=== PATIENT | male | born 1950 | race Caucasian/White ===

== ENCOUNTER 2016-11-01 14:18 | Inpatient (IN) | payer OTHER ==
[~2016-11-01] VITALS: Ht 190.5 cm; Wt 91.6 kg
[~2016-11-01 14:18] MED LIST: ALLOPURINOL300 MG PO; ASPIRIN81 M4 PO; BUPROPION HCL150 M2 PO; CALCIUM + D 6001 TAB PO; GERITOL COMPLET1 TA1 PO; HYDRODIURIL 2525 MG PO; K-DUR 20MEQ TA20 MEQ PO; MECLIZINE HCL25 MG PO; METOPROLOL SUC100 M1 PO; NEURONTIN300 MG PO; PRISTIQ100 MG PO; TOPROL XL50 M1 PO; ZINC50 M1 PO; [UNRECOGNIZED DRUG - OTHER] PO
--- NOTE | 2016-11-01 14:34 | ED GENERAL ADULT ---
History of Present Illness General Chief Complaint: Altered Mental Status Stated Complaint: AMS Source: family, EMS Exam Limitations: confusion, physical impairment Vital Signs & Intake/Output Vital Signs & Intake/Output Vital Signs Date Time Temp Pulse Resp B/P Pulse O2 O2 Flow FiO2 Ox Delivery Rate 11/01 1724 101.3 79 21 103/66 98 Nasal 2.0L Cannula 11/01 1604 101.9 97 18 101/60 98 Nasal 2.0L Cannula 11/01 1535 1105.0 11/01 1530 103.9 97 23 106/58 99 Nasal 2.0L Cannula 11/01 1500 105.0 98 25 116/61 99 Nasal 2.0L Cannula 11/01 1450 105.4 11/01 1430 96 Room Air 11/01 1429 105.0 121 16 82/47 94 Allergies Coded Allergies: NO KNOWN ALLERGIES (12/29/15) Reconcile Medications Allopurinol 300 MG TAB 1 TAB PO DAILY GOUT (Reported) BUPROPION HCL (Bupropion XL) 150 MG T24 1 TAB PO TID MENTAL HEALTH (Reported) Calcium/Vitamin D (Calcium + D) (Unknown Strength) TAB (Unknown Dose) PO BID SUPPLEMENT (Reported) Desvenlafaxine Succinate (Pristiq ER) [address] 1 TAB PO DAILY MENTAL HEALTH (Reported) Gabapentin (Neurontin) 300 MG CAP 1 CAP PO TID NERVE PAIN (Reported) IRON FUMARATE/VIT C/VIT B12/FA (Trigels-F Forte Softgel) 1 SGL SGL 1 SGL PO BID SUPPLEMENT (Reported) Metoprolol Succ XL (Toprol Xl) 50 MG TAB 0.5 TAB PO DAILY HTN MV, MIN #36/IRON,CARBONYL/FA (Geritol Complete Tablet) 1 TAB TAB 1 TAB PO DAILY SUPPLEMENT (Reported) POTASSIUM CHLORIDE (K-Dur) 20 MEQ TAB 1 TAB PO DAILY SUPPLEMENT (Reported) Zinc 50 MG TAB 1 TAB PO DAILY SUPPLEMENT (Reported) Triage Nurses Notes Reviewed? yes Onset: Abrupt Duration: day(s): Timing: recent history HPI: Patient seen on arrival 66-year-old man presents to the emergency department by ambulance for septic shock. The patient was apparently in his usual state of health until the last several days when he developed left-sided flank pain. He's also had right sided lower abdominal pain according to the . He has a history of kidney stones and has had hematuria recently. She says he has uric acid stones. Now this morning he's been confused. EMS was called and he was found to be profoundly hypotensive and had a fever of 105. The onset of the symptoms were abrupt, the duration has been several days, the severity significant; as this symptoms required him to come to the emergency department for care. Past History Medical History Any Pertinent Medical History? 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 No Review of Systems Review of Systems Constitutional: Reports: fever. EENTM: Denies: visual changes. Respiratory: Reports: no symptoms. Cardiovascular: Denies: chest pain. GI: Reports: abdominal pain, nausea. Genitourinary: Reports: hematuria. Musculoskeletal: Reports: back pain. Skin: Denies: rash. Neurological/Psychological: Reports: confusion. Hematologic/Endocrine: Denies: bruising, bleeding. Physical Exam Physical Exam General Appearance: awake, anxious, severe distress Head: atraumatic, normal appearance Eyes: Bilateral: normal appearance, PERRL, EOMI. Ears, Nose, Throat: normal pharynx, normal ENT inspection Neck: normal inspection, supple Respiratory: normal breath sounds, chest non-tender Cardiovascular: regular rate/rhythm Peripheral Pulses: 4+ radial (R), 4+ radial (L) Gastrointestinal: soft, non-tender, tenderness Back: decreased range of motion Extremities: no edema Neurologic/Psych: confused Skin: intact, palor Core Measures ACS in differential dx? No CVA/TIA Diagnosis: No Severe Sepsis Present: Yes Septic Shock Present: No Progress Differential Diagnoses I considered the following diagnoses in my evaluation of the patient: [Urosepsis , septic shock,] Plan of Care: Orders Procedure Date/time Status Heart Healthy Diet 11/02 B Active CBC WITHOUT DIFFERENTIAL 11/02 06 Active BASIC ELECTROLYTES PLUS BUN&CR 01/29 0600 Active LACTIC ACID 11/01 2330 Active LACTIC ACID 11/01 2030 Active Pathway - chart 11/01 1807 Active Pathway - chart 11/01 1806 Active Patient Data 11/01 1806 Active LACTIC ACID 11/01 1739 Complete EKG 11/01 1712 Active Patient Data 11/01 1655 Active Admit to inpatient 11/01 1636 Active Vital Signs 11/01 1636 Active Code Status 11/01 1636 Active Sanchez, Insertion/Removal/Asses 11/01 1441 Active CULTURE,URINE 11/01 1441 Active OXYGEN SETUP (GEN) 11/01 1439 Active XRY-PORTABLE CHEST XRAY 11/01 1439 Active Pathway - chart 11/01 1439 Active Vital Signs 11/01 1439 Active Telemetry/Dynamometer Tester Engine 11/01 1439 Active Intake & Output 11/01 1439 Active CULTURE,URINE 11/01 1439 Active BLOOD CULTURE 11/01 1439 Active URINALYSIS 11/01 1439 Complete TROPONIN LEVEL 11/01 1439 Complete PARTIAL THROMBOPLASTIN TIME 11/01 1439 Complete PROTHROMBIN TIME 11/01 1439 Complete PHOSPHORUS 11/01 1439 Complete MAGNESIUM 11/01 1439 Complete LACTIC ACID 11/01 1439 Complete COMPREHENSIVE METABOLIC PANEL 11/01 1439 Complete CBC WITHOUT DIFFERENTIAL 11/01 1439 Complete B-TYPE NATRIURETIC PEP (BNP) 11/01 1439 Complete EKG 11/01 1433 Active XRY-KIDNEYS, URETERS, BLADDER 11/01 UNK Active VTE Mechanical Prophylaxis 11/01 UNK Active Intake & Output 11/01 UNK Active PHYSICIAN CONSULT 11/01 UNK Active Current Medications Sig/Monica Start time Last Medication Dose Stop Time Status Admin Ceftriaxone Sodium 1,000 MG DAILY@1600 11/02 1600 AC (Rocephin) Non-Formulary 0 DAILY 11/02 1000 UNV Medication (NON FORMULARY) Potassium Chloride 20 MEQ DAILY 11/02 1000 AC (K-Dur) Bupropion HCl 150 MG DAILY 11/01 2200 AC (Wellbutrin XL) Gabapentin 300 MG BID 11/01 2200 AC (Neurontin) Heparin Sodium 5,000 UNIT Q8 11/01 2200 AC (Porcine) Acetaminophen 650 MG Q8P PRN 11/01 1815 AC (Tylenol) Acetaminophen 1,000 MG Q8P PRN 11/01 1815 AC (Ofirmev) Desvenlafaxine 100 MG DAILY 11/01 1800 AC Succinate (Pristiq) Non-Formulary 0 SEE ADMIN CRITERIA 11/01 1800 UNVr Medication (NON FORMULARY) Laboratory Tests 11/01/16 1739: Lactic Acid 2.4 H 11/01/16 1430: Anion Gap 12, Estimated GFR 29 L, BUN/Creatinine Ratio 12.2, Glucose 101 H, Lactic Acid 2.1, Calcium 8.3 L, Phosphorus 2.5, Magnesium 1.4 L, Total Bilirubin 0.6, AST 18, ALT 31, Alkaline Phosphatase 111, Troponin I 0.02, Pro-B- Natriuretic Pept 534 H, Total Protein 6.0 L, Albumin 3.3 L, Globulin 2.7, Albumin/Globulin Ratio 1.2, PT 12.6 H, INR 1.20 H, APTT 27, CBC w Diff MAN DIFF ORDERED, RBC 4.20 L, MCV 94.0, MCH 31.2 H, RDW 16.1 H, MPV 6.9 L, Gran % 95.0 H, Lymphocytes % 3.3 L, Monocytes % 0.8 L, Eosinophils % 0.9, Basophils % 0 L, Absolute Granulocytes 3.3, Segmented Neutrophils 90 H, Band Neutrophils 7 H, Absolute Lymphocytes 0.1 L, Lymphocytes 2 L, Monocytes 1 L, Absolute Monocytes 0 L, Absolute Eosinophils 0, Absolute Basophils 0, Platelet Estimate DECREASED, Polychromasia 1+, Hypochromic-Microcytic 1+, Anisocytosis 1+ , PUBS MCHC 33.2 11/01/16 1420: Urine Color YEL, Urine Clarity CLEAR, Urine pH 6.0, Ur Specific [place] 1.020, Urine Protein TRACE H, Urine Ketones NEG, Urine Nitrite POS H, Urine Bilirubin NEG, Urine Urobilinogen 0.2, Ur Leukocyte Esterase SMALL H, Ur Microscopic SEDIMENT EXAMINED, Urine RBC >75 H, Urine WBC RARE, Ur Epithelial Cells RARE, Urine Mucus RARE, Urine Hemoglobin LARGE H, Urine Glucose NEG Microbiology 11/01 1450 BLOOD: Blood Culture - RECD 11/01 1441 URINE ROUT: Urine Culture - ORD 11/01 1430 BLOOD: Blood Culture - RECD 11/01 1420 URINE ROUT: Urine Culture - RECD Initial ED EKG: NSR, nonspecific ST T wave chg Prior EKG: unchanged Comments: 11/01/16 The patient was treated with 4 L of IV fluids. IV antibiotics. Emergent urology consultation. The patient was taken to the operating room for emergent stenting. Departure Departure Disposition: STILL A PATIENT Condition: Stable Clinical Impression Primary Impression: Pyelonephritis Referrals: ROSA DUMONT,YOGESH Dumont (PCP/Family) Departure Forms: Customer Survey General Discharge Information Prescriptions: Current Visit Scripts Metoprolol Succ XL (Toprol Xl) 0.5 TAB PO DAILY #30 TAB Comments 11/01/16 5 PM Spoke with the urologist. He will be taking the patient to the OR for stenting. Admission Note Spoke With: BHASKAR GUADALUPE MD Documentation of Exam: Documentation of any treatments & extenuating circumstances including Concerns Regarding Discharge (functional status, medication knowledge or non-compliance, living conditions, etc.) that warrant an admission rather than observation: [The patient needs admission for IV antibiotics, IV fluids, urology consultation] Critical Care Note Critical Care Note Critical Care Time: 30-74 min
[2016-11-01 15:01] LABS: ABSOLUTE BASOPHIL COUNT 0 /CUMM (0.0-0.2); ABSOLUTE EOSINOPHIL COUNT 0 /CUMM (0.0-0.7); ABSOLUTE GRANULOCYTE CT 3.3 /CUMM (1.4-6.5); ABSOLUTE LYMPH COUNT 0.1 /CUMM (1.2-3.4); ABSOLUTE MONOCYTE COUNT 0 /CUMM (0.10-0.60); BASOPHIL % 0 % (0.0-2.0); EOSINOPHIL % 0.9 % (0-5); HEMATOCRIT 39.5 % (42-52); MEAN CORPUSCULAR HGB 31.2 PG (27.0-31.0); MEAN CORPUSCULAR HGB CONC 33.2 G/DL (33.0-37.0); MEAN PLATELET VOLUME 6.9 FL (7.4-10.4); PLATELET COUNT 135 /CUMM (130-400); RBC DISTRIBUTION WIDTH 16.1 % (11.5-14.5); WHITE BLOOD CELL COUNT 3.5 /CUMM (4.8-10.8)
[2016-11-01 15:09] LABS: PT 12.6 SEC (9.4-12.5); PTT 27 SEC (25-37)
--- NOTE | 2016-11-01 16:08 | CT SCAN REPORT ---
EXAMINATION: CT ABDOMEN AND PELVIS WITHOUT CONTRAST CLINICAL INFORMATION: Abdominal pain, sepsis. COMPARISON: Multiple priors, most recent abdominal radiographs dated 08/31/[address] abdomen/pelvis dated 08/29/2016. TECHNIQUE: Multidetector volumetric imaging was performed from the superior aspect of the liver through the pubic symphysis. Sagittal and coronal reformatted images were obtained on the technologist's workstation. DLP: 819.28 mGy-cm. FINDINGS: Evaluation of the abdominal viscera is limited without IV contrast. LUNG BASES: A partially visualized 1.6 cm soft tissue nodule is seen within the right middle lobe on series 3 image 7. A dedicated chest CT is recommended to help further evaluate. There are mild bilateral dependent atelectatic changes. Atherosclerotic calcifications are seen within the coronary arteries. LIVER, GALLBLADDER, AND BILIARY TREE: The liver is normal in size, shape, and attenuation. No focal hepatic lesion or biliary ductal dilatation is present. The gallbladder is surgically absent and there are surgical clips within the gallbladder fossa. PANCREAS: Unremarkable. SPLEEN: Unremarkable. ADRENAL GLANDS: Unremarkable. KIDNEYS AND URETERS: The kidneys are normal in size, shape, and attenuation. There is increased right-sided proximal hydroureter and hydronephrosis. The previously identified renal pelvic stone is more prominent, now measuring 1.5 cm. An additional inferior pole renal stone is also more prominent, now measuring 0.7 cm. There is new right-sided perinephric stranding. There is no left-sided hydronephrosis. A 0.2 cm left inferior renal pole stone is now identified. There is new left-sided perinephric stranding. BLADDER: Mild wall thickening, likely secondary to underdistention. GASTROINTESTINAL TRACT: Surgical sutures associated with the prior bariatric surgery are redemonstrated. There is no large- or small-bowel obstruction. There is no intra-abdominal free air or free fluid. No intra-abdominal abscess is identified. The appendix is normal. ABDOMINAL WALL: No significant hernia is appreciated. LYMPH NODES: Evaluation is limited without IV contrast. There are scattered subcentimeter retroperitoneal nodes. VASCULAR: Diffuse atherosclerotic calcifications are seen throughout the abdominal aorta and its branch vessels. There is no abdominal aortic dilatation. An IVC filter is redemonstrated in unchanged position. PELVIC VISCERA: Faint calcifications are redemonstrated within the central prostate. OSSEOUS STRUCTURES: Joint space narrowing and extensive subchondral cystic change is again noted at the right hip. Posterior fusion hardware and disc spacers are redemonstrated at L3 through L5. There are degenerative changes within the visualized lower thoracic and lumbar spine. IMPRESSION: 1. Increased right-sided proximal hydroureter and hydronephrosis. Increased prominence of 2 right-sided renal stones. No left-sided hydronephrosis. Left lower pole renal stone, new since the prior examination. Bilateral perinephric stranding, new since the prior examination. Evaluation is limited without IV contrast, however, pyelonephritis could be considered in the appropriate clinical setting. 2. Postsurgical changes associated with prior bariatric surgery. No large- or small-bowel obstruction. 3. Unchanged lower lumbar spine postsurgical changes and severe right hip osteoarthritis.
[2016-11-01] MEDS ORDERED: TOPROL XL50 M1 PO (17:32)
--- NOTE | 2016-11-01 17:45 | History & Physical ---
MIMI RDZ MD 11/01/16 9004: General Information and HPI MD Statement: I have seen and personally examined XAVIER FOSS and documented this H &P. The patient is a 66 year old M who presented with a patient stated chief complaint of weakness and fever. Source of Information: patient, family, old records Exam Limitations: no limitations History of Present Illness: Mr. Foss is a pleasant 66 year old male with PMH significant for HTN, HLD, CKD stage 3, gastric bypass, hypokalemia, polysubstance abuse, chronic back pain, vertigo, gout and anxiety/depression who was brought in to the [facility] due to altered mental status. Patient reports that for the last 6 weeks, he has had chronic diarrhea for which he saw his PCP and was given flagyl. Symptoms persistent after treatment and resulted in an 18 pound weight loss. On Thursday, he took timothy-seltzer and since that time has been constipated ( last BM on 10/29/16). Then patient noted that over the last few days, he has been increasingly lethargic with decreased appetite and associated abdominal pain. This abdominal pain is constant, located in the belt region, and does not move. The pain worsens with movement of his bilateral lower extremities. Associated symptoms include left-sided flank pain, right sided lower abdominal pain, 1 episode of slight hematuria and chills. This morning, his noticed that he was confused and unable to recall the date/time. She then took his temperature and noted a fever to 100.5 for which she transported him to the emergency room. Patient currently denies dizziness, chest pain, palpitions, shortness of breath, wheezing, nausea, vomiting, dysuria, pain on urination, foul smelling urine, urinary frequency, change in bowel movements or hematochezia. PSH is significant for L4-L6 fusion and prior gastric bypass. Family history is significant for a father who had a myocardial infarction. Of note, patient reports he was recently seen by Dr. Guerrier who performed a stress test and the results were normal. He was also previously seen by Dr. Mart for kidney stones and no urological intervention was done at that time. Social history is significant for prior polysubstance abuse, for which he currently denies alcohol , drug or tobacco usage. Patient also follows up with Dr. Castillo for his chronic kidney disease. Allergies/Medications Allergies: Coded Allergies: NO KNOWN ALLERGIES (12/29/15) Home Med list Allopurinol 300 MG TAB 1 TAB PO DAILY GOUT (Reported) BUPROPION HCL (Bupropion XL) 150 MG T24 1 TAB PO TID MENTAL HEALTH (Reported) Calcium/Vitamin D (Calcium + D) (Unknown Strength) TAB (Unknown Dose) PO BID SUPPLEMENT (Reported) Desvenlafaxine Succinate (Pristiq ER) [address] 1 TAB PO DAILY MENTAL HEALTH (Reported) Gabapentin (Neurontin) 300 MG CAP 1 CAP PO TID NERVE PAIN (Reported) IRON FUMARATE/VIT C/VIT B12/FA (Trigels-F Forte Softgel) 1 SGL SGL 1 SGL PO BID SUPPLEMENT (Reported) Metoprolol Succ XL (Toprol Xl) 50 MG TAB 0.5 TAB PO DAILY HTN MV, MIN #36/IRON,CARBONYL/FA (Geritol Complete Tablet) 1 TAB TAB 1 TAB PO DAILY SUPPLEMENT (Reported) POTASSIUM CHLORIDE (K-Dur) 20 MEQ TAB 1 TAB PO DAILY SUPPLEMENT (Reported) Zinc 50 MG TAB 1 TAB PO DAILY SUPPLEMENT (Reported) Compliance With Home Meds: GOOD Past History Travel History Traveled to [place] past 21 day No Medical History Neurological: NONE EENT: NONE Cardiovascular: hypertension Respiratory: NONE Gastrointestinal: GASTRIC BYPASS Hepatic: NONE Renal: chronic kidney disease, nephrolithiasis Musculoskeletal: BACK PAIN Psychiatric: anxiety, depression Endocrine: NONE Blood Disorders: NONE Cancer(s): NONE SHOE MAKER/Reproductive: NONE History of MRSA: No History of VRE: No History of CDIFF: No Surgical History Surgical History: BACK FUSION OF L4-6 Past Family/Social History Family History Relations & Conditions if any FATHER Myocardial infarction Psychosocial History Where do you live? Home Who Do You Live With? spouse Services at Home: None Primary Language: Turkmen Smoking Status: Former Smoker ETOH Use: denies use Illicit Drug Use: denies illicit drug use Functional Ability ADLs Independent: dressing, eating, toileting, bathing. Ambulation: independent IADLs Independent: shopping, housework, finances, food prep, telephone, transportation , medication admin. Sexual History Sexually Active Yes Review of Systems Review of Systems Constitutional: Reports: chills, fever, malaise, weakness, unexplained weight loss. Denies: diaphoresis. EENTM: Denies: blurred vision, visual changes, hearing changes, nasal congestion, throat pain. Cardiovascular: Denies: chest pain, palpitations, peripheral edema, syncope. Respiratory: Denies: cough, short of breath, sputum production, wheezing. GI: Reports: abdominal pain, constipation, diarrhea. Denies: melena, nausea, bloody stool, vomiting. Genitourinary: Denies: discharge, dysuria, frequency, hematuria, pain, urgency. Musculoskeletal: Reports: back pain (Chronic), gout (History of, no recent flares), joint pain ( Bilateral hips), muscle pain. Skin: Denies: dryness, erythema, lesions. Neurological/Psychological: Reports: anxiety, confusion. Denies: headache, numbness, paresthesia, tremors. Hematologic/Endocrine: Denies: bruising, bleeding, polyuria, polydipsia. Immunologic/Allergic: Denies: splenectomy. All Other Systems: Reviewed and Negative Exam & Diagnostic Data Last 24 Hrs of Vital Signs/I&O Vital Signs Date Time Temp Pulse Resp B/P Pulse O2 O2 Flow FiO2 Ox Delivery Rate 11/01 1724 101.3 79 21 103/66 98 Nasal 2.0L Cannula 11/01 1604 101.9 97 18 101/60 98 Nasal 2.0L Cannula 11/01 1535 1105.0 11/01 1530 103.9 97 23 106/58 99 Nasal 2.0L Cannula 11/01 1500 105.0 98 25 116/61 99 Nasal 2.0L Cannula 11/01 1450 105.4 11/01 1430 96 Room Air 11/01 1429 105.0 121 16 82/47 94 Intake & Output 11/01 1600 11/01 0800 11/01 0000 Intake Total 3100 Output Total 100 Balance 3000 Intake, IV 3100 Output, Urine 100 Patient 220 lb Weight Physical Exam General Appearance Alert, Oriented X3, Cooperative, No Acute Distress Skin No Rashes, No Significant Lesion HEENT Atraumatic, PERRLA, EOMI, Dry mucous membranes Neck Supple, No JVD, No thryomegaly Lymphatic Cervical nl Cardiovascular Regular Rate, Normal S1, Normal S2, No Murmurs Lungs Clear to Auscultation, Normal Air Movement Abdomen Normal Bowel Sounds, No Hepatospenomegaly, No Masses, Mild tenderness of palpation to RLQ, suprapubic and LLQ. No epigastric, RUQ or LUQ tenderness. No rebound or guarding. No CVA tenderness appreciated. Neurological Normal Speech, Normal Tone, Sensation Intact Extremities No Clubbing, No Cyanosis, No Edema, No Tenderness/Swelling Vascular Normal capillary refill Last 24 Hrs of Labs/Artur: Laboratory Tests 11/01/16 1739: Lactic Acid Pending 11/01/16 1430: Anion Gap 12, Estimated GFR 29 L, BUN/Creatinine Ratio 12.2, Glucose 101 H, Lactic Acid 2.1, Calcium 8.3 L, Phosphorus 2.5, Magnesium 1.4 L, Total Bilirubin 0.6, AST 18, ALT 31, Alkaline Phosphatase 111, Troponin I 0.02, Pro-B- Natriuretic Pept 534 H, Total Protein 6.0 L, Albumin 3.3 L, Globulin 2.7, Albumin/Globulin Ratio 1.2, PT 12.6 H, INR 1.20 H, APTT 27, CBC w Diff MAN DIFF ORDERED, RBC 4.20 L, MCV 94.0, MCH 31.2 H, RDW 16.1 H, MPV 6.9 L, Gran % 95.0 H, Lymphocytes % 3.3 L, Monocytes % 0.8 L, Eosinophils % 0.9, Basophils % 0 L, Absolute Granulocytes 3.3, Segmented Neutrophils 90 H, Band Neutrophils 7 H, Absolute Lymphocytes 0.1 L, Lymphocytes 2 L, Monocytes 1 L, Absolute Monocytes 0 L, Absolute Eosinophils 0, Absolute Basophils 0, Platelet Estimate DECREASED, Polychromasia 1+, Hypochromic-Microcytic 1+, Anisocytosis 1+ , PUBS MCHC 33.2 11/01/16 1420: Urine Color YEL, Urine Clarity CLEAR, Urine pH 6.0, Ur Specific [place] 1.020, Urine Protein TRACE H, Urine Ketones NEG, Urine Nitrite POS H, Urine Bilirubin NEG, Urine Urobilinogen 0.2, Ur Leukocyte Esterase SMALL H, Ur Microscopic SEDIMENT EXAMINED, Urine RBC >75 H, Urine WBC RARE, Ur Epithelial Cells RARE, Urine Mucus RARE, Urine Hemoglobin LARGE H, Urine Glucose NEG Microbiology 11/01 1450 BLOOD: Blood Culture - RECD 11/01 1441 URINE ROUT: Urine Culture - ORD 11/01 1430 BLOOD: Blood Culture - RECD 11/01 1420 URINE ROUT: Urine Culture - RECD Diagnostic Data EKG Results Sinus tachycardia, HR 117, Qwaves in leads 2, 3, aVF (old) and QTC 447. CXR Results Addendum: Additional to the listed impressions, the following should be included: 4. Soft tissue nodule within the right middle lobe measuring 1.[address] is recommended to help further evaluate. Addendum Signed by: EVER MILAN MD 11/01/16 2525 EXAMINATION: CT ABDOMEN AND PELVIS WITHOUT CONTRAST CLINICAL INFORMATION: Abdominal pain, sepsis. COMPARISON: Multiple priors, most recent abdominal radiographs dated 08/31/[address] abdomen/pelvis dated 08/29/2016. TECHNIQUE: Multidetector volumetric imaging was performed from the superior aspect of the liver through the pubic symphysis. Sagittal and coronal reformatted images were obtained on the technologist's workstation. DLP: 819.28 mGy-cm. FINDINGS: Evaluation of the abdominal viscera is limited without IV contrast. LUNG BASES: A partially visualized 1.6 cm soft tissue nodule is seen within the right middle lobe on series 3 image 7. A dedicated chest CT is recommended to help further evaluate. There are mild bilateral dependent atelectatic changes. Atherosclerotic calcifications are seen within the coronary arteries. LIVER, GALLBLADDER, AND BILIARY TREE: The liver is normal in size, shape, and attenuation. No focal hepatic lesion or biliary ductal dilatation is present. The gallbladder is surgically absent and there are surgical clips within the gallbladder fossa. PANCREAS: Unremarkable. SPLEEN: Unremarkable. ADRENAL GLANDS: Unremarkable. KIDNEYS AND URETERS: The kidneys are normal in size, shape, and attenuation. There is increased right-sided proximal hydroureter and hydronephrosis. The previously identified renal pelvic stone is more prominent, now measuring 1.5 cm. An additional inferior pole renal stone is also more prominent, now measuring 0.7 cm. There is new right-sided perinephric stranding. There is no left-sided hydronephrosis. A 0.2 cm left inferior renal pole stone is now identified. There is new left-sided perinephric stranding. BLADDER: Mild wall thickening, likely secondary to underdistention. GASTROINTESTINAL TRACT: Surgical sutures associated with the prior bariatric surgery are redemonstrated. There is no large- or small-bowel obstruction. There is no intra-abdominal free air or free fluid. No intra-abdominal abscess is identified. The appendix is normal. ABDOMINAL WALL: No significant hernia is appreciated. LYMPH NODES: Evaluation is limited without IV contrast. There are scattered subcentimeter retroperitoneal nodes. VASCULAR: Diffuse atherosclerotic calcifications are seen throughout the abdominal aorta and its branch vessels. There is no abdominal aortic dilatation. An IVC filter is redemonstrated in unchanged position. PELVIC VISCERA: Faint calcifications are redemonstrated within the central prostate. OSSEOUS STRUCTURES: Joint space narrowing and extensive subchondral cystic change is again noted at the right hip. Posterior fusion hardware and disc spacers are redemonstrated at L3 through L5. There are degenerative changes within the visualized lower thoracic and lumbar spine. IMPRESSION: 1. Increased right-sided proximal hydroureter and hydronephrosis. Increased prominence of 2 right-sided renal stones. No left-sided hydronephrosis. Left lower pole renal stone, new since the prior examination. Bilateral perinephric stranding, new since the prior examination. Evaluation is limited without IV contrast, however, pyelonephritis could be considered in the appropriate clinical setting. 2. Postsurgical changes associated with prior bariatric surgery. No large- or small-bowel obstruction. 3. Unchanged lower lumbar spine postsurgical changes and severe right hip osteoarthritis. Assessment/Plan Assessment: Xavier is a pleasant 66 year old male with significant PMH of HTN, HLD, vertigo, chronic back pain, polysubtance abuse, nephrolithiasis, CKD stage 3, gastric bypass, hypokalemia, gout and anxiety/depression who presents with a 2 day history of lethargy, confusion, fever to 105, chills and bilateral lower quadrant pain. This morning, his noticed that he was extremely confused and shaking from severe chills. She subsequently took his temperature and noted a fever to 105, prompting her to call EMS. In the ED: Vital signs showed T 105.0, HR 121, RR 25, BP 82/47 stabilized to 103 /66 after liter boluses of NS, and O2 saturation of 94% on 2 L NC. Labs showed leukopenia to 3.5 with 7 bands, H&H 13.1/39.5, Plt 135, Na 141, K 3.4, Cl 111, HCO3 17, BUN/cre 28/2.3, glu 101, lactic acid 2.1, Mg 1.4, AST/ALT WNL, Alk phos 111, Trop 0.02, proBNP 534 and INR elevated to 1.2. UA suggestive of UTI with + nitrite, small leuk esterase, RBC >[address] abdomen/pelvis without IV contrast showed increased right-sided proximal hydroureter and hydronephrosis. Increased prominence of 2 right-sided renal stones. No left-sided hydronephrosis. Left lower pole renal stone, new since the prior examination. Bilateral perinephric stranding. Soft tissue nodule within the right middle lobe measuring 1.6 cm. In the ED: Patient given 6 NS liter boluses as well as ceftriaxone and azithromycin as well as IV toradol and IV acetaminophen. Patient was admitted to the general medicine floor and the following is the management: 1. Sepsis of urological origin with right sided hydronephrosis and urine outflow obstruction due to nephrolithiasis * Sepsis with noted leukopenia, lactic acid elevated to 2.4, fever to 105, tachypnea, tachycardia and hypotension * UA suggestive of UTI * Blood and urine cultures drawn in the ED, f/u results * Continue IV fluids with NS at 100 cc/h * Continue IV ceftriaxone for urinary tract infection * IV tylenol for fever/moderate pain, tylenol for mild pain * Urology consult with Dr. Miles already placed, he will be taking patient to the OR for likely stent placment * F/U any further urological recommendations 2. CAPO on CKD * Baseline cre noted to be around 1.5-1.6 * Current Cre 2.3 * Continue IVF for dehydration (prerenal) and stenting to relieve outflow obstruction (post renal) * Follow daily BEP 3. Hypomagnesemia * Mg noted to be 1.4 on admission * 400 mg x1 of PO mag given * Repeat Mg level in AM 4. Hypokalemia * K of 3.4 on admission * Patient has history of hypokalemia 2/2 gastric bypass and on daily supplementation * Resume daily K * Continue all other vitamin supplementations for gastric bypass (ie. zinc, geritol) 5. HTN * Currently holding metoprolol XL 25 mg PO daily for HTN * Monitor vital signs closely * Continue IV fluids for hypotension in the setting of sepsis 6. Mental health (depression, anxiety) * Verify CMR in AM * Bupropion 150 mg PO daily (he is reportedly on BID at home) * Desvenlafaxine 100 mg PO daily (home dose) * Neurontin 300 mg PO BID for now due to decreased creatinine clearance (Patient normally takes TID at home) 7. 1.6 cm Soft Tissue Nodule within right middle lobe * Dedicated CT chest for close follow up upon discharge from the hospital 8. Gout * Allopurinol currently on hold 2/2 renal dysfunction * Monitor BEP for renal function and reinstitute once BUN/cre stabilized FULL CODE DVTP: [place] & Heparin SC Diet: Resume heart healthy diet after urological procedure Mild-moderate pain pathway As Ranked By This Provider Problem List: 1. Hypokalemia 2. Full code status 3. DVT prophylaxis 4. Pyelonephritis 5. Nephrolithiasis 6. CAPO (acute kidney injury) Core Measures/Miscellaneous Acute Coronary Syndrome ACS Diagnosis: No Cerebrovascular Accident CVA/TIA Diagnosis: No Congestive Heart Failure CHF Diagnosis: No Venous Thromboembolism VTE Risk Factors: Acute medical illness, Age > 40, Obesity VTE Prophylaxis Ordered Inpt: Mech & Pharm No Mech VTE prophylaxis d/t: No contraindications No VTE Pharm Prophylaxis d/t: No contraindications VTE Diagnosis: No VTE Type: NONE VTE Confirmed by (Test): NONE Severe Sepsis Severe Sepsis Present: No Septic Shock Septic Shock Present: No Miscellaneous Documentation Attending Case Discussed With: BHASKAR GUADALUPE MD Primary Care Physician: YOGESH LEE MD Patient sees these Specialists Dr. Mart- Urology Dr. Castillo- Nephrology Dr. Guerrier- Cardiology Dr. Lee- PCP Level of Patient Care: General Medicine JACIEL HOLDER 11/01/161915: Resident Review Statement Resident Statement: examined this patient, discussed with administrative intern, agreed with administrative intern, discussed with family Other Findings: Patient is 66 years old male with PMH of gastric bypass surgery, HTn, HLD, gouty arithis was brought by with chief complain of AMS and fever of 105. Patient states that this morning, he started experiencing lower abdominal pain, over is waist region, it was sharp, excruciating 10/10, worsened by movement. Patient states that he had never experienced a similar pain before, it was also accompanied by some nausea. Patient reports that he has a history of b/l kidney stones, but they never bothered him before. He follows up with Dr. Shaffer. Patient reports of fever, chills and denies any CP, SOB, headache, dizziness dysuria etc. Patient states that he has been having increased urinary frequency. Vitals on admission: Temp 105, BP 82/47 initiaaly, he was bolused with 5 L of fluids in ER and BP improved to 103/66. HR initially 120 improved to 98. EKG showed old inferior infarct. 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 CT scan abdomen was significant right hydroureter, details as above. Problem list: Left hydroureter with urinary obstruction Capo on CKD Septic Shock due to sepsis of urological origin. Electrolyte imbalance Assessment and Plan Will admit patient to general medicine floor, resucitate him with 150 cc of NS, s/p 6 NS bolus Lactic acid 2.4 will continue to trend q3 hrs. Patient got one dose of Ceftriaxone in ER, will continue Patient is taken to OR by Dr. miles for right sided ureteric stent placement to relieve obstruction. Will continue to monitor. Will hold metoprolol 25 mg tab that patient takes at home, re-evaluate in am Will continue his psyc meds and multivitamins Patient has CAPO on CKD, will continue to monitor. Will avoid all nephro toxic agenst such as NSAID DVT ppx SC heprin Patient is full code BHASKAR GUADALUPE MD 11/01/16 2331: Attending MD Review Statement Attending Statement Attending MD Statement: examined this patient, discuss w/resident/PA/DEICER TESTER, agreed w/resident/PA/DEICER TESTER, reviewed EMR data (avail), discussed with nursing, reviewed images, amended to note Attending Assessment/Plan: The patient is a 66 yo male with h/o CKD3, s/p gastric bypass (?6 yrs ago), known nephrolithiasis, anxiety/depression, and chronic back pain who was brought to the [facility] ED with some abdominal pain as well as fever and chills. In the ED he was 105 degrees and hypotensive. His BP improved after 5 liters of IV fluids in the ED. He did describe some lower abdominal/pelvic pain. No chest pain, dyspnea or dysuria. Physical Exam: VS: T 105- 102, P 121-79, R 18-21, BP 82/47-103/66, PO 98% 2L HEENT: eyes- PERRLA, EOMI artem- dry mucosa Neck: no JVD or bruits Chest: clear Cor: RRR nl S1, S2, w/o murm Abd: BS+, soft, non-tender at time of my exam, - CVAT Ext: no edema, pulses 2+ Neuro: alert & oriented x 3, non-focal Labs/Tests- as above Impression/Plan: #Sepsiss- most likely of urologic origin with CT findings of perinephric stranding, etc. Initial urinalysis not impressive. Did respond to fluids in ED with increase in BP and decrease in HR. Temp decreased from 105 to 102. Plan: Admit to medicine- monitor VS closely. Bradshaw culture (done), check lactate level. IV Antibiotics- Ceftriaxone at present (also receive Zithromax in ED) Continue IV fluids. #Pyelonephritis/Urinary Tract Infection- CT c/w pyelonephritis, however urinalysis w/o significant pyuria. Plan: Await cultures- continue antibiotics. #Obstructive Uropathy- as above, obstruction noted on right side. Has h/o nephrolithiasis. Being taken to OR this evening for stent with Urology. Plan: Urology consult/ ureteral stent. #CAPO/CKD3- patient with h/o renal failure now with increase in Cr to 2.3 (from 1.5 range). Most likely secondary to volume depletion and obstruction. Plan: Follow I/O's, observe with hydration. May need nephrology involvement if not improving. #Hypomagnesemia/Hypokalemia- noted on labs. Plan: Replete magnesium and potassium, however monitor closely with renal failure. #H/O HTN- normally on Metoprolol. Now hypotensive due to sepsis. Plan: Hold Metoprolol. #Depression/Anxiety- patient with h/o this and on meds. Plan: Agree with verify meds and hold at present in light of renal failure. #H/O Gout- on allopurinol. Plan: Hold with renal failure. Plan: Replete orally.
[2016-11-01 20:15] VITALS: BP 96/44
--- NOTE | 2016-11-01 22:15 | Admission Certification ---
Admission Certification Certification Statement - As attending physician, I certify that at the time of - admission, based on clinical presentation, severity of - symptoms, need for further diagnostic testing and - therapeutic interventions, and risk of adverse outcomes - without in-hospital treatment, in my clinical assessment, - this patient requires an acute hospital stay for a minimum - of two nights or longer. I have also considered psychsocial - factors such as support system, advanced age, financial - issues, cognitive issues, and failed out-patient treatments, - past re-admission history, safety of patient, and lack of - compliance as applicable. Specific rationale supporting this admission is: The patient is being admitted with sepsis of urologic origin with inital temperature of 105 degrees and BP systolic of 82. Also with obstructive uropathy and right hydronephrosis secondary to nephrolithiasis and SHUKRI. Needs Urology consult for stent, fluids (received 6 L in ED) and IV antibiotics. Close hemodynamic monitoring.
[2016-11-01 22:30] VITALS: BP 98/44
[2016-11-01 22:48] VITALS: BP 98/44
--- NOTE | 2016-11-01 23:09 | RADIOLOGY REPORT ---
EXAMINATION: INTRAOPERATIVE FLUOROSCOPIC GUIDANCE AND ABDOMEN CLINICAL INFORMATION: Right nephrolithiasis and hydroureteronephrosis. COMPARISON: Same day abdominal and pelvic CT. TECHNIQUE: Fluoroscopic time was utilized in the OR for Dr. Miles. Fluoroscopic images were obtained in the AP projection. FINDINGS: A single fluoroscopic frontal spot image was provided during placement of a right ureteral stent. The proximal aspect of the catheter overlies the right renal pelvis. The renal pelvis and calyces are dilated. FLUOROSCOPY TIME: 6 seconds of fluoroscopic time was utilized for the entirety of this examination. IMPRESSION: A single fluoroscopic frontal spot image was provided during placement of a right ureteral stent. The proximal aspect of the catheter overlies the right renal pelvis. The renal pelvis and calyces are dilated.
[2016-11-01 23:30] VITALS: BP 80/50
[2016-11-02] VITALS (7 sets, daily range): BP systolic 76–108; BP diastolic 50–58
--- NOTE | 2016-11-02 04:34 | Event Note ---
Event Note Event Note: Situation: Persistent hypotension of 70/50mmHg (manual by me) after 6L fluid resuscitation Brief: Patient is a 66 YO M admitted today with urosepsis, he received 6L of fluids in ER, was on maintenence fluids after coming to the floor. He was persistently hypotnesive around 80/50, given 500ml bolus without any change in BP. Assessment and plan As patient is not responding to fluids, transfered patient to ICU for pressors. Informed consent taken for central line palcement Tried to reach out his - lowell ventura, but she is deaf with bilateral cochlear implants. She usually doesnt put them while sleeping. However made a call, but unanswered and her voice box cannot be reached. The above plan is in agreement with my resident () and motor builder winder ( ).
--- NOTE | 2016-11-02 06:16 | Proc Note Internal Medicine ---
JAYNA JIMENEZ MD 11/02/16 0615: Medicine Procedure Procedure Date: 11/02/16 Medical Procedure(s): central venous cath place Pre-Operative Diagnosis: SEPTIC SHOCK UTI Post-Operative Diagnosis: SEPTIC SHOCK Estimated Blood Loss: less than 50ml Anesthesia: local monitored anesthesi Procedure Findings: Date: 11/02/2016 Time: 6:15 AM Indication: Hemodynamic monitoring/Intravenous access Resident: JAYNA JIMENEZ MD Attending: DONI RAMÍREZ MD A time-out was completed verifying correct patient, procedure, site, positioning , and special equipment if applicable. The patient was placed in a dependent position appropriate for central line placement based on the vein to be cannulated. The patients right neck was prepped and draped in sterile fashion. 1% Lidocaine was used to anesthetize the surrounding skin area. A triple lumen Cordis catheter was introduced into the the internal jugular vein using the Seldinger technique and under ultrasound guidance. The catheter was threaded smoothly over the guide wire and appropriate blood return was obtained. Each lumen of the catheter was evacuated of air and flushed with sterile saline. The catheter was then sutured in place to the skin and a sterile dressing applied. Perfusion to the extremity distal to the point of catheter insertion was checked and found to be adequate. Attending Dr. Ramírez was present for the entire procedure. Estimated Blood Loss: less than 50 cc The patient tolerated the procedure well and there were no complications. CXR reviewed and Rt. IJ line noted in adequate position. No pneumothorax noted. LIGIA RAMÍREZ MD 11/02/16 0625: Addendum Addendum Procedure supervised by me. Patient is in septic shock, not responsive to IV fluids. Patient consented to procedure. INR 1.20. Patient tolerated the procedure well. No complications. Post procedure CXR confirmed placement.
[2016-11-02 06:59] LABS: ABSOLUTE BASOPHIL COUNT 0 /CUMM (0.0-0.2); ABSOLUTE EOSINOPHIL COUNT 0 /CUMM (0.0-0.7); ABSOLUTE GRANULOCYTE CT 27.9 /CUMM (1.4-6.5); ABSOLUTE LYMPH COUNT 0.6 /CUMM (1.2-3.4); ABSOLUTE MONOCYTE COUNT 2.3 /CUMM (0.10-0.60); BASOPHIL % 0 % (0.0-2.0); EOSINOPHIL % 0 % (0-5); GRANULOCYTE % 90.8 % (42.2-75.2); HEMATOCRIT 36.1 % (42-52); MEAN CORPUSCULAR HGB 31.5 PG (27.0-31.0); MEAN CORPUSCULAR HGB CONC 33.2 G/DL (33.0-37.0); MEAN CORPUSCULAR VOLUME 95.1 FL (80.0-94.0); MEAN PLATELET VOLUME 7.9 FL (7.4-10.4); PLATELET COUNT 108 /CUMM (130-400); RBC DISTRIBUTION WIDTH 16.7 % (11.5-14.5); RED BLOOD CELL CT 3.79 /CUMM (4.70-6.10)
--- NOTE | 2016-11-02 07:09 | RADIOLOGY REPORT ---
EXAMINATION: XR PORTABLE CHEST CLINICAL INFORMATION: Sepsis COMPARISON: Chest x-ray 08/29/2016 TECHNIQUE: Portable AP view of the chest was obtained. FINDINGS: Heart size and pulmonary vascularity is within normal limits. There is small area of patchy parenchymal opacity in the right middle which could represent an area of subsegmental atelectasis or developing infiltrate. No other focal finding is seen in the lungs at this time. The lungs are normally expanded. There is no pleural effusion or pneumothorax. Visualized bony structures are unremarkable. IMPRESSION: There is some patchy parenchymal opacity in the right middle lobe which could represent an area of developing atelectasis or infiltrate. No other focal findings are seen at this time.
--- NOTE | 2016-11-02 07:26 | RADIOLOGY REPORT ---
EXAMINATION: XR PORTABLE CHEST CLINICAL INFORMATION: Right IJ line placement COMPARISON: Chest x-ray 11/01/2016 TECHNIQUE: Portable AP view of the chest was obtained. FINDINGS: A right IJ central line is present. The tip is not well delineated but is likely located at the junction of the superior vena cava and right atrium. There is no pneumothorax. Heart size is unchanged. There is increased perihilar opacity bilaterally, right greater than left with increased focal infiltrate and some atelectasis in the right middle lobe and right lower lobes. There is some new subsegmental atelectasis in both upper lobes. No pleural effusion identified. Heart size unchanged. IMPRESSION: Right IJ line is in the region of the junction of the superior vena cava and right atrium, tip not well delineated. Increasing perihilar opacity with increasing focal atelectasis/infiltrate in the right middle lobe and new areas of subsegmental atelectasis in both upper lobes.
[2016-11-02 07:28] LABS: WHITE BLOOD CELL COUNT 30.8 /CUMM (4.8-10.8)
[2016-11-02 09:31] LABS: ABSOLUTE BASOPHIL COUNT 0 /CUMM (0.0-0.2); ABSOLUTE EOSINOPHIL COUNT 0 /CUMM (0.0-0.7); BASOPHIL % 0 % (0.0-2.0); EOSINOPHIL % 0 % (0-5); RED BLOOD CELL CT 3.96 /CUMM (4.70-6.10)
[2016-11-02 09:35] LABS: ABSOLUTE GRANULOCYTE CT 31.8 /CUMM (1.4-6.5); ABSOLUTE LYMPH COUNT 0.4 /CUMM (1.2-3.4); ABSOLUTE MONOCYTE COUNT 2.3 /CUMM (0.10-0.60); HEMATOCRIT 37.5 % (42-52); MEAN CORPUSCULAR HGB 31.6 PG (27.0-31.0); MEAN CORPUSCULAR HGB CONC 33.4 G/DL (33.0-37.0); MEAN CORPUSCULAR VOLUME 94.7 FL (80.0-94.0); MEAN PLATELET VOLUME 8.4 FL (7.4-10.4); PLATELET COUNT 111 /CUMM (130-400); RBC DISTRIBUTION WIDTH 16.7 % (11.5-14.5)
[2016-11-02 09:37] LABS: WHITE BLOOD CELL COUNT 34.5 /CUMM (4.8-10.8)
--- NOTE | 2016-11-02 15:20 | PN- Resident CRCU ---
EMIGDIO DUMONT,REBEKAH 11/02/16 1501: Subjective HPI/CRCU Issues: Pt in ICU or: elevated troponins, urosepsis Saw pt at bedside. He was resting comfortably eating lunch. He stated he still had some residual r. sided groin pain. But denied any other acute complaints. Denied CP or SOB. Pt continues to be on Norepi for hypotension, however his BP is in 110 and we plan to titrate down. His trops went up rom .02-->.012 Objective Vital Signs & I&O Last 8 Hrs of Vitals and I&O: Vital Signs Date Time Temp Pulse Resp B/P Pulse O2 O2 Flow FiO2 Ox Delivery Rate 11/02 1200 99 Nasal 3.0L Cannula 11/02 0902 73 99/55 11/02 0800 98.1 73 20 100/58 98 Nasal 3.0L Cannula 11/02 0800 98 Nasal 3.0L Cannula 11/02 0500 997 Nasal 3.0L Cannula 11/02 0304 97.7 80 20 80/50 97 Nasal 3.0L Cannula 11/02 0133 97.7 80 18 80/50 96 Nasal 3.0L Cannula 11/02 0100 97.6 84 20 78/50 96 Nasal 3.0L Cannula 11/02 0030 97.4 84 20 76/50 96 Nasal 3.0L Cannula 11/02 0000 96 Nasal 3.0L Cannula 11/02 0000 97.6 88 20 84/52 95 Nasal 3.0L Cannula 11/01 2330 97.8 84 20 80/50 96 Nasal 3.0L Cannula 11/01 2248 97.9 89 18 98/44 96 Nasal Cannula 11/01 2230 98/44 11/01 2014 97.9 94 18 96/44 96 Nasal 3.0L Cannula 11/01 1999 96 Nasal 3.0L Cannula 11/01 1724 101.3 79 21 103/66 98 Nasal 2.0L Cannula 11/01 1604 101.9 97 18 101/60 98 Nasal 2.0L Cannula 11/01 1535 1105.0 11/01 1530 103.9 97 23 106/58 99 Nasal 2.0L Cannula Intake & Output 11/02 1600 11/02 0800 11/02 0000 Intake Total 230 120 Output Total 600 200 Balance -370 -80 Intake, IV 230 Intake, Oral 120 Number 0 1 Bowel Movements Output, Urine 600 200 Patient 92.079 kg Weight Exam General Appearance: well developed/nourished, no apparent distress, alert, awake , comfortable Head: atraumatic, normal appearance Ears, Nose, Throat: normal pharynx Neck: normal inspection, supple, full range of motion Respiratory: normal breath sounds, chest non-tender, no respiratory distress, quiet respiration, lungs clear Cardiovascular: regular rate/rhythm Gastrointestinal: soft, non-tender Extremities: normal inspection, no edema IV Drips IV Drips: norepi potassium Nutrition Nutrition: P.O. diet Current Medications: Current Medications Sig/Monica Start time Last Medication Dose Route Stop Time Status Admin Acetaminophen 650 MG Q8P PRN 11/01 1815 AC PO Acetaminophen 1,000 MG Q8P PRN 11/01 1815 AC 11/01 IV 2112 Azithromycin 500 MG ONCE ONE 11/01 1445 DC 11/01 Dextrose/Water 250 ML IV 11/01 1544 1555 Bupropion HCl 150 MG DAILY 11/01 2200 AC 11/02 PO 0937 Ceftriaxone Sodium 1,000 MG DAILY@1600 11/02 1600 AC IV Ceftriaxone Sodium 0 .STK-MED ONE 11/01 1541 DC .ROUTE Desvenlafaxine 100 MG DAILY 11/01 1800 AC 11/02 Succinate PO 0937 Fentanyl Citrate 100 MCG .STK-MED ONE 11/01 1805 DC IM 11/01 1806 Gabapentin 300 MG BID 11/01 2200 AC 11/02 PO 0936 Heparin Sodium 5,000 UNIT Q8 11/01 2200 AC 11/02 (Porcine) SC 1346 Ketorolac 0 .STK-MED ONE 11/01 1541 DC Tromethamine .ROUTE Magnesium Oxide 400 MG ONE 11/02 1330 DC 11/02 PO 11/02 1331 1346 Magnesium Oxide 0 .STK-MED ONE 11/01 1812 DC PO Magnesium Oxide 400 MG ONE ONE 11/01 1800 DC 11/01 PO 11/01 1801 1836 Magnesium Sulfate 1 GM ONCE ONE 11/02 1000 DC 11/02 Dextrose/Water 100 ML IV 11/02 1359 1015 Midazolam HCl 2 MG .STK-MED ONE 11/01 1805 DC IM 11/01 1806 Non-Formulary 0 DAILY 11/02 1000 UNV Medication ANY Non-Formulary 0 SEE ADMIN CRITERIA 11/01 1800 UNVr Medication ANY Norepinephrine 4 MG Q24H 11/02 0615 AC 11/02 Sodium Chloride 250 ML IV 0902 Norepinephrine 4 MG .STK-MED ONE 11/02 0535 DC IV 11/02 0536 Potassium Chloride 40 MEQ ONCE ONE 11/02 1600 AC PO 11/02 1601 Potassium Chloride 40 MEQ ONCE ONE 11/02 1400 DC 11/02 PO 11/02 1401 1346 Potassium Chloride 20 MEQ DAILY 11/02 1000 AC PO Potassium Chloride 40 MEQ Q2H 11/02 0800 DC 11/02 PO 11/02 1001 0929 Potassium Chloride 10 MEQ Q1H 11/02 0745 DC 11/02 IV 11/02 0846 1141 Potassium Chloride 0 .STK-MED ONE 11/01 1810 DC PO Potassium Chloride 40 MEQ ONCE ONE 11/01 1800 DC 11/01 PO 11/01 1801 1836 Sodium Chloride 500 ML BOLUS ONE 11/02 0330 DC 11/02 IV 11/02 0429 0336 Sodium Chloride 500 ML BOLUS ONE 11/02 0200 DC 11/02 IV 11/02 0259 0155 Sodium Chloride 1,000 ML Q6H 11/01 1800 AC 11/02 IV 0817 Sodium Chloride 1,000 ML BOLUS ONE 11/01 1645 DC 11/01 IV 11/01 1744 1728 Sodium Chloride 1,000 ML BOLUS ONE 11/01 1645 DC 11/01 IV 11/01 1744 1649 Sodium Chloride 1,000 ML BOLUS ONE 11/01 1645 DC 11/01 IV 11/01 1744 1644 Sodium Chloride 1,000 ML BOLUS ONE 11/01 1645 DC 11/01 IV 11/01 1744 1644 Sodium Chloride 1,000 ML ONCE ONE 11/01 1445 DC 11/01 IV 11/01 1544 1450 Sodium Chloride 1,000 ML BOLUS ONE 11/01 1445 DC 11/01 IV 11/01 1544 1450 Impression/Plan Impression/Problem List Impression: This is a 66 yo male with PMH of HTN, HLD, CKD 3, hypokalemia, gastric bypass, polysubstance abuse, chronic back pain, gout, anxiety depression with came in with CC of lethargy and abdominal pain. Was found to have SHUKRI, and nephrolithiasis along with r. hydronephrosis with concern for pyelo. Went for r. ureteral stent placement, became hypotensive and was transferred to ICU for hypotension 2/2 urosepsis. In ICU, pt is treated for urosepsis, hypokalemia/ hypomag and upward trending troponins. PLAN RESPIRATORY: Pt is satting well on 3L NC. Denies any SOB. ID: 1.) Urosepsis: Pt has urine culture and 1/2 Blood cultrure [place] [address] with left shift. On admission imaging he had r. hydronephrosis with suspicion of pyelo but this urine showed > 75 wbc +nitrite and small LE. He had a r. ureteral stent put in. He is on Norepi; but BP improving. * Con't monitor CBC * Titrate down Norepi * Follow with urologist regarding stent * Consider repeat imaging to evaluate resolution of obstruction * Cont' follow BCX, UCX--> Pending speciation * Consider repeat Cx in AM * Cont' IV Ceftriaxone * Consider ID consult if pt does not continue to improve CVS: 1.) Hypotension: Etiology 2/2 sepsis, though anesthesia likely also contributed to lowering BP. Pt was hypotensive overnight requiring Norepi. Currently BP at 100-110. * Titrate down Norepi as pt become more hemodynamically stable 2.) Troponin elevation: Pt has trops .02--> .12--> .18. No corresponding EKG changes. Unsure if 2/2 demand or CKD 3. Will con't monitor * Follow up EKG * Follow up troponin * keep electrolytes wnl * echo * Cardiology consult in AM HEME/ONC: Pt has H/H 12.0 and 36.1. Stable. 1) Leukocytosis: Initially white count 3.5 then next day went up to 30 and then 34 with left shift. Likely 2/2 infectious process. He has 1/2 bcx with GNR. MSK: Stable, cont' monitor. GI: pt has hx of of gastric bypass and Hypokalemia. This AM, pet pt and he was eating well. Stable. Will con't monitor. NEPHRO:Pt has hx of CKD 3 and hypokalemia. Has a r. ureteral stent placed for r. hydro. Likely pyelo. 1. Hypokalemia: today at 2.2 Gave 2 of 10mg IV and subsequently 3 x 40mg po spaced an hour apart. Will re-measure electrolytes 2. Hypomagnesemia: Mag at 1.3 today. repleted. Will recheck. * Mag and K at 1700 * Will consult nephro/urology regarding un-improved Cr post-stent placement. Regular diet full code chemical dvt ppx Problem List: 1. Hypokalemia 2. Pyelonephritis 3. Nephrolithiasis 4. SHUKRI (acute kidney injury) Pain Ratin Tomorrow's Labs & Rationales: cbc bep ANAYELI DUMONT,BHASKAR 11/02/16 1850: Impression/Plan Plan DVT/Prophylaxis: mechanical Attending MD Review Statement Attending Sign Off Attending Cosign Statement: I have: examined this patient, reviewed [employer] EMR data, personally reviewd images, discussd w/resident/PA/FORMING PROCESS LINE WORKER, discussed mgmt plan w/pt, agreed w/resident/ PA/FORMING PROCESS LINE WORKER, amended to note. Other Findings: The patient was seen and discussed with house staff. Being tapered off of Levophed. WBC increased and temp decreased with GNR's growing from BC. Creatinine w/o change post right ureteral stent. Mg/K low and being repleted. Troponin I trending up which could represent demand ischemia vs secondary to SHUKRI. Will order ECHO and cardiology evaluation from Dr. Guerrier tomorrow. Nephrology input tomorrow. Follow BP and lytes/BUN/Cr closely. Await final results.
--- NOTE | 2016-11-02 22:44 | CT SCAN REPORT ---
EXAMINATION: CT ABDOMEN AND PELVIS WITHOUT CONTRAST CLINICAL INFORMATION: Worsening sepsis, status post ureteral stent placement. COMPARISON: Multiple priors, most recent CT abdomen/pelvis dated 11/01/2016. TECHNIQUE: Multidetector volumetric imaging was performed from the superior aspect of the liver through the pubic symphysis. Sagittal and coronal reformatted images were obtained on the technologist's workstation. DLP: 1065.34 mGy-cm. FINDINGS: LUNG BASES: There are new small bilateral pleural effusions with adjacent atelectasis versus infiltrates. LIVER, GALLBLADDER, AND BILIARY TREE: The liver is normal in size, shape, and attenuation. No focal hepatic lesion or biliary ductal dilatation is present. The gallbladder is surgically absent and there are surgical clips within the gallbladder fossa. PANCREAS: Unremarkable. SPLEEN: Unremarkable. ADRENAL GLANDS: Unremarkable. KIDNEYS AND URETERS: The kidneys are normal in size, shape, and attenuation. There has been interval placement of a right-sided ureteral stent with resolution of the previously seen right-sided hydronephrosis. A 1.5 cm stone is redemonstrated within the right renal pelvis. Multiple additional bilateral nonobstructing stones are again seen. There is persistent mild bilateral perinephric stranding. BLADDER: There is a Sanchez catheter within the urinary bladder. There is dependent air within the bladder, likely secondary to instrumentation. GASTROINTESTINAL TRACT: Multiple sutures and anastomoses from prior bariatric surgery are redemonstrated. There is no large- or small-bowel obstruction. The appendix is normal. There is no intra-abdominal free air. ABDOMINAL WALL: No significant hernia is appreciated. There is increasing soft tissue anasarca. LYMPH NODES: Evaluation is limited without IV contrast; however, there are scattered subcentimeter retroperitoneal lymph nodes. VASCULAR: There is no abdominal aortic aneurysm. There are atherosclerotic calcifications within the abdominal aorta and its branch vessels. An IVC filter is redemonstrated and in unchanged position. PELVIC VISCERA: The prostate and seminal vesicles are unremarkable. OSSEOUS STRUCTURES: Severe degenerative changes are redemonstrated within the right hip. Posterior fusion hardware and disc spacers are redemonstrated at L3 through L5. There are degenerative changes within the visualized portions of the thoracic and lumbar spine. IMPRESSION: 1. Interval placement of a right-sided ureteral stent with resolution of the previously seen right-sided hydronephrosis. Unchanged bilateral renal stones. Persistent bilateral perinephric stranding. 2. Unchanged anastomotic sutures without large- or small-bowel obstruction. Normal appendix. 3. New small bilateral pleural effusions with adjacent atelectasis versus infiltrates. 4. Lower lumbar spine degenerative changes and right hip severe osteoarthritis, not significantly changed.
[2016-11-03] VITALS: BP 96/60
[2016-11-03 05:31] LABS: ABSOLUTE BASOPHIL COUNT 0 /CUMM (0.0-0.2); ABSOLUTE EOSINOPHIL COUNT 0 /CUMM (0.0-0.7); BASOPHIL % 0 % (0.0-2.0); EOSINOPHIL % 0 % (0-5)
[2016-11-03 05:55] LABS: ABSOLUTE GRANULOCYTE CT 33.9 /CUMM (1.4-6.5); ABSOLUTE MONOCYTE COUNT 2.8 /CUMM (0.10-0.60); GRANULOCYTE % 90.1 % (42.2-75.2); HEMATOCRIT 36.4 % (42-52); MEAN CORPUSCULAR HGB 31.5 PG (27.0-31.0); MEAN CORPUSCULAR VOLUME 95.4 FL (80.0-94.0); MEAN PLATELET VOLUME 9.3 FL (7.4-10.4); RBC DISTRIBUTION WIDTH 17.2 % (11.5-14.5); RED BLOOD CELL CT 3.82 /CUMM (4.70-6.10)
[2016-11-03 06:00] LABS: PLATELET COUNT 74 /CUMM (130-400); WHITE BLOOD CELL COUNT 37.7 /CUMM (4.8-10.8)
--- NOTE | 2016-11-03 07:59 | PN- Resident CRCU ---
See Addendum Subjective HPI/CRCU Issues: Pt in ICU or: elevated troponins, urosepsis Pt was seen and examined. His on bed looks relaxed and comfortable. In general he reported improvement of his symptom, however last night he had sharp right side flank pain, he also still have mild dysuria. Patient denies hematuria, dizziness, chest pain, palpitation or shortness breath. Objective Vital Signs & I&O Last 8 Hrs of Vitals and I&O: Intake & Output 11/03 1600 11/03 0800 11/03 0000 Intake Total 819 1394 Output Total 920 415 Balance -101 979 Intake, IV 619 694 Intake, Oral 200 700 Number 1 2 Bowel Movements Output, Urine 920 415 Laboratory Tests 11/03 11/03 11/02 0430 0130 1910 Chemistry Sodium (137 - 145 mmol/L) 140 139 Potassium (3.5 - 5.1 mmol/L) 3.9 3.2 L Chloride (98 - 107 mmol/L) 118 H 115 H Carbon Dioxide (22 - 30 mmol/L) 14 L 15 L Anion Gap (5 - 16) 8 9 BUN (9 - 20 mg/dL) 34 H 33 H Creatinine (0.7 - 1.2 mg/dL) 2.5 H 2.5 H Estimated GFR (>60 ml/min) 26 L 26 L BUN/Creatinine Ratio (7 - 25 %) 13.2 Glucose (65 - 99 mg/dL) 60 L Calcium (8.4 - 10.2 mg/dL) 7.2 L Phosphorus (2.5 - 4.5 mg/dL) 2.9 Magnesium (1.6 - 2.3 mg/dL) 1.6 1.5 L Total Bilirubin (0.2 - 1.3 mg/dL) 0.5 AST (17 - 59 U/L) 30 ALT (21 - 72 U/L) 37 Troponin I (<0.11 ng/ml) 0.19 *H 0.24 *H Albumin (3.5 - 5.0 g/dL) 2.0 L Hematology CBC w Diff MAN DIFF ORDERED WBC (4.8 - 10.8 /CUMM) 37.7 *H RBC (4.70 - 6.10 /CUMM) 3.82 L Hgb (14.0 - 18.0 G/DL) 12.0 L Hct (42 - 52 %) 36.4 L MCV (80.0 - 94.0 FL) 95.4 H MCH (27.0 - 31.0 PG) 31.5 H RDW (11.5 - 14.5 %) 17.2 H Plt Count (130 - 400 /CUMM) 74 L MPV (7.4 - 10.4 FL) 9.3 Gran % (42.2 - 75.2 %) 90.1 H Lymphocytes % (20.5 - 51.1 %) 2.5 L Monocytes % (1.7 - 9.3 %) 7.4 Eosinophils % (0 - 5 %) 0 Basophils % (0.0 - 2.0 %) 0 L Absolute Granulocytes (1.4 - 6.5 /CUMM) 33.9 H Segmented Neutrophils (42.2 - 75.2 %) 73 Band Neutrophils (0.0 - 5.0 %) 13 H Absolute Lymphocytes (1.2 - 3.4 /CUMM) 1.0 L Lymphocytes (20.5 - 51.1 %) 3 L Monocytes (1.7 - 9.3 %) 7 Absolute Monocytes (0.10 - 0.60 /CUMM) 2.8 H Absolute Eosinophils (0.0 - 0.7 /CUMM) 0 Absolute Basophils (0.0 - 0.2 /CUMM) 0 Metamyelocytes (0.0 - 1.0 %) 4 H Platelet Estimate (ADEQUATE) DECREASED Polychromasia 1+ Poikilocytosis 2+ Ovalocytes 1+ Weems Cells 1+ PUBS MCHC (33.0 - 37.0 G/DL) 33.0 11/02 1215 Chemistry Sodium (137 - 145 mmol/L) 142 Potassium (3.5 - 5.1 mmol/L) 2.9 *L Chloride (98 - 107 mmol/L) 115 H Carbon Dioxide (22 - 30 mmol/L) 16 L Anion Gap (5 - 16) 11 BUN (9 - 20 mg/dL) 32 H Creatinine (0.7 - 1.2 mg/dL) 2.4 H Estimated GFR (>60 ml/min) 27 L Glucose (65 - 99 mg/dL) 68 Calcium (8.4 - 10.2 mg/dL) 7.0 L Phosphorus (2.5 - 4.5 mg/dL) 3.5 Magnesium (1.6 - 2.3 mg/dL) 1.5 L Total Bilirubin (0.2 - 1.3 mg/dL) 0.5 AST (17 - 59 U/L) 39 ALT (21 - 72 U/L) 38 Troponin I (<0.11 ng/ml) 0.18 *H Albumin (3.5 - 5.0 g/dL) 2.6 L Exam General Appearance: well developed/nourished, no apparent distress, alert, awake , comfortable Head: atraumatic, normal appearance Neck: normal inspection, supple, No JVD Respiratory: normal breath sounds, no respiratory distress, quiet respiration, lungs clear, patient has a mild tenderness over the lower chest rib on the mid axillary line. Cardiovascular: regular rate/rhythm Gastrointestinal: mild tenderness over the right flank Extremities: no edema on the lower extremity bilaterally Current Medications: Current Medications Sig/Monica Start time Last Medication Dose Route Stop Time Status Admin Acetaminophen 650 MG Q8P PRN 11/01 1815 AC PO Acetaminophen 1,000 MG Q8P PRN 11/01 1815 AC 11/01 IV 2112 Bupropion HCl 150 MG DAILY 11/01 2200 AC 11/03 PO 0921 Ceftriaxone Sodium 1,000 MG DAILY@1600 11/02 1600 AC 11/02 IV 1700 Desvenlafaxine 100 MG DAILY@11/03 2200 AC Succinate PO Desvenlafaxine 100 MG DAILY 11/01 1800 DC 11/02 Succinate PO 0937 Gabapentin 300 MG BID 11/01 2200 AC 11/03 PO 0921 Heparin Sodium 5,000 UNIT Q8 11/01 2200 AC 11/03 (Porcine) NE 0558 Magnesium Oxide 400 MG ONE 11/03 0730 DC 11/03 PO 11/03 0731 0802 Magnesium Oxide 400 MG ONE 11/03 0115 DC 11/03 PO 11/03 0116 0133 Magnesium Oxide 400 MG ONE 11/02 2345 DC 11/03 PO 11/02 2346 0008 Magnesium Oxide 400 MG ONE 11/02 1330 DC 11/02 PO 11/02 1331 1346 Magnesium Sulfate 1 GM ONCE ONE 11/02 1000 DC 11/02 Dextrose/Water 100 ML IV 11/02 1359 1015 Non-Formulary 0 DAILY 11/02 1000 DC Medication ANY Non-Formulary 0 SEE ADMIN CRITERIA 11/01 1800 UNVr Medication ANY Norepinephrine 4 MG Q24H 11/02 0615 AC 11/02 Sodium Chloride 250 ML IV 0902 Potassium Chloride 40 MEQ ONCE ONE 11/02 2230 DC 11/02 PO 11/02 223 2227 Potassium Chloride 40 MEQ ONCE ONE 11/02 2030 DC 11/02 PO 11/02 203 2104 Potassium Chloride 40 MEQ ONCE ONE 11/02 1600 DC 11/02 PO 11/02 1601 1700 Potassium Chloride 40 MEQ ONCE ONE 11/02 1400 DC 11/02 PO 11/02 1401 1346 Potassium Chloride 20 MEQ DAILY 11/02 1000 AC 11/03 PO 0921 Sodium Chloride 1,000 ML Q6H 11/01 1800 AC 11/03 IV 0559 Impression/Plan Impression/Problem List Impression: Impression: This is a 66 yo male with PMH of HTN, HLD, CKD 3, hypokalemia, gastric bypass, polysubstance abuse, chronic back pain, gout, anxiety depression with came in with CC of lethargy and abdominal pain. Was found to have SHUKRI, and nephrolithiasis along with r. hydronephrosis with concern for pyelo. Went for r. ureteral stent placement, became hypotensive and was transferred to ICU for hypotension 2/2 urosepsis. In ICU, pt is treated for urosepsis, hypokalemia/ hypomag and upward trending troponins. Today his troponin is going down with no EKG changes. Patient vitals are stable, however his WBCs is going up. PLAN RESPIRATORY: Pt is satting well on 3L NC. Denies any SOB. ID: 1.) Urosepsis: Pt has urine culture and 1/2 Blood cultrure [place]. [place] [address] with left shift(band decreased from 18 to 13). On admission imaging he had r. hydronephrosis with suspicion of pyelo but this urine showed > 75 wbc +nitrite and small LE. He had a r. ureteral stent put in. Initially he was on norepinephrine, which was DC'd after his blood pressure improved improving. Today abdominal CT shows resolution of the, with no change of his bilateral renal stones. previously seen right-sided hydronephrosis. * Con't monitor CBC * Follow with urologist regarding stent * Cont' follow BCX, UCX * Cont' IV Ceftriaxone * Consider ID consult if pt does not continue to improve( CVS: 1.) Hypotension(resolved) Etiology 2/2 sepsis, though anesthesia likely also contributed to lowering BP. Pt was hypotensive overnight requiring Norepi. Currently BP WNL. Her epinephrine was DC'd around 3 AM today 2.) Troponin elevation: Pt has trops .02--> .12--> .18-->.24-->.19 No corresponding EKG changes. Unsure if 2/2 demand or CKD 3. Will con't monitor * We'll add 1 more troponin * We will keep electrolytes wnl * Echocardiogram results pending * Cardiology is already consulted we will follow their recommendation HEME/ONC: Pt has H/H 12.0 and 36.4. Stable. 1) Leukocytosis: Initially white count 3.5 then next day went up to 30 and then 34 with left shift. Likely 2/2 infectious process. Today his white blood cell continue going up to 37.7. He has 1/2 bcx with GNR. Patient and went down from 18 to 13 * We will repeat CBC daily * If no improvement we will consult ID MSK: Stable, cont' monitor. GI: pt has hx of of gastric bypass and Hypokalemia that was repleted. This AM, pet pt and he was eating well. Stable. Will con't monitor. NEPHRO:Pt has hx of CKD 3 and hypokalemia. Has a r. ureteral stent placed for r. hydro. 1. Hypokalemia: today at 3.9 2. Hypomagnesemia: Mag at 1.6 today. repleted. * Will recheck Mag and K daily Regular diet full code chemical dvt ppx Problem List: 1. SHUKRI (acute kidney injury) 2. Nephrolithiasis Pain Ratin Tomorrow's Labs & Rationales: CBC and ICU bundle. Xray Plan DVT/Prophylaxis: mechanical
[2016-11-03 08:00] VITALS: BP 120/82
--- NOTE | 2016-11-03 15:14 | Cons- Cardiology ---
General Information and HPI Consulting Request Date of Consult: 11/03/16 Requested By: BHASKAR GUADALUPE MD Reason for Consult: Positive troponin History of Present Illness: The patient is a 66-year-old male with history of hypertension and sinus bradycardia, who follows up with me in the office. he had a recent echocardiogram in the office in September which revealed normal left ventricular function. He had a pharmacologic nuclear stress test on October 15, 2016 which revealed no ischemia. he presented with altered mental status. He noted that for the past 6 weeks he has had chronic diarrhea, for which she was treated with Flagyl. The symptoms persisted after treatment, and resulted in 18 pound weight loss. For the past few days before admission he was lethargic with decreased appetite and abdominal discomfort. He had associated left flank pain, an episode of hematuria, and chills. He noted a fever of 100.5 Fahrenheit at home. He was diagnosed with sepsis secondary to urinary infection. He was treated with IV fluid for hypotension. He was noted to have a mild troponin elevation, for which I am consulted. He denies any recent chest pain. No shortness of breath. No palpitations. No syncope. Allergies/Medications Allergies: Coded Allergies: NO KNOWN ALLERGIES (12/29/15) Home Med List: Allopurinol 300 MG TAB 1 TAB PO DAILY GOUT (Reported) BUPROPION HCL (Bupropion XL) 150 MG T24 1 TAB PO TID MENTAL HEALTH (Reported) Calcium/Vitamin D (Calcium + D) (Unknown Strength) TAB (Unknown Dose) PO BID SUPPLEMENT (Reported) Desvenlafaxine Succinate (Pristiq ER) [address] 1 TAB PO DAILY MENTAL HEALTH (Reported) Gabapentin (Neurontin) 300 MG CAP 1 CAP PO TID NERVE PAIN (Reported) IRON FUMARATE/VIT C/VIT B12/FA (Trigels-F Forte Softgel) 1 SGL SGL 1 SGL PO BID SUPPLEMENT (Reported) Metoprolol Succ XL (Toprol Xl) 50 MG TAB 0.5 TAB PO DAILY HTN MV, MIN #36/IRON,CARBONYL/FA (Geritol Complete Tablet) 1 TAB TAB 1 TAB PO DAILY SUPPLEMENT (Reported) POTASSIUM CHLORIDE (K-Dur) 20 MEQ TAB 1 TAB PO DAILY SUPPLEMENT (Reported) Zinc 50 MG TAB 1 TAB PO DAILY SUPPLEMENT (Reported) Current Medications: Current Medications Sig/Monica Start time Last Medication Dose Route Stop Time Status Admin Acetaminophen 650 MG Q8P PRN 11/01 1815 AC PO Acetaminophen 1,000 MG Q8P PRN 11/01 1815 AC 11/01 IV 2112 Bupropion HCl 150 MG DAILY 11/01 2200 AC 11/03 PO 0921 Ceftriaxone Sodium 1,000 MG DAILY@1600 11/02 1600 AC 11/02 IV 1700 Desvenlafaxine 100 MG DAILY@2200 11/03 2200 AC Succinate PO Desvenlafaxine 100 MG DAILY 11/01 1800 DC 11/02 Succinate PO 0937 Gabapentin 300 MG BID 11/01 2200 AC 11/03 PO 0921 Heparin Sodium 5,000 UNIT Q8 11/01 2200 AC 11/03 (Porcine) SC 1412 Magnesium Oxide 400 MG ONE ONE 11/03 0730 DC 11/03 PO 11/03 0731 0802 Magnesium Oxide 400 MG ONE ONE 11/03 0115 DC 11/03 PO 11/03 0116 0133 Magnesium Oxide 400 MG ONE ONE 11/02 2345 DC 11/03 PO 11/02 2346 0008 Non-Formulary 0 DAILY 11/02 1000 DC Medication ANY Non-Formulary 0 SEE ADMIN CRITERIA 11/01 1800 UNVr Medication ANY Norepinephrine 4 MG Q24H 11/02 0615 AC 11/02 Sodium Chloride 250 ML IV 0902 Potassium Chloride 40 MEQ ONCE ONE 11/02 2230 DC 11/02 PO 11/02 2231 2227 Potassium Chloride 40 MEQ ONCE ONE 11/02 2030 DC 11/02 PO 11/02 2031 2104 Potassium Chloride 40 MEQ ONCE ONE 11/02 1600 DC 11/02 PO 11/02 1601 1700 Potassium Chloride 20 MEQ DAILY 11/02 1000 AC 11/03 PO 0921 Sodium Chloride 1,000 ML Q6H 11/01 1800 AC 11/03 IV 1314 Review of Systems Review of Systems: No rash. No tremor. No melena. No syncope. No orthopnea. All other systems are reviewed and are noted to be negative. 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 Home Who Do You Live With? spouse Services at Home: None Primary Language: Albanian Smoking Status: Former Smoker ETOH Use: denies use Illicit Drug Use: denies illicit drug use Functional Ability ADLs Independent: dressing, eating, toileting, bathing. Ambulation: independent IADLs Independent: shopping, housework, finances, food prep, telephone, transportation , medication admin. Exam & Diagnostic Data Vital Signs and I&O Vital Signs Date Time Temp Pulse Resp B/P Pulse O2 O2 Flow FiO2 Ox Delivery Rate 11/03 799 97.8 76 18 120/82 97 Room Air 11/03 0557 77 107/52 11/03 0000 98.7 88 18 96/60 97 Room Air 11/02 1999 96 Nasal 2.0L Cannula 11/02 1600 99 Nasal 3.0L Cannula 11/02 1600 98.5 86 20 108/50 99 Nasal 3.0L Cannula Intake & Output 11/03 1600 11/03 0800 11/03 0000 11/02 1600 11/02 0800 11/02 0000 Intake Total 2782 430 1299 2602 230 120 Output Total 1300 920 415 750 600 200 Balance -220 -467 004 0226 -370 -80 Intake, IV 600 475 450 3194 230 Intake, Oral 480 831 809 1461 120 Number 1 1 2 0 0 1 Bowel Movements Output, Urine 1300 920 415 750 600 200 Patient 203 lb Weight Physical Exam: Gen: The patient is in no acute distress HEENT: Normal nose, ears, and oropharynx. Pupils equal bilaterally. Conjunctiva normal. Neck: Supple with no JVD, no masses, and no thyromegaly Lungs: Clear to auscultation with normal respiratory effort Heart: RRR, S1, S2, no murmurs. No peripheral edema, 2+ pulses in the lower extremities bilaterally Abdomen: Soft, nontender, no masses. No hepatomegaly. No splenomegaly Extremities: No clubbing or cyanosis. Normal muscle strength in the upper and lower extremities. Skin: Normal skin turgor with no skin ulcers or lesions noted. Neuro: Cranial nerves intact. Sensation intact Psych: Alert and oriented 3 with appropriate affect Labs/Artur Results: Laboratory Tests 11/03 11/03 11/02 0430 0130 1910 Chemistry Sodium (137 - 145 mmol/L) 140 139 Potassium (3.5 - 5.1 mmol/L) 3.9 3.2 L Chloride (98 - 107 mmol/L) 118 H 115 H Carbon Dioxide (22 - 30 mmol/L) 14 L 15 L Anion Gap (5 - 16) 8 9 BUN (9 - 20 mg/dL) 34 H 33 H Creatinine (0.7 - 1.2 mg/dL) 2.5 H 2.5 H Estimated GFR (>60 ml/min) 26 L 26 L BUN/Creatinine Ratio (7 - 25 %) 13.2 Glucose (65 - 99 mg/dL) 60 L Calcium (8.4 - 10.2 mg/dL) 7.2 L Phosphorus (2.5 - 4.5 mg/dL) 2.9 Magnesium (1.6 - 2.3 mg/dL) 1.6 1.5 L Total Bilirubin (0.2 - 1.3 mg/dL) 0.5 AST (17 - 59 U/L) 30 ALT (21 - 72 U/L) 37 Troponin I (<0.11 ng/ml) 0.17 *H 0.19 *H 0.24 *H Albumin (3.5 - 5.0 g/dL) 2.0 L Hematology CBC w Diff MAN DIFF ORDERED WBC (4.8 - 10.8 /CUMM) 37.7 *H RBC (4.70 - 6.10 /CUMM) 3.82 L Hgb (14.0 - 18.0 G/DL) 12.0 L Hct (42 - 52 %) 36.4 L MCV (80.0 - 94.0 FL) 95.4 H MCH (27.0 - 31.0 PG) 31.5 H RDW (11.5 - 14.5 %) 17.2 H Plt Count (130 - 400 /CUMM) 74 L MPV (7.4 - 10.4 FL) 9.3 Gran % (42.2 - 75.2 %) 90.1 H Lymphocytes % (20.5 - 51.1 %) 2.5 L Monocytes % (1.7 - 9.3 %) 7.4 Eosinophils % (0 - 5 %) 0 Basophils % (0.0 - 2.0 %) 0 L Absolute Granulocytes (1.4 - 6.5 /CUMM) 33.9 H Segmented Neutrophils (42.2 - 75.2 %) 73 Band Neutrophils (0.0 - 5.0 %) 13 H Absolute Lymphocytes (1.2 - 3.4 /CUMM) 1.0 L Lymphocytes (20.5 - 51.1 %) 3 L Monocytes (1.7 - 9.3 %) 7 Absolute Monocytes (0.10 - 0.60 /CUMM) 2.8 H Absolute Eosinophils (0.0 - 0.7 /CUMM) 0 Absolute Basophils (0.0 - 0.2 /CUMM) 0 Metamyelocytes (0.0 - 1.0 %) 4 H Platelet Estimate (ADEQUATE) DECREASED Polychromasia 1+ Poikilocytosis 2+ Ovalocytes 1+ Billy Cells 1+ PUBS MCHC (33.0 - 37.0 G/DL) 33.0 11/02 11/02 11/02 1215 0935 0850 Chemistry Sodium (137 - 145 mmol/L) 142 Cancelled Potassium (3.5 - 5.1 mmol/L) 2.9 *L Cancelled Chloride (98 - 107 mmol/L) 115 H Cancelled Carbon Dioxide (22 - 30 mmol/L) 16 L Cancelled Anion Gap (5 - 16) 11 Cancelled BUN (9 - 20 mg/dL) 32 H Cancelled Creatinine (0.7 - 1.2 mg/dL) 2.4 H Cancelled Estimated GFR (>60 ml/min) 27 L Glucose (65 - 99 mg/dL) 68 Cancelled Calcium (8.4 - 10.2 mg/dL) 7.0 L Cancelled Phosphorus (2.5 - 4.5 mg/dL) 3.5 Cancelled Magnesium (1.6 - 2.3 mg/dL) 1.5 L Cancelled Total Bilirubin (0.2 - 1.3 mg/dL) 0.5 Cancelled AST (17 - 59 U/L) 39 Cancelled ALT (21 - 72 U/L) 38 Cancelled Troponin I (<0.11 ng/ml) 0.18 *H Albumin (3.5 - 5.0 g/dL) 2.6 L Cancelled Hematology CBC w Diff MAN DIFF ORDERED WBC (4.8 - 10.8 /CUMM) 34.5 *H RBC (4.70 - 6.10 /CUMM) 3.96 L Hgb (14.0 - 18.0 G/DL) 12.5 L Hct (42 - 52 %) 37.5 L MCV (80.0 - 94.0 FL) 94.7 H MCH (27.0 - 31.0 PG) 31.6 H RDW (11.5 - 14.5 %) 16.7 H Plt Count (130 - 400 /CUMM) 111 L MPV (7.4 - 10.4 FL) 8.4 Gran % (42.2 - 75.2 %) 92.0 H Lymphocytes % (20.5 - 51.1 %) 1.2 L Monocytes % (1.7 - 9.3 %) 6.8 Eosinophils % (0 - 5 %) 0 Basophils % (0.0 - 2.0 %) 0 L Absolute Granulocytes (1.4 - 6.5 /CUMM) 31.8 H Segmented Neutrophils (42.2 - 75.2 %) 75 Band Neutrophils (0.0 - 5.0 %) 18 H Absolute Lymphocytes (1.2 - 3.4 /CUMM) 0.4 L Lymphocytes (20.5 - 51.1 %) 3 L Monocytes (1.7 - 9.3 %) 4 Absolute Monocytes (0.10 - 0.60 /CUMM) 2.3 H Absolute Eosinophils (0.0 - 0.7 /CUMM) 0 Absolute Basophils (0.0 - 0.2 /CUMM) 0 Platelet Estimate (ADEQUATE) DECREASED Normocytic RBCs VERIFIED Normochromic RBCs VERIFIED PUBS MCHC (33.0 - 37.0 G/DL) 33.4 11/02 11/02 0644 0600 Chemistry Sodium (137 - 145 mmol/L) 141 Cancelled Potassium (3.5 - 5.1 mmol/L) 2.2 *L Cancelled Chloride (98 - 107 mmol/L) 118 H Cancelled Carbon Dioxide (22 - 30 mmol/L) 14 L Cancelled Anion Gap (5 - 16) 9 Cancelled BUN (9 - 20 mg/dL) 31 H Cancelled Creatinine (0.7 - 1.2 mg/dL) 2.4 H Cancelled Estimated GFR (>60 ml/min) 27 L BUN/Creatinine Ratio Cancelled Glucose (65 - 99 mg/dL) 80 Lactic Acid (0.7 - 2.1 mmol/L) 1.1 Calcium (8.4 - 10.2 mg/dL) 7.0 L Phosphorus (2.5 - 4.5 mg/dL) 3.0 Magnesium (1.6 - 2.3 mg/dL) 1.3 L Total Bilirubin (0.2 - 1.3 mg/dL) 0.4 AST (17 - 59 U/L) 30 ALT (21 - 72 U/L) 34 Troponin I (<0.11 ng/ml) 0.12 *H Albumin (3.5 - 5.0 g/dL) 2.2 L Hematology CBC w Diff MAN DIFF ORDERED WBC (4.8 - 10.8 /CUMM) 30.8 *H RBC (4.70 - 6.10 /CUMM) 3.79 L Hgb (14.0 - 18.0 G/DL) 12.0 L Hct (42 - 52 %) 36.1 L MCV (80.0 - 94.0 FL) 95.1 H MCH (27.0 - 31.0 PG) 31.5 H RDW (11.5 - 14.5 %) 16.7 H Plt Count (130 - 400 /CUMM) 108 L MPV (7.4 - 10.4 FL) 7.9 Gran % (42.2 - 75.2 %) 90.8 H Lymphocytes % (20.5 - 51.1 %) 1.9 L Monocytes % (1.7 - 9.3 %) 7.3 Eosinophils % (0 - 5 %) 0 Basophils % (0.0 - 2.0 %) 0 L Absolute Granulocytes (1.4 - 6.5 /CUMM) 27.9 H Segmented Neutrophils (42.2 - 75.2 %) 79 H Band Neutrophils (0.0 - 5.0 %) 16 H Absolute Lymphocytes (1.2 - 3.4 /CUMM) 0.6 L Lymphocytes (20.5 - 51.1 %) 3 L Monocytes (1.7 - 9.3 %) 2 Absolute Monocytes (0.10 - 0.60 /CUMM) 2.3 H Absolute Eosinophils (0.0 - 0.7 /CUMM) 0 Absolute Basophils (0.0 - 0.2 /CUMM) 0 Platelet Estimate (ADEQUATE) ADEQUATE Normocytic RBCs VERIFIED Normochromic RBCs VERIFIED PUBS MCHC (33.0 - 37.0 G/DL) 33.2 Other Body Source Fld Total RBCs Counted (%) 100 01/28 0111/01 1739 Chemistry Lactic Acid (0.7 - 2.1 mmol/L) Cancelled 1.3 2.4 H Diagnostic Data EKG Results EKG tracing is independently reviewed, and reveals normal sinus rhythm at 85, borderline T-wave abnormality, borderline R-wave progression CXR Results Right IJ line is in the region of the junction of the superior vena cava and right atrium, tip not well delineated. Increasing perihilar opacity with increasing focal atelectasis/infiltrate in the right middle lobe and new areas of subsegmental atelectasis in both upper lobes. Other Results CT scan of the abdomen pelvis: 1. Interval placement of a right-sided ureteral stent with resolution of the previously seen right-sided hydronephrosis. Unchanged bilateral renal stones. Persistent bilateral perinephric stranding. Echo 09/24/2016: Mild biatrial enlargement.Normal left ventricular size, thickness, systolic function, and wall motion. LVEF estimated by visual assessment is between 55-60% . LVEF calculated by biplane Giang's is 51%. Mild diastolic dysfunction, consistent with relaxation abnormality.Aortic valve is trileaflet. Mild aortic valve thickening. Moderate aortic valve regurgitation.Thickened mitral valve. Mild mitral valve regurgitation.Mild tricuspid valve regurgitation. The right ventricular systolic pressure is normal.Dilated sinuses of Valsalva measuring 3.9 cm and dilated ascending aorta measuring 4.1 cm.Mild biatrial enlargement.No prior study available for comparison. Regadenoson nuclear stress test October 15, 2016: 1) Negative ECG response to pharmacologic stress with regadenoson.2) No symptomatic evidence of ischemia.3) Normal gated SPECT study with normal global left venticular systolic function.4) Normal perfusion SPECT imaging after pharmacologic stress with regadenoson. Scintigraphic findings are negative for ischemia or infarction. No prior study available for comparison. 2. Unchanged anastomotic sutures without large- or small-bowel obstruction. Normal appendix. 3. New small bilateral pleural effusions with adjacent atelectasis versus infiltrates. 4. Lower lumbar spine degenerative changes and right hip severe osteoarthritis, not significantly changed. Assessment/Plan Assessment/Plan Assessment: 1. Renal stones, status post ureteral stent 2. Normal left ventricular function with moderate aortic regurgitation on recent echo 3. Normal nuclear stress test 4. Mild troponin elevation, likely demand ischemia secondary to sepsis 5. Sepsis secondary to urinary tract infection recommendations * Agree with pressor therapy as needed to maintain adequate blood pressure * Agree with IV antibiotics as per the medical service * Echocardiogram pending. * No further cardiac workup is needed unless new cardiac symptoms, further elevation in troponin or new changes on echocardiogram. Consult Acknowledgment - Thank you for your consult request.
--- NOTE | 2016-11-03 15:41 | PN- Urology ---
Subjective Subjective: Awake and alert. No acute distress Objective Vital Signs and I&Os Vital Signs Date Time Temp Pulse Resp B/P Pulse O2 O2 Flow FiO2 Ox Delivery Rate 11/03 799 97.8 76 18 120/82 97 Room Air 11/03 0557 77 107/52 11/03 0000 98.7 88 18 96/60 97 Room Air 11/02 1999 96 Nasal 2.0L Cannula 11/02 1599 99 Nasal 3.0L Cannula 11/02 1599 98.5 86 20 108/50 99 Nasal 3.0L Cannula Intake & Output 11/03 0811/03 0000 11/02 1600 11/02 0000 Intake Total 7783 768 1776 2602 230 120 Output Total 1300 920 415 750 600 200 Balance -220 -753 466 7208 -370 -80 Intake, IV 600 914 178 8037 230 Intake, Oral 480 725 963 5991 120 Number 1 1 2 0 0 1 Bowel Movements Output, Urine 1300 920 415 750 600 200 Patient 203 lb Weight Laboratory Tests 11/03 11/03 11/02 0430 0130 1910 Chemistry Sodium (137 - 145 mmol/L) 140 139 Potassium (3.5 - 5.1 mmol/L) 3.9 3.2 L Chloride (98 - 107 mmol/L) 118 H 115 H Carbon Dioxide (22 - 30 mmol/L) 14 L 15 L Anion Gap (5 - 16) 8 9 BUN (9 - 20 mg/dL) 34 H 33 H Creatinine (0.7 - 1.2 mg/dL) 2.5 H 2.5 H Estimated GFR (>60 ml/min) 26 L 26 L BUN/Creatinine Ratio (7 - 25 %) 13.2 Glucose (65 - 99 mg/dL) 60 L Calcium (8.4 - 10.2 mg/dL) 7.2 L Phosphorus (2.5 - 4.5 mg/dL) 2.9 Magnesium (1.6 - 2.3 mg/dL) 1.6 1.5 L Total Bilirubin (0.2 - 1.3 mg/dL) 0.5 AST (17 - 59 U/L) 30 ALT (21 - 72 U/L) 37 Troponin I (<0.11 ng/ml) 0.17 *H 0.19 *H 0.24 *H Albumin (3.5 - 5.0 g/dL) 2.0 L Hematology CBC w Diff MAN DIFF ORDERED WBC (4.8 - 10.8 /CUMM) 37.7 *H RBC (4.70 - 6.10 /CUMM) 3.82 L Hgb (14.0 - 18.0 G/DL) 12.0 L Hct (42 - 52 %) 36.4 L MCV (80.0 - 94.0 FL) 95.4 H MCH (27.0 - 31.0 PG) 31.5 H RDW (11.5 - 14.5 %) 17.2 H Plt Count (130 - 400 /CUMM) 74 L MPV (7.4 - 10.4 FL) 9.3 Gran % (42.2 - 75.2 %) 90.1 H Lymphocytes % (20.5 - 51.1 %) 2.5 L Monocytes % (1.7 - 9.3 %) 7.4 Eosinophils % (0 - 5 %) 0 Basophils % (0.0 - 2.0 %) 0 L Absolute Granulocytes (1.4 - 6.5 /CUMM) 33.9 H Segmented Neutrophils (42.2 - 75.2 %) 73 Band Neutrophils (0.0 - 5.0 %) 13 H Absolute Lymphocytes (1.2 - 3.4 /CUMM) 1.0 L Lymphocytes (20.5 - 51.1 %) 3 L Monocytes (1.7 - 9.3 %) 7 Absolute Monocytes (0.10 - 0.60 /CUMM) 2.8 H Absolute Eosinophils (0.0 - 0.7 /CUMM) 0 Absolute Basophils (0.0 - 0.2 /CUMM) 0 Metamyelocytes (0.0 - 1.0 %) 4 H Platelet Estimate (ADEQUATE) DECREASED Polychromasia 1+ Poikilocytosis 2+ Ovalocytes 1+ [place] Cells 1+ PUBS MCHC (33.0 - 37.0 G/DL) 33.0 Blood and urine cultures positive for Gram neg rods All images reviewed. Two stones in R kidney did not appear obstructing. CT scan before stent insertion showed R hydronephrosis and proximal hydroureter of unclear cause. No stone seen in ureter. Repeat CT after stent insertion shows resolution of R hydroureteronephrosis Assessment/Plan Assessment/Plan Imp: Urosepsis R renal calculi R hydroureteronephrosis of unclear cause s/p R ureteral stent insertion Plan: R ureteral stent to remain in place Continue abx and adjust appropriately when sensitivities available Daily labs When patient recovers will need R ureteroscopy to r/o obstruction of R ureter, and laser lithotripsy of R renal stones
[2016-11-03 16:00] VITALS: BP 110/70
--- NOTE | 2016-11-03 18:29 | Cons- Nephrology ---
General Information and HPI Consulting Request Date of Consult: 11/03/16 Requested By: BHASKAR GUADALUPE MD Reason for Consult: Acute kidney injury History of Present Illness: The patient is a 66-year-old gentleman with known chronic kidney disease stage III with baseline creatinine of 1.5 had been remarkably stable over the past 10 years through 09/01/2016 at which time it was again 1.5. He was now admitted on November 01 with high fever (105.0), a one-week history of worsening flank/ abdominal pain and found to have obstructing nephrolithiasis on the right requiring emergency stenting. His creatinine of 2.3 on admission is now 2.5. It should be noted that he became severely hypotensive requiring temporary pressor support and fluid resuscitation. He is now feeling much better, awake and alert, off pressors and afebrile. He has a marked leukocytosis (37.7), urine culture is growing Escherichia coli and blood cultures are growing gram- negative rods. He is currently being treated with ceftriaxone and IV fluids as well as potassium supplementation. Hypokalemia has apparently been a problem for him since he had bariatric surgery in 1999. The cause of his chronic kidney disease which was evaluated in 2009 was thought to be multifactorial including hypertension, diabetes mellitus and analgesic abuseall of which are no longer clinical problems. Past medical history is positive for chronic kidney disease stage III secondary to diabetes, hypertension, analgesic abuse, morbid obesity (506 pounds) leading to bariatric bypass surgery at [facility] in [place] in September 2000 , hyperlipidemia, nephrolithiasis (previously uric acid) chronic low back pain with disc disease requiring laminectomy, hypokalemia. Outpatient medications included allopurinol, bupropion, calcium with vitamin D, Pristiq, gabapentin, iron, vitamin C, vitamin B12, metoprolol, a multivitamin, potassium chloride and zinc. 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 Allergies/Medications Allergies: Coded Allergies: NO KNOWN ALLERGIES (12/29/15) Home Med List: Allopurinol 300 MG TAB 1 TAB PO DAILY GOUT (Reported) BUPROPION HCL (Bupropion XL) 150 MG T24 1 TAB PO TID MENTAL HEALTH (Reported) Calcium/Vitamin D (Calcium + D) (Unknown Strength) TAB (Unknown Dose) PO BID SUPPLEMENT (Reported) Desvenlafaxine Succinate (Pristiq ER) [address] 1 TAB PO DAILY MENTAL HEALTH (Reported) Gabapentin (Neurontin) 300 MG CAP 1 CAP PO TID NERVE PAIN (Reported) IRON FUMARATE/VIT C/VIT B12/FA (Trigels-F Forte Softgel) 1 SGL SGL 1 SGL PO BID SUPPLEMENT (Reported) Metoprolol Succ XL (Toprol Xl) 50 MG TAB 0.5 TAB PO DAILY HTN MV, MIN #36/IRON,CARBONYL/FA (Geritol Complete Tablet) 1 TAB TAB 1 TAB PO DAILY SUPPLEMENT (Reported) POTASSIUM CHLORIDE (K-Dur) 20 MEQ TAB 1 TAB PO DAILY SUPPLEMENT (Reported) Zinc 50 MG TAB 1 TAB PO DAILY SUPPLEMENT (Reported) Review of Systems Review of Systems: Review of Systems Constitutional: Reports: chills, fever, malaise, weakness, unexplained weight loss. Denies: diaphoresis. EENTM: Denies: blurred vision, visual changes, hearing changes, nasal congestion, throat pain. Cardiovascular: Denies: chest pain, palpitations, peripheral edema, syncope. Respiratory: Denies: cough, short of breath, sputum production, wheezing. GI: Reports: abdominal pain, constipation, diarrhea. Denies: melena, nausea, bloody stool, vomiting. Genitourinary: Denies: discharge, dysuria, frequency, hematuria, pain, urgency. Musculoskeletal: Reports: back pain (Chronic), gout (History of, no recent flares), joint pain ( Bilateral hips), muscle pain. Skin: Denies: dryness, erythema, lesions. Neurological/Psychological: Reports: anxiety, confusion. Denies: headache, numbness, paresthesia, tremors. Hematologic/Endocrine: Denies: bruising, bleeding, polyuria, polydipsia. Immunologic/Allergic: Denies: splenectomy. All Other Systems: Reviewed and Negative Past History Travel History Traveled to [place] past 21 day No Medical History Neurological: NONE EENT: NONE Cardiovascular: hypertension Respiratory: NONE Gastrointestinal: GASTRIC BYPASS Hepatic: NONE Renal: chronic kidney disease, nephrolithiasis Musculoskeletal: BACK PAIN Psychiatric: anxiety, depression Endocrine: NONE Blood Disorders: NONE Cancer(s): NONE FIELD MARKETER/Reproductive: NONE Surgical History Surgical History: BACK FUSION OF L4-6 Family History Relations & Conditions If Any: FATHER Myocardial infarction Psychosocial History Where Do You Live? Home Who Do You Live With? spouse Services at Home: None Primary Language: Italian Smoking Status: Former Smoker ETOH Use: denies use Illicit Drug Use: denies illicit drug use Functional Ability ADLs Independent: dressing, eating, toileting, bathing. Ambulation: independent IADLs Independent: shopping, housework, finances, food prep, telephone, transportation , medication admin. Exam & Diagnostic Data Vital Signs and I&O Vital Signs Date Time Temp Pulse Resp B/P Pulse O2 O2 Flow FiO2 Ox Delivery Rate 11/03 0800 97.8 76 18 120/82 97 Room Air 11/03 0557 77 107/52 11/03 0000 98.7 88 18 96/60 97 Room Air 11/02 2000 96 Nasal 2.0L Cannula Intake & Output 11/03 1600 11/03 0400 11/02 1600 11/02 0400 11/01 1600 11/01 0400 Intake Total 1899 1394 2832 120 3100 Output Total 2220 415 1350 200 100 Balance -465 953 0572 -80 3000 Intake, IV 1450 675 4250 3100 Intake, Oral 112 504 0191 120 Number 2 2 0 1 Bowel Movements Output, Urine 2220 415 1350 200 100 Patient 203 lb 220 lb Weight Physical Exam: General: Well-developed white male in NAD Skin: No rash or jaundice HEENT: Conjunctivae pink, sclerae anicteric, mucous membranes moist Neck: Without masses or thyromegaly, no supraclavicular or cervical adenopathy Chest: Clear to P&A Heart: Regular rate and rhythm without S3 or rub Abdomen: Soft and nontender without palpable masses or organomegaly Extremities: Without cyanosis or edema Neuro: No focal findings, no asterixis or myoclonus Results Pertinent Lab Results: Laboratory Tests 11/03 11/03 11/02 0430 0130 1910 Chemistry Sodium (137 - 145 mmol/L) 140 139 Potassium (3.5 - 5.1 mmol/L) 3.9 3.2 L Chloride (98 - 107 mmol/L) 118 H 115 H Carbon Dioxide (22 - 30 mmol/L) 14 L 15 L Anion Gap (5 - 16) 8 9 BUN (9 - 20 mg/dL) 34 H 33 H Creatinine (0.7 - 1.2 mg/dL) 2.5 H 2.5 H Estimated GFR (>60 ml/min) 26 L 26 L BUN/Creatinine Ratio (7 - 25 %) 13.2 Glucose (65 - 99 mg/dL) 60 L Calcium (8.4 - 10.2 mg/dL) 7.2 L Phosphorus (2.5 - 4.5 mg/dL) 2.9 Magnesium (1.6 - 2.3 mg/dL) 1.6 1.5 L Total Bilirubin (0.2 - 1.3 mg/dL) 0.5 AST (17 - 59 U/L) 30 ALT (21 - 72 U/L) 37 Troponin I (<0.11 ng/ml) 0.17 *H 0.19 *H 0.24 *H Albumin (3.5 - 5.0 g/dL) 2.0 L Hematology CBC w Diff MAN DIFF ORDERED WBC (4.8 - 10.8 /CUMM) 37.7 *H RBC (4.70 - 6.10 /CUMM) 3.82 L Hgb (14.0 - 18.0 G/DL) 12.0 L Hct (42 - 52 %) 36.4 L MCV (80.0 - 94.0 FL) 95.4 H MCH (27.0 - 31.0 PG) 31.5 H RDW (11.5 - 14.5 %) 17.2 H Plt Count (130 - 400 /CUMM) 74 L MPV (7.4 - 10.4 FL) 9.3 Gran % (42.2 - 75.2 %) 90.1 H Lymphocytes % (20.5 - 51.1 %) 2.5 L Monocytes % (1.7 - 9.3 %) 7.4 Eosinophils % (0 - 5 %) 0 Basophils % (0.0 - 2.0 %) 0 L Absolute Granulocytes (1.4 - 6.5 /CUMM) 33.9 H Segmented Neutrophils (42.2 - 75.2 %) 73 Band Neutrophils (0.0 - 5.0 %) 13 H Absolute Lymphocytes (1.2 - 3.4 /CUMM) 1.0 L Lymphocytes (20.5 - 51.1 %) 3 L Monocytes (1.7 - 9.3 %) 7 Absolute Monocytes (0.10 - 0.60 /CUMM) 2.8 H Absolute Eosinophils (0.0 - 0.7 /CUMM) 0 Absolute Basophils (0.0 - 0.2 /CUMM) 0 Metamyelocytes (0.0 - 1.0 %) 4 H Platelet Estimate (ADEQUATE) DECREASED Polychromasia 1+ Poikilocytosis 2+ Ovalocytes 1+ Billy Cells 1+ PUBS MCHC (33.0 - 37.0 G/DL) 33.0 11/02 11/02 11/02 1215 0935 0850 Chemistry Sodium (137 - 145 mmol/L) 142 Cancelled Potassium (3.5 - 5.1 mmol/L) 2.9 *L Cancelled Chloride (98 - 107 mmol/L) 115 H Cancelled Carbon Dioxide (22 - 30 mmol/L) 16 L Cancelled Anion Gap (5 - 16) 11 Cancelled BUN (9 - 20 mg/dL) 32 H Cancelled Creatinine (0.7 - 1.2 mg/dL) 2.4 H Cancelled Estimated GFR (>60 ml/min) 27 L Glucose (65 - 99 mg/dL) 68 Cancelled Calcium (8.4 - 10.2 mg/dL) 7.0 L Cancelled Phosphorus (2.5 - 4.5 mg/dL) 3.5 Cancelled Magnesium (1.6 - 2.3 mg/dL) 1.5 L Cancelled Total Bilirubin (0.2 - 1.3 mg/dL) 0.5 Cancelled AST (17 - 59 U/L) 39 Cancelled ALT (21 - 72 U/L) 38 Cancelled Troponin I (<0.11 ng/ml) 0.18 *H Albumin (3.5 - 5.0 g/dL) 2.6 L Cancelled Hematology CBC w Diff MAN DIFF ORDERED WBC (4.8 - 10.8 /CUMM) 34.5 *H RBC (4.70 - 6.10 /CUMM) 3.96 L Hgb (14.0 - 18.0 G/DL) 12.5 L Hct (42 - 52 %) 37.5 L MCV (80.0 - 94.0 FL) 94.7 H MCH (27.0 - 31.0 PG) 31.6 H RDW (11.5 - 14.5 %) 16.7 H Plt Count (130 - 400 /CUMM) 111 L MPV (7.4 - 10.4 FL) 8.4 Gran % (42.2 - 75.2 %) 92.0 H Lymphocytes % (20.5 - 51.1 %) 1.2 L Monocytes % (1.7 - 9.3 %) 6.8 Eosinophils % (0 - 5 %) 0 Basophils % (0.0 - 2.0 %) 0 L Absolute Granulocytes (1.4 - 6.5 /CUMM) 31.8 H Segmented Neutrophils (42.2 - 75.2 %) 75 Band Neutrophils (0.0 - 5.0 %) 18 H Absolute Lymphocytes (1.2 - 3.4 /CUMM) 0.4 L Lymphocytes (20.5 - 51.1 %) 3 L Monocytes (1.7 - 9.3 %) 4 Absolute Monocytes (0.10 - 0.60 /CUMM) 2.3 H Absolute Eosinophils (0.0 - 0.7 /CUMM) 0 Absolute Basophils (0.0 - 0.2 /CUMM) 0 Platelet Estimate (ADEQUATE) DECREASED Normocytic RBCs VERIFIED Normochromic RBCs VERIFIED PUBS MCHC (33.0 - 37.0 G/DL) 33.4 11/02 11/02 0644 0600 Chemistry Sodium (137 - 145 mmol/L) 141 Cancelled Potassium (3.5 - 5.1 mmol/L) 2.2 *L Cancelled Chloride (98 - 107 mmol/L) 118 H Cancelled Carbon Dioxide (22 - 30 mmol/L) 14 L Cancelled Anion Gap (5 - 16) 9 Cancelled BUN (9 - 20 mg/dL) 31 H Cancelled Creatinine (0.7 - 1.2 mg/dL) 2.4 H Cancelled Estimated GFR (>60 ml/min) 27 L BUN/Creatinine Ratio Cancelled Glucose (65 - 99 mg/dL) 80 Lactic Acid (0.7 - 2.1 mmol/L) 1.1 Calcium (8.4 - 10.2 mg/dL) 7.0 L Phosphorus (2.5 - 4.5 mg/dL) 3.0 Magnesium (1.6 - 2.3 mg/dL) 1.3 L Total Bilirubin (0.2 - 1.3 mg/dL) 0.4 AST (17 - 59 U/L) 30 ALT (21 - 72 U/L) 34 Troponin I (<0.11 ng/ml) 0.12 *H Albumin (3.5 - 5.0 g/dL) 2.2 L Hematology CBC w Diff MAN DIFF ORDERED WBC (4.8 - 10.8 /CUMM) 30.8 *H RBC (4.70 - 6.10 /CUMM) 3.79 L Hgb (14.0 - 18.0 G/DL) 12.0 L Hct (42 - 52 %) 36.1 L MCV (80.0 - 94.0 FL) 95.1 H MCH (27.0 - 31.0 PG) 31.5 H RDW (11.5 - 14.5 %) 16.7 H Plt Count (130 - 400 /CUMM) 108 L MPV (7.4 - 10.4 FL) 7.9 Gran % (42.2 - 75.2 %) 90.8 H Lymphocytes % (20.5 - 51.1 %) 1.9 L Monocytes % (1.7 - 9.3 %) 7.3 Eosinophils % (0 - 5 %) 0 Basophils % (0.0 - 2.0 %) 0 L Absolute Granulocytes (1.4 - 6.5 /CUMM) 27.9 H Segmented Neutrophils (42.2 - 75.2 %) 79 H Band Neutrophils (0.0 - 5.0 %) 16 H Absolute Lymphocytes (1.2 - 3.4 /CUMM) 0.6 L Lymphocytes (20.5 - 51.1 %) 3 L Monocytes (1.7 - 9.3 %) 2 Absolute Monocytes (0.10 - 0.60 /CUMM) 2.3 H Absolute Eosinophils (0.0 - 0.7 /CUMM) 0 Absolute Basophils (0.0 - 0.2 /CUMM) 0 Platelet Estimate (ADEQUATE) ADEQUATE Normocytic RBCs VERIFIED Normochromic RBCs VERIFIED PUBS MCHC (33.0 - 37.0 G/DL) 33.2 Other Body Source Fld Total RBCs Counted (%) 100 11/01 11/01 11/01 2330 2050 1739 Chemistry Lactic Acid (0.7 - 2.1 mmol/L) Cancelled 1.3 2.4 H 11/01 11/01 1430 1420 Chemistry Sodium (137 - 145 mmol/L) 141 Potassium (3.5 - 5.1 mmol/L) 3.4 L Chloride (98 - 107 mmol/L) 111 H Carbon Dioxide (22 - 30 mmol/L) 17 L Anion Gap (5 - 16) 12 BUN (9 - 20 mg/dL) 28 H Creatinine (0.7 - 1.2 mg/dL) 2.3 H Estimated GFR (>60 ml/min) 29 L BUN/Creatinine Ratio (7 - 25 %) 12.2 Glucose (65 - 99 mg/dL) 101 H Lactic Acid (0.7 - 2.1 mmol/L) 2.1 Calcium (8.4 - 10.2 mg/dL) 8.3 L Phosphorus (2.5 - 4.5 mg/dL) 2.5 Magnesium (1.6 - 2.3 mg/dL) 1.4 L Total Bilirubin (0.2 - 1.3 mg/dL) 0.6 AST (17 - 59 U/L) 18 ALT (21 - 72 U/L) 31 Alkaline Phosphatase (< 127 U/L) 111 Troponin I (<0.11 ng/ml) 0.02 Spa-I-Gcvpgnesnod Pept (<125 pg/mL) 534 H Total Protein (6.3 - 8.2 g/dL) 6.0 L Albumin (3.5 - 5.0 g/dL) 3.3 L Globulin (1.9 - 4.2 gm/dL) 2.7 Albumin/Globulin Ratio (1.1 - 2.2 %) 1.2 Coagulation PT (9.4 - 12.5 SEC) 12.6 H INR (0.90 - 1.17) 1.20 H APTT (25 - 37 SEC) 27 Hematology CBC w Diff MAN DIFF ORDERED WBC (4.8 - 10.8 /CUMM) 3.5 L RBC (4.70 - 6.10 /CUMM) 4.20 L Hgb (14.0 - 18.0 G/DL) 13.1 L Hct (42 - 52 %) 39.5 L MCV (80.0 - 94.0 FL) 94.0 MCH (27.0 - 31.0 PG) 31.2 H RDW (11.5 - 14.5 %) 16.1 H Plt Count (130 - 400 /CUMM) 135 MPV (7.4 - 10.4 FL) 6.9 L Gran % (42.2 - 75.2 %) 95.0 H Lymphocytes % (20.5 - 51.1 %) 3.3 L Monocytes % (1.7 - 9.3 %) 0.8 L Eosinophils % (0 - 5 %) 0.9 Basophils % (0.0 - 2.0 %) 0 L Absolute Granulocytes (1.4 - 6.5 /CUMM) 3.3 Segmented Neutrophils (42.2 - 75.2 %) 90 H Band Neutrophils (0.0 - 5.0 %) 7 H Absolute Lymphocytes (1.2 - 3.4 /CUMM) 0.1 L Lymphocytes (20.5 - 51.1 %) 2 L Monocytes (1.7 - 9.3 %) 1 L Absolute Monocytes (0.10 - 0.60 /CUMM) 0 L Absolute Eosinophils (0.0 - 0.7 /CUMM) 0 Absolute Basophils (0.0 - 0.2 /CUMM) 0 Platelet Estimate (ADEQUATE) DECREASED Polychromasia 1+ Hypochromic-Microcytic 1+ Anisocytosis 1+ PUBS MCHC (33.0 - 37.0 G/DL) 33.2 Urines Urine Color (YEL,AMB,STR) YEL Urine Clarity (CLEAR) CLEAR Urine pH (5.0 - 8.0) 6.0 Ur Specific [place] (1.001 - 1.035) 1.020 Urine Protein (NEG,<30 MG/DL) TRACE H Urine Ketones (NEG) NEG Urine Nitrite (NEG) POS H Urine Bilirubin (NEG) NEG Urine Urobilinogen (0.1 - 1.0 EU/dl) 0.2 Ur Leukocyte Esterase (NEG) SMALL H Ur Microscopic SEDIMENT EXAMINED Urine RBC (0 - 5 /HPF) >75 H Urine WBC (0 - 2 /HPF) RARE Ur Epithelial Cells (NONE,FEW) RARE Urine Mucus (FEW,NONE) RARE Urine Hemoglobin (NEG) LARGE H Urine Glucose (N MG/DL) NEG Assessment/Plan Assessment/Recommendations Assessment: 66-year-old man with a history of chronic kidney disease stage III secondary to analgesic abuse/hypertension/diabetes mellitus, with a baseline creatinine of 1.5 that had been stable for over 10 years, and with a history of bariatric surgery and nephrolithiasis (uric acid) now comes in with an obstructed right kidney due to nephrolithiasis with associated urosepsis manifested by very high fever, hypotension and leukocytosis. Urine is growing Escherichia coli and blood cultures are positive for gram-negative rods which will likely be the same organism. Imaging studies show residual nephrolithiasis. He now exhibits acute kidney injury superimposed on his CKD which may in part have been obstructive but more likely related to his septic syndrome with hypotension. He may still be prerenal but may just as easily have developed acute tubular necrosis. Hyperkalemia has not been an issue and on the contrary he tends to run low serum potassium levels. He does have a low bicarbonate level (not a chronic issue for him) with a normal anion gap indicating a complicating hyperchloremic metabolic acidosis. Finally, elevated troponin is noted likely representing a demand phenomenon - Cardiology following. Recommendations: 1. Check fractional excretion of sodium 2. Agree with isotonic IV fluids but will consider changing to half normal saline +75 mEq of sodium bicarbonate per liter at 100 mL per hour 3. Continue empiric antibiotic therapy pending final identification with sensitivities of the gram-negative organism -apparently Escherichia coli 4. Monitor intake and output, chemistries daily 5. Supplement potassium as needed 6. Urology follow-up Thank you. Will follow along with you.
[2016-11-04] VITALS: BP 138/72
[2016-11-04 05:19] LABS: ABSOLUTE BASOPHIL COUNT 0 /CUMM (0.0-0.2); ABSOLUTE EOSINOPHIL COUNT 0.4 /CUMM (0.0-0.7); ABSOLUTE GRANULOCYTE CT 33.4 /CUMM (1.4-6.5); ABSOLUTE LYMPH COUNT 1.1 /CUMM (1.2-3.4); ABSOLUTE MONOCYTE COUNT 1.1 /CUMM (0.10-0.60); BASOPHIL % 0 % (0.0-2.0); EOSINOPHIL % 1.2 % (0-5); GRANULOCYTE % 92.6 % (42.2-75.2); HEMATOCRIT 33.7 % (42-52); MEAN CORPUSCULAR HGB 31.4 PG (27.0-31.0); MEAN CORPUSCULAR VOLUME 95.2 FL (80.0-94.0); MEAN PLATELET VOLUME 8.9 FL (7.4-10.4); PLATELET COUNT 78 /CUMM (130-400); RED BLOOD CELL CT 3.54 /CUMM (4.70-6.10)
--- NOTE | 2016-11-04 07:47 | PN- Resident CRCU ---
See Addendum Subjective HPI/CRCU Issues: Pt in ICU or: elevated troponins, urosepsis Pt was seen and examined. His on bed looks relaxed and comfortable. In general he reported improvement of his symptom, however last night he had sharp right side flank pain agin. He stated that dysuria resolved. He denies hematuria, dizziness, chest pain, palpitation or shortness breath. Objective Vital Signs & I&O Last 8 Hrs of Vitals and I&O: Intake & Output 11/04 1600 11/04 0800 11/04 0000 Intake Total 1026 1367.7 Output Total 2400 1900 Balance -1374 -532.3 Intake, IV 786 647.7 Intake, Oral 240 720 Number 2 0 Bowel Movements Output, Urine 2400 1900 Laboratory Tests 11/04 11/03 0442 2132 Chemistry Sodium (137 - 145 mmol/L) 139 Potassium (3.5 - 5.1 mmol/L) 3.5 Chloride (98 - 107 mmol/L) 117 H Carbon Dioxide (22 - 30 mmol/L) 16 L Anion Gap (5 - 16) 6 BUN (9 - 20 mg/dL) 28 H Creatinine (0.7 - 1.2 mg/dL) 2.1 H Estimated GFR (>60 ml/min) 32 L Glucose (65 - 99 mg/dL) 61 L Calcium (8.4 - 10.2 mg/dL) 7.8 L Phosphorus (2.5 - 4.5 mg/dL) 2.3 L Magnesium (1.6 - 2.3 mg/dL) 1.8 Total Bilirubin (0.2 - 1.3 mg/dL) 0.4 AST (17 - 59 U/L) 28 ALT (21 - 72 U/L) 37 Albumin (3.5 - 5.0 g/dL) 2.0 L Hematology CBC w Diff MAN DIFF ORDERED WBC (4.8 - 10.8 /CUMM) 36.0 *H RBC (4.70 - 6.10 /CUMM) 3.54 L Hgb (14.0 - 18.0 G/DL) 11.1 L Hct (42 - 52 %) 33.7 L MCV (80.0 - 94.0 FL) 95.2 H MCH (27.0 - 31.0 PG) 31.4 H RDW (11.5 - 14.5 %) 17.0 H Plt Count (130 - 400 /CUMM) 78 L MPV (7.4 - 10.4 FL) 8.9 Gran % (42.2 - 75.2 %) 92.6 H Lymphocytes % (20.5 - 51.1 %) 3.1 L Monocytes % (1.7 - 9.3 %) 3.1 Eosinophils % (0 - 5 %) 1.2 Basophils % (0.0 - 2.0 %) 0 L Absolute Granulocytes (1.4 - 6.5 /CUMM) 33.4 H Segmented Neutrophils (42.2 - 75.2 %) 88 H Band Neutrophils (0.0 - 5.0 %) 9 H Absolute Lymphocytes (1.2 - 3.4 /CUMM) 1.1 L Lymphocytes (20.5 - 51.1 %) 2 L Monocytes (1.7 - 9.3 %) 1 L Absolute Monocytes (0.10 - 0.60 /CUMM) 1.1 H Absolute Eosinophils (0.0 - 0.7 /CUMM) 0.4 Absolute Basophils (0.0 - 0.2 /CUMM) 0 Platelet Estimate (ADEQUATE) DECREASED Polychromasia 1+ Ovalocytes FEW Stomatocytes FEW PUBS MCHC (33.0 - 37.0 G/DL) 33.0 Other Body Source Fld Total RBCs Counted (%) 100 Urines Urinalysis LIGHT H Urine Color (YEL,AMB,STR) STRAW Urine Clarity (CLEAR) HAZY H Urine pH (5.0 - 8.0) 6.0 Ur Specific [place] (1.001 - 1.035) 1.010 Urine Protein (NEG,<30 MG/DL) TRACE H Urine Ketones (NEG) NEG Urine Nitrite (NEG) NEG Urine Bilirubin (NEG) NEG Urine Urobilinogen (0.1 - 1.0 EU/dl) 0.2 Ur Leukocyte Esterase (NEG) TRACE H Ur Microscopic SEDIMENT EXAMINED Urine RBC (0 - 5 /HPF) 15-25 H Urine WBC (0 - 2 /HPF) 1-3 H Ur Epithelial Cells (NONE,FEW) FEW Urine Mucus (FEW,NONE) FEW Urine Hemoglobin (NEG) LARGE H Urine Glucose (N MG/DL) NEG 11/03 2132 Urines Ur Random Creatinine (mg/dL) 30.5 Ur Random Sodium (30 - 90 mmol/L) 72 Ur Random Potassium (mmol/L) 6.9 Fraction Sodium Excret (<1% %) 4.2 H Exam General Appearance: well developed/nourished, no apparent distress, alert, awake , comfortable Head: atraumatic, normal appearance Respiratory: normal breath sounds, chest non-tender, no respiratory distress, quiet respiration, lungs clear Cardiovascular: regular rate/rhythm Gastrointestinal: normal bowel sounds, soft, right lower quadrant tenderness, right flank tenderness Extremities: no lower extremity edema bilaterally Current Medications: Current Medications Sig/Monica Start time Last Medication Dose Route Stop Time Status Admin Acetaminophen 650 MG Q8P PRN 11/01 181 AC PO Acetaminophen 1,000 MG Q8P PRN 11/01 1815 AC 11/01 IV 2112 Bupropion HCl 150 MG DAILY 11/01 220 AC 11/04 PO 1010 Ceftriaxone Sodium 1,000 MG DAILY@1600 11/02 1600 AC 11/03 IV 1739 Desvenlafaxine 100 MG DAILY@11/03 2200 AC 11/03 Succinate PO 2148 Gabapentin 300 MG BID 11/01 220 AC 11/04 PO 1010 Heparin Sodium 5,000 UNIT Q8 11/01 2200 AC 11/03 (Porcine) SC 2148 Magnesium Oxide 400 MG ONE ONE 11/04 0915 DC 11/04 PO 11/04 0916 1011 Multivitamins 1 TAB DAILY 11/03 1559 AC 11/04 PO 1010 Non-Formulary 0 SEE ADMIN CRITERIA 11/01 1800 CAN Medication ANY Norepinephrine 4 MG Q24H 11/02 0615 DC 11/02 Sodium Chloride 250 ML IV 0902 Potassium Chloride 20 MEQ ONCE ONE 11/04 0745 DC 11/04 PO 11/04 0746 1011 Potassium Chloride 20 MEQ DAILY 11/02 1000 AC 11/04 PO 1011 Potassium Phosphate 15 mMol ONE ONE 11/04 0745 AC 11/04 Sodium Chloride 250 ML IV 11/04 1148 1010 Sodium Bicarbonate 75 MEQ CONTINOUS INFUSION 11/03 1945 AC 11/03 Sodium Chloride 1,000 ML IV 2154 Sodium Chloride 1,000 ML Q6H 11/01 1800 DC 11/03 IV 1314 Impression/Plan Impression/Problem List Impression: Impression: This is a 66 yo male with PMH of HTN, HLD, CKD 3, hypokalemia, gastric bypass, polysubstance abuse, chronic back pain, gout, anxiety depression with came in with CC of lethargy and abdominal pain. Was found to have SHUKRI, and nephrolithiasis along with r. hydronephrosis with concern for pyelo. Went for r. ureteral stent placement, became hypotensive and was transferred to ICU for hypotension 2/2 urosepsis. In ICU, pt is treated for urosepsis, hypokalemia/ hypomag and upward trending troponins. Today his troponin is going down with no EKG changes. Patient vitals are stable, however his WBCs is going up. PLAN RESPIRATORY: Pt is satting well on 3L NC. Denies any SOB. ID: 1.) Urosepsis: Pt has urine culture and 1/2 Blood cultrure growing [place] [address] yesterday with [place]. [place] [address](band decreased from 13 to 9 today). On admission imaging he had r. hydronephrosis with suspicion of pyelo but this urine showed > 75 wbc +nitrite and small LE. He had a r. ureteral stent put in. Initially he was on norepinephrine, which was DC'd after his blood pressure improved improving. and abdominal CT shows resolution of the previously seen right-sided hydronephrosis. with no change of his bilateral renal stones. Today culture and sensitivity and the blood grew Escherichia coli that pansensitive * Cont' IV Ceftriaxone for now, will switch to Augmentin before discharge * Con't monitor CBC daily * Follow with urologist regarding stent * Consider ID consult if pt does not continue to improve CVS: 1.) Hypotension(resolved) Etiology 2/2 sepsis, though anesthesia likely also contributed to lowering BP. Pt was hypotensive overnight requiring Norepi. Currently BP WNL. Her epinephrine was DC'd 2 days ago. Since then his blood pressure is stable 2.) Troponin elevation: Pt has trops .02--> .12--> .18-->.24-->.19 No corresponding EKG changes. Cardiology believe it's most likely demand ischemia secondary to sepsis. * We will keep electrolytes WNL * Echocardiogram results pending * We will consult cardiology again for any new concerning symptoms appears HEME/ONC: Pt has H/H 11.1 and 33.7. A little bit lower than yesterday #Leukocytosis: Initially white count 3.5 then next day went up to 30 and then 34 than 37.7 with left shift. Likely 2/2 infectious process. Today his white blood cell continue decreased to 36. He has 1/2 bcx with GNR. Patient bands down from 13 to 9 today * We will repeat CBC daily * If no improvement we will consult ID #Thrombocytopenia Patient's platelets is been dropping today his platelets 78. We hold his heparin as possible explanation. * We repeat CBC tomorrow and look for the platelet if they improved then heparin can explain the drop. Metabolic Metabolic acidosis Most likely has metabolic acidosis is secondary to SHUKRI plus diarrhea. * As per nephrology IV fluids: Half normal saline +75 mEq of sodium bicarbonate per liter at 100 mL per hour continuously * We will work patient for diarrhea * we'll send C. difficile and guaiac stool MSK: Stable, cont' monitor. GI: pt has hx of of gastric bypass and Hypokalemia that was repleted. This AM, pt and he was eating well. Stable. Will con't monitor. NEPHRO:Pt has hx of CKD 3 and hypokalemia. Has a r. ureteral stent placed for r. hydro. 1. Hypokalemia: today at 3.9 2. Hypomagnesemia: Mag at 1.6 today. repleted. * Will recheck Mag and K daily Regular diet full code chemical dvt ppx Problem List: 1. Nephrolithiasis 2. SHUKRI (acute kidney injury) Pain Ratin Tomorrow's Labs & Rationales: cbc and bep Plan DVT/Prophylaxis: mechanical
[2016-11-04 08:00] VITALS: BP 120/70
--- NOTE | 2016-11-04 11:02 | PN- Nephrology ---
Assessment/Plan Assessment: 1. Acute kidney injury secondary to sepsis - improving 2. Metabolic acidosis secondary to SHUKRI plus diarrhea 3. Urosepsis secondary to gonzalez-sensitive E.coli UTI with bacteremia in the setting of obstructive nephrolithiasis on the right --> stented Suggestion: 1. IV fluids: Half normal saline +75 mEq of sodium bicarbonate per liter at 100 mL per hour continuously 2. Continue to monitor intake and output, chemistries daily 3. Continue antibiotic therapy Subjective Subjective: Patient notes that he had 4 bouts of diarrhea last evening. Otherwise no specific complaints. Renal function improving with creatinine down to 2.1. Bicarbonate remains low at 16. Urine output 4120ml yesterday. Leukocytosis unchanged but he remains afebrile. Blood cultures and urine growing gonzalez- sensitive Escherichia coli. Objective Vital Signs and I&Os Vital Signs Date Time Temp Pulse Resp B/P Pulse O2 O2 Flow FiO2 Ox Delivery Rate 11/04 0800 100 Room Air Room Air 11/04 0800 97.8 84 20 120/70 100 Room Air Room Air 11/04 0400 97 Room Air 11/04 0000 97 Room Air 11/04 0000 97.2 89 15 138/72 97 Room Air 11/03 2000 97 Room Air 11/03 1600 97.7 70 22 110/70 98 Room Air Intake & Output 11/04 1600 11/04 0400 11/03 1600 11/03 0400 11/02 1600 11/02 0400 Intake Total 1026 1367.7 1899 1394 2832 120 Output Total 2400 1900 2220 415 1350 200 Balance -1374 -532.3 -070 971 7347 -80 Intake, IV 786 647.7 4610 771 6615 Intake, Oral 240 720 063 799 2555 120 Number 2 0 2 2 0 1 Bowel Movements Output, Urine 2400 1900 2220 415 1350 200 Patient 203 lb Weight Physical Exam: General: Well-developed white male in NAD Skin: No rash or jaundice HEENT: Conjunctivae pink, sclerae anicteric, mucous membranes moist Neck: Without masses or thyromegaly, no supraclavicular or cervical adenopathy Chest: Clear to P&A Heart: Regular rate and rhythm without S3 or rub Abdomen: Soft and nontender without palpable masses or organomegaly Extremities: Without cyanosis or edema Neuro: No focal findings, no asterixis or myoclonus Current Medications: Current Medications Sig/Monica Start time Last Medication Dose Route Stop Time Status Admin Acetaminophen 650 MG Q8P PRN 11/01 181 AC PO Acetaminophen 1,000 MG Q8P PRN 11/01 1815 AC 11/01 IV 2112 Bupropion HCl 150 MG DAILY 11/01 2199 AC 11/04 PO 1010 Ceftriaxone Sodium 1,000 MG DAILY@1600 11/02 1600 AC 11/03 IV 1739 Desvenlafaxine 100 MG DAILY@11/03 220 AC 11/03 Succinate PO 2148 Gabapentin 300 MG BID 11/01 220 AC 11/04 PO 1010 Heparin Sodium 5,000 UNIT Q8 11/01 220 DC 11/03 (Porcine) SC 2148 Magnesium Oxide 400 MG ONE ONE 11/04 0915 DC 11/04 PO 11/04 0916 1011 Multivitamins 1 TAB DAILY 11/03 1559 AC 11/04 PO 1010 Non-Formulary 0 SEE ADMIN CRITERIA 11/01 1800 CAN Medication ANY Norepinephrine 4 MG Q24H 11/02 0615 DC 11/02 Sodium Chloride 250 ML IV 0902 Potassium Chloride 20 MEQ ONCE ONE 11/04 0745 DC 11/04 PO 11/04 0746 1011 Potassium Chloride 20 MEQ DAILY 11/02 1000 AC 11/04 PO 1011 Potassium Phosphate 15 mMol ONE ONE 11/04 0745 AC 11/04 Sodium Chloride 250 ML IV 11/04 1148 1010 Sodium Bicarbonate 75 MEQ CONTINOUS INFUSION 11/03 1945 AC 11/03 Sodium Chloride 1,000 ML IV 2154 Sodium Chloride 1,000 ML Q6H 11/01 1800 DC 11/03 IV 1314 Results Pertinent Lab Results: Laboratory Tests 11/04 11/03 0442 2132 Chemistry Sodium (137 - 145 mmol/L) 139 Potassium (3.5 - 5.1 mmol/L) 3.5 Chloride (98 - 107 mmol/L) 117 H Carbon Dioxide (22 - 30 mmol/L) 16 L Anion Gap (5 - 16) 6 BUN (9 - 20 mg/dL) 28 H Creatinine (0.7 - 1.2 mg/dL) 2.1 H Estimated GFR (>60 ml/min) 32 L Glucose (65 - 99 mg/dL) 61 L Calcium (8.4 - 10.2 mg/dL) 7.8 L Phosphorus (2.5 - 4.5 mg/dL) 2.3 L Magnesium (1.6 - 2.3 mg/dL) 1.8 Total Bilirubin (0.2 - 1.3 mg/dL) 0.4 AST (17 - 59 U/L) 28 ALT (21 - 72 U/L) 37 Albumin (3.5 - 5.0 g/dL) 2.0 L Hematology CBC w Diff MAN DIFF ORDERED WBC (4.8 - 10.8 /CUMM) 36.0 *H RBC (4.70 - 6.10 /CUMM) 3.54 L Hgb (14.0 - 18.0 G/DL) 11.1 L Hct (42 - 52 %) 33.7 L MCV (80.0 - 94.0 FL) 95.2 H MCH (27.0 - 31.0 PG) 31.4 H RDW (11.5 - 14.5 %) 17.0 H Plt Count (130 - 400 /CUMM) 78 L MPV (7.4 - 10.4 FL) 8.9 Gran % (42.2 - 75.2 %) 92.6 H Lymphocytes % (20.5 - 51.1 %) 3.1 L Monocytes % (1.7 - 9.3 %) 3.1 Eosinophils % (0 - 5 %) 1.2 Basophils % (0.0 - 2.0 %) 0 L Absolute Granulocytes (1.4 - 6.5 /CUMM) 33.4 H Segmented Neutrophils (42.2 - 75.2 %) 88 H Band Neutrophils (0.0 - 5.0 %) 9 H Absolute Lymphocytes (1.2 - 3.4 /CUMM) 1.1 L Lymphocytes (20.5 - 51.1 %) 2 L Monocytes (1.7 - 9.3 %) 1 L Absolute Monocytes (0.10 - 0.60 /CUMM) 1.1 H Absolute Eosinophils (0.0 - 0.7 /CUMM) 0.4 Absolute Basophils (0.0 - 0.2 /CUMM) 0 Platelet Estimate (ADEQUATE) DECREASED Polychromasia 1+ Ovalocytes FEW Stomatocytes FEW PUBS MCHC (33.0 - 37.0 G/DL) 33.0 Other Body Source Fld Total RBCs Counted (%) 100 Urines Urinalysis LIGHT H Urine Color (YEL,AMB,STR) STRAW Urine Clarity (CLEAR) HAZY H Urine pH (5.0 - 8.0) 6.0 Ur Specific [place] (1.001 - 1.035) 1.010 Urine Protein (NEG,<30 MG/DL) TRACE H Urine Ketones (NEG) NEG Urine Nitrite (NEG) NEG Urine Bilirubin (NEG) NEG Urine Urobilinogen (0.1 - 1.0 EU/dl) 0.2 Ur Leukocyte Esterase (NEG) TRACE H Ur Microscopic SEDIMENT EXAMINED Urine RBC (0 - 5 /HPF) 15-25 H Urine WBC (0 - 2 /HPF) 1-3 H Ur Epithelial Cells (NONE,FEW) FEW Urine Mucus (FEW,NONE) FEW Urine Hemoglobin (NEG) LARGE H Urine Glucose (N MG/DL) NEG 11/03 11/03 11/03 2132 0430 0130 Chemistry Sodium (137 - 145 mmol/L) 140 Potassium (3.5 - 5.1 mmol/L) 3.9 Chloride (98 - 107 mmol/L) 118 H Carbon Dioxide (22 - 30 mmol/L) 14 L Anion Gap (5 - 16) 8 BUN (9 - 20 mg/dL) 34 H Creatinine (0.7 - 1.2 mg/dL) 2.5 H Estimated GFR (>60 ml/min) 26 L Glucose (65 - 99 mg/dL) 60 L Calcium (8.4 - 10.2 mg/dL) 7.2 L Phosphorus (2.5 - 4.5 mg/dL) 2.9 Magnesium (1.6 - 2.3 mg/dL) 1.6 Total Bilirubin (0.2 - 1.3 mg/dL) 0.5 AST (17 - 59 U/L) 30 ALT (21 - 72 U/L) 37 Troponin I (<0.11 ng/ml) 0.17 *H 0.19 *H Albumin (3.5 - 5.0 g/dL) 2.0 L Hematology CBC w Diff MAN DIFF ORDERED WBC (4.8 - 10.8 /CUMM) 37.7 *H RBC (4.70 - 6.10 /CUMM) 3.82 L Hgb (14.0 - 18.0 G/DL) 12.0 L Hct (42 - 52 %) 36.4 L MCV (80.0 - 94.0 FL) 95.4 H MCH (27.0 - 31.0 PG) 31.5 H RDW (11.5 - 14.5 %) 17.2 H Plt Count (130 - 400 /CUMM) 74 L MPV (7.4 - 10.4 FL) 9.3 Gran % (42.2 - 75.2 %) 90.1 H Lymphocytes % (20.5 - 51.1 %) 2.5 L Monocytes % (1.7 - 9.3 %) 7.4 Eosinophils % (0 - 5 %) 0 Basophils % (0.0 - 2.0 %) 0 L Absolute Granulocytes (1.4 - 6.5 /CUMM) 33.9 H Segmented Neutrophils (42.2 - 75.2 %) 73 Band Neutrophils (0.0 - 5.0 %) 13 H Absolute Lymphocytes (1.2 - 3.4 /CUMM) 1.0 L Lymphocytes (20.5 - 51.1 %) 3 L Monocytes (1.7 - 9.3 %) 7 Absolute Monocytes (0.10 - 0.60 /CUMM) 2.8 H Absolute Eosinophils (0.0 - 0.7 /CUMM) 0 Absolute Basophils (0.0 - 0.2 /CUMM) 0 Metamyelocytes (0.0 - 1.0 %) 4 H Platelet Estimate (ADEQUATE) DECREASED Polychromasia 1+ Poikilocytosis 2+ Ovalocytes 1+ Billy Cells 1+ PUBS MCHC (33.0 - 37.0 G/DL) 33.0 Urines Ur Random Creatinine (mg/dL) 30.5 Ur Random Sodium (30 - 90 mmol/L) 72 Ur Random Potassium (mmol/L) 6.9 Fraction Sodium Excret (<1% %) 4.2 H 11/02 11/02 11/02 1910 1215 0935 Chemistry Sodium (137 - 145 mmol/L) 139 142 Cancelled Potassium (3.5 - 5.1 mmol/L) 3.2 L 2.9 *L Cancelled Chloride (98 - 107 mmol/L) 115 H 115 H Cancelled Carbon Dioxide (22 - 30 mmol/L) 15 L 16 L Cancelled Anion Gap (5 - 16) 9 11 Cancelled BUN (9 - 20 mg/dL) 33 H 32 H Cancelled Creatinine (0.7 - 1.2 mg/dL) 2.5 H 2.4 H Cancelled Estimated GFR (>60 ml/min) 26 L 27 L BUN/Creatinine Ratio (7 - 25 %) 13.2 Glucose (65 - 99 mg/dL) 68 Cancelled Calcium (8.4 - 10.2 mg/dL) 7.0 L Cancelled Phosphorus (2.5 - 4.5 mg/dL) 3.5 Cancelled Magnesium (1.6 - 2.3 mg/dL) 1.5 L 1.5 L Cancelled Total Bilirubin (0.2 - 1.3 mg/dL) 0.5 Cancelled AST (17 - 59 U/L) 39 Cancelled ALT (21 - 72 U/L) 38 Cancelled Troponin I (<0.11 ng/ml) 0.24 *H 0.18 *H Albumin (3.5 - 5.0 g/dL) 2.6 L Cancelled 11/02 11/02 0850 0644 Chemistry Sodium (137 - 145 mmol/L) 141 Potassium (3.5 - 5.1 mmol/L) 2.2 *L Chloride (98 - 107 mmol/L) 118 H Carbon Dioxide (22 - 30 mmol/L) 14 L Anion Gap (5 - 16) 9 BUN (9 - 20 mg/dL) 31 H Creatinine (0.7 - 1.2 mg/dL) 2.4 H Estimated GFR (>60 ml/min) 27 L Glucose (65 - 99 mg/dL) 80 Lactic Acid (0.7 - 2.1 mmol/L) 1.1 Calcium (8.4 - 10.2 mg/dL) 7.0 L Phosphorus (2.5 - 4.5 mg/dL) 3.0 Magnesium (1.6 - 2.3 mg/dL) 1.3 L Total Bilirubin (0.2 - 1.3 mg/dL) 0.4 AST (17 - 59 U/L) 30 ALT (21 - 72 U/L) 34 Troponin I (<0.11 ng/ml) 0.12 *H Albumin (3.5 - 5.0 g/dL) 2.2 L Hematology CBC w Diff MAN DIFF ORDERED MAN DIFF ORDERED WBC (4.8 - 10.8 /CUMM) 34.5 *H 30.8 *H RBC (4.70 - 6.10 /CUMM) 3.96 L 3.79 L Hgb (14.0 - 18.0 G/DL) 12.5 L 12.0 L Hct (42 - 52 %) 37.5 L 36.1 L MCV (80.0 - 94.0 FL) 94.7 H 95.1 H MCH (27.0 - 31.0 PG) 31.6 H 31.5 H RDW (11.5 - 14.5 %) 16.7 H 16.7 H Plt Count (130 - 400 /CUMM) 111 L 108 L MPV (7.4 - 10.4 FL) 8.4 7.9 Gran % (42.2 - 75.2 %) 92.0 H 90.8 H Lymphocytes % (20.5 - 51.1 %) 1.2 L 1.9 L Monocytes % (1.7 - 9.3 %) 6.8 7.3 Eosinophils % (0 - 5 %) 0 0 Basophils % (0.0 - 2.0 %) 0 L 0 L Absolute Granulocytes (1.4 - 6.5 /CUMM) 31.8 H 27.9 H Segmented Neutrophils (42.2 - 75.2 %) 75 79 H Band Neutrophils (0.0 - 5.0 %) 18 H 16 H Absolute Lymphocytes (1.2 - 3.4 /CUMM) 0.4 L 0.6 L Lymphocytes (20.5 - 51.1 %) 3 L 3 L Monocytes (1.7 - 9.3 %) 4 2 Absolute Monocytes (0.10 - 0.60 /CUMM) 2.3 H 2.3 H Absolute Eosinophils (0.0 - 0.7 /CUMM) 0 0 Absolute Basophils (0.0 - 0.2 /CUMM) 0 0 Platelet Estimate (ADEQUATE) DECREASED ADEQUATE Normocytic RBCs VERIFIED VERIFIED Normochromic RBCs VERIFIED VERIFIED PUBS MCHC (33.0 - 37.0 G/DL) 33.4 33.2 Other Body Source Fld Total RBCs Counted (%) 100 11/02 11/01 11/01 11/01 0600 2330 2050 1739 Chemistry Sodium Cancelled Potassium Cancelled Chloride Cancelled Carbon Dioxide Cancelled Anion Gap Cancelled BUN Cancelled Creatinine Cancelled BUN/Creatinine Ratio Cancelled Lactic Acid (0.7 - 2.1 mmol/L) Cancelled 1.3 2.4 H 11/01 11/01 1430 1420 Chemistry Sodium (137 - 145 mmol/L) 141 Potassium (3.5 - 5.1 mmol/L) 3.4 L Chloride (98 - 107 mmol/L) 111 H Carbon Dioxide (22 - 30 mmol/L) 17 L Anion Gap (5 - 16) 12 BUN (9 - 20 mg/dL) 28 H Creatinine (0.7 - 1.2 mg/dL) 2.3 H Estimated GFR (>60 ml/min) 29 L BUN/Creatinine Ratio (7 - 25 %) 12.2 Glucose (65 - 99 mg/dL) 101 H Lactic Acid (0.7 - 2.1 mmol/L) 2.1 Calcium (8.4 - 10.2 mg/dL) 8.3 L Phosphorus (2.5 - 4.5 mg/dL) 2.5 Magnesium (1.6 - 2.3 mg/dL) 1.4 L Total Bilirubin (0.2 - 1.3 mg/dL) 0.6 AST (17 - 59 U/L) 18 ALT (21 - 72 U/L) 31 Alkaline Phosphatase (< 127 U/L) 111 Troponin I (<0.11 ng/ml) 0.02 Qla-J-Yoitnanaozo Pept (<125 pg/mL) 534 H Total Protein (6.3 - 8.2 g/dL) 6.0 L Albumin (3.5 - 5.0 g/dL) 3.3 L Globulin (1.9 - 4.2 gm/dL) 2.7 Albumin/Globulin Ratio (1.1 - 2.2 %) 1.2 Coagulation PT (9.4 - 12.5 SEC) 12.6 H INR (0.90 - 1.17) 1.20 H APTT (25 - 37 SEC) 27 Hematology CBC w Diff MAN DIFF ORDERED WBC (4.8 - 10.8 /CUMM) 3.5 L RBC (4.70 - 6.10 /CUMM) 4.20 L Hgb (14.0 - 18.0 G/DL) 13.1 L Hct (42 - 52 %) 39.5 L MCV (80.0 - 94.0 FL) 94.0 MCH (27.0 - 31.0 PG) 31.2 H RDW (11.5 - 14.5 %) 16.1 H Plt Count (130 - 400 /CUMM) 135 MPV (7.4 - 10.4 FL) 6.9 L Gran % (42.2 - 75.2 %) 95.0 H Lymphocytes % (20.5 - 51.1 %) 3.3 L Monocytes % (1.7 - 9.3 %) 0.8 L Eosinophils % (0 - 5 %) 0.9 Basophils % (0.0 - 2.0 %) 0 L Absolute Granulocytes (1.4 - 6.5 /CUMM) 3.3 Segmented Neutrophils (42.2 - 75.2 %) 90 H Band Neutrophils (0.0 - 5.0 %) 7 H Absolute Lymphocytes (1.2 - 3.4 /CUMM) 0.1 L Lymphocytes (20.5 - 51.1 %) 2 L Monocytes (1.7 - 9.3 %) 1 L Absolute Monocytes (0.10 - 0.60 /CUMM) 0 L Absolute Eosinophils (0.0 - 0.7 /CUMM) 0 Absolute Basophils (0.0 - 0.2 /CUMM) 0 Platelet Estimate (ADEQUATE) DECREASED Polychromasia 1+ Hypochromic-Microcytic 1+ Anisocytosis 1+ PUBS MCHC (33.0 - 37.0 G/DL) 33.2 Urines Urine Color (YEL,AMB,STR) YEL Urine Clarity (CLEAR) CLEAR Urine pH (5.0 - 8.0) 6.0 Ur Specific [place] (1.001 - 1.035) 1.020 Urine Protein (NEG,<30 MG/DL) TRACE H Urine Ketones (NEG) NEG Urine Nitrite (NEG) POS H Urine Bilirubin (NEG) NEG Urine Urobilinogen (0.1 - 1.0 EU/dl) 0.2 Ur Leukocyte Esterase (NEG) SMALL H Ur Microscopic SEDIMENT EXAMINED Urine RBC (0 - 5 /HPF) >75 H Urine WBC (0 - 2 /HPF) RARE Ur Epithelial Cells (NONE,FEW) RARE Urine Mucus (FEW,NONE) RARE Urine Hemoglobin (NEG) LARGE H Urine Glucose (N MG/DL) NEG
--- NOTE | 2016-11-04 13:36 | PN- Cardiology ---
Subjective Subjective: The patient reports that he is feeling mostly well. No chest pain. No palpitations. No shortness of breath. No diaphoresis. Objective Vital Signs and I&Os Vital Signs Date Time Temp Pulse Resp B/P Pulse O2 O2 Flow FiO2 Ox Delivery Rate 11/04 1200 99 Room Air Room Air 11/04 0800 100 Room Air Room Air 11/04 0800 97.8 84 20 120/70 100 Room Air Room Air 11/04 0400 97 Room Air 11/04 0000 97 Room Air 11/04 0000 97.2 89 15 138/72 97 Room Air 11/03 2000 97 Room Air 11/03 1600 97.7 70 22 110/70 98 Room Air Intake & Output 11/04 1600 11/04 0800 11/04 0000 11/03 1600 11/03 0800 11/03 0000 Intake Total 1026 1367.7 1577 000 5230 Output Total 2400 1900 1300 920 415 Balance -1374 -532.3 -220 -101 979 Intake, IV 786 647.7 600 619 694 Intake, Oral 240 720 480 200 700 Number 2 0 1 1 2 Bowel Movements Output, Urine 2400 1900 1300 920 415 Physical Exam: Gen: The patient is in no acute distress HEENT: Normal nose, ears, and oropharynx. Pupils equal bilaterally. Conjunctiva normal. Neck: Supple with no JVD, no masses, and no thyromegaly Lungs: Clear to auscultation with normal respiratory effort Heart: RRR, S1, S2, no murmurs. No peripheral edema, 2+ pulses in the lower extremities bilaterally Abdomen: Soft, nontender, no masses. No hepatomegaly. No splenomegaly Extremities: No clubbing or cyanosis. Normal muscle strength in the upper and lower extremities. Skin: Normal skin turgor with no skin ulcers or lesions noted. Neuro: Cranial nerves intact. Sensation intact Current Medications: Current Medications Sig/Monica Start time Last Medication Dose Route Stop Time Status Admin Acetaminophen 650 MG Q8P PRN 11/01 1814 AC PO Acetaminophen 1,000 MG Q8P PRN 11/01 1814 AC 11/01 IV 2112 Bupropion HCl 150 MG DAILY 11/01 2199 AC 11/04 PO 1010 Ceftriaxone Sodium 1,000 MG DAILY@11/02 1600 AC 11/03 IV 1739 Desvenlafaxine 100 MG DAILY@11/03 AC 11/03 Succinate PO 2148 Gabapentin 300 MG BID 11/01 2200 AC 11/04 PO 1010 Heparin Sodium 5,000 UNIT Q8 11/01 220 DC 11/03 (Porcine) SC 2148 Magnesium Oxide 400 MG ONE ONE 11/04 0915 DC 11/04 PO 11/04 0916 1011 Multivitamins 1 TAB DAILY 11/03 1559 AC 11/04 PO 1010 Non-Formulary 0 SEE ADMIN CRITERIA 11/01 1800 CAN Medication ANY Norepinephrine 4 MG Q24H 11/02 0615 DC 11/02 Sodium Chloride 250 ML IV 0902 Potassium Chloride 20 MEQ ONCE ONE 11/04 0745 DC 11/04 PO 11/04 0746 1011 Potassium Chloride 20 MEQ DAILY 11/02 1000 AC 11/04 PO 1011 Potassium Phosphate 15 mMol ONE ONE 11/04 0745 DC 11/04 Sodium Chloride 250 ML IV 11/04 1148 1010 Sodium Bicarbonate 75 MEQ Q10H 11/04 1200 AC 11/04 Dextrose/Sodium 1,000 ML IV 1213 Chloride Sodium Bicarbonate 75 MEQ CONTINOUS INFUSION 11/03 1945 DC 11/03 Sodium Chloride 1,000 ML IV 2154 Sodium Chloride 1,000 ML Q6H 11/01 1800 DC 11/03 IV 1314 Results Last 48 Hrs of Labs/Mics: Laboratory Tests 11/04/16 0442: Anion Gap 6, Estimated GFR 32 L, Glucose 61 L, Calcium 7.8 L, Phosphorus 2.3 L, Magnesium 1.8, Total Bilirubin 0.4, AST 28, ALT 37, Albumin 2.0 L, CBC w Diff MAN DIFF ORDERED, RBC 3.54 L, MCV 95.2 H, MCH 31.4 H, RDW 17.0 H, MPV 8.9, Gran % 92.6 H, Lymphocytes % 3.1 L, Monocytes % 3.1, Eosinophils % 1.2, Basophils % 0 L, Absolute Granulocytes 33.4 H, Segmented Neutrophils 88 H, Band Neutrophils 9 H, Absolute Lymphocytes 1.1 L, Lymphocytes 2 L, Monocytes 1 L, Absolute Monocytes 1.1 H, Absolute Eosinophils 0.4, Absolute Basophils 0, Platelet Estimate DECREASED, Polychromasia 1+, Ovalocytes FEW, Stomatocytes FEW, PUBS MCHC 33.0, Fld Total RBCs Counted 100 11/03/162: Urinalysis LIGHT H, Urine Color STRAW, Urine Clarity HAZY H, Urine pH 6.0, Ur Specific [place] 1.010, Urine Protein TRACE H, Urine Ketones NEG, Urine Nitrite NEG, Urine Bilirubin NEG, Urine Urobilinogen 0.2, Ur Leukocyte Esterase TRACE H , Ur Microscopic SEDIMENT EXAMINED, Urine RBC 15-25 H, Urine WBC 1-3 H, Ur Epithelial Cells FEW, Urine Mucus FEW, Urine Hemoglobin LARGE H, Urine Glucose NEG 11/03/16 2132: Ur Random Creatinine 30.5, Ur Random Sodium 72, Ur Random Potassium 6.9, Fraction Sodium Excret 4.2 H 11/03/16 0430: Anion Gap 8, Estimated GFR 26 L, Glucose 60 L, Calcium 7.2 L, Phosphorus 2.9, Magnesium 1.6, Total Bilirubin 0.5, AST 30, ALT 37, Troponin I 0.17 *H, Albumin 2.0 L, CBC w Diff MAN DIFF ORDERED, RBC 3.82 L, MCV 95.4 H, MCH 31.5 H, RDW 17.2 H, MPV 9.3, Gran % 90.1 H, Lymphocytes % 2.5 L, Monocytes % 7.4, Eosinophils % 0, Basophils % 0 L, Absolute Granulocytes 33.9 H, Segmented Neutrophils 73, Band Neutrophils 13 H, Absolute Lymphocytes 1.0 L, Lymphocytes 3 L, Monocytes 7, Absolute Monocytes 2.8 H, Absolute Eosinophils 0, Absolute Basophils 0, Metamyelocytes 4 H, Platelet Estimate DECREASED, Polychromasia 1+, Poikilocytosis 2+, Ovalocytes 1+, Billy Cells 1+, PUBS MCHC 33.0 11/03/16 0130: Troponin I 0.19 *H 11/02/16 1910: Anion Gap 9, Estimated GFR 26 L, BUN/Creatinine Ratio 13.2, Magnesium 1.5 L, Troponin I 0.24 *H Assessment/Plan Assessment/Plan Assessment: 1. Renal stones, status post ureteral stent 2. Normal left ventricular function with moderate aortic regurgitation on recent echo 3. Normal nuclear stress test 4. Mild troponin elevation, likely demand ischemia secondary to sepsis 5. Sepsis secondary to urinary tract infection Plan: * Continue antibiotics as per the medical service * Off pressors * Echo pending * Supplement potassium Continue telemetry? Yes
[2016-11-04 16:00] VITALS: BP 118/70
--- NOTE | 2016-11-04 17:23 | Transfer of Care Summary ---
Hospital Course Course Hospital Course: 66/M with PMH significant for HTN, HLD, CKD stage 3, gastric bypass, chronic hypokalemia, polysubstance abuse, chronic back pain, vertigo, gout and anxiety/ depression who was brought in to the [place] ED due to AMS. Patient reports that for 6 week prior to admission he has had chronic diarrhea for which he saw his PCP and was given flagyl. Symptoms persistent after treatment and resulted in an 18 pound weight loss. For the few days prior to admission patient noticed right lower quadrant abdominal pain, hematuria, chills, loss of appetite. Patient had Sepsis of urological origin. The following issue was addressed since admission 1.Sepsis of urological origin On admission abdominal and pelvis CT shows increased right-sided proximal hydroureter and hydronephrosis with multiple bilateral renal stones. Patient was in Sepsis with noted leukopenia, lactic acid elevated to 2.4 (WNL now), fever to 105, tachypnea, tachycardia and hypotension. UA was suggestive of UTI. Blood culture and urine culture grew Escherichia coli that are pansensitive. Initially patient received fluid and pressors, he was started on ceftriaxone IV, urology placed R ureteral stent. Soon after patient markedly improved. He was monitored in the ICU and was found to be hemodynamically stable so his pressor was DC'd. Pt is improving with his white blood cell is almost back to normal, denies fever and chills, no flank tenderness. Patient was switch to ampicillin oral. #####Recommendation for next team to do##### * Continue Ampicillin po * Monitor CBC daily, until WBCs is normal * Urology recommended, When patient recovers will need R ureteroscopy to r/o obstruction of R ureter, and laser lithotripsy of R renal stones. * Advised patient to Follow with urologist regarding stent 2.SHUKRI on CKD Patient Baseline cr is around 1.5-1.6. At some point during this admission Cr was up to 2.5. neprology was consulted and he recommended starting patient on half normal saline +75 mEq of sodium bicarbonate per liter at 100 mL per hour. Patient creatinine is improving since admission. Today's creatinine is back to baseline 1.5 #####Recommendation for next team to do##### * Follow daily BEP daily * Continue IV normal saline * Continue antibiotic * Follow-up nephrology recommendation * Bleeds electrolytes when necessary 3.HTN Medication was hold because of hypotension on presentation. Now patient is hemodynamically stable. Restart his medication when its appropriate. #####Recommendation for next team to do##### * Currently holding metoprolol XL 25 mg PO daily for HTN * Monitor vital signs closely * Start medication when its appropriate 4. Mental health (depression, anxiety) #####Recommendation for next team to do##### Bupropion 150 mg PO daily (he is reportedly on BID at home) Desvenlafaxine 100 mg PO daily (home dose) Neurontin 300 mg PO BID for now due to decreased creatinine clearance (Patient normally takesTID at home) 5. 1.6 cm Soft Tissue Nodule within right middle lobe (R lung) #####Recommendation for next team to do##### * Refer patient to follow-up with pulmonology as an outpatient * Stress to the patient that this must be addressed and can't be neglected * Mentioned in the discharge summary 6. Gout Allopurinol currently on hold 2/2 renal dysfunction. #####Recommendation for next team to do##### * Monitor renal function restart allopurinol once stabilized 7. Elevated troponin At some point during this admission patient had elevated troponin. Troponin were 0.02--> 0.12--> 0.18-->0.24-->0.19-->0.17. Cardiology was consulted and he believes it's most likely demand.1 cardiology would like the patient to follow-up post discharge. #####Recommendation for next team to do##### * keep electrolytes WNL * Echocardiogram results pending * Follow-up cardiology recommendation * Follow up in the office one week after discharge. Possible nuclear stress test as outpatient to evaluate for ischemia given recent positive troponin 8. Thrombocytopenia Patient platelets and dropping since admission. This can be explained by heparin-induced thrombocytopenia. We held heparin subcutaneous, after which his platelets started to improve. #####Recommendation for next team to do##### * Follow-up platelet in the morning 9. Chronic diarrhea he had a history of chronic diarrhea that was treated with Flagyl before admission. He also reported weight loss. Patient reported that his diarrhea improved however this morning he had a watery nonbloody-bowel movement. #####Recommendation for next team to do##### * Continue probiotic * f/u C. difficile 10. Hypokalemia Patient has a chronic hypokalemia. Patient received 20 mEq of potassium IV and will receive 20 mEq BID schedule #####Recommendation for next team to do##### * We'll replete his potassium as necessary 11. Oral thrush with left-sided ear pain This morning patient started complaining of throat pain, dysphagia and left- sided ear pain. On examination bilateral ear examination of his tympanic membrane show no sign suggestive of infection. There is an enlarged lymph node on the left side of his neck. There is a wide plaques over the back of his throat, most likely zion infection. #####Recommendation for next team to do##### * Nystatin * Benzocaine when necessary for pain Assessment/Plan: See hospital course
[2016-11-05] VITALS: BP 128/66
[2016-11-05 05:00] VITALS: BP 120/86
[2016-11-05 06:05] LABS: ABSOLUTE BASOPHIL COUNT 0 /CUMM (0.0-0.2); ABSOLUTE EOSINOPHIL COUNT 0.6 /CUMM (0.0-0.7); ABSOLUTE GRANULOCYTE CT 19.7 /CUMM (1.4-6.5); ABSOLUTE LYMPH COUNT 1.1 /CUMM (1.2-3.4); ABSOLUTE MONOCYTE COUNT 0.9 /CUMM (0.10-0.60); BASOPHIL % 0.2 % (0.0-2.0); EOSINOPHIL % 2.5 % (0-5); GRANULOCYTE % 88.2 % (42.2-75.2); HEMATOCRIT 33.8 % (42-52); MEAN CORPUSCULAR HGB 31.4 PG (27.0-31.0); MEAN CORPUSCULAR HGB CONC 33.2 G/DL (33.0-37.0); MEAN CORPUSCULAR VOLUME 94.5 FL (80.0-94.0); MEAN PLATELET VOLUME 8.9 FL (7.4-10.4); PLATELET COUNT 92 /CUMM (130-400); RBC DISTRIBUTION WIDTH 16.5 % (11.5-14.5); RED BLOOD CELL CT 3.58 /CUMM (4.70-6.10); WHITE BLOOD CELL COUNT 22.3 /CUMM (4.8-10.8)
--- NOTE | 2016-11-05 07:30 | PN- Housestaff ---
See Addendum Subjective Follow-up For: -Sepsis secondary to UTI -Thrombocytopenia -Leukocytosis -Acute kidney injury top of chronic kidney disease Subjective: Patient was seen and examined. He is laying on bed looks relaxed and comfortable. No acute overnight events were reported by the patient or his nurse. He denies abdominal or flank pain. The only issue concerning him is high volume urine but without any dysuria. Patient denies abdominal pain, nausea, vomiting, fever or chills. He denies chest pain, shortness breath, or palpitation Review of Systems Constitutional: Reports: see HPI. Denies: chills, diaphoresis, fever. Objective Last 24 Hrs of Vital Signs/I&O Vital Signs Date Time Temp Pulse Resp B/P Pulse O2 O2 Flow FiO2 Ox Delivery Rate 11/05 0500 97.9 60 18 120/86 95 Room Air 11/05 0000 95 Room Air 11/05 0000 99.2 62 17 128/66 95 Room Air 11/04 1600 95 Room Air 11/04 1600 98.6 66 18 118/70 95 Room Air 11/04 1200 99 Room Air Room Air Intake & Output 11/05 1600 11/05 0800 11/05 0000 Intake Total 782 1329 Output Total 1875 1650 Balance -1093 -321 Intake, IV 782 849 Intake, Oral 480 Number 1 Bowel Movements Output, Urine 1875 1650 Physical Exam General Appearance: Alert, Oriented X3, Cooperative, No Acute Distress HEENT: Atraumatic, PERRLA, EOMI, Mucous Membr. moist/pink Cardiovascular: Regular Rate, Normal S1, Normal S2, No Murmurs Lungs: Clear to Auscultation, Normal Air Movement Abdomen: Normal Bowel Sounds, Soft, No Tenderness Neurological: Normal Speech Extremities: no edema on lower extremities bilaterally Current Medications: Current Medications Sig/Monica Start time Last Medication Dose Route Stop Time Status Admin Acetaminophen 650 MG Q8P PRN 11/01 1814 AC PO Acetaminophen 1,000 MG Q8P PRN 11/01 181 AC 11/01 IV 2112 Bupropion HCl 150 MG DAILY 11/01 2199 AC 11/04 PO 1010 Ceftriaxone Sodium 1,000 MG DAILY@11/02 1600 11/04 IV 1604 Desvenlafaxine 100 MG DAILY@11/03 Succinate PO 2228 Gabapentin 300 MG BID 11/01 PO 2229 Heparin Sodium 5,000 UNIT Q8 11/01 2200 DC 11/03 (Porcine) SC 2148 Magnesium Oxide 400 MG ONE ONE 11/04 0915 DC 11/04 PO 11/04 0916 1011 Magnesium Sulfate 1 GM Q2H 11/05 0645 AC Dextrose/Water 100 ML IV 11/05 1044 Multivitamins 1 TAB DAILY 11/03 1559 AC 11/04 PO 1010 Potassium Chloride 20 MEQ Q1H 11/05 0645 DC 11/05 IV 11/05 0746 0710 Potassium Chloride 20 MEQ DAILY 11/02 1000 AC 11/04 PO 1011 Potassium Phosphate 15 mMol ONE ONE 11/04 0745 DC 11/04 Sodium Chloride 250 ML IV 11/04 1148 1010 Sodium Bicarbonate 75 MEQ Q10H 11/04 1200 AC 11/04 Dextrose/Sodium 1,000 ML IV 2228 Chloride Sodium Bicarbonate 75 MEQ CONTINOUS INFUSION 11/03 1945 DC 11/03 Sodium Chloride 1,000 ML IV 2154 Last 24 Hrs of Lab/Artur Results Last 24 Hrs of Labs/Mics: Laboratory Tests 11/05/16 0525: Anion Gap 8, Estimated GFR 41 L, Glucose 83, Calcium 7.8 L, Phosphorus 2.1 L, Magnesium 1.6, Total Bilirubin 0.3, AST 21, ALT 38, Albumin 2.1 L, CBC w Diff MAN DIFF ORDERED, RBC 3.58 L, MCV 94.5 H, MCH 31.4 H, RDW 16.5 H, MPV 8.9, Gran % 88.2 H, Lymphocytes % 5.1 L, Monocytes % 4.0, Eosinophils % 2.5, Basophils % 0.2, Absolute Granulocytes 19.7 H, Segmented Neutrophils 80 H, Band Neutrophils 4, Absolute Lymphocytes 1.1 L, Lymphocytes 11 L, Monocytes 1 L, Absolute Monocytes 0.9 H, Eosinophils 4, Absolute Eosinophils 0.6, Absolute Basophils 0, Platelet Estimate DECREASED, Polychromasia 1+, Poikilocytosis 1+, Basophilic Stippling SLIGHT, Ovalocytes 1+, PUBS MCHC 33.2, Fld Total RBCs Counted 100 Microbiology 11/04 1109 STOOL: Clostridium difficile Toxin A & B - COLB Assessment/Plan Assessment: 1.Sepsis of urological origin Today his white blood cell dropped from 34 to 022. No fever or right side flank tenderness. No hematuria or dysuria. No nausea or vomiting. He is hemodynamically stable * we will consider switching IV Ceftriaxone, to Augmentin today * we'll Monitor CBC daily, until WBCs improve 2.SHUKRI on CKD Today creatinine improved from 2.1 to 1.7. * we'll Follow daily BEP daily * Continue the fluid that's recommended by nephrology * Continue antibiotic * Follow-up nephrology recommendation * We will replete electrolytes when necessary 3.HTN Medication was hold because of hypotension on presentation. Now patient is hemodynamically stable. Restart his medication when its appropriate. * Currently holding metoprolol XL 25 mg PO daily for HTN * Monitor vital signs closely * Start medication when its appropriate 4. Mental health (depression, anxiety) * Bupropion 150 mg PO daily (he is reportedly on BID at home) * Desvenlafaxine 100 mg PO daily (home dose) * Neurontin 300 mg PO BID for now due to decreased creatinine clearance (Patient normally takesTID at home) 5. 1.6 cm Soft Tissue Nodule within right middle lobe (R lung) * We will Refer patient to follow-up with pulmonology as an outpatient 6. Gout Allopurinol currently on hold 2/2 renal dysfunction. * Monitor renal function restart allopurinol once stabilized 7. Elevated troponin At some point during this admission patient had elevated troponin. Troponin were 0.02--> 0.12--> 0.18-->0.24-->0.19-->0.17. Cardiology was consulted and he believes it's most likely demand. * We will keep electrolytes WNL * Echocardiogram results pending * Follow-up cardiology recommendation 8. Thrombocytopenia Patient platelets and dropping since admission. We both heparin subcutaneous on hold since yesterday morning. Today his platelets improved which make heparin-induced thrombocytopenia a possible differential * CBC daily. 9. Chronic diarrhea he had a history of chronic diarrhea that was treated with Flagyl before admission. He also reported weight loss. Patient reported that his diarrhea improved. This morning patient said that his stool was well formed * If diarrhea came back it well need to be worked out 10. Hypokalemia Patient has a chronic hypokalemia * Replete his potassium as necessary Problem List: 1. SHUKRI (acute kidney injury) 2. Nephrolithiasis 3. Hypokalemia Pain Ratin Pain Location: Right flank Pain Goal: Remain pain free Pain Plan: See assessment and plan Tomorrow's Labs & Rationales: CBC and BEP
[2016-11-05 08:00] VITALS: BP 136/62
--- NOTE | 2016-11-05 10:33 | PN- Cardiology ---
Subjective Subjective: The patient seems to be doing better clinically. He denies any specific cardiac complaints. Vital signs stable. Continued atrial and ventricular ectopy noted on monitor. Objective Vital Signs and I&Os Vital Signs Date Time Temp Pulse Resp B/P Pulse O2 O2 Flow FiO2 Ox Delivery Rate 11/05 0800 95 Room Air Room Air 11/05 08 98.4 61 20 136/62 95 Room Air Room Air 11/05 0500 97.9 60 18 120/86 95 Room Air 11/05 0000 95 Room Air 11/05 0000 99.2 62 17 128/66 95 Room Air 11/04 1600 95 Room Air 11/04 1600 98.6 66 18 118/70 95 Room Air 11/04 1200 99 Room Air Room Air Intake & Output 11/05 1600 11/05 0800 11/05 0000 11/04 1600 11/04 0800 11/04 0000 Intake Total 782 1329 1079 1026 1367.7 Output Total 1875 1650 1530 2400 1900 Balance -1093 -321 -451 -1374 -532.3 Intake, IV 782 849 779 786 647.7 Intake, Oral 480 300 240 720 Number 1 0 2 0 Bowel Movements Output, Urine 1875 1650 1530 2400 1900 Physical Exam: General Appearance: well developed/nourished, no apparent distress, alert, awake , comfortable Head: Normal Neck: JVP normal, carotid shows 2+ bilaterally with no bruits, no masses or thyromegaly Respiratory: Minimal scattered rhonchi Cardiovascular: regular rate/rhythm, 1/6 diastolic murmur of aortic insufficiency, 1 to 2/6 systolic murmur left sternal border Gastrointestinal: mild tenderness over the right flank Extremities: no edema on the lower extremity bilaterally Current Medications: Current Medications Sig/Monica Start time Last Medication Dose Route Stop Time Status Admin Acetaminophen 650 MG Q8P PRN 11/01 1814 AC PO Acetaminophen 1,000 MG Q8P PRN 11/01 1814 AC 11/01 IV 2112 Bupropion HCl 150 MG DAILY 11/01 2199 AC 11/05 PO 1014 Ceftriaxone Sodium 1,000 MG DAILY@11/02 1600 AC 11/04 IV 1604 Desvenlafaxine 100 MG DAILY@11/03 Succinate PO 2228 Gabapentin 300 MG BID 11/01 PO 1014 Heparin Sodium 5,000 UNIT Q8 11/01 2200 DC 11/03 (Porcine) SC 2148 Magnesium Sulfate 1 GM Q2H 11/05 0645 AC 11/05 Dextrose/Water 100 ML IV 11/05 1044 1017 Multivitamins 1 TAB DAILY 11/03 1559 AC 11/05 PO 1014 Potassium Chloride 20 MEQ Q1H 11/05 0645 DC 11/05 IV 11/05 0746 0816 Potassium Chloride 20 MEQ DAILY 11/02 1000 AC 11/05 PO 1014 Potassium Phosphate 15 mMol ONE ONE 11/04 0745 DC 11/04 Sodium Chloride 250 ML IV 11/04 1148 1010 Sodium Bicarbonate 75 MEQ Q10H 11/04 1200 AC 11/05 Dextrose/Sodium 1,000 ML IV 0821 Chloride Sodium Bicarbonate 75 MEQ CONTINOUS INFUSION 11/03 1945 DC 11/03 Sodium Chloride 1,000 ML IV 2154 Results Last 48 Hrs of Labs/Mics: Laboratory Tests 11/05/16 0525: Anion Gap 8, Estimated GFR 41 L, Glucose 83, Calcium 7.8 L, Phosphorus 2.1 L, Magnesium 1.6, Total Bilirubin 0.3, AST 21, ALT 38, Albumin 2.1 L, CBC w Diff MAN DIFF ORDERED, RBC 3.58 L, MCV 94.5 H, MCH 31.4 H, RDW 16.5 H, MPV 8.9, Gran % 88.2 H, Lymphocytes % 5.1 L, Monocytes % 4.0, Eosinophils % 2.5, Basophils % 0.2, Absolute Granulocytes 19.7 H, Segmented Neutrophils 80 H, Band Neutrophils 4, Absolute Lymphocytes 1.1 L, Lymphocytes 11 L, Monocytes 1 L, Absolute Monocytes 0.9 H, Eosinophils 4, Absolute Eosinophils 0.6, Absolute Basophils 0, Platelet Estimate DECREASED, Polychromasia 1+, Poikilocytosis 1+, Basophilic Stippling SLIGHT, Ovalocytes 1+, PUBS MCHC 33.2, Fld Total RBCs Counted 100 11/04/16 0442: Anion Gap 6, Estimated GFR 32 L, Glucose 61 L, Calcium 7.8 L, Phosphorus 2.3 L, Magnesium 1.8, Total Bilirubin 0.4, AST 28, ALT 37, Albumin 2.0 L, CBC w Diff MAN DIFF ORDERED, RBC 3.54 L, MCV 95.2 H, MCH 31.4 H, RDW 17.0 H, MPV 8.9, Gran % 92.6 H, Lymphocytes % 3.1 L, Monocytes % 3.1, Eosinophils % 1.2, Basophils % 0 L, Absolute Granulocytes 33.4 H, Segmented Neutrophils 88 H, Band Neutrophils 9 H, Absolute Lymphocytes 1.1 L, Lymphocytes 2 L, Monocytes 1 L, Absolute Monocytes 1.1 H, Absolute Eosinophils 0.4, Absolute Basophils 0, Platelet Estimate DECREASED, Polychromasia 1+, Ovalocytes FEW, Stomatocytes FEW, PUBS MCHC 33.0, Fld Total RBCs Counted 100 11/03/162131: Urinalysis LIGHT H, Urine Color STRAW, Urine Clarity HAZY H, Urine pH 6.0, Ur Specific [place] 1.010, Urine Protein TRACE H, Urine Ketones NEG, Urine Nitrite NEG, Urine Bilirubin NEG, Urine Urobilinogen 0.2, Ur Leukocyte Esterase TRACE H , Ur Microscopic SEDIMENT EXAMINED, Urine RBC 15-25 H, Urine WBC 1-3 H, Ur Epithelial Cells FEW, Urine Mucus FEW, Urine Hemoglobin LARGE H, Urine Glucose NEG 11/03/162131: Ur Random Creatinine 30.5, Ur Random Sodium 72, Ur Random Potassium 6.9, Fraction Sodium Excret 4.2 H Assessment/Plan Assessment/Plan Assessment: 1. Nephrolithiasis, status post ureteral stent-the patient's white count is decreased 22,000 today. Creatinine improved to 1.7 2. Moderate aortic insufficiency 3. Mild troponin elevation-likely demand ischemia related to sepsis 4. Sepsis with urologic origin 5. Acute on chronic renal insufficiency 6. Hypomagnesemia; hypokalemia-improving, continue to replete as necessary Recommendations: -Continue current management as per the ICU team -Replete potassium and continue to monitor potassium and magnesium closely -Echocardiogram pending -Further recommendations following the echocardiogram being reviewed. Continue telemetry? Yes
[2016-11-05 16:00] VITALS: BP 140/86
--- NOTE | 2016-11-05 17:52 | PN- Nephrology ---
Assessment/Plan Assessment: 1. Acute kidney injury secondary to sepsis - improving 2. Metabolic acidosis secondary to SHUKRI plus diarrhea 3. Urosepsis secondary to gonzalez-sensitive E.coli UTI with bacteremia in the setting of obstructive nephrolithiasis on the right --> stented Suggestion: 1. Continue current IV fluids IV fluids: Half normal saline +75 mEq of sodium bicarbonate per liter but decrease rate to 75 mL per hour continuously 2. Continue to monitor intake and output, chemistries daily 3. Continue antibiotic therapy Subjective Subjective: No complaints. Afebrile. WBC down to 22.3. Creatinine down to 1.7. Objective Vital Signs and I&Os Vital Signs Date Time Temp Pulse Resp B/P Pulse O2 O2 Flow FiO2 Ox Delivery Rate 11/05 1600 96 Room Air Room Air 11/05 1600 97.8 61 16 140/86 96 Room Air Room Air 11/05 0800 95 Room Air Room Air 11/05 0800 98.4 61 20 136/62 95 Room Air Room Air 11/05 0500 97.9 60 18 120/86 95 Room Air 11/05 0000 95 Room Air 11/05 0000 99.2 62 17 128/66 95 Room Air Intake & Output 11/05 1600 11/05 0400 11/04 1600 11/04 0400 11/03 1600 11/03 0400 Intake Total 2225 1329 2105 1367.7 1899 1394 Output Total 3350 1650 3930 1900 2220 415 Balance -1125 -321 -1825 -532.3 -321 979 Intake, IV 0483 865 1049 647.7 1219 694 Intake, Oral 400 480 540 720 680 700 Number 2 2 0 2 2 Bowel Movements Output, Urine 3350 1650 3930 1900 2220 415 Patient 202 lb Weight Physical Exam: General: Well-developed white male in NAD Skin: No rash or jaundice HEENT: Conjunctivae pink, sclerae anicteric, mucous membranes moist Neck: Without masses or thyromegaly, no supraclavicular or cervical adenopathy Chest: Clear to P&A Heart: Regular rate and rhythm without S3 or rub Abdomen: Soft and nontender without palpable masses or organomegaly Extremities: Without cyanosis or edema Neuro: No focal findings, no asterixis or myoclonus Current Medications: Current Medications Sig/Monica Start time Last Medication Dose Route Stop Time Status Admin Acetaminophen 650 MG Q8P PRN 01/28 1815 AC PO Acetaminophen 1,000 MG Q8P PRN 11/01 1815 AC 11/01 IV 2112 Ampicillin 500 MG Q6 11/05 1800 AC PO Bupropion HCl 150 MG DAILY 11/01 220 AC 11/05 PO 1014 Ceftriaxone Sodium 1,000 MG DAILY@1600 11/02 1600 DC 11/04 IV 1604 Desvenlafaxine 100 MG DAILY@11/03 220 AC 11/04 Succinate PO 2228 Gabapentin 300 MG BID 11/01 220 AC 11/05 PO 1014 Magnesium Sulfate 1 GM Q2H 11/05 0645 DC 11/05 Dextrose/Water 100 ML IV 11/05 1044 1017 Multivitamins 1 TAB DAILY 11/03 1559 AC 11/05 PO 1014 Potassium Chloride 20 MEQ ONCE ONE 11/05 1730 DC PO 11/05 1731 Potassium Chloride 20 MEQ Q1H 11/05 0645 DC 11/05 IV 11/05 0746 0816 Potassium Chloride 20 MEQ DAILY 11/02 1000 AC 11/05 PO 1014 Sodium Bicarbonate 75 MEQ Q13H 11/05 1700 AC Dextrose/Sodium 1,000 ML IV Chloride Sodium Bicarbonate 75 MEQ 75 MLS/HR 11/05 1330 CAN Dextrose/Sodium 1,000 ML IV Chloride Sodium Bicarbonate 75 MEQ Q10H 11/04 1200 DC 11/05 Dextrose/Sodium 1,000 ML IV 0821 Chloride Results Pertinent Lab Results: Laboratory Tests 11/05 11/05 1400 0525 Chemistry Sodium (137 - 145 mmol/L) 141 142 Potassium (3.5 - 5.1 mmol/L) 3.7 3.1 L Chloride (98 - 107 mmol/L) 110 H 113 H Carbon Dioxide (22 - 30 mmol/L) 26 21 L Anion Gap (5 - 16) 5 8 BUN (9 - 20 mg/dL) 16 19 Creatinine (0.7 - 1.2 mg/dL) 1.7 H 1.7 H Estimated GFR (>60 ml/min) 41 L 41 L BUN/Creatinine Ratio (7 - 25 %) 9.4 Glucose (65 - 99 mg/dL) 83 Calcium (8.4 - 10.2 mg/dL) 7.8 L Phosphorus (2.5 - 4.5 mg/dL) 2.1 L Magnesium (1.6 - 2.3 mg/dL) 2.0 1.6 Total Bilirubin (0.2 - 1.3 mg/dL) 0.3 AST (17 - 59 U/L) 21 ALT (21 - 72 U/L) 38 Albumin (3.5 - 5.0 g/dL) 2.1 L Hematology CBC w Diff MAN DIFF ORDERED WBC (4.8 - 10.8 /CUMM) 22.3 H RBC (4.70 - 6.10 /CUMM) 3.58 L Hgb (14.0 - 18.0 G/DL) 11.2 L Hct (42 - 52 %) 33.8 L MCV (80.0 - 94.0 FL) 94.5 H MCH (27.0 - 31.0 PG) 31.4 H RDW (11.5 - 14.5 %) 16.5 H Plt Count (130 - 400 /CUMM) 92 L MPV (7.4 - 10.4 FL) 8.9 Gran % (42.2 - 75.2 %) 88.2 H Lymphocytes % (20.5 - 51.1 %) 5.1 L Monocytes % (1.7 - 9.3 %) 4.0 Eosinophils % (0 - 5 %) 2.5 Basophils % (0.0 - 2.0 %) 0.2 Absolute Granulocytes (1.4 - 6.5 /CUMM) 19.7 H Segmented Neutrophils (42.2 - 75.2 %) 80 H Band Neutrophils (0.0 - 5.0 %) 4 Absolute Lymphocytes (1.2 - 3.4 /CUMM) 1.1 L Lymphocytes (20.5 - 51.1 %) 11 L Monocytes (1.7 - 9.3 %) 1 L Absolute Monocytes (0.10 - 0.60 /CUMM) 0.9 H Eosinophils (0 - 5.0 %) 4 Absolute Eosinophils (0.0 - 0.7 /CUMM) 0.6 Absolute Basophils (0.0 - 0.2 /CUMM) 0 Platelet Estimate (ADEQUATE) DECREASED Polychromasia 1+ Poikilocytosis 1+ Basophilic Stippling SLIGHT Ovalocytes 1+ PUBS MCHC (33.0 - 37.0 G/DL) 33.2 Other Body Source Fld Total RBCs Counted (%) 100 11/04 11/03 1252 2132 Chemistry Sodium (137 - 145 mmol/L) 139 Potassium (3.5 - 5.1 mmol/L) 3.5 Chloride (98 - 107 mmol/L) 117 H Carbon Dioxide (22 - 30 mmol/L) 16 L Anion Gap (5 - 16) 6 BUN (9 - 20 mg/dL) 28 H Creatinine (0.7 - 1.2 mg/dL) 2.1 H Estimated GFR (>60 ml/min) 32 L Glucose (65 - 99 mg/dL) 61 L Calcium (8.4 - 10.2 mg/dL) 7.8 L Phosphorus (2.5 - 4.5 mg/dL) 2.3 L Magnesium (1.6 - 2.3 mg/dL) 1.8 Total Bilirubin (0.2 - 1.3 mg/dL) 0.4 AST (17 - 59 U/L) 28 ALT (21 - 72 U/L) 37 Albumin (3.5 - 5.0 g/dL) 2.0 L Hematology CBC w Diff MAN DIFF ORDERED WBC (4.8 - 10.8 /CUMM) 36.0 *H RBC (4.70 - 6.10 /CUMM) 3.54 L Hgb (14.0 - 18.0 G/DL) 11.1 L Hct (42 - 52 %) 33.7 L MCV (80.0 - 94.0 FL) 95.2 H MCH (27.0 - 31.0 PG) 31.4 H RDW (11.5 - 14.5 %) 17.0 H Plt Count (130 - 400 /CUMM) 78 L MPV (7.4 - 10.4 FL) 8.9 Gran % (42.2 - 75.2 %) 92.6 H Lymphocytes % (20.5 - 51.1 %) 3.1 L Monocytes % (1.7 - 9.3 %) 3.1 Eosinophils % (0 - 5 %) 1.2 Basophils % (0.0 - 2.0 %) 0 L Absolute Granulocytes (1.4 - 6.5 /CUMM) 33.4 H Segmented Neutrophils (42.2 - 75.2 %) 88 H Band Neutrophils (0.0 - 5.0 %) 9 H Absolute Lymphocytes (1.2 - 3.4 /CUMM) 1.1 L Lymphocytes (20.5 - 51.1 %) 2 L Monocytes (1.7 - 9.3 %) 1 L Absolute Monocytes (0.10 - 0.60 /CUMM) 1.1 H Absolute Eosinophils (0.0 - 0.7 /CUMM) 0.4 Absolute Basophils (0.0 - 0.2 /CUMM) 0 Platelet Estimate (ADEQUATE) DECREASED Polychromasia 1+ Ovalocytes FEW Stomatocytes FEW PUBS MCHC (33.0 - 37.0 G/DL) 33.0 Other Body Source Fld Total RBCs Counted (%) 100 Urines Urinalysis LIGHT H Urine Color (YEL,AMB,STR) STRAW Urine Clarity (CLEAR) HAZY H Urine pH (5.0 - 8.0) 6.0 Ur Specific [place] (1.001 - 1.035) 1.010 Urine Protein (NEG,<30 MG/DL) TRACE H Urine Ketones (NEG) NEG Urine Nitrite (NEG) NEG Urine Bilirubin (NEG) NEG Urine Urobilinogen (0.1 - 1.0 EU/dl) 0.2 Ur Leukocyte Esterase (NEG) TRACE H Ur Microscopic SEDIMENT EXAMINED Urine RBC (0 - 5 /HPF) 15-25 H Urine WBC (0 - 2 /HPF) 1-3 H Ur Epithelial Cells (NONE,FEW) FEW Urine Mucus (FEW,NONE) FEW Urine Hemoglobin (NEG) LARGE H Urine Glucose (N MG/DL) NEG 11/03 11/03 11/03 2132 0430 0130 Chemistry Sodium (137 - 145 mmol/L) 140 Potassium (3.5 - 5.1 mmol/L) 3.9 Chloride (98 - 107 mmol/L) 118 H Carbon Dioxide (22 - 30 mmol/L) 14 L Anion Gap (5 - 16) 8 BUN (9 - 20 mg/dL) 34 H Creatinine (0.7 - 1.2 mg/dL) 2.5 H Estimated GFR (>60 ml/min) 26 L Glucose (65 - 99 mg/dL) 60 L Calcium (8.4 - 10.2 mg/dL) 7.2 L Phosphorus (2.5 - 4.5 mg/dL) 2.9 Magnesium (1.6 - 2.3 mg/dL) 1.6 Total Bilirubin (0.2 - 1.3 mg/dL) 0.5 AST (17 - 59 U/L) 30 ALT (21 - 72 U/L) 37 Troponin I (<0.11 ng/ml) 0.17 *H 0.19 *H Albumin (3.5 - 5.0 g/dL) 2.0 L Hematology CBC w Diff MAN DIFF ORDERED WBC (4.8 - 10.8 /CUMM) 37.7 *H RBC (4.70 - 6.10 /CUMM) 3.82 L Hgb (14.0 - 18.0 G/DL) 12.0 L Hct (42 - 52 %) 36.4 L MCV (80.0 - 94.0 FL) 95.4 H MCH (27.0 - 31.0 PG) 31.5 H RDW (11.5 - 14.5 %) 17.2 H Plt Count (130 - 400 /CUMM) 74 L MPV (7.4 - 10.4 FL) 9.3 Gran % (42.2 - 75.2 %) 90.1 H Lymphocytes % (20.5 - 51.1 %) 2.5 L Monocytes % (1.7 - 9.3 %) 7.4 Eosinophils % (0 - 5 %) 0 Basophils % (0.0 - 2.0 %) 0 L Absolute Granulocytes (1.4 - 6.5 /CUMM) 33.9 H Segmented Neutrophils (42.2 - 75.2 %) 73 Band Neutrophils (0.0 - 5.0 %) 13 H Absolute Lymphocytes (1.2 - 3.4 /CUMM) 1.0 L Lymphocytes (20.5 - 51.1 %) 3 L Monocytes (1.7 - 9.3 %) 7 Absolute Monocytes (0.10 - 0.60 /CUMM) 2.8 H Absolute Eosinophils (0.0 - 0.7 /CUMM) 0 Absolute Basophils (0.0 - 0.2 /CUMM) 0 Metamyelocytes (0.0 - 1.0 %) 4 H Platelet Estimate (ADEQUATE) DECREASED Polychromasia 1+ Poikilocytosis 2+ Ovalocytes 1+ [place] Cells 1+ PUBS MCHC (33.0 - 37.0 G/DL) 33.0 Urines Ur Random Creatinine (mg/dL) 30.5 Ur Random Sodium (30 - 90 mmol/L) 72 Ur Random Potassium (mmol/L) 6.9 Fraction Sodium Excret (<1% %) 4.2 H 11/02 1909 Chemistry Sodium (137 - 145 mmol/L) 139 Potassium (3.5 - 5.1 mmol/L) 3.2 L Chloride (98 - 107 mmol/L) 115 H Carbon Dioxide (22 - 30 mmol/L) 15 L Anion Gap (5 - 16) 9 BUN (9 - 20 mg/dL) 33 H Creatinine (0.7 - 1.2 mg/dL) 2.5 H Estimated GFR (>60 ml/min) 26 L BUN/Creatinine Ratio (7 - 25 %) 13.2 Magnesium (1.6 - 2.3 mg/dL) 1.5 L Troponin I (<0.11 ng/ml) 0.24 *H
[2016-11-06] VITALS: BP 128/78
[2016-11-06 05:29] LABS: ABSOLUTE BASOPHIL COUNT 0 /CUMM (0.0-0.2); ABSOLUTE EOSINOPHIL COUNT 0.6 /CUMM (0.0-0.7); ABSOLUTE GRANULOCYTE CT 9.3 /CUMM (1.4-6.5); ABSOLUTE LYMPH COUNT 1.5 /CUMM (1.2-3.4); ABSOLUTE MONOCYTE COUNT 1.1 /CUMM (0.10-0.60); BASOPHIL % 0.2 % (0.0-2.0); EOSINOPHIL % 4.6 % (0-5); GRANULOCYTE % 74.4 % (42.2-75.2); MEAN CORPUSCULAR HGB 31.1 PG (27.0-31.0); MEAN CORPUSCULAR VOLUME 94.1 FL (80.0-94.0); MEAN PLATELET VOLUME 8.3 FL (7.4-10.4); PLATELET COUNT 107 /CUMM (130-400); RBC DISTRIBUTION WIDTH 16.1 % (11.5-14.5); RED BLOOD CELL CT 3.72 /CUMM (4.70-6.10); WHITE BLOOD CELL COUNT 12.4 /CUMM (4.8-10.8)
--- NOTE | 2016-11-06 07:30 | PN- Housestaff ---
See Addendum Subjective Follow-up For: -Sepsis secondary to UTI -Thrombocytopenia -Leukocytosis -Acute kidney injury top of chronic kidney disease Subjective: Patient was seen and examined. Patient reported sore throat, odynophagia and ears pain. Patient denies abdominal pain, nausea, vomiting, fever or chills. He denies chest pain, shortness breath, or palpitationfever. Review of Systems Constitutional: Reports: see HPI. Denies: chills, diaphoresis, fever, weakness. Objective Last 24 Hrs of Vital Signs/I&O Vital Signs Date Time Temp Pulse Resp B/P Pulse O2 O2 Flow FiO2 Ox Delivery Rate 11/06 0000 98.5 64 18 128/78 99 Room Air 11/05 1600 96 Room Air Room Air 11/05 1600 97.8 61 16 140/86 96 Room Air Room Air Intake & Output 11/06 1600 11/06 0800 11/06 0000 Intake Total 1125 890 Output Total 900 1800 Balance 225 -910 Intake, IV 575 470 Intake, Oral 550 420 Number 1 Bowel Movements Output, Urine 900 1800 Physical Exam General Appearance: Alert, Oriented X3, Cooperative, No Acute Distress Skin: No Rashes HEENT: Atraumatic, PERRLA, EOMI, try oral mucosa, multiple white plaques on the back of his throat, most likely oral thrush, tympanic membrane looks normal improved ears, however there is some wax on the left ear, painful swelled lymph nodes on the left side of his neck Neck: No JVD Cardiovascular: Regular Rate, Normal S1, Normal S2, No Murmurs Lungs: Clear to Auscultation, Normal Air Movement Abdomen: Normal Bowel Sounds, Soft, No Tenderness Neurological: Normal Speech Extremities: No Edema Assessment/Plan Assessment: 1.Sepsis of urological origin Today his white blood cell dropped from 22 to 12, No fever or right side flank tenderness. No hematuria or dysuria. No nausea or vomiting. He is hemodynamically stable * Starting yesterday we switching IV Ceftriaxone to oral ampicillin * we'll Monitor CBC daily, until WBCs improve 2.SHUKRI on CKD Today creatinine improved from 1.7 to 1.5. Today potassium is 3.6 * we'll Follow daily BEP daily * Patient will be on normal saline today * Follow-up nephrology recommendationWe will replete electrolytes when necessary 3.HTN Medication was hold because of hypotension on presentation. Now patient is hemodynamically stable. Restart his medication when its appropriate. * Currently holding metoprolol XL 25 mg PO daily for HTN * Monitor vital signs closely * Start medication when its appropriate 4. Mental health (depression, anxiety) * Bupropion 150 mg PO daily (he is reportedly on BID at home) * Desvenlafaxine 100 mg PO daily (home dose) * Neurontin 300 mg PO BID for now due to decreased creatinine clearance (Patient normally takesTID at home) 5. 1.6 cm Soft Tissue Nodule within right middle lobe (R lung) * We will Refer patient to follow-up with pulmonology as an outpatient 6. Gout Allopurinol currently on hold 2/2 renal dysfunction. * Monitor renal function restart allopurinol once stabilized 7. Elevated troponin At some point during this admission patient had elevated troponin. Troponin were 0.02--> 0.12--> 0.18-->0.24-->0.19-->0.17. Cardiology was consulted and he believes it's most likely demand. * We will keep electrolytes WNL * Echocardiogram results pending * Follow-up cardiology recommendation 8. Thrombocytopenia Patient platelets and dropping since admission. We both heparin subcutaneous on hold since yesterday morning. Today his platelets improved which make heparin-induced thrombocytopenia a possible differential * CBC daily. 9. Chronic diarrhea he had a history of chronic diarrhea that was treated with Flagyl before admission. He also reported weight loss. Patient reported that his diarrhea improved, but then this morning he had one watery nonbloody bowel movement again. * We'll send for C. difficile * We will give probiotic once daily * Will guaiac all stool 10. Hypokalemia Patient has a chronic hypokalemia. Patient received 20 mEq of potassium IV and will receive 20 mEq BID schedule * We'll replete his potassium as necessary 11. Oral thrush with left-sided ear pain This morning patient started complaining of throat pain, dysphagia and left- sided ear pain. On examination bilateral ear examination of his tympanic membrane show no sign suggestive of infection. There is an enlarged lymph node on the left side of his neck. There is a wide plaques over the back of his throat, most likely zion infection. * Nystatin * Benzocaine when necessary for pain Problem List: 1. SHUKRI (acute kidney injury) 2. Nephrolithiasis 3. Diarrhea 4. Oral thrush Pain Ratin Pain Location: throat and left ear Pain Goal: Remain pain free Pain Plan: see A&P Tomorrow's Labs & Rationales: Renuka
[2016-11-06 08:00] VITALS: BP 118/78
--- NOTE | 2016-11-06 10:10 | PN- Cardiology ---
Subjective Subjective: The patient is comfortable. No cardiac symptoms. No chest pain. No shortness of breath. No diaphoresis. No palpitations. No lightheadedness or dizziness. No nausea or vomiting. Objective Vital Signs and I&Os Vital Signs Date Time Temp Pulse Resp B/P Pulse O2 O2 Flow FiO2 Ox Delivery Rate 11/06 08 95 Room Air 11/06 0800 98.7 93 16 118/78 95 Room Air 11/06 0000 98.5 64 18 128/78 99 Room Air 11/05 1600 96 Room Air Room Air 11/05 1600 97.8 61 16 140/86 96 Room Air Room Air Intake & Output 11/06 1600 11/06 0800 11/06 0000 11/05 1600 11/05 0800 11/05 0000 Intake Total 3289 544 8972 782 1329 Output Total 900 1800 1475 1875 1650 Balance 225 - -321 Intake, IV 949 530 3739 782 849 Intake, Oral 550 420 400 480 Number 1 1 1 Bowel Movements Output, Urine 900 1800 1475 1875 1650 Patient 202 lb Weight Physical Exam: Gen: The patient is in no acute distress HEENT: Normal nose, ears, and oropharynx. Pupils equal bilaterally. Conjunctiva normal. Neck: Supple with no JVD, no masses, and no thyromegaly Lungs: Clear to auscultation with normal respiratory effort Heart: RRR, S1, S2, 1/6 systolic murmur. No peripheral edema, 2+ pulses in the lower extremities bilaterally Abdomen: Soft, nontender, no masses. No hepatomegaly. No splenomegaly Extremities: No clubbing or cyanosis. Normal muscle strength in the upper and lower extremities. Skin: Normal skin turgor with no skin ulcers or lesions noted. Neuro: Cranial nerves intact. Sensation intact Current Medications: Current Medications Sig/Monica Start time Last Medication Dose Route Stop Time Status Admin Acetaminophen 650 MG Q8P PRN 11/01 1814 AC PO Acetaminophen 1,000 MG Q8P PRN 11/01 181 AC 11/01 IV 2112 Ampicillin 500 MG Q6 11/05 1800 AC 11/06 PO 0551 Benzocaine/Menthol 1 ELSIE Q2P PRN 11/06 0930 AC PO Bupropion HCl 150 MG DAILY 11/01 2199 AC 11/06 PO 0748 Ceftriaxone Sodium 1,000 MG DAILY@1600 11/02 1600 DC 11/04 IV 1604 Desvenlafaxine 100 MG DAILY@0 11/03 2200 AC 11/05 Succinate PO 2147 Gabapentin 300 MG BID 11/01 220 AC 11/06 PO 0749 Glycerin 2 SPRAY Q2P PRN 11/06 0830 AC PO Lactobacillus 1 CAP DAILY 11/06 1000 AC Acidophilus PO Magnesium Oxide 400 MG ONE ONE 11/06 0730 DC 11/06 PO 11/06 0731 0749 Magnesium Sulfate 1 GM ONCE ONE 11/06 0730 AC 11/06 Dextrose/Water 100 ML IV 11/06 1129 0740 Magnesium Sulfate 1 GM Q2H 11/05 0645 DC 11/05 Dextrose/Water 100 ML IV 11/05 1044 1017 Multivitamins 1 TAB DAILY 11/03 1559 AC 11/06 PO 0749 Nystatin 5 ML 4 TIMES/DAY 11/06 1000 AC 11/06 PO 0944 Potassium Chloride 40 MEQ ONCE ONE 11/06 0730 CAN PO 11/06 0731 Potassium Chloride 10 MEQ Q1H 11/06 0730 DC 11/06 IV 11/06 0831 0943 Potassium Chloride 20 MEQ ONCE ONE 11/05 1730 DC 11/05 PO 11/05 1731 1815 Potassium Chloride 20 MEQ DAILY 11/02 1000 AC 11/06 PO 0749 Sodium Bicarbonate 75 MEQ Q13H 11/06 0345 CAN Dextrose/Sodium 1,000 ML IV Chloride Sodium Bicarbonate 75 MEQ Q13H 11/05 1700 DC Dextrose/Sodium 1,000 ML IV Chloride Sodium Bicarbonate 75 MEQ 75 MLS/HR 11/05 1330 CAN Dextrose/Sodium 1,000 ML IV Chloride Sodium Bicarbonate 75 MEQ Q10H 11/04 1200 DC 11/05 Dextrose/Sodium 1,000 ML IV 0821 Chloride Sodium Chloride 1,000 ML Q13H 11/06 0415 AC 11/06 IV 0427 Sodium Chloride 1,000 ML ONCE ONE 11/06 0330 DC IV 11/06 1649 Sodium Chloride 1,000 ML Q10H 11/05 1815 DC 11/05 IV 1815 Results Last 48 Hrs of Labs/Mics: Laboratory Tests 11/06/16 0437: Anion Gap 4 L, Estimated GFR 47 L, BUN/Creatinine Ratio 9.3, Magnesium 1.7, CBC w Diff MAN DIFF ORDERED, RBC 3.72 L, MCV 94.1 H, MCH 31.1 H, RDW 16.1 H, MPV 8.3, Gran % 74.4, Lymphocytes % 12.0 L, Monocytes % 8.8, Eosinophils % 4.6, Basophils % 0.2, Absolute Granulocytes 9.3 H, Segmented Neutrophils 64, Band Neutrophils 3, Absolute Lymphocytes 1.5, Lymphocytes 16 L, Monocytes 7, Absolute Monocytes 1.1 H, Eosinophils 5, Absolute Eosinophils 0.6, Basophils 2, Absolute Basophils 0, Metamyelocytes 2 H, Myelocytes 1 H, Platelet Estimate ADEQUATE, Polychromasia 1+, Poikilocytosis 1+, Ovalocytes 1+, Stomatocytes FEW, PUBS MCHC 33.0, Fld Total RBCs Counted 100 11/05/16 1400: Anion Gap 5, Estimated GFR 41 L, BUN/Creatinine Ratio 9.4, Magnesium 2.0 11/05/16 0525: Anion Gap 8, Estimated GFR 41 L, Glucose 83, Calcium 7.8 L, Phosphorus 2.1 L, Magnesium 1.6, Total Bilirubin 0.3, AST 21, ALT 38, Albumin 2.1 L, CBC w Diff MAN DIFF ORDERED, RBC 3.58 L, MCV 94.5 H, MCH 31.4 H, RDW 16.5 H, MPV 8.9, Gran % 88.2 H, Lymphocytes % 5.1 L, Monocytes % 4.0, Eosinophils % 2.5, Basophils % 0.2, Absolute Granulocytes 19.7 H, Segmented Neutrophils 80 H, Band Neutrophils 4, Absolute Lymphocytes 1.1 L, Lymphocytes 11 L, Monocytes 1 L, Absolute Monocytes 0.9 H, Eosinophils 4, Absolute Eosinophils 0.6, Absolute Basophils 0, Platelet Estimate DECREASED, Polychromasia 1+, Poikilocytosis 1+, Basophilic Stippling SLIGHT, Ovalocytes 1+, PUBS MCHC 33.2, Fld Total RBCs Counted 100 Recent Imaging Studies: Echocardiogram 11/03/16: Mild dilation of the ascending aorta. Normal left ventricle systolic function. Minimal MR. Mild AI. Minimal TR. Assessment/Plan Assessment/Plan Assessment: 1. Renal stones, status post ureteral stent 2. Normal left ventricular function with moderate aortic regurgitation on recent echo 3. Normal nuclear stress test 4. Mild troponin elevation, likely demand ischemia secondary to sepsis 5. Sepsis secondary to urinary tract infection Plan: * Cardiac status is currently stable. * Continue current cardiac medications. * Follow up in the office one week after discharge. * Possible nuclear stress test as outpatient to evaluate for ischemia given recent positive troponin Continue telemetry? No
--- NOTE | 2016-11-06 15:57 | PN- Nephrology ---
Assessment/Plan Assessment: 1. Acute kidney injury secondary to sepsis -resolved 2. Metabolic acidosis secondary to SHUKRI plus diarrhea -resolved 3. Urosepsis secondary to gonzalez-sensitive E.coli UTI with bacteremia in the setting of obstructive nephrolithiasis on the right --> stented Suggestion: 1. Can discontinue IV fluids as long as he is taking by mouth well 2. Continue antibiotic therapy 3. As renal function has returned to baseline, I will sign off. Please call if needed again. Patient has been told that, if he wishes, he can follow up as an outpatient with me. Subjective Subjective: Feels well with no GI or other symptoms at this time. Renal function has returned to baseline levels. Objective Vital Signs and I&Os Vital Signs Date Time Temp Pulse Resp B/P Pulse O2 O2 Flow FiO2 Ox Delivery Rate 11/06 0800 95 Room Air 11/06 0800 98.7 93 16 118/78 95 Room Air 11/06 0000 98.5 64 18 128/78 99 Room Air 11/05 1600 96 Room Air Room Air 11/05 1600 97.8 61 16 140/86 96 Room Air Room Air Intake & Output 11/06 1600 11/06 0400 11/05 1600 11/05 0400 11/04 1600 11/04 0400 Intake Total 3245 890 2225 1329 2105 1367.7 Output Total 2350 1800 3350 1650 3930 1900 Balance 895 -910 -1125 -321 -1825 -532.3 Intake, IV 2423 614 9882 849 1565 647.7 Intake, Oral 1770 420 400 480 540 720 Number 1 2 2 0 Bowel Movements Output, Urine 2350 1800 3350 1650 3930 1900 Patient 202 lb Weight Physical Exam: General: Well-developed white male in NAD Skin: No rash or jaundice HEENT: Conjunctivae pink, sclerae anicteric, mucous membranes moist Neck: Without masses or thyromegaly, no supraclavicular or cervical adenopathy Chest: Clear to P&A Heart: Regular rate and rhythm without S3 or rub Abdomen: Soft and nontender without palpable masses or organomegaly Extremities: Without cyanosis or edema Neuro: No focal findings, no asterixis or myoclonus Current Medications: Current Medications Sig/Monica Start time Last Medication Dose Route Stop Time Status Admin Acetaminophen 650 MG Q8P PRN 11/01 1815 AC PO Acetaminophen 1,000 MG Q8P PRN 11/01 1815 AC 11/01 IV 2112 Ampicillin 500 MG Q6 11/05 1800 AC 11/06 PO 1157 Benzocaine/Menthol 1 ELSIE Q2P PRN 11/06 0930 AC PO Bupropion HCl 150 MG DAILY 11/01 2199 AC 11/06 PO 0748 Desvenlafaxine 100 MG DAILY@11/03 220 AC 11/05 Succinate PO 2147 Gabapentin 300 MG BID 11/01 220 AC 11/06 PO 0749 Glycerin 2 SPRAY Q2P PRN 11/06 0830 AC PO Lactobacillus 1 CAP DAILY 11/06 1000 AC 11/06 Acidophilus PO 1020 Magnesium Oxide 400 MG ONE ONE 11/06 0730 DC 11/06 PO 11/06 0731 0749 Magnesium Sulfate 1 GM ONCE ONE 11/06 0730 DC 11/06 Dextrose/Water 100 ML IV 11/06 1129 0740 Multivitamins 1 TAB DAILY 11/03 1559 AC 11/06 PO 0749 Nystatin 5 ML 4 TIMES/DAY 11/06 1000 AC 11/06 PO 1414 Potassium Chloride 40 MEQ ONCE ONE 11/06 0730 CAN PO 11/06 0731 Potassium Chloride 10 MEQ Q1H 11/06 0730 DC 11/06 IV 11/06 0831 0943 Potassium Chloride 20 MEQ ONCE ONE 11/05 1730 DC 11/05 PO 11/05 173 1815 Potassium Chloride 20 MEQ DAILY 11/02 1000 AC 11/06 PO 0749 Sodium Bicarbonate 75 MEQ Q13H 11/06 0345 CAN Dextrose/Sodium 1,000 ML IV Chloride Sodium Bicarbonate 75 MEQ Q13H 11/05 1700 DC Dextrose/Sodium 1,000 ML IV Chloride Sodium Chloride 1,000 ML Q13H 11/06 0415 AC 11/06 IV 0427 Sodium Chloride 1,000 ML ONCE ONE 11/06 0330 DC IV 11/06 1649 Sodium Chloride 1,000 ML Q10H 11/05 1815 DC 11/05 IV 1815 Results Pertinent Lab Results: Laboratory Tests 11/06 11/05 0437 1400 Chemistry Sodium (137 - 145 mmol/L) 142 141 Potassium (3.5 - 5.1 mmol/L) 3.6 3.7 Chloride (98 - 107 mmol/L) 111 H 110 H Carbon Dioxide (22 - 30 mmol/L) 26 26 Anion Gap (5 - 16) 4 L 5 BUN (9 - 20 mg/dL) 14 16 Creatinine (0.7 - 1.2 mg/dL) 1.5 H 1.7 H Estimated GFR (>60 ml/min) 47 L 41 L BUN/Creatinine Ratio (7 - 25 %) 9.3 9.4 Magnesium (1.6 - 2.3 mg/dL) 1.7 2.0 Hematology CBC w Diff MAN DIFF ORDERED WBC (4.8 - 10.8 /CUMM) 12.4 H RBC (4.70 - 6.10 /CUMM) 3.72 L Hgb (14.0 - 18.0 G/DL) 11.6 L Hct (42 - 52 %) 35.0 L MCV (80.0 - 94.0 FL) 94.1 H MCH (27.0 - 31.0 PG) 31.1 H RDW (11.5 - 14.5 %) 16.1 H Plt Count (130 - 400 /CUMM) 107 L MPV (7.4 - 10.4 FL) 8.3 Gran % (42.2 - 75.2 %) 74.4 Lymphocytes % (20.5 - 51.1 %) 12.0 L Monocytes % (1.7 - 9.3 %) 8.8 Eosinophils % (0 - 5 %) 4.6 Basophils % (0.0 - 2.0 %) 0.2 Absolute Granulocytes (1.4 - 6.5 /CUMM) 9.3 H Segmented Neutrophils (42.2 - 75.2 %) 64 Band Neutrophils (0.0 - 5.0 %) 3 Absolute Lymphocytes (1.2 - 3.4 /CUMM) 1.5 Lymphocytes (20.5 - 51.1 %) 16 L Monocytes (1.7 - 9.3 %) 7 Absolute Monocytes (0.10 - 0.60 /CUMM) 1.1 H Eosinophils (0 - 5.0 %) 5 Absolute Eosinophils (0.0 - 0.7 /CUMM) 0.6 Basophils (0.0 - 2.0 %) 2 Absolute Basophils (0.0 - 0.2 /CUMM) 0 Metamyelocytes (0.0 - 1.0 %) 2 H Myelocytes (0 - 0 %) 1 H Platelet Estimate (ADEQUATE) ADEQUATE Polychromasia 1+ Poikilocytosis 1+ Ovalocytes 1+ Stomatocytes FEW PUBS MCHC (33.0 - 37.0 G/DL) 33.0 Other Body Source Fld Total RBCs Counted (%) 100 11/05 11/04 4235 2368 Chemistry Sodium (137 - 145 mmol/L) 142 139 Potassium (3.5 - 5.1 mmol/L) 3.1 L 3.5 Chloride (98 - 107 mmol/L) 113 H 117 H Carbon Dioxide (22 - 30 mmol/L) 21 L 16 L Anion Gap (5 - 16) 8 6 BUN (9 - 20 mg/dL) 19 28 H Creatinine (0.7 - 1.2 mg/dL) 1.7 H 2.1 H Estimated GFR (>60 ml/min) 41 L 32 L Glucose (65 - 99 mg/dL) 83 61 L Calcium (8.4 - 10.2 mg/dL) 7.8 L 7.8 L Phosphorus (2.5 - 4.5 mg/dL) 2.1 L 2.3 L Magnesium (1.6 - 2.3 mg/dL) 1.6 1.8 Total Bilirubin (0.2 - 1.3 mg/dL) 0.3 0.4 AST (17 - 59 U/L) 21 28 ALT (21 - 72 U/L) 38 37 Albumin (3.5 - 5.0 g/dL) 2.1 L 2.0 L Hematology CBC w Diff MAN DIFF ORDERED MAN DIFF ORDERED WBC (4.8 - 10.8 /CUMM) 22.3 H 36.0 *H RBC (4.70 - 6.10 /CUMM) 3.58 L 3.54 L Hgb (14.0 - 18.0 G/DL) 11.2 L 11.1 L Hct (42 - 52 %) 33.8 L 33.7 L MCV (80.0 - 94.0 FL) 94.5 H 95.2 H MCH (27.0 - 31.0 PG) 31.4 H 31.4 H RDW (11.5 - 14.5 %) 16.5 H 17.0 H Plt Count (130 - 400 /CUMM) 92 L 78 L MPV (7.4 - 10.4 FL) 8.9 8.9 Gran % (42.2 - 75.2 %) 88.2 H 92.6 H Lymphocytes % (20.5 - 51.1 %) 5.1 L 3.1 L Monocytes % (1.7 - 9.3 %) 4.0 3.1 Eosinophils % (0 - 5 %) 2.5 1.2 Basophils % (0.0 - 2.0 %) 0.2 0 L Absolute Granulocytes (1.4 - 6.5 /CUMM) 19.7 H 33.4 H Segmented Neutrophils (42.2 - 75.2 %) 80 H 88 H Band Neutrophils (0.0 - 5.0 %) 4 9 H Absolute Lymphocytes (1.2 - 3.4 /CUMM) 1.1 L 1.1 L Lymphocytes (20.5 - 51.1 %) 11 L 2 L Monocytes (1.7 - 9.3 %) 1 L 1 L Absolute Monocytes (0.10 - 0.60 /CUMM) 0.9 H 1.1 H Eosinophils (0 - 5.0 %) 4 Absolute Eosinophils (0.0 - 0.7 /CUMM) 0.6 0.4 Absolute Basophils (0.0 - 0.2 /CUMM) 0 0 Platelet Estimate (ADEQUATE) DECREASED DECREASED Polychromasia 1+ 1+ Poikilocytosis 1+ Basophilic Stippling SLIGHT Ovalocytes 1+ FEW Stomatocytes FEW PUBS MCHC (33.0 - 37.0 G/DL) 33.2 33.0 Other Body Source Fld Total RBCs Counted (%) 100 100 11/03 11/03 2132 2132 Urines Urinalysis LIGHT H Urine Color (YEL,AMB,STR) STRAW Urine Clarity (CLEAR) HAZY H Urine pH (5.0 - 8.0) 6.0 Ur Specific [place] (1.001 - 1.035) 1.010 Urine Protein (NEG,<30 MG/DL) TRACE H Urine Ketones (NEG) NEG Urine Nitrite (NEG) NEG Urine Bilirubin (NEG) NEG Urine Urobilinogen (0.1 - 1.0 EU/dl) 0.2 Ur Leukocyte Esterase (NEG) TRACE H Ur Microscopic SEDIMENT EXAMINED Urine RBC (0 - 5 /HPF) 15-25 H Urine WBC (0 - 2 /HPF) 1-3 H Ur Epithelial Cells (NONE,FEW) FEW Urine Mucus (FEW,NONE) FEW Urine Hemoglobin (NEG) LARGE H Ur Random Creatinine (mg/dL) 30.5 Ur Random Sodium (30 - 90 mmol/L) 72 Ur Random Potassium (mmol/L) 6.9 Fraction Sodium Excret (<1% %) 4.2 H Urine Glucose (N MG/DL) NEG
[2016-11-06 16:00] VITALS: BP 120/78
[2016-11-06 20:40] VITALS: BP 120/70
[2016-11-06 21:08] VITALS: BP 140/80
[2016-11-06 23:57] VITALS: BP 122/72
--- NOTE | 2016-11-07 07:00 | PN- Housestaff ---
See Addendum Subjective Follow-up For: Sepsis of urological origin SHUKRI on CKD HTN Depression, anxiety Hypokalemia Subjective: Patient seen and examined at bedside this AM. He reports he feels well and has no further episodes of diarrhea. Xavier is requesting discharge today. He understands that he needs to follow up closely with his PCP as well as Dr. Walls for the pulmonary nodule found on imaging. Review of Systems Constitutional: Denies: chills, fever. EENTM: Denies: visual changes, hearing changes, nasal congestion. Cardiovascular: Denies: chest pain, palpitations. Respiratory: Denies: cough, short of breath. Gastrointestinal: Denies: abdominal pain, diarrhea. Genitourinary: Denies: dysuria. Musculoskeletal: Denies: back pain. Skin: Denies: change in skin color, change in hair/nails. Neurological/Psychological: Denies: confusion. Hematologic/Endocrine: Denies: bleeding. Objective Last 24 Hrs of Vital Signs/I&O Vital Signs Date Time Temp Pulse Resp B/P Pulse O2 O2 Flow FiO2 Ox Delivery Rate 11/07 0813 97.9 56 20 132/68 92 Room Air 11/06 2357 97.8 63 18 122/72 94 Room Air 11/06 2108 97.6 64 19 140/80 94 11/06 2040 98.9 85 18 120/70 97 Room Air 11/06 1600 96 Room Air / 1600 98.2 66 16 120/78 96 Room Air Intake & Output / 1600 / 0800 02/ 0000 Intake Total 1080 660 Output Total 425 2275 700 Balance -425 -1195 -40 Intake, IV 600 300 Intake, Oral 480 360 Number 1 Bowel Movements Output, Urine 425 2275 700 Physical Exam General Appearance: Alert, Oriented X3, Cooperative, No Acute Distress Skin: No Significant Lesion HEENT: Atraumatic, Mucous Membr. moist/pink Neck: Supple Cardiovascular: Regular Rate, Normal S1, Normal S2 Lungs: Clear to Auscultation, Normal Air Movement Abdomen: Normal Bowel Sounds, Soft Neurological: Normal Gait, Normal Speech, Normal Tone Extremities: No Clubbing, No Cyanosis Vascular: Pulses Symmetrical Current Medications: Current Medications Sig/Monica Start time Last Medication Dose Route Stop Time Status Admin Acetaminophen 650 MG Q8P PRN 11/01 1814 DCD PO Acetaminophen 1,000 MG Q8P PRN 11/01 1815 DCD 11/01 IV 2112 Ampicillin 500 MG Q6 11/05 1800 DCD 11/07 PO 0549 Benzocaine/Menthol 1 ELSIE Q2P PRN 11/06 0930 DCD 11/06 PO 1740 Bupropion HCl 150 MG DAILY 11/01 2199 DCD 11/07 PO 1018 Desvenlafaxine 100 MG DAILY@11/03 220 DCD 11/06 Succinate PO 2119 Gabapentin 300 MG BID 11/01 2199 DCD 11/07 PO 1018 Glycerin 2 SPRAY Q2P PRN 11/06 0830 DCD PO Lactobacillus 1 CAP DAILY 11/06 1000 DCD 11/07 Acidophilus PO 1018 Multivitamins 1 TAB DAILY 11/03 1559 DCD 11/07 PO 1018 Nystatin 5 ML 4 TIMES/DAY 11/06 1000 DCD 11/07 PO 1018 Potassium Chloride 20 MEQ DAILY 11/02 1000 DCD 11/07 PO 1018 Sodium Chloride 1,000 ML Q13H 11/06 0415 DC 11/07 IV 0550 Last 24 Hrs of Lab/Artur Results Last 24 Hrs of Labs/Mics: Laboratory Tests 11/07/16 0610: Anion Gap 5, Estimated GFR 47 L, BUN/Creatinine Ratio 7.3, Phosphorus 3.0, Magnesium 1.8, CBC w Diff NO MAN DIFF REQ, RBC 3.82 L, MCV 94.9 H, MCH 31.5 H , RDW 16.6 H, MPV 7.9, Gran % 74.4, Lymphocytes % 10.8 L, Monocytes % 9.3, Eosinophils % 5.2 H, Basophils % 0.3, Absolute Granulocytes 8.8 H, Absolute Lymphocytes 1.3, Absolute Monocytes 1.1 H, Absolute Eosinophils 0.6, Absolute Basophils 0, PUBS MCHC 33.2 Assessment/Plan Assessment: Mr. Sutherland is a 66 year old male with PMH HTN, HLD, CKD stage 3, gastric bypass with chronic hypokalemia, polysubstance abuse, chronic back pain, gout and anxiety/depression who initially presented with confusion and found to have sepsis of urological origin. He is POD #6 from stent placement for obstructed ureter 2/2 nephrolithiasis and he was transferred from the ICU overnight. Below are the following issues being addressed: 1.Sepsis of urological origin Today his WBC is trending down nicely to 11.8. No fever or right side flank tenderness. No hematuria or dysuria. No nausea or vomiting. He is hemodynamically stable, * Patient has been transitioned to oral antibiotics and will complete a course of amoxicillin as an outpatient. He will be on a total of 14 days of antibiotics (he will complete the course on November 15) * PCP will follow patient's WBC and progression closely after discharge * Follow up with Dr. Mart for post-op from ureteral placement 2.SHUKRI on CKD * Today creatinine stable at 1.5. Today potassium was 3.5. * Patient will be discharged with 5 days of 40 meq PO K followed by continuation of his 20 meq K daily. * Patient to follow up as needed with nephrology as an outpatient (Dr. Castillo, referral provided) 3.HTN Antihypertensive was held because of hypotension on presentation. Patient is now hemodynamically stable and his home antihypertensive regimen has been resumed for discharge * Monitor vital signs closely 4. Mental health (depression, anxiety) * Bupropion 150 mg PO daily * Desvenlafaxine 100 mg PO daily * Neurontin 300 mg PO BID for now due to decreased creatinine clearance 5. 1.6 cm Soft Tissue Nodule within right middle lobe (R lung) * We will refer patient to Dr. Eliel Walls MD for continued care regarding this matter 6. Gout Allopurinol currently on hold 2/2 renal dysfunction. * As renal function stabilized, we will resume this medication on DC 7. Elevated troponin * Patient had noted demand ischemia while in the ICU with peak troponin at 0.24 * Cardiology was consulted and believed it likely represented demand ischemia * Patient to follow up with Dr. uGerrier as an outpatient for continued care * Echocardiogram results pending, PCP will f/u results 8. Thrombocytopenia * Patient had noted thrombocytopenia in the setting of heparin for DVTP * Heparin has since been discontinued and platelets trending up * Consideration for heparin-induced thrombocytopenia as the cause * Continue ALPS for DVTP * CBC daily. 9. Chronic diarrhea * He had a history of chronic diarrhea that was treated with Flagyl before admission. He also reported weight loss. * Patient reports that his diarrhea has improved, but yesterday he had one watery, nonbloody bowel movement. * CDiff pending, patient will be contacted if positive * We will give probiotic once daily, given on discharge * Will guaiac all stool 10. Hypokalemia * Patient has chronic hypokalemia. * We'll replete his potassium as necessary * On discharge, he will have 40 meq PO daily of K as discussed with Dr. Walls for a total of 5 days then continue on 20 meq PO daily thereafter 11. Oral thrush with left-sided ear pain * Patient previously complained of throat pain, dysphagia and left-sided ear pain. * At that time, bilateral ear examination of his tympanic membrane show no sign suggestive of infection. There was an enlarged lymph node on the left side of his neck. There was white plaques over the back of his throat, most likely representing a zion infection. * Nystatin was ordered and his plaques have cleared * Benzocaine when necessary for pain FULL CODE DVTP: ALPS Mild pain pathway Regular Diet Problem List: 1. Oral thrush 2. Diarrhea 3. SHUKRI (acute kidney injury) 4. Nephrolithiasis 5. DVT prophylaxis 6. Full code status Pain Ratin Pain Location: n/a Pain Goal: Remain pain free Pain Plan: PO tylenol for mild pain, IV tylenol for moderate pain. Tomorrow's Labs & Rationales: None, discharge today.
[2016-11-07 07:58] LABS: ABSOLUTE BASOPHIL COUNT 0 /CUMM (0.0-0.2); ABSOLUTE EOSINOPHIL COUNT 0.6 /CUMM (0.0-0.7); ABSOLUTE GRANULOCYTE CT 8.8 /CUMM (1.4-6.5); ABSOLUTE LYMPH COUNT 1.3 /CUMM (1.2-3.4); ABSOLUTE MONOCYTE COUNT 1.1 /CUMM (0.10-0.60); BASOPHIL % 0.3 % (0.0-2.0); EOSINOPHIL % 5.2 % (0-5); GRANULOCYTE % 74.4 % (42.2-75.2); HEMATOCRIT 36.3 % (42-52); MEAN CORPUSCULAR HGB 31.5 PG (27.0-31.0); MEAN CORPUSCULAR HGB CONC 33.2 G/DL (33.0-37.0); MEAN CORPUSCULAR VOLUME 94.9 FL (80.0-94.0); MEAN PLATELET VOLUME 7.9 FL (7.4-10.4); PLATELET COUNT 121 /CUMM (130-400); RBC DISTRIBUTION WIDTH 16.6 % (11.5-14.5); RED BLOOD CELL CT 3.82 /CUMM (4.70-6.10); WHITE BLOOD CELL COUNT 11.8 /CUMM (4.8-10.8)
[2016-11-07 08:13] VITALS: BP 132/68
[2016-11-07] MEDS ORDERED: AMOXICILLIN500 M3 PO ×2 (08:31→10:50)
[2016-11-07] MEDS ORDERED: ACIDOPHILUS1 EACH PO (08:31)
--- NOTE | 2016-11-07 08:37 | Patient Discharge Instructions ---
Discharge Instructions General Discharge Information You were seen/treated for: Sepsis due to urinary tract infection Nephrolithiasis You had these procedures: Ureteral stent placement Special Instructions: Please follow up with Dr. Diaz within 7 days of discharge. Please follow up with Dr. Mart within 2 weeks of discharge. Please follow up with Dr. Castillo within 2 weeks of discharge. Please follow up with Dr. Guerrier within 2 weeks of discharge. Please take all medications as directed. Please follow up with Dr. Eliel Walls within 2 weeks of discharge to follow up the pulmonary nodule. Please take a total of 40 mg PO potassium for 5 days then go back to your 20 mg PO daily after that. Diet Recommended Diet: Heart Healthy Activity Activity Self Limited: Yes Acute Coronary Syndrome Inclusion Criteria At DC or during hospital stay patient has or had the following: ACS DIAGNOSIS No Discharge Core Measures Meds if any: Prescribed or Continued at Discharge Meds if any: NOT Prescribed or Continued at Discharge Congestive Heart Failure Inclusion Criteria At DC or during hospital stay patient has or had the following: CHF DIAGNOSIS No Discharge Core Measures Meds if any: Prescribed or Continued at Discharge Meds if any: NOT Prescribed or Continued at Discharge Cerebrovascular accident Inclusion Criteria At DC or during hospital stay patient has or had the following: CVA/TIA Diagnosis No Discharge Core Measures Meds if any: Prescribed or Continued at Discharge Meds if any: NOT Prescribed or Continued at Discharge Venous thromboembolism Inclusion Criteria VTE Diagnosis No VTE Type NONE VTE Confirmed by (Test) NONE Discharge Core Measures - Per Current guidelines, there needs to be overlap - treatment for the first 5 days of Warfarin therapy. - If discharged on Warfarin prior to 5 days of - overlap therapy, the patient will need to be - assessed for post discharge needs including - *Post discharge parental anticoagulation - *Warfarin and/or parental anticoagulation education - *Follow up date to check INR post discharge At least 5 days overlap therapy as Inpatient No Meds if any: Prescribed or Continued at Discharge Note: Overlap Therapy is Warfarin and Anticoagulant Meds if any: NOT Prescribed or Continued at Discharge
--- NOTE | 2016-11-07 10:31 | Discharge Summary ---
Visit Information Visit Dates Admission Date: 11/01/16 Hospital Course Allergies: Coded Allergies: NO KNOWN ALLERGIES (12/29/15) Discharge Instructions Medications at Discharge Discharge Medications: Continue taking these medications: Desvenlafaxine Succinate (Pristiq ER) [address] Tablet ORAL DAILY Qty = 90 Comments: PER PT BUPROPION HCL (Bupropion XL) 150 MG T24 1 Tablet ORAL THREE TIMES DAILY Qty = 270 Comments: PER PT - VERBALLY CONFIRMED XL TID POTASSIUM CHLORIDE (K-Dur) 20 MEQ TAB 1 Tablet ORAL DAILY Qty = 90 Comments: PER PT IRON FUMARATE/VIT C/VIT B12/FA (Trigels-F Forte Softgel) 1 SGL SGL 1 SGL ORAL TWICE DAILY Qty = 180 Comments: PER PT Allopurinol (Allopurinol) 300 MG TAB 1 Tablet ORAL DAILY Qty = 90 Comments: PER PT Gabapentin (Neurontin) 300 MG CAP 1 Capsule ORAL THREE TIMES DAILY Qty = 270 Comments: PER PT MV, MIN #36/IRON,CARBONYL/FA (Geritol Complete Tablet) 1 TAB TAB 1 Tablet ORAL DAILY Comments: PER PT Zinc (Zinc) 50 MG TAB 1 Tablet ORAL DAILY Comments: PER PT Calcium/Vitamin D (Calcium + D) (Unknown Strength) TAB Unknown Dose ORAL TWICE DAILY Comments: PER PT Start taking the following new medications: Lactobacillus Acidophilus (Acidophilus) 1 EACH CAPSULE 1 Capsule ORAL DAILY Qty = 30 No Refills Amoxicillin (Amoxicillin) 500 MG TABLET 1 Tablet ORAL TWICE DAILY Qty = 22 No Refills The following medications have been changed: Old: Metoprolol Succ XL (Toprol Xl) 50 MG TAB 1 Tablet ORAL DAILY Qty = 30 New: Metoprolol Succ XL (Toprol Xl) 50 MG TAB 0.5 Tablet ORAL DAILY Qty = 30
--- NOTE | 2016-11-07 10:43 | Discharge Summary ---
Visit Information Visit Dates Admission Date: 11/01/16 Discharge Date: 11/07/16 Hospital Course Course Attending Physician: BHASKAR GUADALUPE MD Primary Care Physician: YOGESH LEE MD Hospital Course: Hospital Course: 66/M with PMH significant for HTN, HLD, CKD stage 3, gastric bypass, chronic hypokalemia, polysubstance abuse, chronic back pain, vertigo, gout and anxiety/ depression who was brought in to the [place] ED due to AMS. Patient reports that for 6 week prior to admission he has had chronic diarrhea for which he saw his PCP and was given flagyl. Symptoms persistent after treatment and resulted in an 18 pound weight loss. For the few days prior to admission patient noticed right lower quadrant abdominal pain, hematuria, chills, loss of appetite. Patient had Sepsis of urological origin. The following issues were addressed during admission 1.Sepsis of urological origin On admission abdominal and pelvis CT shows increased right-sided proximal hydroureter and hydronephrosis with multiple bilateral renal stones. Patient was in Sepsis with noted leukopenia, lactic acid elevated to 2.4 (WNL now), fever to 105, tachypnea, tachycardia and hypotension. UA was suggestive of UTI. Blood culture and urine culture grew Escherichia coli that are pansensitive. Initially patient received fluid and pressors, he was started on ceftriaxone IV, urology placed R ureteral stent. Soon after patient markedly improved. He was monitored in the ICU and was found to be hemodynamically stable so his pressor was DC'd. Pt is improving with his white blood cell is almost back to normal, denies fever and chills, no flank tenderness. Patient was switch to ampicillin oral. Patient will receive a total 14 days of antibiotic. November 15, 2016 is the last day of antibiotic. 2.SHUKRI on CKD Patient Baseline cr is around 1.5-1.6. At some point during this admission Cr was up to 2.5. neprology was consulted and he recommended starting patient on half normal saline +75 mEq of sodium bicarbonate per liter at 100 mL per hour. Patient creatinine is improving since admission. On the day of discharge his creatinine was back to baseline 1.5. 3.HTN Medication was put on hold because of hypotension on presentation. On discharge patient was hemodynamically stable will restart his antihypertensive medication. 4. Mental health (depression, anxiety) we continued all his home medication including Bupropion 150 mg PO daily (he is reportedly on BID at home) Desvenlafaxine 100 mg PO daily (home dose) Neurontin 300 mg PO BID for now due to decreased creatinine clearance (Patient normally takesTID at home) 5. 1.6 cm Soft tissue nodule within right middle lobe (R lung) we will refer patient to follow-up with pulmonology as an outpatient,we will strongly stressed to the patient the need to follow up with welcome wagon hostess Dr. Vicky Walls as an outpatient to further address his lung nodule. 6. Gout Patient creatinine is back to normal on discharge we will restart his allopurinol 7. Elevated troponin At some point during this admission patient had elevated troponin. Troponin were 0.02--> 0.12--> 0.18-->0.24-->0.19-->0.17. Cardiology was consulted and he believes it's most likely demand ischemia. patient will be advised to follow up in the office one week after discharge. Possible nuclear stress test as outpatient to evaluate for ischemia given recent positive troponin. patient has an echocardiogram results pending 8. Thrombocytopenia Patient platelets and dropping since admission. This can be explained by heparin-induced thrombocytopenia. We held heparin subcutaneous, after which his platelets started to improve.we will advise patient to follow-up with PCP and further address the instance of thrombocytopenia during admission. Heparin- induced thrombocytopenia need to be confirmed or excluded. 9. Chronic diarrhea he had a history of chronic diarrhea that was treated with Flagyl before admission. He also reported weight loss. Patient reported that his diarrhea improvedhowever he had one watery nonbloody diarrhea episode during his admission. This to be further addressed by PCP. 10. Chronic hypokalemia Patient has a chronic hypokalemia. Patient is on 20 mEq BID. We will increase his dose to 40 mEq daily for 5 days then patient will be continued on 20 meq thereafter. Patient will be given a prescription for outpatient blood work. He is to be addressed by PCP 11. Oral thrush with left-sided ear pain during admission patient developed oral thrush, he was given nystatin after which his symptoms resolved. Allergies: Coded Allergies: NO KNOWN ALLERGIES (12/29/15) Pertinent Lab Results: SERVICE DATE: 11/01/16--EXAM TYPE: RAD - XRY-KIDNEYS, URETERS, BLADDER EXAMINATION: INTRAOPERATIVE FLUOROSCOPIC GUIDANCE AND ABDOMEN CLINICAL INFORMATION: Right nephrolithiasis and hydroureteronephrosis. COMPARISON: Same day abdominal and pelvic CT. TECHNIQUE: Fluoroscopic time was utilized in the OR for Dr. Miles. Fluoroscopic images were obtained in the AP projection. FINDINGS: A single fluoroscopic frontal spot image was provided during placement of a right ureteral stent. The proximal aspect of the catheter overlies the right renal pelvis. The renal pelvis and calyces are dilated. FLUOROSCOPY TIME: 6 seconds of fluoroscopic time was utilized for the entirety of this examination. IMPRESSION: A single fluoroscopic frontal spot image was provided during placement of a right ureteral stent. The proximal aspect of the catheter overlies the right renal pelvis. The renal pelvis and calyces are dilated. SERVICE DATE: 11/01/1616-0323-[facility] TYPE: CAT - CT ABD & PELVIS W/O IV CONTRAS Addendum: Additional to the listed impressions, the following should be included: 4. Soft tissue nodule within the right middle lobe measuring 1.[address] is recommended to help further evaluate. Addendum Signed by: EVER MILAN MD 11/01/16 2784 EXAMINATION: CT ABDOMEN AND PELVIS WITHOUT CONTRAST CLINICAL INFORMATION: Abdominal pain, sepsis. COMPARISON: Multiple priors, most recent abdominal radiographs dated 08/31/[address] abdomen/pelvis dated 08/29/2016. TECHNIQUE: Multidetector volumetric imaging was performed from the superior aspect of the liver through the pubic symphysis. Sagittal and coronal reformatted images were obtained on the technologist's workstation. DLP: 819.28 mGy-cm. FINDINGS: Evaluation of the abdominal viscera is limited without IV contrast. LUNG BASES: A partially visualized 1.6 cm soft tissue nodule is seen within the right middle lobe on series 3 image 7. A dedicated chest CT is recommended to help further evaluate. There are mild bilateral dependent atelectatic changes. Atherosclerotic calcifications are seen within the coronary arteries. LIVER, GALLBLADDER, AND BILIARY TREE: The liver is normal in size, shape, and attenuation. No focal hepatic lesion or biliary ductal dilatation is present. The gallbladder is surgically absent and there are surgical clips within the gallbladder fossa. PANCREAS: Unremarkable. SPLEEN: Unremarkable. ADRENAL GLANDS: Unremarkable. KIDNEYS AND URETERS: The kidneys are normal in size, shape, and attenuation. There is increased right-sided proximal hydroureter and hydronephrosis. The previously identified renal pelvic stone is more prominent, now measuring 1.5 cm. An additional inferior pole renal stone is also more prominent, now measuring 0.7 cm. There is new right-sided perinephric stranding. There is no left-sided hydronephrosis. A 0.2 cm left inferior renal pole stone is now identified. There is new left-sided perinephric stranding. BLADDER: Mild wall thickening, likely secondary to underdistention. GASTROINTESTINAL TRACT: Surgical sutures associated with the prior bariatric surgery are redemonstrated. There is no large- or small-bowel obstruction. There is no intra-abdominal free air or free fluid. No intra-abdominal abscess is identified. The appendix is normal. ABDOMINAL WALL: No significant hernia is appreciated. LYMPH NODES: Evaluation is limited without IV contrast. There are scattered subcentimeter retroperitoneal nodes. VASCULAR: Diffuse atherosclerotic calcifications are seen throughout the abdominal aorta and its branch vessels. There is no abdominal aortic dilatation. An IVC filter is redemonstrated in unchanged position. PELVIC VISCERA: Faint calcifications are redemonstrated within the central prostate. OSSEOUS STRUCTURES: Joint space narrowing and extensive subchondral cystic change is again noted at the right hip. Posterior fusion hardware and disc spacers are redemonstrated at L3 through L5. There are degenerative changes within the visualized lower thoracic and lumbar spine. IMPRESSION: 1. Increased right-sided proximal hydroureter and hydronephrosis. Increased prominence of 2 right-sided renal stones. No left-sided hydronephrosis. Left lower pole renal stone, new since the prior examination. Bilateral perinephric stranding, new since the prior examination. Evaluation is limited without IV contrast, however, pyelonephritis could be considered in the appropriate clinical setting. 2. Postsurgical changes associated with prior bariatric surgery. No large- or small-bowel obstruction. 3. Unchanged lower lumbar spine postsurgical changes and severe right hip osteoarthritis. SERVICE DATE: 11/02/[id number]-[facility] TYPE: CAT - CT ABD & PELVIS W/O IV CONTRAS EXAMINATION: CT ABDOMEN AND PELVIS WITHOUT CONTRAST CLINICAL INFORMATION: Worsening sepsis, status post ureteral stent placement. COMPARISON: Multiple priors, most recent CT abdomen/pelvis dated 11/01/2016. TECHNIQUE: Multidetector volumetric imaging was performed from the superior aspect of the liver through the pubic symphysis. Sagittal and coronal reformatted images were obtained on the technologist's workstation. DLP: 1065.34 mGy-cm. FINDINGS: LUNG BASES: There are new small bilateral pleural effusions with adjacent atelectasis versus infiltrates. LIVER, GALLBLADDER, AND BILIARY TREE: The liver is normal in size, shape, and attenuation. No focal hepatic lesion or biliary ductal dilatation is present. The gallbladder is surgically absent and there are surgical clips within the gallbladder fossa. PANCREAS: Unremarkable. SPLEEN: Unremarkable. ADRENAL GLANDS: Unremarkable. KIDNEYS AND URETERS: The kidneys are normal in size, shape, and attenuation. There has been interval placement of a right-sided ureteral stent with resolution of the previously seen right-sided hydronephrosis. A 1.5 cm stone is redemonstrated within the right renal pelvis. Multiple additional bilateral nonobstructing stones are again seen. There is persistent mild bilateral perinephric stranding. BLADDER: There is a Sanchez catheter within the urinary bladder. There is dependent air within the bladder, likely secondary to instrumentation. GASTROINTESTINAL TRACT: Multiple sutures and anastomoses from prior bariatric surgery are redemonstrated. There is no large- or small-bowel obstruction. The appendix is normal. There is no intra-abdominal free air. ABDOMINAL WALL: No significant hernia is appreciated. There is increasing soft tissue anasarca. LYMPH NODES: Evaluation is limited without IV contrast; however, there are scattered subcentimeter retroperitoneal lymph nodes. VASCULAR: There is no abdominal aortic aneurysm. There are atherosclerotic calcifications within the abdominal aorta and its branch vessels. An IVC filter is redemonstrated and in unchanged position. PELVIC VISCERA: The prostate and seminal vesicles are unremarkable. OSSEOUS STRUCTURES: Severe degenerative changes are redemonstrated within the right hip. Posterior fusion hardware and disc spacers are redemonstrated at L3 through L5. There are degenerative changes within the visualized portions of the thoracic and lumbar spine. IMPRESSION: 1. Interval placement of a right-sided ureteral stent with resolution of the previously seen right-sided hydronephrosis. Unchanged bilateral renal stones. Persistent bilateral perinephric stranding. 2. Unchanged anastomotic sutures without large- or small-bowel obstruction. Normal appendix. 3. New small bilateral pleural effusions with adjacent atelectasis versus infiltrates. 4. Lower lumbar spine degenerative changes and right hip severe osteoarthritis, not significantly changed. Disposition Summary Disposition Principal Diagnosis: Urosepsis secondary to obstructive renal stone Additional Diagnosis: -1.6 nodule on the right lung -Chronic hypokalemia -Chronic diarrhea -NSTEMI most likely secondary to demand ischemia Discharge Disposition: home or self care Discharge Instructions General Discharge Information Code Status: Full Code Patient's Diet: Heart healthy diet Patient's Activity: Yes as tolerated Follow-Up Instructions/Appts: Please follow up with Dr. Diaz within 7 days of discharge. Please follow up with Dr. Mart within 2 weeks of discharge. Please follow up with Dr. Castillo within 2 weeks of discharge. Please follow up with Dr. Guerrier within 2 weeks of discharge. Medications at Discharge Discharge Medications: Continue taking these medications: Desvenlafaxine Succinate (Pristiq ER) [address] 1 Tablet ORAL DAILY Qty = 90 Comments: PER PT BUPROPION HCL (Bupropion XL) 150 MG T24 1 Tablet ORAL THREE TIMES DAILY Qty = 270 Comments: PER PT - VERBALLY CONFIRMED XL TID POTASSIUM CHLORIDE (K-Dur) 20 MEQ TAB 1 Tablet ORAL DAILY Qty = 90 Comments: PER PT IRON FUMARATE/VIT C/VIT B12/FA (Trigels-F Forte Softgel) 1 SGL SGL 1 SGL ORAL TWICE DAILY Qty = 180 Comments: PER PT Allopurinol (Allopurinol) 300 MG TAB 1 Tablet ORAL DAILY Qty = 90 Comments: PER PT Gabapentin (Neurontin) 300 MG CAP 1 Capsule ORAL THREE TIMES DAILY Qty = 270 Comments: PER PT MV, MIN #36/IRON,CARBONYL/FA (Geritol Complete Tablet) 1 TAB TAB 1 Tablet ORAL DAILY Comments: PER PT Zinc (Zinc) 50 MG TAB 1 Tablet ORAL DAILY Comments: PER PT Calcium/Vitamin D (Calcium + D) (Unknown Strength) TAB Unknown Dose ORAL TWICE DAILY Comments: PER PT Start taking the following new medications: Amoxicillin (Amoxicillin) 500 MG TABLET 1 Tablet ORAL TWICE DAILY Qty = 16 No Refills Comments: Last Taken: 11/07/16 Time: 0600 AM Lactobacillus Acidophilus (Acidophilus) 1 EACH CAPSULE 1 Capsule ORAL DAILY Qty = 30 No Refills Comments: Last Taken: 11/07/16 Time: 1020AM The following medications have been changed: Old: Metoprolol Succ XL (Toprol Xl) 50 MG TAB 1 Tablet ORAL DAILY Qty = 30 New: Metoprolol Succ XL (Toprol Xl) 50 MG TAB 0.5 Tablet ORAL DAILY Qty = 30 Comments: DID NOT RECEIVE IN HOSPITAL Copies To: IVAN DUMONT,ROMMEL Norton; VINICIO DUMONT,VICKY Dumont; IGNACIA DUMONT,SUZANNA Najera; JOHN DUMONT, PHUONG; ROSA DUMONT,YOGESH Dumont Attending MD Review Statement Documenting Attending: BHASKAR GUADALUPE MD Other Findings: The patient was seen and discussed with house staff. Agree with the plan of care as outlined. OK to discharge to home today. Follow-up with Urology for potential lithotripsy and with PCP, Cardiology. If any diarrhea noted the patient will inform his PCP (no diarrhea last day).
--- NOTE | 2016-11-20 13:05 | ECHOCARDIOGRAM REPORT ---
RADHA FOSS Age: 66 : 1950 Gender: M Exam Date: 11/03/2016 10:08 Exam Location: [place] Ht (in): 75 Wt (lb): 202 BSA: 2.21 BP: 120 / 82 Ordering Physician: MEL BEAL MD Referring Physician: MEL BEAL MD Technologist: Ismael Melchor [facility] Room Number: 171-1 Indications: HYPOTENSION Rhythm: Sinus Technical Quality: Fair FINDINGS Left Ventricle Normal size left ventricle. No obvious regional wall motion abnormalities. Normal left ventricular ejection fraction estimated at 55-60%. Right Ventricle Right ventricle not well visualized, grossly normal. Right Atrium Normal right atrial size. Left Atrium Left atrial size at the upper limits of normal. Mitral Valve Mitral valve thickened. Trace mitral regurgitation. Aortic Valve Trileaflet aortic valve. Focal thickening of the aortic valve cusps. No aortic stenosis. Trace to mild aortic regurgitation. Tricuspid Valve Tricuspid valve not well visualized, grossly normal. Trace tricuspid regurgitation. Pulmonic Valve Pulmonic valve not well visualized, grossly normal. Pericardium No pericardial effusion. Great Vessels Mildly dilated proximal ascending aorta (tube). CONCLUSIONS 1. This was a technically difficult examination. 2. Minimal aortic sclerosis is present with minimal to mild aortic insufficiency and mild dilatation of the ascending aorta. 3. Mild thickening of the mitral leaflets is present with minimal mitral insufficiency. 4. There is no pericardial fluid present. 5. The left ventricular chamber size and systolic function appear normal 6. The right heart structures appear normal but were not optimally visualized. Minimal tricuspid insufficiency is present. Dilatation of the IVC is noted. The RV systolic pressure could not be accurately assessed. THIS STUDY WAS AMENDED ONLY TO CORRECT PATIENT IDENTIFIERS Rosalba Padilla M.D. (Electronically Signed) Final Date: 03 November 2016 17:47 Amended: 18 November 2016 12:08 MEASUREMENTS (Male / Female) Normal Values 2D ECHO LV Diastolic Diameter PLAX 5.4 cm 4.2 - 5.9 / 3.9 - 5.3 cm LV Systolic Diameter PLAX 3.8 cm 2.1 - 4.0 cm LV Fractional Shortening PLAX 29.6 % 25 - 46 % LV Ejection Fraction 2D Teich 56.2 % IVS Diastolic Thickness 1.1 cm LVPW Diastolic Thickness 1.2 cm LV Relative Wall Thickness 0.4 RV Internal Dim ED PLAX 5.0 cm 1.9 - 3.8 cm LVOT Diameter 2.8 cm Aortic Root Diameter 4.0 cm LA Systolic Diameter LX 4.0 cm 3.0 - 4.0 / 2.7 - 3.8 cm DOPPLER AV Peak Velocity 105.0 cm/s AV Peak Gradient 4.4 mmHg AV Mean Velocity 71.8 cm/s AV Mean Gradient 2.0 mmHg AV Velocity Time Integral 25.0 cm LVOT Peak Velocity 75.9 cm/s LVOT Peak Gradient 2.3 mmHg LVOT Mean Velocity 45.0 cm/s LVOT Mean Gradient 1.0 mmHg LVOT Velocity Time Integral 19.4 cm LVOT Stroke Volume 119.5 cm AV Area Cont Eq vti 4.8 cm AV Area Cont Eq pk 4.5 cm MV Peak Velocity 103.0 cm/s MV Peak Gradient 4.2 mmHg MV Mean Velocity 55.5 cm/s MV Mean Gradient 2.0 mmHg Mitral E Point Velocity 82.8 cm/s Mitral A Point Velocity 59.7 cm/s Mitral E to A Ratio 1.4 MV PHT Velocity 105.0 cm/s MV Deceleration [place] 381.0 cm/s MV Pressure Half Time 82.7 ms MV Area PHT 2.7 cm MV Deceleration Time 317.0 ms PV Peak Velocity 85.5 cm/s PV Peak Gradient 2.9 mmHg PV Mean Velocity 60.4 cm/s PV Mean Gradient 2.0 mmHg PV Velocity Time Integral 19.1 cm LV E' Lateral Velocity 11.9 cm/s Mitral E to LV E' Lateral Ratio 7.0 LV E' Septal Velocity 11.9 cm/s Mitral E to LV E' Septal Ratio 7.0
--- NOTE | 2016-11-25 13:22 | Cons- Urology ---
General Information and HPI Consulting Request Date of Consult: 11/01/16 Requested By: BHASKAR GUADALUPE MD Reason for Consult: urosepsis Source of Information: patient, family, old records Exam Limitations: no limitations History of Present Illness: 66 yr old male with h/o stones presented to er with acute right flank pain and fever/chills and hypotension ct scan done showed large right renal stone with hydronephrosis Allergies/Medications Allergies: Coded Allergies: NO KNOWN ALLERGIES (12/29/15) Home Med List: Allopurinol 300 MG TAB 1 TAB PO DAILY GOUT (Reported) Amoxicillin 500 MG TABLET 1 TAB PO BID uti BUPROPION HCL (Bupropion XL) 150 MG T24 1 TAB PO TID MENTAL HEALTH (Reported) Calcium/Vitamin D (Calcium + D) (Unknown Strength) TAB (Unknown Dose) PO BID SUPPLEMENT (Reported) Desvenlafaxine Succinate (Pristiq ER) [address] 1 TAB PO DAILY MENTAL HEALTH (Reported) Gabapentin (Neurontin) 300 MG CAP 1 CAP PO TID NERVE PAIN (Reported) IRON FUMARATE/VIT C/VIT B12/FA (Trigels-F Forte Softgel) 1 SGL SGL 1 SGL PO BID SUPPLEMENT (Reported) Lactobacillus Acidophilus (Acidophilus) 1 EACH CAPSULE 1 CAP PO DAILY SUPPLEMENT Metoprolol Succ XL (Toprol Xl) 50 MG TAB 0.5 TAB PO DAILY HTN MV, MIN #36/IRON,CARBONYL/FA (Geritol Complete Tablet) 1 TAB TAB 1 TAB PO DAILY SUPPLEMENT (Reported) POTASSIUM CHLORIDE (K-Dur) 20 MEQ TAB 1 TAB PO DAILY SUPPLEMENT (Reported) Zinc 50 MG TAB 1 TAB PO DAILY SUPPLEMENT (Reported) Past History Medical History Neurological: NONE EENT: NONE Cardiovascular: hypertension Respiratory: NONE Gastrointestinal: GASTRIC BYPASS Hepatic: NONE Renal: chronic kidney disease, nephrolithiasis Musculoskeletal: chronic back pain, BACK PAIN Psychiatric: anxiety, depression Endocrine: NONE Blood Disorders: NONE Cancer(s): NONE HOSE TESTER/Reproductive: NONE Surgical History Pertinent Surgical History: BACK FUSION OF L4-6 Family History Relations & Conditions If Any: FATHER Myocardial infarction Psychosocial History Where Do You Live? Home Who Do You Live With? spouse Services at Home: None Primary Language: Citizen Of [place] Smoking Status: Former Smoker ETOH Use: denies use Illicit Drug Use: denies illicit drug use Functional Ability ADLs Independent: dressing, eating, toileting, bathing. Ambulation: independent IADLs Independent: shopping, housework, finances, food prep, telephone, transportation , medication admin. Review of Systems Review of Systems: fever/chills no nausea vomiting no urinary sx Review of Systems Constitutional: Denies: chills, fever, malaise, weakness. EENTM: Denies: no symptoms, see HPI, blurred vision, double vision, visual changes, eye pain, eye drainage, eye tearing, icterus, ear discharge, ear pain, ear redness, hearing changes, nasal congestion, epistaxis, nasal pain, throat pain, throat swelling, mouth pain, tooth pain. Cardiovascular: Denies: no symptoms, see HPI, chest pain, edema, orthopena, palpitations, peripheral edema, syncope. Respiratory: Denies: no symptoms, see HPI, cough, hemoptysis, orthopnea, short of breath, sputum production, stridor, wheezing. Exam & Diagnostic Data Vital Signs and I&O bp 90's range Physical Exam: awake alert abd soft/ not mild right cvat no rebound guarding normal genitalia Physical Exam General Appearance: well developed/nourished, alert, awake Assessment/Plan Assessment/Plan urosepsis right renal stone right hydronephrosis d/w patient and re need for urgent renal decompression/ right side has large right renal stone and hydro with fever/hypotension rvd role of cysto/stent placement with anesthesia revd risks/benefits/alts comps including but not limited to infectin/bleeding/ anestheisa comps and repeat procedures in future consent signed for cysto/right stent placement Consult Acknowledgment - Thank you for your consult request.
--- NOTE | 2017-02-26 11:47 | Operative Report ---
Operative/Inv Procedure Report Surgery Date: 11/01/16 Name of Procedure: cysto/right retrograde/right stent Pre-Operative Diagnosis: urosepsis/right uret stone Post-Operative Diagnosis: same Estimated Blood Loss: scant Surgeon/Insurance Healthcare Representative: abdullahi juarez md Anesthesia: general endotracheal tube Monitors: none Specimens: none Microbiology: none Tourniquet: none Complications: none Condition: stable Operative Indication: urosepsis Operative/Procedure Note Note: see attached op note Findings: hydronephrosis/ right Discharge Disposition: PACU Additional Comments: The patient was taken to the cysto suite given appropriate anesthesia and placed in a lithotomy position. He was prepped and draped in a sterile fashion. A 21 croatian cystoscope with a 30 degree lens was carefully passed down the urethra into the bladder with the video monitoring equipment. The anterior urethra was unremarkable, the prostatic urethra revealed mod lat lobe obstruction. Upon entering the bladder diffuse inflammation and debris was seen but i was able to identify the right orifice. A 6 croatian opend ended catheter was placed, retrograde was done showing marked right hydro with filling defect in the upj area c/w a stone. A .35 guidewire was placed and then a 6 croatian 26 cm double j stent was placed under direct visual and fluoroscopic control. 16 fr oliveira was placed and pt was taken to the RR in stable condition
== END 2016-11-07 11:33 | DRG 871 ==
LOC: ENRESERVTM → ENRESERVDT → ERH 14:18 → ENPENDDIS 16:36 → ERHI 16:36 → CRI 16:36 → 2NA 18:17 → ERHI 18:34 → 2NA 18:40 → CRI 11-02 04:37 → 2NB 11-06 21:02
PROVIDERS: Emergency Medicine; Internal Medicine; Student in an Organized Health Care Education/Training Program; ADMIT Internal Medicine
PROC: 0T768DZ Dilation of Right Ureter with Intraluminal Device, Via Natural or Artificial Opening Endoscopic (ICD-10-PCS; principal; 2016-11-01)
PROC: 02HV33Z Insertion of Infusion Device into Superior Vena Cava, Percutaneous Approach (ICD-10-PCS; 2016-11-02)
DX: A41.51 Sepsis due to Escherichia coli [E. coli] (principal); R65.21 Severe sepsis with septic shock; E87.2 Acidosis; I24.8 Other forms of acute ischemic heart disease; D69.6 Thrombocytopenia, unspecified; N17.9 Acute kidney failure, unspecified; N18.3 Chronic kidney disease, stage 3 (moderate); E11.22 Type 2 diabetes mellitus with diabetic chronic kidney disease; B37.0 Candidal stomatitis; N13.6 Pyonephrosis; R91.1 Solitary pulmonary nodule; I12.9 Hypertensive chronic kidney disease with stage 1 through stage 4 chronic kidney disease, or unspecified chronic kidney disease; E83.42 Hypomagnesemia; E87.6 Hypokalemia; F32.9 Major depressive disorder, single episode, unspecified; F41.9 Anxiety disorder, unspecified; M10.9 Gout, unspecified; Z87.891 Personal history of nicotine dependence
CPT/HCPCS: 2NASP; 84133; 84300; CCU; 74000; 74176; 81001; 82436; 82570; 87040; 87086; 93005; 93010; 93306; 96361; 96365; 96375; 97116-GO; 97162-GP; 97530-GO; C2617; J0131; J0696; J1644; J1885; J7040; J7042

== ENCOUNTER → 2016-12-22 | Day surgery (SDC) | payer OTHER ==
[~2016-12-22] VITALS: Ht 188 cm; Wt 91.6 kg
[~2016-12-22] MED LIST changes: +ACIDOPHILUS1 EACH PO; +AMOXICILLIN500 M3 PO
--- NOTE | 2016-12-22 10:33 | Operative Report ---
Operative/Inv Procedure Report Surgery Date: 12/22/16 Name of Procedure: Right renal ESWL Pre-Operative Diagnosis: Right renal calculus Post-Operative Diagnosis: Same Estimated Blood Loss: scant Surgeon/Installations Inspector: IVAN Mart MD,ROMMEL Norton Anesthesia: moderate sedation Drains: None Specimens: None Complications: None Condition: Stable Operative Indication: 1.5 cm right renal calculus Operative/Procedure Note Note: The patient was taken to the operating room and identified. He was placed in supine position on the lithotripsy table. Timeout was executed appropriately. Using fluoroscopy the stone in the right kidney was localized to the F2 focal point. Of note the right ureteral stent appeared in place. The stone appeared to have a radiodense center which was surrounded by a radiolucent area and then surrounded again with a thin radio opaque covering. It therefore had the appearance of a mixed stone, calcium and uric acid. Once the stone was localized to the F2 focal point intravenous anesthesia was given. The treatment was then begun. A total of 2500 shocks were given. The energy level started at a low level and was increased to maximum level for renal ESWL. The patient tolerated the procedure well and as completion was taken to the same-day surgery area in stable condition. The stone appeared to at least partially fragment. Findings: 1.5 cm stone in the right kidney which is partially radiopaque and partially radiolucent Discharge Disposition: Same Day Admissions
== END ==
LOC: STS 04:43
DX: N20.0 Calculus of kidney (principal); I10 Essential (primary) hypertension; M10.9 Gout, unspecified; Z98.84 Bariatric surgery status; Z87.891 Personal history of nicotine dependence
CPT/HCPCS: J0690; J2250

== ENCOUNTER 2018-03-02 17:45 | Inpatient (IN) | payer OTHER, MEDICARE ==
[~2018-03-02] VITALS: Ht 188 cm; Wt 78.2 kg
[~2018-03-02 17:45] MED LIST changes: +ALLOPURINOL300 M1 PO; +AUGMENTIN 875-1 EACH PO; +BUPROPION XL150 MG PO; +CALCIUM 500 +1 EAC5 PO; +CLINDAMYCIN PHO30 GM TOP; +CLOBETASOL PROP15 G1 TOP; +DOXYCYCLINE HY100 M2 PO; +GABAPENTIN300 M2 PO; +GILOTRIF30 MG PO; +HYDROCORTISONE15 GM TOP; +METOPROLOL SUCC25 M1 PO; +NEURONTIN300 M1 PO; +NEXIUM40 M1 PO; +POTASSIUM CHLO20 ME2 PO; +PRISTIQ ER100 MG PO; +TRIGELS-F FORT1 EACH PO; +WELLBUTRIN XL300 M2 PO
--- NOTE | 2018-03-02 19:19 | RADIOLOGY REPORT ---
EXAMINATION: CHEST 1 VIEW CLINICAL INFORMATION: Pain. COMPARISON: 09/05/2017. TECHNIQUE: An AP view of the chest is provided. FINDINGS: The cardiac silhouette is stable. The mediastinal and hilar contours are unremarkable. There are neither pleural effusions nor pneumothoraces. There are no consolidations. The osseous structures are stable. IMPRESSION: No evidence for acute disease.
--- NOTE | 2018-03-02 19:20 | RADIOLOGY REPORT ---
EXAMINATION: XR THORACIC SPINE CLINICAL INFORMATION: Pain. COMPARISON: None TECHNIQUE: AP and lateral views of the thoracic spine were obtained. FINDINGS: The thoracic vertebra are in normal alignment. Disc heights and vertebral body heights are well-preserved. There is anterior osteophyte formation. Surgical clips are identified within the right upper quadrant. IMPRESSION: Age-appropriate degenerative change within the thoracic spine without evidence of acute injury.
[2018-03-02 20:26] LABS: ABSOLUTE BASOPHIL COUNT 0 /CUMM (0.0-0.2); ABSOLUTE EOSINOPHIL COUNT 0 /CUMM (0.0-0.7); ABSOLUTE GRANULOCYTE CT 10.4 /CUMM (1.4-6.5); ABSOLUTE LYMPH COUNT 0.2 /CUMM (1.2-3.4); ABSOLUTE MONOCYTE COUNT 0.7 /CUMM (0.10-0.60); BASOPHIL % 0 % (0.0-2.0); EOSINOPHIL % 0.3 % (0-5); HEMATOCRIT 36.1 % (42-52); MEAN CORPUSCULAR HGB 32.2 PG (27.0-31.0); MEAN CORPUSCULAR HGB CONC 32.9 G/DL (33.0-37.0); MEAN CORPUSCULAR VOLUME 97.7 FL (80.0-94.0); MEAN PLATELET VOLUME 7.8 FL (7.4-10.4); PLATELET COUNT 104 /CUMM (130-400); RBC DISTRIBUTION WIDTH 16.7 % (11.5-14.5); WHITE BLOOD CELL COUNT 11.3 /CUMM (4.8-10.8)
--- NOTE | 2018-03-02 20:36 | ED GENERAL ADULT ---
History of Present Illness General Chief Complaint: Abdominal Pain/Flank Pain Stated Complaint: R SIDE ABD PAIN Source: patient Exam Limitations: no limitations Vital Signs & Intake/Output Vital Signs & Intake/Output Vital Signs Date Time Temp Pulse Resp B/P B/P Pulse O2 O2 Flow FiO2 Mean Ox Delivery Rate 03/04 2220 98.4 55 19 130/70 97 Room Air 03/04 1402 98.8 63 18 153/74 99 Room Air 03/04 0822 98.6 62 22 136/82 99 Room Air 03/04 0600 98.3 66 18 118/62 96 Room Air ED Intake and Output 03/04 0000 03/03 1200 Intake Total 800 720 Output Total 300 275 Balance 500 445 Intake, IV 100 600 Intake, Oral 700 120 Number 1 1 Bowel Movements Output, Urine 300 275 Patient 177 lb Weight Weight Reported by Patient Measurement Method Allergies Coded Allergies: No Known Allergies (05/07/17) Reconcile Medications Allopurinol 300 MG TABLET 1 TAB PO DAILY GOUT (Reported) Bupropion HCl (Bupropion XL) 150 MG TAB.ER.24H 1 TAB PO TID MENTAL HEALTH ( Reported) Desvenlafaxine Succinate (Pristiq ER) 100 MG TAB.ER.24H 1 TAB PO DAILY MENTAL HEALTH (Reported) Esomeprazole (Nexium) 40 MG CAPSULE.DR 1 CAP PO BID GERD (Reported) Gabapentin (Neurontin) 300 MG CAPSULE 1 CAP PO QPM NERVE PAIN (Reported) Iron Fumarate/Vit C/Vit B12/FA (Trigels-F Forte Softgel) 460-60MG CAPSULE 1 CAP PO BID SUPPLEMENT (Reported) Lactobacillus Acidophilus (Acidophilus) 1 EACH CAPSULE 1 CAP PO DAILY PROBIOTIC (Reported) Metoprolol Succinate 25 MG TAB 0.5 TAB PO DAILY HEART/BP (Reported) Potassium Chloride 20 MEQ TAB.ER.PRT 1 TAB PO BID SUPPLEMENT (Reported) Triage Note: NEW ACUITY NEW ACUITY Triage Nurses Notes Reviewed? yes Onset: Gradual Duration: hour(s): Timing: constant HPI: 67 y/o male with h/o lung cancer, nephrolithiasis, CKD, renal stones, HTN presenting with fevers, dysuria, and right flank pain since this morning. Reports pain that begins in his RLQ and radiates around his right flank. Denies nausea, vomiting, hematuria. Also c/o back pain s/p accidentally poking himself in the back with his cane. (Saida Roman) Past History Travel History Traveled to [place] past 21 day No Medical History Any Pertinent Medical History? 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 No (Saida Roman) Review of Systems Review of Systems Constitutional: Reports: see HPI. EENTM: Reports: no symptoms. Respiratory: Reports: no symptoms. Cardiovascular: Reports: no symptoms. GI: Reports: no symptoms. Genitourinary: Reports: see HPI. Musculoskeletal: Reports: see HPI. Skin: Reports: no symptoms. Neurological/Psychological: Reports: no symptoms. Hematologic/Endocrine: Reports: no symptoms. Immunologic/Allergic: Reports: no symptoms. (Saida Roman) Physical Exam Physical Exam General Appearance: well developed/nourished, no apparent distress, alert, awake , comfortable Head: atraumatic, normal appearance Eyes: Bilateral: normal appearance. Neck: normal inspection Respiratory: normal breath sounds, lungs clear Cardiovascular: regular rate/rhythm Gastrointestinal: soft, non-tender Back: No CVAT, Abrasion with TTP to mid T-spine Extremities: normal inspection Neurologic/Psych: awake, alert, oriented x 3, normal mood/affect Skin: intact, normal color, warm/dry Core Measures ACS in differential dx? No CVA/TIA Diagnosis: No Sepsis Present: Yes Sepsis Focused Exam Completed? Yes (Saida Roman) Progress Differential Diagnoses I considered the following diagnoses in my evaluation of the patient: [UTI vs pyelo vs renal stone vs back contusion vs vertebral fx] Plan of Care: Orders Procedure Date/time Status HEPATIC FUNCTION PANEL 03/05 0600 Active CULTURE,STOOL 03/04 1211 Active OVA AND PARASITE ANTIGENS 03/04 1211 Active FOLIC ACID 03/04 0811 Complete VITAMIN B12 03/04 0811 Complete C.DIFFICILE 03/04 0809 Active Therapeutic Activities 03/04 UNK Complete Therapeutic Exercise 03/04 UNK Complete Gait Training 03/04 UNK Complete Lab Add-on Test 03/04 UNK Active Patient Safety Monitor 03/04 UNK Active Nursing Misc 03/04 UNK Active Current Medications Sig/Monica Start time Last Medication Dose Stop Time Status Admin Amoxicillin/ 875 MG Q12 03/04 1730 AC 03/04 Clavulanate Potassium 2023 (Augmentin) Desvenlafaxine 100 MG 2100 03/03 2100 AC 03/04 Succinate 2023 (Pristiq) Melatonin 5 MG AT BEDTIME 03/03 2100 AC 03/04 (Melatonin) 2023 Bupropion HCl 300 MG QAM 03/03 0900 AC 03/04 (Wellbutrin SR) 828 Lactobacillus 1 CAP DAILY 03/03 0900 AC 03/04 Acidophilus 0829 (Probiotic) Omeprazole 40 MG DAILY AC 03/03 0700 AC 03/04 (Prilosec) 526 Bupropion HCl 150 MG QPM 03/03 0030 AC 03/04 (Wellbutrin SR) 2023 Acetaminophen 650 MG Q8P PRN 03/02 2330 AC (Tylenol) Laboratory Tests 03/04/18 1704: Ref Lab Test Result Pending, Stool Lactoferrin Pending 03/04/18 0811: Anion Gap 6, Estimated GFR 44 L, BUN/Creatinine Ratio 10.0, Total Bilirubin 0.3 , Direct Bilirubin 0.2, AST 163 H, ALT 201 H, Alkaline Phosphatase 194 H, Total Protein 4.8 L, Albumin 2.2 L, Vitamin B12 > 1000 H, Folate > 20.0 H 03/04/18 0735: CBC w Diff NO MAN DIFF REQ, RBC 3.54 L, MCV 98.0 H, MCH 32.0 H, MCHC 32.6 L, RDW 17.1 H, MPV 9.3, Gran % 89.0 H, Lymphocytes % 4.5 L, Monocytes % 5.8, Eosinophils % 0.5, Basophils % 0.2, Absolute Granulocytes 12.4 H, Absolute Lymphocytes 0.6 L, Absolute Monocytes 0.8 H, Absolute Eosinophils 0.1, Absolute Basophils 0 Microbiology 03/04 1300 STOOL: Cryptosporidium Antigen - RECD 03/04 1300 STOOL: Giardia Antigen (ANTONIO) - RECD 03/04 1300 STOOL: Stool Culture - RECD 03/04 1300 STOOL: Clostridium difficile Toxin A & B - RECD UA suspicious for UTI. Labs remarkable for initial lactate 3.4 and leukocytosis to 11. Covered with ceftriaxone. CT pending to r/o renal stone as source of infection. Admit to gen med. Discussed with hospitalist, LUIS, and ED. Initial ED EKG: none (Saida Roman) Departure Departure Disposition: STILL A PATIENT Condition: Stable Clinical Impression Primary Impression: UTI (urinary tract infection) Secondary Impressions: Sepsis Referrals: Etienne Valdovinos MD (PCP/Family) Departure Forms: Customer Survey General Discharge Information (Saida Roman) PA/[employer] MANAGER Co-Sign Statement Statement: ED Attending supervision documentation- [X] I saw and evaluated the patient. I have also reviewed all the pertinent lab results and diagnostic results. I agree with the findings and the plan of care as documented in the PA's/[employer] D[employer]LLING MANAGER's documentation. Patient presents for evaluation of right flank pain. Physical examination reveals no CVA tenderness of the back. [] I have reviewed the ED Record and agree with the PA's/[employer] DRILLING MANAGER's documentation. [] Additions or exceptions (if any) to the PAs/[employer] D[employer]LLING MANAGER's note and plan are summarized below: [] (Kathryn DUMONT,Brandin Ramirez) Critical Care Note Critical Care Note Critical Care Time: 30-74 min (Saida Roman) UA suspicious for UTI. Labs remarkable for initial lactate 3.4 and leukocytosis to 11. Covered with ceftriaxone. CT pending to r/o renal stone as source of infection. Admit to gen med. Discussed with hospitalist, LUIS, and EDMD. Initial ED EKG: none Departure Departure Disposition: STILL A PATIENT Condition: Stable Clinical Impression Primary Impression: UTI (urinary tract infection) Secondary Impressions: Sepsis Referrals: Etienne Valdovinos MD (PCP/Family) Departure Forms: Customer Survey General Discharge Information Critical Care Note Critical Care Note Critical Care Time: 30-74 min
[2018-03-02 20:44] LABS: GRANULOCYTE % 92.2 % (42.2-75.2)
--- NOTE | 2018-03-02 21:53 | History & Physical ---
Daisy Miramontes 03/02/18 2146: General Information and HPI MD Statement: I have seen and personally examined RADHA FOSS and documented this H &P. The patient is a 67 year old M who presented with a patient stated chief complaint of [Ab pain]. Source of Information: patient, old records Exam Limitations: no limitations History of Present Illness: Mr. 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 ), hypertension, hyperlipidemia, gastric bypass in 1999, chronic hypokalemia, gout, chronic vertigo, remote history of substance abuse, anxiety, depression, presented to the ER complaining of right side/flank pain and fever. He had a mechanical fall on 02/26 however remained stable, mostly just feeling increasingly tired for the next 3 days and stayed in bed. He visit Dr. Re Sears and Dr. 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 he had been low appetite in the last few weeks, with occasional diarrhea but no melena/BRBPR. During our clinical interaction, patient denied recent travel/sick contacts, cough/SOB/Chest Pain/Palpitation, or other skin/musculoskeletal/neurological/ mood disorders, or dietary/appetite change. -Smoking: quitted after gastric bypass in 1999 -Alcohol: 25yrs of AA -Rec Drugs: Denied Allergies/Medications Allergies: Coded Allergies: No Known Allergies (05/07/17) Past History Travel History Traveled to [place] past 21 day No Medical History Neurological: peripheral neuropathy EENT: NONE Cardiovascular: hypertension Respiratory: NONE Gastrointestinal: GASTRIC BYPASS Hepatic: NONE Renal: chronic kidney disease, nephrolithiasis Musculoskeletal: BACK PAIN Psychiatric: anxiety, depression Endocrine: NONE Blood Disorders: NONE Cancer(s): LUNG CA STAGE 4 PLACEMENT ASSISTANT/Reproductive: NONE History of MRSA: No History of VRE: No History of CDIFF: No Surgical History Surgical History: BACK FUSION OF L4-6 IVC FILTER Past Family/Social History Family History Relations & Conditions if any FATHER Myocardial infarction Psychosocial History Who Do You Live With? spouse Services at Home: None Primary Language: Tristanian Smoking Status: Former Smoker ETOH Use: denies use Illicit Drug Use: denies illicit drug use Functional Ability ADLs Independent: dressing, eating, toileting, bathing. Ambulation: independent IADLs Independent: shopping, housework, finances, food prep, telephone, transportation , medication admin. Review of Systems Review of Systems Constitutional: Reports: see HPI. Exam & Diagnostic Data Last 24 Hrs of Vital Signs/I&O Vital Signs Date Time Temp Pulse Resp B/P B/P Pulse O2 O2 Flow FiO2 Mean Ox Delivery Rate 03/02 2314 98.2 80 18 105/58 98 Room Air 03/02 2201 Room Air 03/02 2058 99.1 03/02 2055 99.1 84 20 118/64 97 Room Air 03/02 2011 100.6 03/02 1800 100.6 103 18 128/62 88 Room Air Physical Exam General Appearance Alert, Oriented X3, Cooperative, No Acute Distress Skin No Rashes, No Breakdown, No Significant Lesion, multiple ecchymotic patches on back/right arm HEENT Atraumatic Neck Supple, No JVD Cardiovascular Regular Rate Lungs Clear to Auscultation, Normal Air Movement Abdomen Normal Bowel Sounds, Soft, RLQ ab tenderness on pressing Left CVA tenderness Neurological Normal Speech, Strength at 5/5 X4 Ext, Normal Tone, Sensation Intact Extremities No Clubbing, No Cyanosis, Normal Pulses, bilateral ankle edema Last 24 Hrs of Labs/Artur: Laboratory Tests 03/02/18 2300: Lactic Acid 1.8 03/02/181999: Urinalysis LIGHT H, Urine Color YEL, Urine Clarity HAZY H, Urine pH 6.0, Ur Specific [place] 1.020, Urine Protein NEG, Urine Ketones NEG, Urine Nitrite POS H, Urine Bilirubin NEG, Urine Urobilinogen 0.2, Ur Leukocyte Esterase SMALL H, Ur Microscopic SEDIMENT EXAMINED, Urine RBC RARE, Urine WBC 15-25 H, Ur Epithelial Cells FEW, Urine Crystals 1+ CA OX H, Urine Bacteria MANY H, Urine Mucus RARE, Urine Hemoglobin TRACE-INTACT H, Urine Glucose NEG 03/02/181955: Anion Gap 12, Estimated GFR 44 L, BUN/Creatinine Ratio 11.9, Glucose 100 H, Lactic Acid 3.4 H, Calcium 7.9 L, Total Bilirubin 0.5, AST 18, ALT 80 H, Alkaline Phosphatase 182 H, Total Protein 5.6 L, Albumin 2.7 L, Globulin 2.9, Albumin/Globulin Ratio 0.9 L, CBC w Diff NO MAN DIFF REQ, RBC 3.70 L, MCV 97.7 H, MCH 32.2 H, MCHC 32.9 L, RDW 16.7 H, MPV 7.8, Gran % 92.2 H, Lymphocytes % 1.5 L, Monocytes % 6.0, Eosinophils % 0.3, Basophils % 0, Absolute Granulocytes 10.4 H, Absolute Lymphocytes 0.2 L, Absolute Monocytes 0.7 H, Absolute Eosinophils 0, Absolute Basophils 0 Microbiology 03/02 2000 URINE ROUT: Urine Culture - RECD 03/02 2000 BLOOD: Blood Culture - RECD 03/02 1956 BLOOD: Blood Culture - RECD Assessment/Plan Assessment: On admission, Vitals: T-max 100.6, tacky cardia 103, RR 18, BP 120/62, 88% on room air -CBC: Leukocytosis 11.3, H/H 11.9/36.1, PLT 104 -BMP: CR 1.6, at baseline, lactic acidosis 3.4, elevated ALT 80, elevated alk phos 182, -UA/Microbiology: Positive for leukoesterase/nitrites -Misc: -CXR/thor spine x-ray: no acute change. age-appropriate change. -EKG: NSR w/o significant ST-T abnormalities. -Interventions in ER: Tylenol 1, IV fluid bolus 1, ceftriaxone 1 Problem list/Assessment/Hospital Course: #Severe sepsis (fever, tachycardia, lactic acidosis, source of infection) #Pyelonephritis #Lactic acidosis 2/2 infection #PMHs of CKD, stage IV lung cancer s/p radiation therapy, hypertension, hyperlipidemia, gastric bypass in 1999, chronic hypokalemia, gout, chronic vertigo, remote history of substance abuse, anxiety, depression - Admit to general medicine, vitals per protocol - Continuous IVF - Start antibiotics Ceftriaxone, tailor per clinical course/cultures - Hold gabapentin, and allopurinol for now - continue other home meds - Pending urology consult by Dr. Hammond in the AM - Pending blood/urine cultures. - Pending urine lytes. - If more diarrhea, would obtain C.Diff - Pain/fever control per pathway. DVT prophylaxis Pharm PPX + ALPS Regular Diet DNR/DNI As Ranked By This Provider Problem List: 1. Pyelonephritis Core Measures/Misc (06/21) Acute Coronary Syndrome ACS Diagnosis: No Congestive Heart Failure Congestive Heart Failure Diagnosis No Cerebrovascular Accident CVA/TIA Diagnosis: No VTE (View Protocol) VTE Risk Factors Age>40 No Mechanical VTE Prophylaxis d/t N/A MechProphylax Ordered No VTE Pharm Prophylaxis d/t NA PharmProphylax ordered Sepsis (View protocol) Sepsis Present: Yes If YES complete Sepsis Event Note If YES complete Sepsis Event Note Corry Chavez 03/02/18 0524: General Information and HPI Allergies/Medications Home Med list Allopurinol 300 MG TABLET 1 TAB PO DAILY GOUT (Reported) Bupropion HCl (Bupropion XL) 150 MG TAB.ER.24H 1 TAB PO TID MENTAL HEALTH ( Reported) Desvenlafaxine Succinate (Pristiq ER) 100 MG TAB.ER.24H 1 TAB PO DAILY MENTAL HEALTH (Reported) Esomeprazole (Nexium) 40 MG CAPSULE.DR 1 CAP PO BID GERD (Reported) Gabapentin (Neurontin) 300 MG CAPSULE 1 CAP PO QPM NERVE PAIN (Reported) Iron Fumarate/Vit C/Vit B12/FA (Trigels-F Forte Softgel) 460-60MG CAPSULE 1 CAP PO BID SUPPLEMENT (Reported) Lactobacillus Acidophilus (Acidophilus) 1 EACH CAPSULE 1 CAP PO DAILY PROBIOTIC (Reported) Metoprolol Succinate 25 MG TAB 0.5 TAB PO DAILY HEART/BP (Reported) Potassium Chloride 20 MEQ TAB.ER.PRT 1 TAB PO BID SUPPLEMENT (Reported) Core Measures/Misc (06/21) Sepsis (View protocol) If YES complete Sepsis Event Note If YES complete Sepsis Event Note Resident Review Statement Resident Statement: examined this patient, discussed with internet retailer, agreed with internet retailer, discussed with family Other Findings: Mr Tyler is a 67 year old man w/ a PMHx of bilateral renal stones, status post ureter stent, last one placed on the left side on 06/21/2017, CKD stage 3, Stage 4 adenocarcinoma EGFR positive (L858R mutation) who has failed multiple courses of chemotherapy, was on clinical trial w/ novolimab+premetrezed /sac and [place] or novolimab+ iplimumbab, last Tx'ed w/ Afatinib, currently on radiation therapy ( daily therapies at [facility] ), hypertension, hyperlipidemia, gastric bypass, chronic hypokalemia, gout, chronic vertigo, alcohol abuse 12 yrs ago, anxiety, depression, IVC filter in place was brought in with a chief concern of fever, right-sided abdominal pain. He was known to be in his usual state of health until 02/26/2018, when he had a mechanical fall. He did not have any symptoms for the next 3 days, but was increasingly tired and stayed in bed. On the day of admission, he was evaluated by his oncologist, but did not have any symptoms at the time. Later than afternoon, he developed chills and rigors, associated with right-sided abdominal pain, radiating to the back. He was also found to be confused during the day. He reported dark urine, but reported mild dysuria, hematuria. No shortness of breath, chest pain, palpitations. Does not have any more rash associated with TKI. Reported decreased by mouth intake in the last few weeks. Occassional diarrhea, and not associated w/ kemar, or brbpr. At the time of admission-temperature 100.6, pulse rate 103, respiration 18, blood pressure 128/62, pulse ox 88% on room air. General Exam: AAOx3, No acute distress, Skin: No rashes, mutliple echymoses on RUE secondary to fall, no breakdown; HEENT: PERRLA, EOMI;Neck: Supple, No JVD; No cervical lymphadenopathy;CVS: Reg Rate, Normal S1,S2, No MGR;Resp: Normal air entry, no ronchi/rales;Abdomen: Soft, mild RLQ tenderness, left CVA tenderness, Normal Bowel Sounds;Neuro: Normal Speech, Strength 5/5 b/l x 4 extremities, Sensation intact, CN III-XII NL, Reflexes 2+;Extremities: No cyanosis, no pedal edema. Pertinent lab findings: WBC 11.3 (92.2 granulocytosis), hemoglobin 11.9, platelets 104 Sodium 139, potassium 3.7, chloride 112, bicarbonate 16, anion gap 12 BUN 19, creatinine 1.6 Lactate 3.4, Ca 7.9, albumin 2.7, corrected calcium 8.94 AST 18, ALT 80, alkaline phosphatase 182 UA-nitrites positive, leukocyte esterase small, WBC 15-25, calcium oxalate crystals Thoracic spine u-ehv-Lad-appropriate degenerative change within the thoracic spine without evidence of acute injury. Chest x-ray-No evidence for acute disease. CT abdomen- Bilateral nonobstructing renal calculi. Calcification along the right ureter proximally is unchanged. Right middle lobe opacity could represent pneumonia or aspiration. The kidneys are normal in size, shape, and attenuation. No hydronephrosis or hydroureter. Mild bilateral perinephric stranding. 0.2 cm left upper pole renal calculus again noted. There is a 0.3 cm right lower pole calculus. There is a 0.4 cm calcification along the proximal right ureter, unchanged from the prior CT from 07/03/2017. He was given ceftriaxone, 2.5 L of normal saline in the ER. Etiology in this case with mild dysuria associated with fever, chills, costovertebral tenderness is likely from pyelonephritis. He also has radiological evidence of fat stranding which is helpful in confirming the diagnosis of pyelonephritis. Bacterial etiology with Escherichia coli being the most likely organism, but other uropathogens are likely. Predisposing factors such as mechanical obstruction from nephrolithiasis need to be considered, given his previous history of nephrolithiasis. Differential diagnosis considered prostatitis, nephrolithiasis, renal or perinephric abscesses. In regards to his worsening kidney function, could be attributed to his previous medication use, especially sac and fox [place]. He also has history of gastric bypass, which would predispose him to have more calcium oxalate crystal formation, which needs to be addressed. The reason for thrombocytopenia is likely due to chemotherapy. Problem list: #1 pyelonephritis #2 sepsis #3 stage 4 adenocarcinoma EGFR positive #4 hypertension #5 hyperlipidemia #6 history of gout #7 SHUKRI #8 thrombocytopenia #9 history of depression -Admit the patient to general medicine service. -Empiric antibiotics with ceftriaxone, pending urine culture -Follow blood culture, usually do not correlate with more severe disease. -Monitor vitals closely -Follow CBCs daily -Treat sepsis with NS, follow blood cultures, trend lactate. -Urology consult, given history of nephrolithiasis -Gabapentin should be tapered off. Hold it for now. -Check urine lites. -Follow lactate -Follow electrolyte's closely -If the patient has any diarrhea, send C. difficile toxin -Continue Wellbutrin, Pristiq. Housekeeping checklist #1 DVT prophylaxis-alps. #2 GI prophylaxis-Protonix #3 CODE STATUS-DNR/DNI #4 medication reconciliation-completed #5 pain management with Tylenol. #6 consults-oncology, urology. Darrell DUMONT, [facility] 03/03/18 0003: Core Measures/Misc (06/21) Sepsis (View protocol) If YES complete Sepsis Event Note If YES complete Sepsis Event Note Attending MD Review Statement Attending Statement Attending MD Statement: examined this patient, discuss w/resident/PA/PRINCIPAL CONSULTANT, agreed w/resident/PA/PRINCIPAL CONSULTANT, discussed with family, reviewed images, amended to note Attending Assessment/Plan: 67 yo M with h/o stage 4 lung cancer s/p Afatinib now on radiation therapy, nephrolithiasis s/p ESWL and stent placements (2016), CKD stage 3, HTN, s/p gastric bypass, is here for evaluation of fever and right lower quadrant/ flank pain. Per , patient has been increasingly lethargic for past 4 days, wobbly on his feet and at one point fell. He had his follow up appointments today with PCP and Oncologist. Soon after getting back home, he had chills, rigors and right abdominal pain and was confused as well. He denies dysuria or urinary frequency. He has dark urine+. No recent urological procedures. Of note, patient was treated for a UTI with antibiotics that he completed on February 04. Vitals: Tmax 100.6, HR 80-100's, BP 105/58, sats 98% RA. Exam as above. Labs: WBC 11.3, macrocytic anemia, Plt 104, bicarb 16, AG 12, BUN 19, creat 1.6 ( baseline 1.4-1.7), glucose 100, lactic acid 3.4 --> 1.8, ALT 80. UA positive nitrite, small LE, WBC 15-25, calcium oxalate crystals and many bacteria. CXR: no acute disease. Xray thoracic spine degenerative changes. CT abd/pelvis: bilateral nonobstructing renal calculi, mild bilateral perinephric stranding. Right middle lobe opacity could represent pneumonia or aspiration. Assessment and plan: 1. Sepsis likely gram negative infection 2. Acute pyelonphritis 3. Bilateral nephrolithiasis 4. CKD stage 3 stable 5. Metabolic acidosis 2/2 lactic acidosis and renal failure 6. Stage 4 lung carcinoma 7. Thrombocytopenia 8. Delirium 2/2 fever and sepsis - resolved - Admit to General medicine - Panculture - IV ceftriaxone - CT does not show evidence of obstructive uropathy so urgent need for intervention - IV hydration - Urology consult Dr. Hammond - Neurochecks - Resume home meds except sedative meds - Inform Dr. Singh about patient's admission - Pain management - Add acidophilus while on antibiotics - Fall precautions, PT eval DVT ppx Alps. DNR/I. Patient has a living will.
--- NOTE | 2018-03-03 00:05 | Admission Certification ---
Admission Certification Certification Statement - As attending physician, I certify that at the time of - admission, based on clinical presentation, severity of - symptoms, need for further diagnostic testing and - therapeutic interventions, and risk of adverse outcomes - without in-hospital treatment, in my clinical assessment, - this patient requires an acute hospital stay for a minimum - of two nights or longer. I have also considered psychsocial - factors such as support system, advanced age, financial - issues, cognitive issues, and failed out-patient treatments, - past re-admission history, safety of patient, and lack of - compliance as applicable. Specific rationale supporting this admission is: Severe sepsis with acute pyelonephritis.
--- NOTE | 2018-03-03 00:13 | CT SCAN REPORT ---
EXAMINATION: CT ABDOMEN AND PELVIS WITHOUT CONTRAST CLINICAL INFORMATION: Pyelonephritis and flank pain. Evaluate for renal stone. COMPARISON: 07/03/2017 TECHNIQUE: Multidetector volumetric imaging was performed from the superior aspect of the liver through the pubic symphysis. Sagittal and coronal reformatted images were obtained on the technologist's workstation. DLP: 488 mGy-cm FINDINGS: LUNG BASES: Focal patchy opacity is seen in the right middle lobe. Minimal bibasilar atelectasis. Coronary artery calcifications. LIVER, GALLBLADDER, AND BILIARY TREE: The liver is normal in size, shape, and attenuation. No focal hepatic lesion or biliary ductal dilatation is present. Cholecystectomy. PANCREAS: Fatty atrophy with no focal abnormality. SPLEEN: Unremarkable. ADRENAL GLANDS: Unremarkable. KIDNEYS AND URETERS: The kidneys are normal in size, shape, and attenuation. No hydronephrosis or hydroureter. Mild bilateral perinephric stranding. 0.2 cm left upper pole renal calculus again noted. There is a 0.3 cm right lower pole calculus. There is a 0.4 cm calcification along the proximal right ureter, unchanged from the prior CT from 07/03/2017. BLADDER: Normally distended without wall thickening. Gas within the bladder lumen, likely associated with catheterization. No inflammatory changes. GASTROINTESTINAL TRACT: Status post gastric sleeve. The small bowel is fluid-filled without abnormal distention. No bowel wall thickening or inflammatory change. Gas and stool throughout the colon. ABDOMINAL WALL: No significant hernia is appreciated. Mild anasarca. LYMPH NODES: Normal. VASCULAR: Moderate atherosclerotic calcifications. Retroaortic left renal vein. IVC filter in place. PELVIC VISCERA: The prostate and seminal vesicles are unremarkable. OSSEOUS STRUCTURES: No acute or suspicious osseous abnormality. Spinal fusion hardware from L3 to L5. Degenerative changes of the right hip. IMPRESSION: Bilateral nonobstructing renal calculi. Calcification along the right ureter proximally is unchanged. Right middle lobe opacity could represent pneumonia or aspiration.
[2018-03-03 00:53] VITALS: BP 102/58
[2018-03-03 07:04] VITALS: BP 100/56
--- NOTE | 2018-03-03 07:48 | PN- Housestaff ---
Mo DUMONT,[facility] 03/03/18 0748: Subjective Follow-up For: Stage IV lung cancer sepsis secondary to pyelonephritis Subjective: Seen and examined. Appears to be very lethargic. poor oral intake as reported by . He is currently receiving radiation oncology therapy. He is due for a session today. Review of Systems Constitutional: Reports: see HPI. Objective Last 24 Hrs of Vital Signs/I&O Vital Signs Date Time Temp Pulse Resp B/P B/P Pulse O2 O2 Flow FiO2 Mean Ox Delivery Rate 03/03 1342 98.3 62 18 118/69 100 Room Air 03/03 0800 Room Air 03/03 0704 97.7 62 18 100/56 98 03/03 0053 98.2 82 18 102/58 97 03/02 2314 98.2 80 18 105/58 98 Room Air 03/02 2201 Room Air 03/028 99.1 03/02 2055 99.1 84 20 118/64 97 Room Air 03/02 2011 100.6 03/02 1800 100.6 103 18 128/62 88 Room Air Intake & Output 03/03 1600 03/03 0800 03/03 0000 Intake Total 428 591 8570 Output Total 300 275 1 Balance 775 404 7925 Intake, IV 596 029 7193 Intake, Oral 700 120 Number 1 1 Bowel Movements Output, Stool 1 Output, Urine 300 275 Patient 177 lb 177 lb Weight Weight Reported by Patient Reported by Patient Measurement Method Physical Exam General Appearance: Alert, Oriented X3 Cardiovascular: Normal S1, Normal S2 Lungs: Clear to Auscultation Abdomen: Normal Bowel Sounds, Soft Neurological: Normal Speech Assessment/Plan Assessment: The patient is a 67-year-old gentleman with past medical history of stage 4 lung cancer s/p Afatinib now on radiation therapy, nephrolithiasis s/p ESWL and stent placements (2017), CKD stage 3, HTN, s/p gastric bypass. he is here for evaluation of fever and right lower quadrant/ flank pain. The patient is admitted to general medicine floor and he seemed being treated and evaluated for following conditions #Sepsis secondary to gram-negative rods with acute pyelonephritis Patient was septic on presentation with fever, tachycardia, elevated white count , source of infection, lactic acidosis, urine culture growing gram-negative rods. CT does not show evidence of obstructive uropathy so urgent need for intervention however perinephric stranding is concerning for pyelonephritis -Continue IV Rocephin -Blood cultures no growth so far -Urine cultures positive for gram-negative rods final sensitivities pending -Monitor fever and WBC curve -Patient has been evaluated by urology do not think any acute intervention is required at this point. #CKD stage 3 stable -Continue to monitor #Thrombocytopenia Secondary to chemo? -Continue to monitor #Stage IV NSCLC: -I talked to radiation oncologist today who believed that with patient's ongoing problems it is okay to hold radiation therapy for today and see how patient does tomorrow. -I will talk to Dr. Sears tomorrow morning #Metabolic acidosis -Lactic acidosis has resolved -Bicarbonate is 18, dysphagia ongoing concern for diarrhea as per oncologist not it is possible that he is losing bicarbonate because of GI losses and his metabolic acidosis was combination of anion gap and non-anion gap metabolic acidosis with anion gap coming from lactic acidosis and renal failure in non anion gap coming from GI losses -Continue to monitor #Hypokalemia -potassium is 3.3 we will actively replete potassium 40 mEq 2 today #Confusion Patient is alert and oriented during our evaluation he might be confused at home because of ongoing infection at Continue IV antibiotics hold sedative meds Diet as tolerated/DVT prophylaxis subcutaneous heparin/ DNR/DNI Problem List: 1. Pyelonephritis Pain Ratin Pain Location: R flank Pain Goal: Remain pain free Pain Plan: prn Tomorrow's Labs & Rationales: shama Bain MD,[facility] 03/03/18 1429: Attending MD Review Statement Attending Statement Attending MD Statement: examined this patient, discuss w/resident/PA/CARE ASST, agreed w/resident/PA/CARE ASST, discussed with family, reviewed EMR data (avail), discussed with nursing, discussed with case mgmt, amended to note Attending Assessment/Plan: Patient seen and examined. present at the bedside. reports that at baseline patient has been deteriorating slowly. She reports that at baseline he ambulates primarily with use of a cane. She states that recently she has had to use a walker and feels that she actually needs a wheelchair. His appetite is poor he has lost significant weight. He follows in the oncology center continues to receive therapy as directed by the oncologist. He is currently receiving radiation oncology therapy. He is due for a session today. On examination is extremely lethargic. He answers questions very slowly. Denies any pain. She is currently afebrile. He is hemodynamically stable. Lungs are clear to auscultation bilaterally. Abdomen soft and nontender. He has no peripheral edema. Plan: -Continue antibiotic therapy with IV Rocephin. He is currently growing gram- negative rods in the urine. White cell count is still elevated. -Follow-up with the email production consultant to optimize his nutritional status. -Notify the radiation oncology service of his admission. Supplement potassium orally. Provide-potassium chloride 40 mEq orally every 8 hours 2 doses today. -Renal function is at baseline. Avoid nephrotoxic medications. No evidence of renal obstruction on imaging.
[2018-03-03 08:25] LABS: ABSOLUTE BASOPHIL COUNT 0 /CUMM (0.0-0.2); ABSOLUTE EOSINOPHIL COUNT 0 /CUMM (0.0-0.7); ABSOLUTE GRANULOCYTE CT 14.4 /CUMM (1.4-6.5); ABSOLUTE LYMPH COUNT 0.9 /CUMM (1.2-3.4); ABSOLUTE MONOCYTE COUNT 1.3 /CUMM (0.10-0.60); BASOPHIL % 0 % (0.0-2.0); EOSINOPHIL % 0.3 % (0-5); MEAN CORPUSCULAR HGB 32.1 PG (27.0-31.0); MEAN CORPUSCULAR HGB CONC 32.7 G/DL (33.0-37.0); MEAN CORPUSCULAR VOLUME 98.2 FL (80.0-94.0); MEAN PLATELET VOLUME 8.3 FL (7.4-10.4); RBC DISTRIBUTION WIDTH 16.5 % (11.5-14.5); RED BLOOD CELL CT 3.13 /CUMM (4.70-6.10); WHITE BLOOD CELL COUNT 16.6 /CUMM (4.8-10.8)
--- NOTE | 2018-03-03 08:36 | Cons- Oncology ---
General Information and HPI Consulting Request Date of Consult: 03/03/18 Requested By: Darrell DUMONT,Vikki Reason for Consult: Lung cancer, fever Source of Information: patient, old records Exam Limitations: no limitations History of Present Illness: Mr. Sutherland is a 67 y.o. male with history of gastric bypass, tobacco use , alcohol usage, anxiety, depression, and with stage IV adenocarcinoma of the lung status post afatinib/cetuximab, afatinib, and currently radiation who presented with abdominal pain and fever. He was seen in the office yesterday for fatigue and confusion. He has had ongoing confusion and memory loss off and on. He was recently treated for UTI with ciprofloxacin. He continues to have memory issues and confusion especially at night. He has been more weak and fatigue. His urinary output has decreased. He continues to have loose bowel movement at night. He has decreased appetite. He did have a fall recently. He denies any injury. He is currently getting radiation to the primary lung mass. He denies any changes in his symptoms after leaving the office. After coming home, he started to have right sided pain, chills, rigors, and fever. On presentation, he was febrile with a temperature of 100.6. He was noted to be tachycardic with heart rate in the 100s. Blood work demonstrated elevation in the WBC at 11,300. His lactic acid was elevated at 3.4. UA demonstrated leukocyte esterase and nitrite. There was many bacteria and elevated WBC. He was started on antibiotic with ceftriaxone and IVF. CT of abdomen and pelvis demonstrated bilateral non-obstruction renal calculi. There is a right middle lobe opacity. Overnight, he did have an episode of loose/watery diarrhea. He continues to have fatigue. Allergies/Medications Allergies: Coded Allergies: No Known Allergies (05/07/17) Home Med List: Allopurinol 300 MG TABLET 1 TAB PO DAILY GOUT (Reported) Bupropion HCl (Bupropion XL) 150 MG TAB.ER.24H 1 TAB PO TID MENTAL HEALTH ( Reported) Desvenlafaxine Succinate (Pristiq ER) 100 MG TAB.ER.24H 1 TAB PO DAILY MENTAL HEALTH (Reported) Esomeprazole (Nexium) 40 MG CAPSULE.DR 1 CAP PO BID GERD (Reported) Gabapentin (Neurontin) 300 MG CAPSULE 1 CAP PO QPM NERVE PAIN (Reported) Iron Fumarate/Vit C/Vit B12/FA (Trigels-F Forte Softgel) 460-60MG CAPSULE 1 CAP PO BID SUPPLEMENT (Reported) Lactobacillus Acidophilus (Acidophilus) 1 EACH CAPSULE 1 CAP PO DAILY PROBIOTIC (Reported) Metoprolol Succinate 25 MG TAB 0.5 TAB PO DAILY HEART/BP (Reported) Potassium Chloride 20 MEQ TAB.ER.PRT 1 TAB PO BID SUPPLEMENT (Reported) Current Medications: Current Medications Sig/Monica Start time Last Medication Dose Route Stop Time Status Admin Acetaminophen 650 MG Q8P PRN 03/02 2330 AC PO Acetaminophen 0 .STK-MED ONE 03/02 2013 DC PO Acetaminophen 650 MG ONCE ONE 03/02 1815 DC 03/02 PO 03/02 Bupropion HCl 150 MG TID 03/03 900 CAN PO Bupropion HCl 150 MG DAILY 03/03 900 DC PO Bupropion HCl 300 MG QAM 03/03 900 AC PO Bupropion HCl 150 MG QPM 03/03 0030 DC PO Bupropion HCl 150 MG QPM 03/03 0030 AC 03/03 PO 0048 Bupropion HCl 150 MG BID 03/02 233 DC PO Ceftriaxone Sodium 1,000 MG 03/03 AC IV Ceftriaxone Sodium 0 .STK-MED ONE 03/02 2058 DC .ROUTE Ceftriaxone Sodium 1,000 MG ONCE ONE 03/02 2045 DC 03/02 IV 03/02 Desvenlafaxine 100 MG DAILY 03/03 09 AC Succinate PO Gabapentin 300 MG QPM 03/03 2100 CAN PO Heparin Sodium 5,000 UNIT Q8 03/03 0600 CAN (Porcine) SC Lactobacillus 1 CAP DAILY 03/03 09 AC Acidophilus PO Omeprazole 40 MG DAILY AC 03/03 0700 AC 03/03 PO 0515 Sodium Chloride 1,000 ML SEE RATE 03/02 2300 AC 03/03 IV 0103 Sodium Chloride 500 ML BOLUS ONE 03/02 2130 DC 03/02 IV 03/02 2229 223 Sodium Chloride 1,000 ML BOLUS ONE 03/02 2100 DC 03/02 IV 03/02 Sodium Chloride 1,000 ML BOLUS ONE 03/02 181 DC 03/02 IV 03/02 1912010 Review of Systems Review of Systems Constitutional: Reports: chills, fever, malaise, weakness, unexplained weight loss. EENTM: Denies: blurred vision, double vision. Cardiovascular: Denies: chest pain. Respiratory: Denies: short of breath. GI: Reports: abdominal pain, diarrhea, bowel incontinence. Denies: nausea, bloody stool, changes in stool, vomiting. Genitourinary: Reports: frequency, nocturia. Denies: pain. Musculoskeletal: Reports: back pain. Skin: Denies: erythema, rash. Neurological/Psychological: Reports: depressed. Denies: numbness, paresthesia. Hematologic/Endocrine: Denies: bruising, bleeding. 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 spouse Services at Home: None Primary Language: Italian Smoking Status: Former Smoker ETOH Use: denies use Illicit Drug Use: denies illicit drug use Functional Ability ADLs Independent: dressing, eating, toileting, bathing. Ambulation: independent IADLs Independent: shopping, housework, finances, food prep, telephone, transportation , medication admin. Exam & Diagnostic Data Vital Signs and I&O Vital Signs Date Time Temp Pulse Resp B/P B/P Pulse O2 O2 Flow FiO2 Mean Ox Delivery Rate 03/03 0704 97.7 62 18 100/56 98 03/03 0053 98.2 82 18 102/58 97 03/02 2314 98.2 80 18 105/58 98 Room Air 03/02 2201 Room Air 03/02 2058 99.1 03/02 2055 99.1 84 20 118/64 97 Room Air 03/02 2011 100.6 03/02 1800 100.6 103 18 128/62 88 Room Air Intake & Output 03/03 1600 03/03 0800 03/03 0000 Intake Total 720 2000 Output Total 275 1 Balance 445 1998 Intake, IV 600 1999 Intake, Oral 120 Number 1 Bowel Movements Output, Stool 1 Output, Urine 275 Patient 80.456 kg 80.286 kg Weight Weight Reported by Patient Reported by Patient Measurement Method Physical Exam General Appearance: no apparent distress, alert, awake, comfortable, thin Head: atraumatic, normal appearance Eyes: Bilateral: PERRL. Ears, Nose, Throat: normal ENT inspection Neck: supple Respiratory: chest non-tender, no respiratory distress, quiet respiration, decreased breath sounds (bases) Cardiovascular: tachycardia Gastrointestinal: normal bowel sounds, soft, non-tender Extremities: pedal edema Neurologic/Psych: awake, alert, oriented x 3 Skin: normal color, warm/dry Lymphatic: no anterior cervical alessandro Last 48 Hours of Lab Results: Laboratory Tests 03/03 03/02 03/02 0737 2300 1999 Chemistry Sodium Pending Potassium Pending Chloride Pending Carbon Dioxide Pending Anion Gap Pending BUN Pending Creatinine Pending BUN/Creatinine Ratio Pending Lactic Acid (0.7 - 2.1 mmol/L) 1.8 Hematology CBC w Diff Pending WBC Pending RBC Pending Hgb Pending Hct Pending MCV Pending MCH Pending MCHC Pending RDW Pending Plt Count Pending MPV Pending Urines Urinalysis LIGHT H Urine Color (YEL,AMB,STR) YEL Urine Clarity (CLEAR) HAZY H Urine pH (5.0 - 8.0) 6.0 Ur Specific [place] (1.001 - 1.035) 1.020 Urine Protein (NEG,<30 MG/DL) NEG Urine Ketones (NEG) NEG Urine Nitrite (NEG) POS H Urine Bilirubin (NEG) NEG Urine Urobilinogen (0.1 - 1.0 EU/dl) 0.2 Ur Leukocyte Esterase (NEG) SMALL H Ur Microscopic SEDIMENT EXAMINED Urine RBC (0 - 5 /HPF) RARE Urine WBC (0 - 2 /HPF) 15-25 H Ur Epithelial Cells (NONE,FEW) FEW Urine Crystals 1+ CA OX H Urine Bacteria (NEG/NONE) MANY H Urine Mucus (FEW,NONE) RARE Urine Hemoglobin (NEG) TRACE-INTACT H Urine Glucose (N MG/DL) NEG 03/02 1956 Chemistry Sodium (137 - 145 mmol/L) 139 Potassium (3.5 - 5.1 mmol/L) 3.7 Chloride (98 - 107 mmol/L) 112 H Carbon Dioxide (22 - 30 mmol/L) 16 L Anion Gap (5 - 16) 12 BUN (9 - 20 mg/dL) 19 Creatinine (0.7 - 1.2 mg/dL) 1.6 H Estimated GFR (>60 ml/min) 44 L BUN/Creatinine Ratio (7 - 25 %) 11.9 Glucose (65 - 99 mg/dL) 100 H Lactic Acid (0.7 - 2.1 mmol/L) 3.4 H Calcium (8.4 - 10.2 mg/dL) 7.9 L Total Bilirubin (0.2 - 1.3 mg/dL) 0.5 AST (17 - 59 U/L) 18 ALT (21 - 72 U/L) 80 H Alkaline Phosphatase (< 127 U/L) 182 H Total Protein (6.3 - 8.2 g/dL) 5.6 L Albumin (3.5 - 5.0 g/dL) 2.7 L Globulin (1.9 - 4.2 gm/dL) 2.9 Albumin/Globulin Ratio (1.1 - 2.2 %) 0.9 L Hematology CBC w Diff NO MAN DIFF REQ WBC (4.8 - 10.8 /CUMM) 11.3 H RBC (4.70 - 6.10 /CUMM) 3.70 L Hgb (14.0 - 18.0 G/DL) 11.9 L Hct (42 - 52 %) 36.1 L MCV (80.0 - 94.0 FL) 97.7 H MCH (27.0 - 31.0 PG) 32.2 H MCHC (33.0 - 37.0 G/DL) 32.9 L RDW (11.5 - 14.5 %) 16.7 H Plt Count (130 - 400 /CUMM) 104 L MPV (7.4 - 10.4 FL) 7.8 Gran % (42.2 - 75.2 %) 92.2 H Lymphocytes % (20.5 - 51.1 %) 1.5 L Monocytes % (1.7 - 9.3 %) 6.0 Eosinophils % (0 - 5 %) 0.3 Basophils % (0.0 - 2.0 %) 0 Absolute Granulocytes (1.4 - 6.5 /CUMM) 10.4 H Absolute Lymphocytes (1.2 - 3.4 /CUMM) 0.2 L Absolute Monocytes (0.10 - 0.60 /CUMM) 0.7 H Absolute Eosinophils (0.0 - 0.7 /CUMM) 0 Absolute Basophils (0.0 - 0.2 /CUMM) 0 Imaging/Other Studies: CT abdomen/pelvis 03/02/2018: Bilateral nonobstructing renal calculi. Calcification along the right ureter proximally is unchanged. Right middle lobe opacity could represent pneumonia or aspiration. CXR 03/02/2018: The cardiac silhouette is stable. The mediastinal and hilar contours are unremarkable. There are neither pleural effusions nor pneumothoraces. There are no consolidations. The osseous structures are stable. Assessment/Plan Assessment: Mr. Sutherland is a 67 y.o. male with history of gastric bypass, tobacco use , alcohol usage, anxiety, depression, and with stage IV adenocarcinoma of the lung status post afatinib/cetuximab, afatinib, and currently radiation who presented with abdominal pain and fever. Over the last few weeks, he has been declining in his performance status. He has been off afatinib since 01/08/2018. He is currently receiving radiation to the primary lung mass. He has just recently finished a course of ciprofloxacin for UTI. On presentation, he was noted to be febrile. He has a slight leukocytosis. UA is concerning for persistent UTI. CXR and CT scan is concerning for possible aspiration. He has no hydronephrosis. There is mild perinephric stranding. Renal function seems to have improved. He is currently being treated with ceftriaxone. His presentation is concerning for UTI/pyelonephritis. Recommendations: UTI/Pyelonephritis: -follow urine culture -pending urology evaluation -continue current antibiotic as per primary Diarrhea: -if persistent, consider checking c. diff Confusion: -monitor for now -avoid sedating medication -tapering off gabapentin Stage IV NSCLC: -continue radiation as per radiation oncology Problem List: 1. UTI (urinary tract infection) 2. Sepsis 3. Non-small cell lung cancer (NSCLC) 4. CKD (chronic kidney disease) stage 3, GFR 30-59 ml/min Other Findings/Comments: Please call [phone] with any questions or concerns. Consult Acknowledgment - Thank you for your consult request.
[2018-03-03 09:07] LABS: HEMATOCRIT 30.7 % (42-52); PLATELET COUNT 83 /CUMM (130-400)
[2018-03-03 09:08] LABS: GRANULOCYTE % 86.5 % (42.2-75.2)
[2018-03-03 13:42] VITALS: BP 118/69
--- NOTE | 2018-03-03 15:04 | Cons- Urology ---
General Information and HPI Consulting Request Date of Consult: 03/03/18 Requested By: Taya DUMONT,Lori Reason for Consult: pyelonephritis Source of Information: patient, old records Exam Limitations: no limitations History of Present Illness: This is a 67 yo male with history of gastric bypass, nephrolithiasis, anxiety and depression with stage IV adenocarcinoma of the lung status post afatinib/ cetuximab, afatinib, and currently receiving radiation who presented with abdominal pain and fever. He has a hx of weakness and confusion as well as recurrent UTIs apparently though i managed him for his kidney stones with URS with laser lithotripsy and stent last year. Prior to this admission, he was having right sided pain with chills and fever. He was febrile to 100.6 and tachycardic with heart rate in the 100s. He has an elevated WBC and UA demonstrated leukocyte esterase and nitrite. He was started on antibiotic with ceftriaxone and IVF. CT of abdomen and pelvis demonstrated bilateral non-obstructing small renal calculi (2mm and 3mm in size). Today he feels weak and has right flank/side pain. Allergies/Medications Allergies: Coded Allergies: No Known Allergies (05/07/17) Home Med List: Allopurinol 300 MG TABLET 1 TAB PO DAILY GOUT (Reported) Bupropion HCl (Bupropion XL) 150 MG TAB.ER.24H 1 TAB PO TID MENTAL HEALTH ( Reported) Desvenlafaxine Succinate (Pristiq ER) 100 MG TAB.ER.24H 1 TAB PO DAILY MENTAL HEALTH (Reported) Esomeprazole (Nexium) 40 MG CAPSULE.DR 1 CAP PO BID GERD (Reported) Gabapentin (Neurontin) 300 MG CAPSULE 1 CAP PO QPM NERVE PAIN (Reported) Iron Fumarate/Vit C/Vit B12/FA (Trigels-F Forte Softgel) 460-60MG CAPSULE 1 CAP PO BID SUPPLEMENT (Reported) Lactobacillus Acidophilus (Acidophilus) 1 EACH CAPSULE 1 CAP PO DAILY PROBIOTIC (Reported) Metoprolol Succinate 25 MG TAB 0.5 TAB PO DAILY HEART/BP (Reported) Potassium Chloride 20 MEQ TAB.ER.PRT 1 TAB PO BID SUPPLEMENT (Reported) Current Medications: Current Medications Sig/Monica Start time Last Medication Dose Route Stop Time Status Admin Acetaminophen 650 MG Q8P PRN 03/02 2330 AC PO Acetaminophen 0 .STK-MED ONE 03/02 2013 DC PO Acetaminophen 650 MG ONCE ONE 03/02 1815 DC 03/02 PO 03/02 Bupropion HCl 150 MG TID 03/03 09 CAN PO Bupropion HCl 150 MG DAILY 03/03 09 DC PO Bupropion HCl 300 MG QAM 03/03 0900 AC 03/03 PO 0852 Bupropion HCl 150 MG QPM 03/03 0030 DC PO Bupropion HCl 150 MG QPM 03/03 0030 AC 03/03 PO 0048 Bupropion HCl 150 MG BID 03/02 2330 DC PO Ceftriaxone Sodium 1,000 MG 2000 03/03 2000 AC IV Ceftriaxone Sodium 0 .STK-MED ONE 03/02 2058 DC .ROUTE Ceftriaxone Sodium 1,000 MG ONCE ONE 03/02 2045 DC 03/02 IV 03/02 Desvenlafaxine 100 MG 2100 03/03 2100 AC Succinate PO Desvenlafaxine 100 MG DAILY 03/03 09 DC Succinate PO Gabapentin 300 MG QPM 03/03 2100 CAN PO Heparin Sodium 5,000 UNIT Q8 03/03 06 CAN (Porcine) SC Lactobacillus 1 CAP DAILY 03/03 09 AC 03/03 Acidophilus PO 0853 Omeprazole 40 MG DAILY AC 03/03 0700 AC 03/03 PO 0515 Potassium Chloride 40 MEQ ONCE ONE 03/03 0900 DC 03/03 PO 03/03 0901 0925 Sodium Chloride 1,000 ML SEE RATE 03/02 2300 AC 03/03 IV 0103 Sodium Chloride 500 ML BOLUS ONE 03/02 2130 DC 03/02 IV 03/02 2229 2232 Sodium Chloride 1,000 ML BOLUS ONE 03/02 2100 DC 03/02 IV 03/02 215 205 Sodium Chloride 1,000 ML BOLUS ONE 03/02 181 DC 03/02 IV 03/02 Past History Medical History Blood Transfusion Hx: No Neurological: peripheral neuropathy EENT: NONE Cardiovascular: hypertension Respiratory: NONE Gastrointestinal: GASTRIC BYPASS Hepatic: NONE Renal: chronic kidney disease, nephrolithiasis Musculoskeletal: BACK PAIN Psychiatric: anxiety, depression Endocrine: NONE Blood Disorders: NONE Cancer(s): 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 spouse Services at Home: None Primary Language: Armenian Smoking Status: Former Smoker ETOH Use: denies use Illicit Drug Use: denies illicit drug use Functional Ability ADLs Independent: dressing, eating, toileting, bathing. Ambulation: independent IADLs Independent: shopping, housework, finances, food prep, telephone, transportation , medication admin. Review of Systems Review of Systems Constitutional: Reports: fever, weakness. EENTM: Reports: no symptoms. Cardiovascular: Reports: no symptoms. Respiratory: Reports: no symptoms. GI: Reports: abdominal pain. Genitourinary: Reports: no symptoms. Musculoskeletal: Reports: back pain. Skin: Reports: no symptoms. Neurological/Psychological: Reports: anxiety, depressed. Hematologic/Endocrine: Reports: bruising. Immunologic/Allergic: Reports: no symptoms. Exam & Diagnostic Data Vital Signs and I&O Vital Signs Date Time Temp Pulse Resp B/P B/P Pulse O2 O2 Flow FiO2 Mean Ox Delivery Rate 03/03 08 Room Air 03/03 0704 97.7 62 18 100/56 98 03/03 0053 98.2 82 18 102/58 97 03/02 2314 98.2 80 18 105/58 98 Room Air 03/02 2201 Room Air 03/02 2058 99.1 03/02 2055 99.1 84 20 118/64 97 Room Air 03/02 2011 100.6 03/02 1800 100.6 103 18 128/62 88 Room Air Intake & Output 03/03 1600 03/03 0803/03 0000 03/02 1600 03/02 0000 Intake Total 720 2000 Output Total 275 1 Balance 445 1999 Intake, IV 600 1999 Intake, Oral 120 Number 1 Bowel Movements Output, Stool 1 Output, Urine 275 Patient 80.456 kg 80.286 kg Weight Weight Reported by Patient Reported by Patient Measurement Method Physical Exam General Appearance: no apparent distress, alert, awake, anxious, comfortable Head: atraumatic, normal appearance Eyes: Bilateral: normal appearance. Respiratory: no respiratory distress, quiet respiration Gastrointestinal: soft, tenderness Rectal: deferred Back: CVA tenderness (R) Extremities: no edema Neurologic/Psych: awake, alert Cranial Nerves: normal hearing, normal speech Skin: normal color, warm/dry Last 24 Hours of Labs: Laboratory Tests 03/03 03/02 0737 2300 Chemistry Sodium (137 - 145 mmol/L) 142 Potassium (3.5 - 5.1 mmol/L) 3.3 L Chloride (98 - 107 mmol/L) 117 H Carbon Dioxide (22 - 30 mmol/L) 18 L Anion Gap (5 - 16) 7 BUN (9 - 20 mg/dL) 18 Creatinine (0.7 - 1.2 mg/dL) 1.5 H Estimated GFR (>60 ml/min) 47 L BUN/Creatinine Ratio (7 - 25 %) 12.0 Lactic Acid (0.7 - 2.1 mmol/L) 1.8 Total Bilirubin (0.2 - 1.3 mg/dL) 0.4 Direct Bilirubin (< 0.4 mg/dL) 0.2 AST (17 - 59 U/L) 12 L ALT (21 - 72 U/L) 67 Alkaline Phosphatase (< 127 U/L) 137 H Total Protein (6.3 - 8.2 g/dL) 4.4 L Albumin (3.5 - 5.0 g/dL) 2.1 L Hematology CBC w Diff NO MAN DIFF REQ WBC (4.8 - 10.8 /CUMM) 16.6 H RBC (4.70 - 6.10 /CUMM) 3.13 L Hgb (14.0 - 18.0 G/DL) 10.0 L Hct (42 - 52 %) 30.7 L MCV (80.0 - 94.0 FL) 98.2 H MCH (27.0 - 31.0 PG) 32.1 H MCHC (33.0 - 37.0 G/DL) 32.7 L RDW (11.5 - 14.5 %) 16.5 H Plt Count (130 - 400 /CUMM) 83 L MPV (7.4 - 10.4 FL) 8.3 Gran % (42.2 - 75.2 %) 86.5 H Lymphocytes % (20.5 - 51.1 %) 5.6 L Monocytes % (1.7 - 9.3 %) 7.6 Eosinophils % (0 - 5 %) 0.3 Basophils % (0.0 - 2.0 %) 0 Absolute Granulocytes (1.4 - 6.5 /CUMM) 14.4 H Absolute Lymphocytes (1.2 - 3.4 /CUMM) 0.9 L Absolute Monocytes (0.10 - 0.60 /CUMM) 1.3 H Absolute Eosinophils (0.0 - 0.7 /CUMM) 0 Absolute Basophils (0.0 - 0.2 /CUMM) 0 03/02 Chemistry Sodium (137 - 145 mmol/L) 139 Potassium (3.5 - 5.1 mmol/L) 3.7 Chloride (98 - 107 mmol/L) 112 H Carbon Dioxide (22 - 30 mmol/L) 16 L Anion Gap (5 - 16) 12 BUN (9 - 20 mg/dL) 19 Creatinine (0.7 - 1.2 mg/dL) 1.6 H Estimated GFR (>60 ml/min) 44 L BUN/Creatinine Ratio (7 - 25 %) 11.9 Glucose (65 - 99 mg/dL) 100 H Lactic Acid (0.7 - 2.1 mmol/L) 3.4 H Calcium (8.4 - 10.2 mg/dL) 7.9 L Total Bilirubin (0.2 - 1.3 mg/dL) 0.5 AST (17 - 59 U/L) 18 ALT (21 - 72 U/L) 80 H Alkaline Phosphatase (< 127 U/L) 182 H Total Protein (6.3 - 8.2 g/dL) 5.6 L Albumin (3.5 - 5.0 g/dL) 2.7 L Globulin (1.9 - 4.2 gm/dL) 2.9 Albumin/Globulin Ratio (1.1 - 2.2 %) 0.9 L Hematology CBC w Diff NO MAN DIFF REQ WBC (4.8 - 10.8 /CUMM) 11.3 H RBC (4.70 - 6.10 /CUMM) 3.70 L Hgb (14.0 - 18.0 G/DL) 11.9 L Hct (42 - 52 %) 36.1 L MCV (80.0 - 94.0 FL) 97.7 H MCH (27.0 - 31.0 PG) 32.2 H MCHC (33.0 - 37.0 G/DL) 32.9 L RDW (11.5 - 14.5 %) 16.7 H Plt Count (130 - 400 /CUMM) 104 L MPV (7.4 - 10.4 FL) 7.8 Gran % (42.2 - 75.2 %) 92.2 H Lymphocytes % (20.5 - 51.1 %) 1.5 L Monocytes % (1.7 - 9.3 %) 6.0 Eosinophils % (0 - 5 %) 0.3 Basophils % (0.0 - 2.0 %) 0 Absolute Granulocytes (1.4 - 6.5 /CUMM) 10.4 H Absolute Lymphocytes (1.2 - 3.4 /CUMM) 0.2 L Absolute Monocytes (0.10 - 0.60 /CUMM) 0.7 H Absolute Eosinophils (0.0 - 0.7 /CUMM) 0 Absolute Basophils (0.0 - 0.2 /CUMM) 0 Urines Urinalysis LIGHT H Urine Color (YEL,AMB,STR) YEL Urine Clarity (CLEAR) HAZY H Urine pH (5.0 - 8.0) 6.0 Ur Specific [place] (1.001 - 1.035) 1.020 Urine Protein (NEG,<30 MG/DL) NEG Urine Ketones (NEG) NEG Urine Nitrite (NEG) POS H Urine Bilirubin (NEG) NEG Urine Urobilinogen (0.1 - 1.0 EU/dl) 0.2 Ur Leukocyte Esterase (NEG) SMALL H Ur Microscopic SEDIMENT EXAMINED Urine RBC (0 - 5 /HPF) RARE Urine WBC (0 - 2 /HPF) 15-25 H Ur Epithelial Cells (NONE,FEW) FEW Urine Crystals 1+ CA OX H Urine Bacteria (NEG/NONE) MANY H Urine Mucus (FEW,NONE) RARE Urine Hemoglobin (NEG) TRACE-INTACT H Urine Glucose (N MG/DL) NEG Imaging Results: KIDNEYS AND URETERS: The kidneys are normal in size, shape, and attenuation. No hydronephrosis or hydroureter. Mild bilateral perinephric stranding. 0.2 cm left upper pole renal calculus again noted. There is a 0.3 cm right lower pole calculus. There is a 0.4 cm calcification along the proximal right ureter, unchanged from the prior CT from 07/03/2017. BLADDER: Normally distended without wall thickening. Gas within the bladder lumen, likely associated with catheterization. No inflammatory changes. Assessment/Plan Assessment/Plan 67yo male with mult med problems with stage 4 lung ca s/p chemo and current RT who presented with sepsis likely from urinary source. No anatomical issues contributing to his recurrent UTIS. IV abx for his pyelo/Uti. His stones are very small in size and has 70-80% chance of passing on his own so no need for intervention. FU as an outpt for possible cysto evaluation. Consult Acknowledgment - Thank you for your consult request.
[2018-03-03 20:39] VITALS: BP 114/66
[2018-03-04 06:00] VITALS: BP 118/62
--- NOTE | 2018-03-04 07:27 | PN- Oncology ---
Subjective Subjective: He continues to have confusion especially at night. He is disoriented at times. He has no fever or chills. He continues to have explosive diarrhea. He has not had any bleeding. He has no new pain. Review of Systems Constitutional: Reports: weakness. Denies: chills, fever. Cardiovascular: Denies: chest pain. Respiratory: Denies: short of breath. Gastrointestinal: Reports: diarrhea, bowel incontinence. Denies: abdominal pain, bloody stool. Genitourinary: Denies: dysuria. Neurological/Psychological: Reports: confusion. All Other Systems: Reviewed and Negative Objective Vital Signs and I&Os Vital Signs Date Time Temp Pulse Resp B/P B/P Pulse O2 O2 Flow FiO2 Mean Ox Delivery Rate 03/04 0600 98.3 66 18 118/62 96 Room Air 03/03 2039 99.0 60 18 114/66 98 03/03 1342 98.3 62 18 118/69 100 Room Air 03/03 0800 Room Air Intake & Output 03/04 0000 03/03 1600 03/03 0803/03 0000 03/02 1600 Intake Total 240 312 476 2208 Output Total 300 275 1 Balance 240 950 139 8127 Intake, IV 754 934 9056 Intake, Oral 240 700 120 Number 5 1 1 Bowel Movements Output, Stool 1 Output, Urine 300 275 Patient 80.456 kg 80.286 kg Weight Weight Reported by Patient Reported by Patient Measurement Method Physical Exam General Appearance: no apparent distress, alert, comfortable, thin Head: atraumatic, normal appearance Respiratory: chest non-tender, no respiratory distress, quiet respiration Cardiovascular: regular rate/rhythm Abdomen: soft, non-tender, no organomegaly, abnormal bowel sounds (hyperactive) Extremities: no edema Neurologic/Psychiatric: awake, oriented x 3, depressed affect, slow to answer Skin: intact, normal color Current Medications: Current Medications Sig/Monica Start time Last Medication Dose Route Stop Time Status Admin Acetaminophen 650 MG Q8P PRN 03/02 2330 AC PO Bupropion HCl 150 MG DAILY 03/03 09 DC PO Bupropion HCl 300 MG QAM 03/03 0900 AC 03/03 PO 0852 Bupropion HCl 150 MG QPM 03/03 0030 AC 03/03 PO 2016 Ceftriaxone Sodium 1,000 MG 03/03 AC 03/03 IV 2016 Desvenlafaxine 100 MG 2100 03/03 2100 AC 03/03 Succinate PO 2016 Desvenlafaxine 100 MG DAILY 03/03 900 DC Succinate PO Lactobacillus 1 CAP DAILY 03/03 900 AC 03/03 Acidophilus PO 0853 Melatonin 5 MG AT BEDTIME 03/03 2100 AC 03/03 PO 2016 Melatonin 5 MG AT BEDTIME PRN 03/03 2015 AC PO Omeprazole 40 MG DAILY AC 03/03 07 AC 03/04 PO 0527 Potassium Chloride 40 MEQ ONCE ONE 03/03 1700 DC 03/03 PO 03/03 1701 1628 Potassium Chloride 40 MEQ ONCE ONE 03/03 09 DC 03/03 PO 03/03 0901 0925 Sodium Chloride 1,000 ML SEE RATE 03/02 2300 DC 03/03 IV 03/03 1859 0103 Results Last 24 Hours of Lab Results: Laboratory Tests 03/03 737 Chemistry Sodium (137 - 145 mmol/L) 142 Potassium (3.5 - 5.1 mmol/L) 3.3 L Chloride (98 - 107 mmol/L) 117 H Carbon Dioxide (22 - 30 mmol/L) 18 L Anion Gap (5 - 16) 7 BUN (9 - 20 mg/dL) 18 Creatinine (0.7 - 1.2 mg/dL) 1.5 H Estimated GFR (>60 ml/min) 47 L BUN/Creatinine Ratio (7 - 25 %) 12.0 Total Bilirubin (0.2 - 1.3 mg/dL) 0.4 Direct Bilirubin (< 0.4 mg/dL) 0.2 AST (17 - 59 U/L) 12 L ALT (21 - 72 U/L) 67 Alkaline Phosphatase (< 127 U/L) 137 H Total Protein (6.3 - 8.2 g/dL) 4.4 L Albumin (3.5 - 5.0 g/dL) 2.1 L Hematology CBC w Diff NO MAN DIFF REQ WBC (4.8 - 10.8 /CUMM) 16.6 H RBC (4.70 - 6.10 /CUMM) 3.13 L Hgb (14.0 - 18.0 G/DL) 10.0 L Hct (42 - 52 %) 30.7 L MCV (80.0 - 94.0 FL) 98.2 H MCH (27.0 - 31.0 PG) 32.1 H MCHC (33.0 - 37.0 G/DL) 32.7 L RDW (11.5 - 14.5 %) 16.5 H Plt Count (130 - 400 /CUMM) 83 L MPV (7.4 - 10.4 FL) 8.3 Gran % (42.2 - 75.2 %) 86.5 H Lymphocytes % (20.5 - 51.1 %) 5.6 L Monocytes % (1.7 - 9.3 %) 7.6 Eosinophils % (0 - 5 %) 0.3 Basophils % (0.0 - 2.0 %) 0 Absolute Granulocytes (1.4 - 6.5 /CUMM) 14.4 H Absolute Lymphocytes (1.2 - 3.4 /CUMM) 0.9 L Absolute Monocytes (0.10 - 0.60 /CUMM) 1.3 H Absolute Eosinophils (0.0 - 0.7 /CUMM) 0 Absolute Basophils (0.0 - 0.2 /CUMM) 0 Assessment/Plan Assessment/Recommendations: Mr. Sutherland is a 67 y.o. male with history of gastric bypass, tobacco use , alcohol usage, anxiety, depression, and with stage IV adenocarcinoma of the lung status post afatinib/cetuximab, afatinib, and currently radiation who presented with abdominal pain and fever. He is noted to have UTI and is currently being treated with ceftriaxone. Urine culture is growing GNR. He continues to have explosive diarrhea multiple time in a day. His has been on going even as an outpatient. He should have C. diff evaluated. He should also have stool study done. If negative, he may need GI evaluation. It is unclear as to the etiology of his confusion. He may need MRI of brain with contrast if renal function is stable. UTI/Pyelonephritis: -follow urine culture -continue current antibiotic as per primary -no intervention at the moment per urology Diarrhea: -check c diff -obtain stool study -may need GI evaluation given persistent diarrhea Confusion: -avoid sedating medication -check delerium/dementia work up: TSH, Vitamin B12/folate -MRI brain with contrast if renal function stable Stage IV NSCLC: -continue radiation as per radiation oncology Please call [phone] with any questions or concerns. Problem List: 1. CKD (chronic kidney disease) stage 3, GFR 30-59 ml/min 2. Non-small cell lung cancer (NSCLC) 3. UTI (urinary tract infection) 4. Sepsis 5. Diarrhea 6. Pyelonephritis
[2018-03-04 08:22] VITALS: BP 136/82
[2018-03-04 08:49] LABS: ABSOLUTE BASOPHIL COUNT 0 /CUMM (0.0-0.2); ABSOLUTE EOSINOPHIL COUNT 0.1 /CUMM (0.0-0.7); ABSOLUTE GRANULOCYTE CT 12.4 /CUMM (1.4-6.5); ABSOLUTE LYMPH COUNT 0.6 /CUMM (1.2-3.4); ABSOLUTE MONOCYTE COUNT 0.8 /CUMM (0.10-0.60); BASOPHIL % 0.2 % (0.0-2.0); EOSINOPHIL % 0.5 % (0-5); HEMATOCRIT 34.7 % (42-52); MEAN CORPUSCULAR HGB CONC 32.6 G/DL (33.0-37.0); MEAN PLATELET VOLUME 9.3 FL (7.4-10.4); RBC DISTRIBUTION WIDTH 17.1 % (11.5-14.5); RED BLOOD CELL CT 3.54 /CUMM (4.70-6.10)
--- NOTE | 2018-03-04 09:17 | PN- Housestaff ---
Mo DUMONT,[facility] 03/04/18 0917: Subjective Follow-up For: Stage IV lung cancer sepsis secondary to pyelonephritis chronic diarrhea Subjective: seen and examined. looks improved, sitting having breakfast, worked with PT earlier today, confused, at bedside Review of Systems Constitutional: Reports: see HPI. Objective Last 24 Hrs of Vital Signs/I&O Vital Signs Date Time Temp Pulse Resp B/P B/P Pulse O2 O2 Flow FiO2 Mean Ox Delivery Rate 03/04 1402 98.8 63 18 153/74 99 Room Air 03/04 0822 98.6 62 22 136/82 99 Room Air 03/04 0600 98.3 66 18 118/62 96 Room Air 03/03 2039 99.0 60 18 114/66 98 Intake & Output 03/04 1600 03/04 0800 03/04 0000 Intake Total 720 240 Output Total 600 Balance 120 240 Intake, Oral 720 240 Number 4 5 Bowel Movements Output, Urine 600 Patient 172 lb Weight Physical Exam General Appearance: Alert, Oriented X3, Cooperative Cardiovascular: Normal S1, Normal S2 Lungs: Clear to Auscultation Abdomen: Soft, No Tenderness Neurological: Normal Speech Extremities: No Edema Current Medications: Current Medications Sig/Monica Start time Last Medication Dose Route Stop Time Status Admin Acetaminophen 650 MG Q8P PRN 03/02 2330 AC PO Bupropion HCl 300 MG QAM 03/03 0900 AC 03/04 PO 0829 Bupropion HCl 150 MG QPM 03/03 0030 AC 03/03 PO 2016 Ceftriaxone Sodium 1,000 MG 2000 03/03 2000 AC 03/03 IV 2016 Desvenlafaxine 100 MG 2100 03/03 2100 AC 03/03 Succinate PO 2016 Lactobacillus 1 CAP DAILY 03/03 09 AC 03/04 Acidophilus PO 0829 Melatonin 5 MG AT BEDTIME 03/03 2100 AC 03/03 PO 2016 Melatonin 5 MG AT BEDTIME PRN 03/03 2015 DC PO Omeprazole 40 MG DAILY AC 03/03 0700 AC 03/04 PO 0527 Potassium Chloride 40 MEQ ONCE ONE 03/03 1700 DC 03/03 PO 03/03 1701 1628 Sodium Chloride 1,000 ML SEE RATE 03/02 2300 DC 03/03 IV 03/03 1859 0103 Last 24 Hrs of Lab/Artur Results Last 24 Hrs of Labs/Mics: Laboratory Tests 03/04/18 0811: Anion Gap 6, Estimated GFR 44 L, BUN/Creatinine Ratio 10.0, Total Bilirubin 0.3 , Direct Bilirubin 0.2, AST 163 H, ALT 201 H, Alkaline Phosphatase 194 H, Total Protein 4.8 L, Albumin 2.2 L 03/04/18 0735: CBC w Diff NO MAN DIFF REQ, RBC 3.54 L, MCV 98.0 H, MCH 32.0 H, MCHC 32.6 L, RDW 17.1 H, MPV 9.3, Gran % 89.0 H, Lymphocytes % 4.5 L, Monocytes % 5.8, Eosinophils % 0.5, Basophils % 0.2, Absolute Granulocytes 12.4 H, Absolute Lymphocytes 0.6 L, Absolute Monocytes 0.8 H, Absolute Eosinophils 0.1, Absolute Basophils 0 Microbiology 03/04 1300 STOOL: Cryptosporidium Antigen - RECD 03/04 1300 STOOL: Giardia Antigen (ARTUR) - RECD 03/04 1300 STOOL: Stool Culture - RECD 03/04 1300 STOOL: Clostridium difficile Toxin A & B - RECD Assessment/Plan Assessment: The patient is a 67-year-old gentleman with past medical history of stage 4 lung cancer s/p Afatinib now on radiation therapy, nephrolithiasis s/p ESWL and stent placements (2016), CKD stage 3, HTN, s/p gastric bypass. he is here for evaluation of fever and right lower quadrant/ flank pain. The patient is admitted to general medicine floor and he seemed being treated and evaluated for following conditions #Sepsis secondary to gram-negative rods with acute pyelonephritis Patient was septic on presentation with fever, tachycardia, elevated white count , source of infection, lactic acidosis, urine culture growing gram-negative rods. CT does not show evidence of obstructive uropathy so urgent need for intervention however perinephric stranding is concerning for pyelonephritis -Switch to oral Augmentum.Complete 14 days total of antibiotic therapy. -Blood cultures no growth so far -Urine cultures positive for Ecoli aand klebsella -Monitor fever and WBC curve improving #Nonobstructing renal stones. Patient has been evaluated by urology do not think any acute intervention is required at this point. - He will follow-up in the outpatient setting for possible cystoscopy evaluation. #CKD stage 3 stable -Continue to monitor -outpt nephro follow up #Thrombocytopenia Secondary to chemo? -Continue to monitor #Stage IV NSCLC: -Radiation today #Transaminitis - Likely due to Afatnib. -No obstructive disease on imaging. #Diarrhea chronic going on for past 12 months according to the . Afatinib has an incidence of diarrhea in over 90% of cases. Hx of gastric bypass surgery -C.diff pending -GI consult #Metabolic acidosis -Lactic acidosis has resolved -Bicarbonate is 20, ongoing concern for diarrhea. it is possible that he is losing bicarbonate because of GI losses and his intial metabolic acidosis was combination of both anion gap and non-anion gap metabolic acidosis with anion gap coming from lactic acidosis and renal failure in non anion gap coming from GI losses -Continue to monitor #Hypokalemia -potassium is 3.3 we will actively replete potassium 40 mEq 2 today #Confusion Patient is alert and oriented during our evaluation he might be confused at home because of ongoing infection at Continue IV antibiotics hold sedative meds #AMS periods of confusion recent CAT scan with onco didnot show mets, possibly 2/2 to infection -MRI recommended but not performed by the oncology service as patient has a metallic lilia implant. -Once he has recovered from his current infection and is no longer acutely ill he may benefit from psychiatric evaluation Diet as tolerated/DVT prophylaxis subcutaneous heparin/ DNR/DNI Problem List: 1. Sepsis Pain Ratin Pain Location: n/a Pain Goal: Pain 4 or less Pain Plan: prn Tomorrow's Labs & Rationales: [facility]fts Taya DUMONT,Lori 03/04/18 1401: Attending MD Review Statement Attending Statement Attending MD Statement: examined this patient, discuss w/resident/PA/CLAY BURNER, agreed w/resident/PA/CLAY BURNER, discussed with family, reviewed EMR data (avail), discussed with nursing, discussed with case mgmt, amended to note Attending Assessment/Plan: Patient seen and examined. present at bedside. Also staff reports that he was agitated overnight requiring a sitter. He continued to have loose bowel movements overnight. This morning however he is slightly more alert compared to yesterday. He engages my conversation today. He is able to answer some questions appropriately although he does have periods of confusion. Assessment and plan. 1. Sepsis secondary to Pyelonephritis. - Patient is currently growing Klebsiella and Escherichia coli. He is currently afebrile. White cell count is trending down.- - Change antibiotic therapy to Augmentin. Complete 14 days total of antibiotic therapy. 2. Nonobstructing renal stones. - Urology consultation noted. No surgical intervention warranted at this time. - He will follow-up in the outpatient setting for possible cystoscopy evaluation. 3. Diarrhea -This is chronic going on for well over 12 months according to the . His oncology service is aware of this. reports that it may be related to his gastric bypass surgery however this was several years ago. -Afatinib has an incidence of diarrhea in over 90% of cases. -Clostridium difficile testing has been ordered. Follow-up results. - Due to the chronicity of his diarrhea recommend consultation with the gastroenterology service. 4. Altered mentation. Patient does have periods of confusion. - is of the believe that he may be developing dementia. She states symptoms have been chronic. She reports that as part of workup the oncology service performed a CT scan of the head last month. It showed grossly no large intracranial mass. MRI was recommended but was not performed by the oncology service as patient has a metallic lilia implant. -Performed Mini-Mental status evaluation. Given his acute illness results may not be conclusive. Inpatient evaluation by the psychiatry service also not likely to be beneficial given his acute illness. Once he has recovered from his current infection and is no longer acutely ill he may benefit from psychiatric evaluation at that time. This was explained to the and she is in agreement with the plan. 5. Chronic kidney disease stage III. - Renal function is currently stable. - is requesting to follow-up with patient's reference investigator Murphy Castillo MD. 6. Thrombocytopenia; chronic -Management per recommendations of the oncology service. 7. Transaminitis - Per this has been elevated in the out-pt setting. - Likely due to Afatnib. -No obstructive disease on imaging.
[2018-03-04 09:45] LABS: PLATELET COUNT 91 /CUMM (130-400)
[2018-03-04 14:02] VITALS: BP 153/74
--- NOTE | 2018-03-04 15:58 | Cons- Gastroenterology ---
General Information and HPI Consulting Request Date of Consult: 03/04/18 Requested By: Lori Bain MD Reason for Consult: 1. Status post gastric bypass 2. Chronic diarrhea 3. Pyelonephritis 4. Metastatic Lung CA, S/P Radiation Tx, ChemoTx Source of Information: electronic medical record History of Present Illness: Mr. Sutherland is a 67 y.o. male with history of gastric bypass, tobacco use , alcohol usage, anxiety, depression, and with stage IV adenocarcinoma of the lung status post afatinib/cetuximab, afatinib, and currently radiation who presented with abdominal pain and fever. He was seen in the office yesterday for fatigue and confusion. He has had ongoing confusion and memory loss off and on. He was recently treated for UTI with ciprofloxacin. Upon admission he had a CT Scan of the abdomen and pelvis, the results are as follows: FINDINGS: LUNG BASES: Focal patchy opacity is seen in the right middle lobe. Minimal bibasilar atelectasis. Coronary artery calcifications. LIVER, GALLBLADDER, AND BILIARY TREE: The liver is normal in size, shape, and attenuation. No focal hepatic lesion or biliary ductal dilatation is present. Cholecystectomy. PANCREAS: Fatty atrophy with no focal abnormality. SPLEEN: Unremarkable. ADRENAL GLANDS: Unremarkable. KIDNEYS AND URETERS: The kidneys are normal in size, shape, and attenuation. No hydronephrosis or hydroureter. Mild bilateral perinephric stranding. 0.2 cm left upper pole renal calculus again noted. There is a 0.3 cm right lower pole calculus. There is a 0.4 cm calcification along the proximal right ureter, unchanged from the prior CT from 07/03/2017. BLADDER: Normally distended without wall thickening. Gas within the bladder lumen, likely associated with catheterization. No inflammatory changes. GASTROINTESTINAL TRACT: Status post gastric sleeve. The small bowel is fluid-filled without abnormal distention. No bowel wall thickening or inflammatory change. Gas and stool throughout the colon. ABDOMINAL WALL: No significant hernia is appreciated. Mild anasarca. LYMPH NODES: Normal. VASCULAR: Moderate atherosclerotic calcifications. Retroaortic left renal vein. IVC filter in place. PELVIC VISCERA: The prostate and seminal vesicles are unremarkable. OSSEOUS STRUCTURES: No acute or suspicious osseous abnormality. Spinal fusion hardware from L3 to L5. Degenerative changes of the right hip. IMPRESSION: Bilateral nonobstructing renal calculi. Calcification along the right ureter proximally is unchanged. Right middle lobe opacity could represent pneumonia or aspiration. Patient has had diarrhea for the past 2 years having 2-3 loose stools, not voluminous during the day as well as 2-3 during the night which awaken him from sleep. History is obtained from his as he is confused. He was seen by Dr. Dias for this problem and underwent EGD and colonoscopy which were unrevealing. She does not believe any lab tests or stool studies were done. He was not treated with antibiotics for this diarrhea. There has been no blood admixed with his stools and no significant abdominal pain. He has had no nausea or vomiting. Allergies/Medications Allergies: Coded Allergies: No Known Allergies (05/07/17) Home Med List: Allopurinol 300 MG TABLET 1 TAB PO DAILY GOUT (Reported) Bupropion HCl (Bupropion XL) 150 MG TAB.ER.24H 1 TAB PO TID MENTAL HEALTH ( Reported) Desvenlafaxine Succinate (Pristiq ER) 100 MG TAB.ER.24H 1 TAB PO DAILY MENTAL HEALTH (Reported) Esomeprazole (Nexium) 40 MG CAPSULE.DR 1 CAP PO BID GERD (Reported) Gabapentin (Neurontin) 300 MG CAPSULE 1 CAP PO QPM NERVE PAIN (Reported) Iron Fumarate/Vit C/Vit B12/FA (Trigels-F Forte Softgel) 460-60MG CAPSULE 1 CAP PO BID SUPPLEMENT (Reported) Lactobacillus Acidophilus (Acidophilus) 1 EACH CAPSULE 1 CAP PO DAILY PROBIOTIC (Reported) Metoprolol Succinate 25 MG TAB 0.5 TAB PO DAILY HEART/BP (Reported) Potassium Chloride 20 MEQ TAB.ER.PRT 1 TAB PO BID SUPPLEMENT (Reported) Current Medications: Current Medications Sig/Monica Start time Last Medication Dose Route Stop Time Status Admin Acetaminophen 650 MG Q8P PRN 03/02 2330 AC PO Amoxicillin/ 875 MG Q12 03/04 1730 UNVr Clavulanate Potassium PO Bupropion HCl 300 MG QAM 03/03 0900 AC 03/04 PO 08 Bupropion HCl 150 MG QPM 03/03 0030 AC 03/03 PO 2016 Ceftriaxone Sodium 1,000 MG 2000 03/03 2000 DC 03/03 IV 2016 Desvenlafaxine 100 MG 2100 03/03 2100 AC 03/03 Succinate PO 2016 Lactobacillus 1 CAP DAILY 03/03 0900 AC 03/04 Acidophilus PO 08 Melatonin 5 MG AT BEDTIME 03/03 2100 AC 03/03 PO 2016 Melatonin 5 MG AT BEDTIME PRN 03/03 2015 DC PO Omeprazole 40 MG DAILY AC 03/03 0700 AC 03/04 PO 526 Sodium Chloride 1,000 ML SEE RATE 03/02 2300 DC 03/03 IV 03/03 1859 0103 Past History Travel History Traveled to [place] past 21 day No Medical History Blood Transfusion Hx: No Neurological: peripheral neuropathy EENT: NONE Cardiovascular: hypertension Respiratory: NONE Gastrointestinal: GASTRIC BYPASS Hepatic: NONE Renal: chronic kidney disease, nephrolithiasis Musculoskeletal: BACK PAIN Psychiatric: anxiety, depression Endocrine: NONE Blood Disorders: NONE Cancer(s): LUNG CA 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 spouse Services at Home: None Primary Language: Iranian Smoking Status: Former Smoker ETOH Use: denies use Illicit Drug Use: denies illicit drug use Functional Ability ADLs Independent: dressing, eating, toileting, bathing. Ambulation: independent IADLs Independent: shopping, housework, finances, food prep, telephone, transportation , medication admin. Review of Systems Review of Systems: Unable to obtain as patient is confused Exam & Diagnostic Data Vital Signs and I&O Vital Signs Date Time Temp Pulse Resp B/P B/P Pulse O2 O2 Flow FiO2 Mean Ox Delivery Rate 03/04 1402 98.8 63 18 153/74 99 Room Air 03/04 0822 98.6 62 22 136/82 99 Room Air 03/04 0600 98.3 66 18 118/62 96 Room Air 03/03 2039 99.0 60 18 114/66 98 Intake & Output 03/04 1600 03/04 0400 03/03 1600 03/03 0400 03/02 1600 03/02 0400 Intake Total 960 1520 2000 Output Total 600 300 276 Balance 360 1220 1724 Intake, IV 700 2000 Intake, Oral 960 820 Number 8 1 2 Bowel Movements Output, Stool 1 Output, Urine 600 300 275 Patient 172 lb 177 lb Weight Weight Reported by Patient Measurement Method Physical Exam General Appearance: no apparent distress, comfortable Head: atraumatic, normal appearance Eyes: Bilateral: normal appearance. Ears, Nose, Throat: hearing grossly normal Neck: supple, full range of motion Respiratory: lungs clear Cardiovascular: regular rate/rhythm Gastrointestinal: normal bowel sounds, soft, non-tender, no organomegaly Extremities: no edema Neurologic/Psych: alert, confused Results Pertinent Lab Results: Laboratory Tests 03/04 03/04 03/04 1704 0811 0735 Chemistry Sodium (137 - 145 mmol/L) 141 Potassium (3.5 - 5.1 mmol/L) 3.8 Chloride (98 - 107 mmol/L) 115 H Carbon Dioxide (22 - 30 mmol/L) 20 L Anion Gap (5 - 16) 6 BUN (9 - 20 mg/dL) 16 Creatinine (0.7 - 1.2 mg/dL) 1.6 H Estimated GFR (>60 ml/min) 44 L BUN/Creatinine Ratio (7 - 25 %) 10.0 Total Bilirubin (0.2 - 1.3 mg/dL) 0.3 Direct Bilirubin (< 0.4 mg/dL) 0.2 AST (17 - 59 U/L) 163 H ALT (21 - 72 U/L) 201 H Alkaline Phosphatase (< 127 U/L) 194 H Total Protein (6.3 - 8.2 g/dL) 4.8 L Albumin (3.5 - 5.0 g/dL) 2.2 L Vitamin B12 (239 - 931 pg/mL) Pending Folate (2.76 - 20.0 ng/mL) Pending Hematology CBC w Diff NO MAN DIFF REQ WBC (4.8 - 10.8 /CUMM) 14.0 H RBC (4.70 - 6.10 /CUMM) 3.54 L Hgb (14.0 - 18.0 G/DL) 11.3 L Hct (42 - 52 %) 34.7 L MCV (80.0 - 94.0 FL) 98.0 H MCH (27.0 - 31.0 PG) 32.0 H MCHC (33.0 - 37.0 G/DL) 32.6 L RDW (11.5 - 14.5 %) 17.1 H Plt Count (130 - 400 /CUMM) 91 L MPV (7.4 - 10.4 FL) 9.3 Gran % (42.2 - 75.2 %) 89.0 H Lymphocytes % (20.5 - 51.1 %) 4.5 L Monocytes % (1.7 - 9.3 %) 5.8 Eosinophils % (0 - 5 %) 0.5 Basophils % (0.0 - 2.0 %) 0.2 Absolute Granulocytes (1.4 - 6.5 /CUMM) 12.4 H Absolute Lymphocytes (1.2 - 3.4 /CUMM) 0.6 L Absolute Monocytes (0.10 - 0.60 /CUMM) 0.8 H Absolute Eosinophils (0.0 - 0.7 /CUMM) 0.1 Absolute Basophils (0.0 - 0.2 /CUMM) 0 Miscellaneous Ref Lab Test Result Pending Other Body Source Stool Lactoferrin Pending 03/03 03/02 0737 2300 Chemistry Sodium (137 - 145 mmol/L) 142 Potassium (3.5 - 5.1 mmol/L) 3.3 L Chloride (98 - 107 mmol/L) 117 H Carbon Dioxide (22 - 30 mmol/L) 18 L Anion Gap (5 - 16) 7 BUN (9 - 20 mg/dL) 18 Creatinine (0.7 - 1.2 mg/dL) 1.5 H Estimated GFR (>60 ml/min) 47 L BUN/Creatinine Ratio (7 - 25 %) 12.0 Lactic Acid (0.7 - 2.1 mmol/L) 1.8 Total Bilirubin (0.2 - 1.3 mg/dL) 0.4 Direct Bilirubin (< 0.4 mg/dL) 0.2 AST (17 - 59 U/L) 12 L ALT (21 - 72 U/L) 67 Alkaline Phosphatase (< 127 U/L) 137 H Total Protein (6.3 - 8.2 g/dL) 4.4 L Albumin (3.5 - 5.0 g/dL) 2.1 L Hematology CBC w Diff NO MAN DIFF REQ WBC (4.8 - 10.8 /CUMM) 16.6 H RBC (4.70 - 6.10 /CUMM) 3.13 L Hgb (14.0 - 18.0 G/DL) 10.0 L Hct (42 - 52 %) 30.7 L MCV (80.0 - 94.0 FL) 98.2 H MCH (27.0 - 31.0 PG) 32.1 H MCHC (33.0 - 37.0 G/DL) 32.7 L RDW (11.5 - 14.5 %) 16.5 H Plt Count (130 - 400 /CUMM) 83 L MPV (7.4 - 10.4 FL) 8.3 Gran % (42.2 - 75.2 %) 86.5 H Lymphocytes % (20.5 - 51.1 %) 5.6 L Monocytes % (1.7 - 9.3 %) 7.6 Eosinophils % (0 - 5 %) 0.3 Basophils % (0.0 - 2.0 %) 0 Absolute Granulocytes (1.4 - 6.5 /CUMM) 14.4 H Absolute Lymphocytes (1.2 - 3.4 /CUMM) 0.9 L Absolute Monocytes (0.10 - 0.60 /CUMM) 1.3 H Absolute Eosinophils (0.0 - 0.7 /CUMM) 0 Absolute Basophils (0.0 - 0.2 /CUMM) 0 03/02 Chemistry Sodium (137 - 145 mmol/L) 139 Potassium (3.5 - 5.1 mmol/L) 3.7 Chloride (98 - 107 mmol/L) 112 H Carbon Dioxide (22 - 30 mmol/L) 16 L Anion Gap (5 - 16) 12 BUN (9 - 20 mg/dL) 19 Creatinine (0.7 - 1.2 mg/dL) 1.6 H Estimated GFR (>60 ml/min) 44 L BUN/Creatinine Ratio (7 - 25 %) 11.9 Glucose (65 - 99 mg/dL) 100 H Lactic Acid (0.7 - 2.1 mmol/L) 3.4 H Calcium (8.4 - 10.2 mg/dL) 7.9 L Total Bilirubin (0.2 - 1.3 mg/dL) 0.5 AST (17 - 59 U/L) 18 ALT (21 - 72 U/L) 80 H Alkaline Phosphatase (< 127 U/L) 182 H Total Protein (6.3 - 8.2 g/dL) 5.6 L Albumin (3.5 - 5.0 g/dL) 2.7 L Globulin (1.9 - 4.2 gm/dL) 2.9 Albumin/Globulin Ratio (1.1 - 2.2 %) 0.9 L Hematology CBC w Diff NO MAN DIFF REQ WBC (4.8 - 10.8 /CUMM) 11.3 H RBC (4.70 - 6.10 /CUMM) 3.70 L Hgb (14.0 - 18.0 G/DL) 11.9 L Hct (42 - 52 %) 36.1 L MCV (80.0 - 94.0 FL) 97.7 H MCH (27.0 - 31.0 PG) 32.2 H MCHC (33.0 - 37.0 G/DL) 32.9 L RDW (11.5 - 14.5 %) 16.7 H Plt Count (130 - 400 /CUMM) 104 L MPV (7.4 - 10.4 FL) 7.8 Gran % (42.2 - 75.2 %) 92.2 H Lymphocytes % (20.5 - 51.1 %) 1.5 L Monocytes % (1.7 - 9.3 %) 6.0 Eosinophils % (0 - 5 %) 0.3 Basophils % (0.0 - 2.0 %) 0 Absolute Granulocytes (1.4 - 6.5 /CUMM) 10.4 H Absolute Lymphocytes (1.2 - 3.4 /CUMM) 0.2 L Absolute Monocytes (0.10 - 0.60 /CUMM) 0.7 H Absolute Eosinophils (0.0 - 0.7 /CUMM) 0 Absolute Basophils (0.0 - 0.2 /CUMM) 0 Urines Urinalysis LIGHT H Urine Color (YEL,AMB,STR) YEL Urine Clarity (CLEAR) HAZY H Urine pH (5.0 - 8.0) 6.0 Ur Specific [place] (1.001 - 1.035) 1.020 Urine Protein (NEG,<30 MG/DL) NEG Urine Ketones (NEG) NEG Urine Nitrite (NEG) POS H Urine Bilirubin (NEG) NEG Urine Urobilinogen (0.1 - 1.0 EU/dl) 0.2 Ur Leukocyte Esterase (NEG) SMALL H Ur Microscopic SEDIMENT EXAMINED Urine RBC (0 - 5 /HPF) RARE Urine WBC (0 - 2 /HPF) 15-25 H Ur Epithelial Cells (NONE,FEW) FEW Urine Crystals 1+ CA OX H Urine Bacteria (NEG/NONE) MANY H Urine Mucus (FEW,NONE) RARE Urine Hemoglobin (NEG) TRACE-INTACT H Urine Glucose (N MG/DL) NEG Assessment/Plan Assessment/Recommendations: ASSESSMENT: 1. Metastatic Lung Cancer 2. Pyelonephritis -- on Augment and Ceftriaxone (Klebsiella and E. Coli) 3. S/P XRT and Chemotherapy (ongoing) 4. S/P Gastric Bypass (1999) had diarrhea briefly after bypass but that resolved soon afterwards. 5. Diarrhea. Had recent Colonoscopy and EGD by Dr. Dias as part of evaluation of diarrhea which were unrevealing. CMV or other mucosal abnormality related to chemo or XRT should have been evident. ? SIBO or other malabsorptive process. Can also consider primary bile acid diarrhea. 6. Confusion. Related to pyelonephritis 7. Abnormal Liver-Associated Enzymes -- These are new elevations in liver enzymes and are likely to the augmentin and ceftriaxone. RECOMMENDATIONS: 1. Obtain old records from Dr. Dias 2. Check B12, Folate, Serum Carotene 3. Stool for fecal fat, pancreatic elastase, lactoferrin 4. After appropriate stool studies have been collected consider a trial of cholestyramine. 5. Consider changing antibiotics given increase in liver associated enzymes. Would follow closely. If they decrease could continue antibiotics. However, if there is a progressive increase would consider using alternative medications. Consult Acknowledgment - Thank you for your consult request.
[2018-03-04 22:20] VITALS: BP 130/70
[2018-03-05 07:09] VITALS: BP 126/67
--- NOTE | 2018-03-05 07:58 | PN- Oncology ---
Subjective Subjective: He feels a little better. His diarrhea is about the same. Confusion is still persistant but slight improved per the . He has no fever or chills. He has decreased appetite. He has no nausea or vomiting. He denies any new pain. Review of Systems Constitutional: Reports: malaise, weakness. Denies: chills, fever. Cardiovascular: Denies: chest pain. Respiratory: Denies: short of breath. Gastrointestinal: Reports: diarrhea, bowel incontinence. Denies: abdominal pain, melena, nausea, bloody stool, vomiting. Genitourinary: Denies: dysuria. Musculoskeletal: Denies: back pain. Neurological/Psychological: Reports: confusion. All Other Systems: Reviewed and Negative Objective Vital Signs and I&Os Vital Signs Date Time Temp Pulse Resp B/P B/P Pulse O2 O2 Flow FiO2 Mean Ox Delivery Rate 03/05 0709 97.2 64 20 126/67 94 03/04 2220 98.4 55 19 130/70 97 Room Air 03/04 1402 98.8 63 18 153/74 99 Room Air 03/04 0822 98.6 62 22 136/82 99 Room Air Intake & Output 03/05 0800 03/05 0000 03/04 1600 03/04 0800 03/04 0000 03/03 1600 Intake Total 200 720 240 800 Output Total 250 461 600 300 Balance -250 -261 120 240 500 Intake, IV 100 Intake, Oral 200 720 240 700 Number 2 2 4 5 1 Bowel Movements Output, Stool 1 Output, Urine 250 460 600 300 Patient 78.188 kg Weight Physical Exam: General Appearance: no apparent distress, alert, comfortable, thin Head: atraumatic, normal appearance Respiratory: chest non-tender, no respiratory distress, quiet respiration Cardiovascular: regular rate/rhythm Abdomen: soft, non-tender, no organomegaly, abnormal bowel sounds (hyperactive) Extremities: no edema Neurologic/Psychiatric: awake, oriented x 3, depressed affect, slow to answer Skin: intact, normal color Current Medications: Current Medications Sig/Monica Start time Last Medication Dose Route Stop Time Status Admin Acetaminophen 650 MG Q8P PRN 03/02 2330 AC PO Amoxicillin/ 875 MG Q12 03/04 1730 AC 03/05 Clavulanate Potassium PO 0022 Bupropion HCl 300 MG QAM 03/03 0900 AC 03/04 PO 0829 Bupropion HCl 150 MG QPM 03/03 0030 AC 03/04 PO 2023 Ceftriaxone Sodium 1,000 MG 03/03 DC 03/03 IV 2016 Desvenlafaxine 100 MG 03/03 AC 03/04 Succinate PO 2023 Lactobacillus 1 CAP DAILY 03/03 09 AC 03/04 Acidophilus PO 828 Melatonin 5 MG AT BEDTIME 03/03 2100 AC 03/04 PO 2023 Melatonin 5 MG AT BEDTIME PRN 03/03 2015 DC PO Omeprazole 40 MG DAILY AC 03/03 07 AC 03/05 PO 600 Ramelteon 8 MG ONCE ONE 03/04 2215 DC PO 03/04 2216 Results Last 24 Hours of Lab Results: Laboratory Tests 03/04 03/04 1704 0811 Chemistry Sodium (137 - 145 mmol/L) 141 Potassium (3.5 - 5.1 mmol/L) 3.8 Chloride (98 - 107 mmol/L) 115 H Carbon Dioxide (22 - 30 mmol/L) 20 L Anion Gap (5 - 16) 6 BUN (9 - 20 mg/dL) 16 Creatinine (0.7 - 1.2 mg/dL) 1.6 H Estimated GFR (>60 ml/min) 44 L BUN/Creatinine Ratio (7 - 25 %) 10.0 Total Bilirubin (0.2 - 1.3 mg/dL) 0.3 Direct Bilirubin (< 0.4 mg/dL) 0.2 AST (17 - 59 U/L) 163 H ALT (21 - 72 U/L) 201 H Alkaline Phosphatase (< 127 U/L) 194 H Total Protein (6.3 - 8.2 g/dL) 4.8 L Albumin (3.5 - 5.0 g/dL) 2.2 L Vitamin B12 (239 - 931 pg/mL) > 1000 H Folate (2.76 - 20.0 ng/mL) > 20.0 H Miscellaneous Ref Lab Test Result Pending Other Body Source Stool Lactoferrin Pending Stl Pancreat Elastase 1 Pending Assessment/Plan Assessment/Recommendations: Mr. Sutherland is a 67 y.o. male with history of gastric bypass, tobacco use , alcohol usage, anxiety, depression, and with stage IV adenocarcinoma of the lung status post afatinib/cetuximab, afatinib, and currently radiation who presented with abdominal pain and fever. Urine culture is positive for Klebsiella and E. coli. He is currently on Augmentin. He was noted to have elevated LFT yesterday. This is new. It may be medication related from antibiotic. He has been off afatinib for almost 2 months. Diarrhea and LFT abnormality are unlikely to be related to the afatinib. Stool study is pending. GI has seen patient. Confusion is of unclear etiology. B12 and folate is normal. He may need MRI of brain with contrast if renal function is stable. There is question of hardware in his back and whether it is possible to even get MRI. Contrast CT would be high risk for this patient with his renal disease. If no obvious etiology for confusion, he may need LP and neurology evaluation. It is unlikely to be completely related to UTI. UTI/Pyelonephritis: -continue current antibiotic as per primary Diarrhea: -follow up stool evaluation -appreciate GI evalaution and assistance -may have a trial of cholestyramine Transaminitis: -monitor LFT Confusion: -avoid sedating medication -check delerium/dementia work up: TSH -MRI brain with contrast if renal function stable (and able with spine hardware) -If no other obvious etiology, may need neurology +/- LP for continued confusion without obvious etiology Stage IV NSCLC: -continue radiation as per radiation oncology Please call [phone] with any questions or concerns. Problem List: 1. CKD (chronic kidney disease) stage 3, GFR 30-59 ml/min 2. Non-small cell lung cancer (NSCLC) 3. UTI (urinary tract infection) 4. Confusion
--- NOTE | 2018-03-05 08:53 | PN- Housestaff ---
Subjective Follow-up For: UTI pyelonephritis and sepsis Subjective: Seen and examined. Resting comfortably. Patient scheduled for radiation therapy around 11 currently his diarrhea is being worked up gastroenterology services are following Review of Systems Constitutional: Reports: see HPI. Objective Last 24 Hrs of Vital Signs/I&O Vital Signs Date Time Temp Pulse Resp B/P B/P Pulse O2 O2 Flow FiO2 Mean Ox Delivery Rate 03/05 1600 98.3 76 20 126/80 96 03/05 0709 97.2 64 20 126/67 94 03/04 2220 98.4 55 19 130/70 97 Room Air Intake & Output 03/05 1600 03/05 0800 03/05 0000 Intake Total 450 200 Output Total 300 250 461 Balance 150 -250 -261 Intake, Oral 450 200 Number 2 2 Bowel Movements Output, Stool 1 Output, Urine 300 250 460 Physical Exam General Appearance: Alert Cardiovascular: Normal S1, Normal S2 Lungs: Normal Air Movement Abdomen: Normal Bowel Sounds Current Medications: Current Medications Sig/Monica Start time Last Medication Dose Route Stop Time Status Admin Acetaminophen 650 MG Q8P PRN 03/02 2330 AC PO Amoxicillin/ 875 MG Q12 03/04 1730 AC 03/05 Clavulanate Potassium PO 08 Bupropion HCl 300 MG QAM 03/03 0900 AC 03/05 PO 0824 Bupropion HCl 150 MG QPM 03/03 0030 AC 03/04 PO 2023 Desvenlafaxine 100 MG 2100 03/03 2100 AC 03/04 Succinate PO 2023 Lactobacillus 1 CAP DAILY 03/03 0900 AC 03/05 Acidophilus PO 0824 Melatonin 5 MG AT BEDTIME 03/03 2100 AC 03/04 PO 2023 Omeprazole 40 MG DAILY AC 03/03 0700 AC 03/05 PO 0601 Ramelteon 8 MG .STK-MED ONE 03/05 0021 DC PO 03/05 0022 Ramelteon 8 MG ONCE ONE 03/04 2215 DC PO 03/04 2216 Last 24 Hrs of Lab/Artur Results Last 24 Hrs of Labs/Mics: Laboratory Tests 03/05/18 0840: Total Bilirubin 0.4, Direct Bilirubin 0.2, AST 48, ALT 136 H, Alkaline Phosphatase 182 H, Total Protein 5.0 L, Albumin 2.3 L Assessment/Plan Assessment: The patient is a 67-year-old gentleman with past medical history of stage 4 lung cancer s/p Afatinib now on radiation therapy, nephrolithiasis s/p ESWL and stent placements (2017), CKD stage 3, HTN, s/p gastric bypass. he is here for evaluation of fever and right lower quadrant/ flank pain. The patient is admitted to general medicine floor and he seemed being treated and evaluated for following conditions #Sepsis secondary to gram-negative rods with acute pyelonephritis Patient was septic on presentation with fever, tachycardia, elevated white count , source of infection, lactic acidosis, urine culture growing gram-negative rods. CT does not show evidence of obstructive uropathy so urgent need for intervention however perinephric stranding is concerning for pyelonephritis -Switch to oral Augmentum.Complete 14 days total of antibiotic therapy. -Blood cultures no growth so far -Urine cultures positive for Ecoli aand klebsella -Monitor fever and WBC curve improving #Nonobstructing renal stones. Patient has been evaluated by urology do not think any acute intervention is required at this point. - He will follow-up in the outpatient setting for possible cystoscopy evaluation. #CKD stage 3 stable -Continue to monitor -outpt nephro follow up #Thrombocytopenia Secondary to chemo? -Continue to monitor #Stage IV NSCLC: -Radiation today #Transaminitis -can be secondary to Afatnib. Acute rise also secondary to ceftriaxone as per GI note -No obstructive disease on imaging. -Continue to monitor #Diarrhea chronic going on for past 12 months according to the . Afatinib has an incidence of diarrhea in over 90% of cases. Hx of gastric bypass surgery. Patient had endoscopy and colonoscopy done recently -Records request has been sent -Stool for fecal fat, pancreatic elastase, lactoferrin -C.diff pending -consider a trial of cholestyramine #Metabolic acidosis -Lactic acidosis has resolved -Bicarbonate is 20, ongoing concern for diarrhea. it is possible that he is losing bicarbonate because of GI losses and his intial metabolic acidosis was combination of both anion gap and non-anion gap metabolic acidosis with anion gap coming from lactic acidosis and renal failure in non anion gap coming from GI losses -Continue to monitor #Hypokalemia -resolved #AMS periods of confusion recent CAT scan with onco didnot show mets, possibly 2/2 to infection -MRI recommended but not performed by the oncology service as patient has a metallic lilia implant. -Once he has recovered from his current infection and is no longer acutely ill he may benefit from psychiatric evaluation Diet as tolerated/DVT prophylaxis subcutaneous heparin/ DNR/DNI Problem List: 1. UTI (urinary tract infection) Pain Ratin Pain Location: n/a Pain Goal: Pain 4 or less Pain Plan: prn Tomorrow's Labs & Rationales: lfts
--- NOTE | 2018-03-05 11:08 | Patient Discharge Instructions ---
Discharge Instructions General Discharge Information You were seen/treated for: Pyelonephritis Special Instructions: Please follow-up with your primary care doctor after discharge Please follow-up with your oncologist after discharge Please follow-up with your radiation oncologist after discharge Please follow-up with gastroenterology after discharge please get blood work done on 03/08/2018 for liver function tests Acute Coronary Syndrome Inclusion Criteria At DC or during hospital stay patient has or had the following: ACS DIAGNOSIS No Discharge Core Measures Meds if any: Prescribed or Continued at Discharge Meds if any: NOT Prescribed or Continued at Discharge Congestive Heart Failure Inclusion Criteria At DC or during hospital stay patient has or had the following: CHF DIAGNOSIS No Discharge Core Measures Meds if any: Prescribed or Continued at Discharge Meds if any: NOT Prescribed or Continued at Discharge Cerebrovascular accident Inclusion Criteria At DC or during hospital stay patient has or had the following: CVA/TIA Diagnosis No Discharge Core Measures Meds if any: Prescribed or Continued at Discharge Meds if any: NOT Prescribed or Continued at Discharge Venous thromboembolism Inclusion Criteria VTE Diagnosis No VTE Type NONE VTE Confirmed by (Test) NONE Discharge Core Measures - Per Current guidelines, there needs to be overlap - treatment for the first 5 days of Warfarin therapy. - If discharged on Warfarin prior to 5 days of - overlap therapy, the patient will need to be - assessed for post discharge needs including - *Post discharge parental anticoagulation - *Warfarin and/or parental anticoagulation education - *Follow up date to check INR post discharge At least 5 days overlap therapy as Inpatient No Meds if any: Prescribed or Continued at Discharge Note: Overlap Therapy is Warfarin and Anticoagulant Meds if any: NOT Prescribed or Continued at Discharge
[2018-03-05] MEDS ORDERED: AUGMENTIN 875-1 EACH PO (14:15)
[2018-03-05 16:00] VITALS: BP 126/80
[2018-03-05 22:00] VITALS: BP 124/72
[2018-03-06 06:52] VITALS: BP 160/84
--- NOTE | 2018-03-06 08:11 | PN- Housestaff ---
Mo DUMONT,[facility] 03/06/18 0811: Subjective Follow-up For: Stage IV lung cancer Chronic diarrhea Elevation of transaminases Subjective: Seen and examined. Patient resting comfortably. at Bedside. To be discharged home today. Review of Systems Constitutional: Reports: see HPI. Objective Last 24 Hrs of Vital Signs/I&O Vital Signs Date Time Temp Pulse Resp B/P B/P Pulse O2 O2 Flow FiO2 Mean Ox Delivery Rate 03/06 0652 97.8 60 20 160/84 97 03/05 2200 98.1 60 20 124/72 96 Room Air Intake & Output 03/06 1600 03/06 0800 03/06 0000 Intake Total 480 250 Output Total 400 Balance 80 250 Intake, IV 0 10 Intake, Oral 480 240 Number 0 0 Bowel Movements Output, Urine 400 Physical Exam General Appearance: No Acute Distress Cardiovascular: Normal S1, Normal S2 Lungs: Clear to Auscultation Abdomen: Normal Bowel Sounds, Soft Current Medications: Current Medications Sig/Monica Start time Last Medication Dose Route Stop Time Status Admin Acetaminophen 650 MG Q8P PRN 03/02 2330 DCD PO Amoxicillin/ 875 MG Q12 03/04 1730 DCD 03/06 Clavulanate Potassium PO 0854 Bupropion HCl 300 MG QAM 03/03 0900 DCD 03/06 PO 0854 Bupropion HCl 150 MG QPM 03/03 0030 DCD 03/05 PO 2040 Desvenlafaxine 100 MG 2100 03/03 2100 DCD 03/05 Succinate PO 2041 Lactobacillus 1 CAP DAILY 03/03 09 DCD 03/06 Acidophilus PO 0854 Melatonin 5 MG AT BEDTIME 03/03 2100 DCD 03/05 PO 2041 Omeprazole 40 MG DAILY AC 03/03 0700 DCD 03/05 PO 0601 Last 24 Hrs of Lab/Artur Results Last 24 Hrs of Labs/Mics: Laboratory Tests 03/06/18 0940: Carotene Pending 03/06/18 0820: Total Bilirubin 0.5, Direct Bilirubin 0.2, AST 45, ALT 126 H, Alkaline Phosphatase 177 H, Total Protein 5.0 L, Albumin 2.3 L Assessment/Plan Assessment: The patient is a 67-year-old gentleman with past medical history of stage 4 lung cancer s/p Afatinib now on radiation therapy, nephrolithiasis s/p ESWL and stent placements (2017), CKD stage 3, HTN, s/p gastric bypass. he is here for evaluation of fever and right lower quadrant/ flank pain. The patient is admitted to general medicine floor and he seemed being treated and evaluated for following conditions #Sepsis secondary to gram-negative rods with acute pyelonephritis Patient was septic on presentation with fever, tachycardia, elevated white count , source of infection, lactic acidosis, urine culture growing gram-negative rods. CT does not show evidence of obstructive uropathy so urgent need for intervention however perinephric stranding is concerning for pyelonephritis -Switch to oral Augmentum.Complete 14 days total of antibiotic therapy. -Blood cultures no growth so far -Urine cultures positive for Ecoli aand klebsella -Monitor fever and WBC curve improving #Nonobstructing renal stones. Patient has been evaluated by urology do not think any acute intervention is required at this point. - He will follow-up in the outpatient setting for possible cystoscopy evaluation. #CKD stage 3 stable -Continue to monitor -outpt nephro follow up #Thrombocytopenia Secondary to chemo? -Continue to monitor #Stage IV NSCLC: -Radiation today #Transaminitis -can be secondary to Afatnib. Acute rise also secondary to ceftriaxone as per GI note -No obstructive disease on imaging. -Continue to monitor -Lfts drawn on Thursday and follow-up with primary care doctor #AMS periods of confusion recent CAT scan with onco didnot show mets, possibly 2/2 to infection -MRI recommended but not performed by the oncology service as patient has a metallic lilia implant. -Once he has recovered from his current infection and is no longer acutely ill he may benefit from psychiatric evaluation #Diarrhea chronic going on for past 12 months according to the . Afatinib has an incidence of diarrhea in over 90% of cases. Hx of gastric bypass surgery. Patient had endoscopy and colonoscopy done recently -Records request has been sent -Stool for fecal fat, pancreatic elastase, lactoferrin -C.diff pending -consider a trial of cholestyramine #Metabolic acidosis resolved #Hypokalemia -resolved Diet as tolerated/DVT prophylaxis subcutaneous heparin/ DNR/DNI Problem List: 1. UTI (urinary tract infection) Pain Ratin Pain Location: n/a Pain Goal: Pain 4 or less Pain Plan: prn Tomorrow's Labs & Rationales: none Tanner Campbell MD 03/06/18 0958: Attending MD Review Statement Attending Statement Attending MD Statement: examined this patient, discuss w/resident/PA/[employer], agreed w/resident/PA/[employer], discussed with family, reviewed EMR data (avail), discussed with nursing, discussed with case mgmt, reviewed images, amended to note Attending Assessment/Plan: Tanner Meléndez M.D. have examined this patient, reviewed available EMR data, personally reviewed images, discussed with resident/PA/MA[employer]GER [employer], discussed management plan with housestaff and nursing staff, discussed managment plan all of healthcare providers, discussed management plan with patient and/or family, agreed with resident/PA/MA[employer]GER [employer]. The past history and parts of the chart have been autopopulated. Impression 67 year old man * hx of lung ca, currently on radiation, s/p chemotherapy * pyelonephritis klebsiella/e.coli - 14 day course of Augmentin - Complicated UTI * transaminitis * focal RML opacity - possible aspiration Plan -LFTs are trending down -continue 14 day course of augmentin -pt wants to be discharged, LFT trend/blood work next week and f/u with GI and PMD dc planning for today
[2018-03-06] MEDS ORDERED: AUGMENTIN 875-1 EACH PO (11:58)
--- NOTE | 2018-03-08 15:38 | Discharge Summary ---
Hospital Course Allergies: Coded Allergies: No Known Allergies (05/07/17) Discharge Instructions Medications at Discharge Discharge Medications: Continue taking these medications: Esomeprazole (Nexium) 40 MG CAPSULE.DR 1 Capsule ORAL TWICE DAILY Qty = 90 Comments: RECEIVED PRILOSEC INPATIENT Last Taken: 03/06/18 Time: 0600 AM Metoprolol Succinate (Metoprolol Succinate) 25 MG TAB 0.5 Tablet ORAL DAILY Qty = 45 Comments: NOT GIVEN IN HOSPITAL Gabapentin (Neurontin) 300 MG CAPSULE 1 Capsule ORAL Every night Comments: NOT GIVEN IN HOSPITAL Desvenlafaxine Succinate (Pristiq ER) 100 MG TAB.ER.24H 1 Tablet ORAL DAILY Qty = 90 Comments: Last Taken: 03/05/18 Time: 8:40 PM Allopurinol (Allopurinol) 300 MG TABLET 1 Tablet ORAL DAILY Qty = 90 Comments: NOT GIVEN IN HOSPITAL Potassium Chloride (Potassium Chloride) 20 MEQ TAB.ER.PRT 1 Tablet ORAL TWICE DAILY Qty = 180 Comments: NOT GIVEN IN HOSPITAL Bupropion HCl (Bupropion XL) 150 MG TAB.ER.24H 1 Tablet ORAL THREE TIMES DAILY Qty = 270 Comments: Last Taken: 03/06/18 Time: 0900 AM Iron Fumarate/Vit C/Vit B12/FA (Trigels-F Forte Softgel) 460-60MG CAPSULE 1 Capsule ORAL TWICE DAILY Qty = 180 Comments: NOT GIVEN IN HOSPITAL Lactobacillus Acidophilus (Acidophilus) 1 EACH CAPSULE 1 Capsule ORAL DAILY Comments: Last Taken: 03/06/18 Time: 0900 AM Start taking the following new medications: Amoxicillin/Potassium Clav (Augmentin 875-125 Tablet) 875 MG-125 MG TABLET 1 Tablet ORAL TWICE DAILY Qty = 19 No Refills Instructions: . Comments: Last Taken: 03/06/18 Time: 0900 AM
== END 2018-03-06 14:26 | disposition home health service (06) | DRG 872 ==
LOC: ERH 17:45 → ERHI 21:54 → 2NB 21:54 → ENRESERV 23:25 → 2NB 03-03 00:08 → ENPENDDIS 03-06 13:32 → 2NB 03-06 14:26
PROVIDERS: Internal Medicine; Physician Assistant
DX: A41.51 Sepsis due to Escherichia coli [E. coli] (principal); C34.90 Malignant neoplasm of unspecified part of unspecified bronchus or lung; N10 Acute pyelonephritis; E87.2 Acidosis; N18.3 Chronic kidney disease, stage 3 (moderate); M10.9 Gout, unspecified; Z96.0 Presence of urogenital implants; Z92.3 Personal history of irradiation; E78.5 Hyperlipidemia, unspecified; Z92.21 Personal history of antineoplastic chemotherapy; Z98.84 Bariatric surgery status; F32.9 Major depressive disorder, single episode, unspecified; F41.9 Anxiety disorder, unspecified; M54.9 Dorsalgia, unspecified; Z98.1 Arthrodesis status; Z66 Do not resuscitate; R19.7 Diarrhea, unspecified; B96.1 Klebsiella pneumoniae [K. pneumoniae] as the cause of diseases classified elsewhere; R74.0 Nonspecific elevation of levels of transaminase and lactic acid dehydrogenase [LDH]; N20.0 Calculus of kidney; R41.82 Altered mental status, unspecified; E87.6 Hypokalemia
CPT/HCPCS: 2NBSP; ERO; 36415; 36592; 71045; 72070; 74176; 81001; 82436; 87015; 87040; 87045; 87070; 87086; 87328; 87329; 87899; 87899-59; 96374; 97110-GO; 97116-GO; 97162-GP; 97530-GO; 99291; J0696; J1644; J3490

== ENCOUNTER 2018-04-24 01:48 | Inpatient (IN) | payer OTHER, MEDICARE ==
[~2018-04-24] VITALS: Ht 190.5 cm; Wt 72.3 kg
--- NOTE | 2018-04-24 02:03 | ED AMS/SEIZURE/WEAK/DIZZY ---
History of Present Illness General Chief Complaint: General Adult Stated Complaint: BIBA PER FAMILY PT AGGRESSIVE Source: patient Exam Limitations: no limitations Vital Signs & Intake/Output Vital Signs & Intake/Output Vital Signs Date Time Temp Pulse Resp B/P B/P Pulse O2 O2 Flow FiO2 Mean Ox Delivery Rate 04/24 0437 97.7 90 18 150/80 98 Room Air 04/24 0151 97.6 89 17 124/83 100 Room Air Allergies Coded Allergies: No Known Allergies (05/07/17) Reconcile Medications Allopurinol 300 MG TABLET 1 TAB PO DAILY GOUT (Reported) Amoxicillin/Potassium Clav (Augmentin 875-125 Tablet) 875 MG-125 MG TABLET 1 TAB PO BID UTI . Bupropion HCl (Bupropion XL) 150 MG TAB.ER.24H 1 TAB PO TID MENTAL HEALTH ( Reported) Desvenlafaxine Succinate (Pristiq ER) 100 MG TAB.ER.24H 1 TAB PO DAILY MENTAL HEALTH (Reported) Esomeprazole (Nexium) 40 MG CAPSULE.DR 1 CAP PO BID GERD (Reported) Gabapentin (Neurontin) 300 MG CAPSULE 1 CAP PO QPM NERVE PAIN (Reported) Iron Fumarate/Vit C/Vit B12/FA (Trigels-F Forte Softgel) 460-60MG CAPSULE 1 CAP PO BID SUPPLEMENT (Reported) Lactobacillus Acidophilus (Acidophilus) 1 EACH CAPSULE 1 CAP PO DAILY PROBIOTIC (Reported) Metoprolol Succinate 25 MG TAB 0.5 TAB PO DAILY HEART/BP (Reported) Potassium Chloride 20 MEQ TAB.ER.PRT 1 TAB PO BID SUPPLEMENT (Reported) Triage Note: PT TO ED BY AMBULANCE FROM HOME. PER EMS, FAMILY STATE PT HAS ALZHEIMERS AND IT IS PROGRESSING. REPORT PT COMABATIVE WITH FAMILY AT TIMES. ARRIVES ALERT, CALM COOPERATIVE AT THIS TIME, ORIENTED TO SELF ONLY. Triage Nurses Notes Reviewed? yes Onset: Gradual Duration: week(s):, waxing and waning Timing: recent history Injury Environment: home Severity: moderate Modifying Factors: Improves With: rest. Associated Symptoms: increasingly aggressive HPI: 68 yo gentleman with alzheimer's dementia, stage iv lung cancer, presents with worsening dementia and growing increasingly agitated, such they the family is no longer able to care for him. Past History Medical History Any Pertinent Medical History? 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 No Review of Systems Review of Systems Constitutional: Reports: no symptoms. EENTM: Reports: no symptoms. Respiratory: Reports: no symptoms. Cardiovascular: Reports: no symptoms. GI: Reports: no symptoms. Genitourinary: Reports: no symptoms. Musculoskeletal: Reports: no symptoms. Skin: Reports: no symptoms. Neurological/Psychological: Reports: no symptoms. Hematologic/Endocrine: Reports: no symptoms. Immunologic/Allergic: Reports: no symptoms. All Other Systems: Reviewed and Negative Physical Exam Physical Exam General Appearance: no apparent distress Comments: Review of Systems - except as otherwise noted in HPI Physical Exam Physical Exam General Appearance: well developed/nourished, no apparent distress Head: atraumatic, normal appearance Eyes: Bilateral: normal appearance. Ears, Nose, Throat: normal pharynx, normal ENT inspection except for mildly dry mucosa Neck: normal inspection, supple, full range of motion Respiratory: normal breath sounds, chest non-tender, no respiratory distress, quiet respiration, lungs clear Cardiovascular: regular rate/rhythm Gastrointestinal: normal bowel sounds, soft, non-tender, no organomegaly Back: normal inspection, normal range of motion Extremities: normal inspection, normal capillary refill, normal range of motion, no edema Neurologic/Psych: no motor/sensory deficits, awake, alert, oriented x 1 (knows name only) Skin: intact, normal color, warm/dry Core Measures ACS in differential dx? No CVA/TIA Diagnosis No Sepsis Present: No Sepsis Focused Exam Completed? No Progress Differential Diagnosis: anemia, dehydration, electrolyte imbalance, hypoglycemia , intracranial Hem., intracranial mass/tumor Plan of Care: Orders Procedure Date/time Status Nothing by Mouth 04/24 B Active BLOOD CULTURE 04/24 520 Active Saline Lock 04/24 518 Active Misc Message 04/24 518 Active ED Holding Orders 04/24 518 Active Admit to inpatient 04/24 518 Active Vital Signs 04/24 518 Active Code Status 04/24 518 Active Add-on Test (ER Only) 04/24 516 Active BLOOD CULTURE 04/24 516 Active URINALYSIS 04/24 234 Complete COMPREHENSIVE METABOLIC PANEL 04/24 203 Complete CBC WITHOUT DIFFERENTIAL 04/24 203 Complete EKG 04/24 203 Active Current Medications Sig/Monica Start time Last Medication Dose Stop Time Status Admin Ceftriaxone Sodium 1,000 MG ONCE ONE 04/24 530 UNVr (Rocephin) 04/24 531 Laboratory Tests 04/24/18 0300: Urine Color YEL, Urine Clarity HAZY H, Urine pH 6.0, Ur Specific [place] 1.010, Urine Protein NEG, Urine Ketones NEG, Urine Nitrite NEG, Urine Bilirubin NEG, Urine Urobilinogen 0.2, Ur Leukocyte Esterase LARGE H, Ur Microscopic SEDIMENT EXAMINED, Urine RBC 1-3, Urine WBC 25-50 H, Ur Epithelial Cells FEW, Urine Bacteria PACKD H, Urine Hemoglobin TRACE-INTACT H, Urine Glucose NEG 04/24/18 0210: Anion Gap 10, Estimated GFR 38 L, BUN/Creatinine Ratio 13.9, Glucose 74, Calcium 8.1 L, Total Bilirubin 0.9, AST 34, ALT 60, Alkaline Phosphatase 212 H , Total Protein 5.3 L, Albumin 2.6 L, Globulin 2.7, Albumin/Globulin Ratio 1.0 L, CBC w Diff MAN DIFF ORDERED, RBC 3.67 L, MCV 97.3 H, MCH 32.7 H, MCHC 33.6, RDW 15.0 H, MPV 7.8, Gran % 86.7 H, Lymphocytes % 6.9 L, Monocytes % 5.5, Eosinophils % 0.8, Basophils % 0.1, Absolute Granulocytes 9.1 H, Absolute Lymphocytes 0.7 L, Absolute Monocytes 0.6, Absolute Eosinophils 0.1, Absolute Basophils 0, Platelet Estimate DECREASED, Normocytic RBCs VERIFIED, Normochromic RBCs VERIFIED Microbiology 04/24 520 BLOOD: Blood Culture - ORD 04/24 516 BLOOD: Blood Culture - ORD Diagnostic Imaging: Viewed by Me: CT Scan. Discussed w/RAD: CT Scan. Radiology Impression: PATIENT: RADHA FOSS PRESENT AGE: 68 PATIENT ACCOUNT NO: [id number] : 52 LOCATION: ER ORDERING PHYSICIAN: Govind Preciado MD SERVICE DATE: 04/24/18 EXAM TYPE: CAT - CT HEAD WO IV CONTRAST EXAMINATION: CT HEAD WITHOUT CONTRAST CLINICAL INFORMATION: Mental status change COMPARISON: 01/19/2018 TECHNIQUE: Contiguous axial imaging was performed from the skull base to vertex without intravenous administration of contrast. DLP: 701.90 mGy-cm FINDINGS: There is no evidence of acute intracranial hemorrhage or territorial infarction. No abnormal mass effect or midline shift is seen. Rosas to white matter differentiation is well preserved. No extra-axial fluid collections are identified. The ventricles are normal in size. There is mild to moderate periventricular white matter hypoattenuation consistent with chronic small vessel ischemic disease. Volume loss is noted. The osseous structures and soft tissues are normal. The mastoid air cells and visualized portions of the paranasal sinuses are well aerated. IMPRESSION: No acute intracranial pathology. Chronic small vessel ischemic disease and volume loss. DICTATED BY: Cory Gutiérrez MD DATE/TIME DICTATED:399 [employer] FABRICATION:KILLIAN DATE/TIME TRANSCRIBED:04/24/18399 CONFIDENTIAL, DO NOT COPY WITHOUT APPROPRIATE AUTHORIZATION. <Electronically signed in Other Vendor System> SIGNED BY: Cory Gutiérrez MD 04/24/18406 Initial ED EKG: sinus rhythm (computer reads junctional... this is likely artifact) Departure Departure Disposition: STILL A PATIENT Condition: Stable Clinical Impression Primary Impression: Change in mental status Secondary Impressions: Chronic renal failure, Lewy body dementia, Urinary tract infection Referrals: Etienne Valdovinos MD (PCP/Family) Departure Forms: Customer Survey General Discharge Information Admission Note Spoke With: Dion Gottlieb MD Documentation of Exam: Documentation of any treatments & extenuating circumstances including Concerns Regarding Discharge (functional status, medication knowledge or non-compliance, living conditions, etc.) that warrant an admission rather than observation: pt with lewy body dementia, stage iv lung cancer, now with increased agitation in the context of a urinary tract infection... pt merits iv fluids, iv abx, likely will need to be placed.
[2018-04-24 02:25] LABS: ABSOLUTE BASOPHIL COUNT 0 /CUMM (0.0-0.2); ABSOLUTE EOSINOPHIL COUNT 0.1 /CUMM (0.0-0.7); ABSOLUTE GRANULOCYTE CT 9.1 /CUMM (1.4-6.5); ABSOLUTE LYMPH COUNT 0.7 /CUMM (1.2-3.4); ABSOLUTE MONOCYTE COUNT 0.6 /CUMM (0.10-0.60); BASOPHIL % 0.1 % (0.0-2.0); EOSINOPHIL % 0.8 % (0-5); GRANULOCYTE % 86.7 % (42.2-75.2); HEMATOCRIT 35.8 % (42-52); MEAN CORPUSCULAR HGB 32.7 PG (27.0-31.0); MEAN CORPUSCULAR HGB CONC 33.6 G/DL (33.0-37.0); MEAN CORPUSCULAR VOLUME 97.3 FL (80.0-94.0); MEAN PLATELET VOLUME 7.8 FL (7.4-10.4); RED BLOOD CELL CT 3.67 /CUMM (4.70-6.10); WHITE BLOOD CELL COUNT 10.5 /CUMM (4.8-10.8)
[2018-04-24 02:41] LABS: PLATELET COUNT 75 /CUMM (130-400)
--- NOTE | 2018-04-24 04:07 | CT SCAN REPORT ---
EXAMINATION: CT HEAD WITHOUT CONTRAST CLINICAL INFORMATION: Mental status change COMPARISON: 01/19/2018 TECHNIQUE: Contiguous axial imaging was performed from the skull base to vertex without intravenous administration of contrast. DLP: 701.90 mGy-cm FINDINGS: There is no evidence of acute intracranial hemorrhage or territorial infarction. No abnormal mass effect or midline shift is seen. Rosas to white matter differentiation is well preserved. No extra-axial fluid collections are identified. The ventricles are normal in size. There is mild to moderate periventricular white matter hypoattenuation consistent with chronic small vessel ischemic disease. Volume loss is noted. The osseous structures and soft tissues are normal. The mastoid air cells and visualized portions of the paranasal sinuses are well aerated. IMPRESSION: No acute intracranial pathology. Chronic small vessel ischemic disease and volume loss.
--- NOTE | 2018-04-24 05:43 | History & Physical ---
Nighat DUMONT,Cyril 04/24/18 0525: General Information and HPI MD Statement: I have seen and personally examined PRUDENCERADHA Connolly and documented this H &P. The patient is a 68 year old M who presented with a patient stated chief complaint of []. Source of Information: patient, old records Exam Limitations: dementia History of Present Illness: The patient is a 67-year-old gentleman with past medical history of stage 4 lung cancer s/p Afatinib and radiation therapy(March 2018), nephrolithiasis s/p ESWL and stent placements (2016), CKD stage 3, HTN, s/p gastric bypass,gout brought to the ED by ambulance as he become more combative with family. We are not able to get in touch with the family. We will try to call them back to get them more information about patient's condition. Past medical history - Bilateral nephrolithiasis status post stent w/ last one placed on the left side on 06/21/2017, Stage III chronic kidney disease. 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 Chronic hypokalemia. Gout. Chronic vertigo. Remote history of substance abuse. Anxiety. Depression. History of mechanical fall Allergies/Medications Home Med list Allopurinol 300 MG TABLET 1 TAB PO DAILY GOUT (Reported) Amoxicillin/Potassium Clav (Augmentin 875-125 Tablet) 875 MG-125 MG TABLET 1 TAB PO BID UTI . Bupropion HCl (Bupropion XL) 150 MG TAB.ER.24H 1 TAB PO TID MENTAL HEALTH ( Reported) Desvenlafaxine Succinate (Pristiq ER) 100 MG TAB.ER.24H 1 TAB PO DAILY MENTAL HEALTH (Reported) Esomeprazole (Nexium) 40 MG CAPSULE.DR 1 CAP PO BID GERD (Reported) Gabapentin (Neurontin) 300 MG CAPSULE 1 CAP PO QPM NERVE PAIN (Reported) Iron Fumarate/Vit C/Vit B12/FA (Trigels-F Forte Softgel) 460-60MG CAPSULE 1 CAP PO BID SUPPLEMENT (Reported) Lactobacillus Acidophilus (Acidophilus) 1 EACH CAPSULE 1 CAP PO DAILY PROBIOTIC (Reported) Metoprolol Succinate 25 MG TAB 0.5 TAB PO DAILY HEART/BP (Reported) Potassium Chloride 20 MEQ TAB.ER.PRT 1 TAB PO BID SUPPLEMENT (Reported) Past History Travel History Traveled to [place] past 21 day No Medical History Neurological: peripheral neuropathy EENT: NONE Cardiovascular: hypertension Respiratory: NONE Gastrointestinal: GASTRIC BYPASS Hepatic: NONE Renal: chronic kidney disease, nephrolithiasis Musculoskeletal: BACK PAIN Psychiatric: anxiety, depression Endocrine: NONE Blood Disorders: NONE Cancer(s): LUNG CA STAGE 4 DIAL BRUSHER/Reproductive: NONE History of MRSA: No History of VRE: No History of CDIFF: No Surgical History Surgical History: BACK FUSION OF L4-6 IVC FILTER Past Family/Social History Family History Relations & Conditions if any FATHER Myocardial infarction Psychosocial History Who Do You Live With? spouse Services at Home: None Primary Language: Maltese ETOH Use: 6 Illicit Drug Use: UTD Functional Ability ADLs Independent: dressing, eating, toileting, bathing. Ambulation: independent IADLs Independent: shopping, housework, finances, food prep, telephone, transportation , medication admin. Review of Systems Review of Systems Constitutional: Reports: no symptoms. Comments cannt comment due to patient clinical condition Exam & Diagnostic Data Last 24 Hrs of Vital Signs/I&O Vital Signs Date Time Temp Pulse Resp B/P B/P Pulse O2 O2 Flow FiO2 Mean Ox Delivery Rate 04/24 0437 97.7 90 18 150/80 98 Room Air 04/24 0151 97.6 89 17 124/83 100 Room Air Intake & Output 04/24 0800 04/24 0000 04/23 1600 Intake Total 1000 Output Total 300 Balance 700 Intake, IV 1000 Intake, Oral 0 Output, Urine 300 Physical Exam General Appearance Alert, No Acute Distress Skin multiple petechie and bruice HEENT Atraumatic, PERRLA, EOMI Neck Supple, No JVD Cardiovascular Normal S1, Normal S2 Lungs Clear to Auscultation, Normal Air Movement Abdomen Soft, No Tenderness Neurological Normal Speech, there was pin rolling tremor Extremities No Clubbing, No Cyanosis, No Edema Last 24 Hrs of Labs/Artur: Laboratory Tests 04/24/18 0300: Urine Color YEL, Urine Clarity HAZY H, Urine pH 6.0, Ur Specific [place] 1.010, Urine Protein NEG, Urine Ketones NEG, Urine Nitrite NEG, Urine Bilirubin NEG, Urine Urobilinogen 0.2, Ur Leukocyte Esterase LARGE H, Ur Microscopic SEDIMENT EXAMINED, Urine RBC 1-3, Urine WBC 25-50 H, Ur Epithelial Cells FEW, Urine Bacteria PACKD H, Urine Hemoglobin TRACE-INTACT H, Urine Glucose NEG 04/24/18 0210: Anion Gap 10, Estimated GFR 38 L, BUN/Creatinine Ratio 13.9, Glucose 74, Calcium 8.1 L, Total Bilirubin 0.9, AST 34, ALT 60, Alkaline Phosphatase 212 H , Total Protein 5.3 L, Albumin 2.6 L, Globulin 2.7, Albumin/Globulin Ratio 1.0 L, CBC w Diff MAN DIFF ORDERED, RBC 3.67 L, MCV 97.3 H, MCH 32.7 H, MCHC 33.6, RDW 15.0 H, MPV 7.8, Gran % 86.7 H, Lymphocytes % 6.9 L, Monocytes % 5.5, Eosinophils % 0.8, Basophils % 0.1, Absolute Granulocytes 9.1 H, Absolute Lymphocytes 0.7 L, Absolute Monocytes 0.6, Absolute Eosinophils 0.1, Absolute Basophils 0, Platelet Estimate DECREASED, Normocytic RBCs VERIFIED, Normochromic RBCs VERIFIED Microbiology 04/24 06 BLOOD: Blood Culture - RECD 04/24 06 BLOOD: Blood Culture - RECD 04/24 0300 URINE ROUT: Urine Culture - RECD Assessment/Plan Assessment: The patient is a 67-year-old gentleman with past medical history of stage 4 lung cancer s/p Afatinib and radiation therapy(March 2018), nephrolithiasis s/p ESWL and stent placements (2016), CKD stage 3, HTN, s/p gastric bypass,gout brought to the ED by ambulance as he become more combative with family. Vital signs at the time of admission-temperature 97.6, pulse 89, respirations 17 , blood pressure 124/80, SPO2 98% on room air. He was given normal saline, ceftriaxone, Zyprexa in the ED. Blood workup-WBC 10.5, hemoglobin 12.0, hematocrit 35.8, platelet count 75,000, granulocyte 86.7, lymphocytes 6.9, sodium 137, petition 3.5, chloride 110, carbon dioxide 17, anion gap 10, BUN 25, creatinine 1.8, glucose 74, calcium 8.1 , total bilirubin 0.9, AST 34, AST 60, alkaline phosphatase 212, total protein 5.3 CT scan of the head-No acute intracranial pathology. Chronic small vessel ischemic disease and volume loss. Assessment and plan- Sepsis of urological origin - * We'll admit the patient to general medicine floor. * IV fluids * Injection ceftriaxone 1 gram IV OD * Social work consult. * STR placement. SHUKRI - * BUN/creatinine-25/1.8; baseline creatinine is between 1.5 to 2. * We will give hydration. Thrombocytopenia-75,000. * We will regularly monitor for bleeding. * He had an episode of blood in the stool, in the ED. * We did guaiac test for stool which was positive. CODE STATUS-full code. Diet -clear liquids DVT prophylaxis-avoid Alps and heparin as patient is having thrombocytopenia As Ranked By This Provider Problem List: 1. UTI (urinary tract infection) 2. Non-small cell lung cancer (NSCLC) 3. CKD (chronic kidney disease) stage 3, GFR 30-59 ml/min 4. Dementia Inpatient Sepsis Exam Sepsis Cardiac Exam: Regular Rate/Rhythm Sepsis Resp Exam: no any crackles or crepts Sepsis Cap Refill Exam: <2 Sec Sepsis Peripheral Pulse Exam: Normal Sepsis Peripheral Pulse Location: none Sepsis Skin Color Exam: Normal for Ethnicity Skin Temp/Moisture Exam: Warm/Dry Core Measures/Misc (06/21) Acute Coronary Syndrome ACS Diagnosis: No Congestive Heart Failure Congestive Heart Failure Diagnosis No Cerebrovascular Accident CVA/TIA Diagnosis: No VTE (View Protocol) VTE Risk Factors Age>40 No Mechanical VTE Prophylaxis d/t N/A MechProphylax Ordered No VTE Pharm Prophylaxis d/t NA PharmProphylax ordered Sepsis (View protocol) Sepsis Present: Yes If YES complete Sepsis Event Note If YES complete Sepsis Event Note Sanjiv Ricardo 04/24/18 0853: General Information and HPI MD Statement: I have seen and personally examined RADHA FOSS and documented this H &P. The patient is a 68 year old M who presented with a patient stated chief complaint of [being brought in for combativeness]. Source of Information: patient, old records Exam Limitations: unable to give history, dementia, poor historian History of Present Illness: The patient is a 67-year-old man with pmh of stage 4 lung cancer s/p Afatinib and radiation therapy(March 2018), nephrolithiasis s/p ESWL and stent placements (2016), CKD stage 3, HTN, s/p gastric bypass,gout brought to the ED by ambulance as he become more combative with family. We are not able to get in touch with the family. We will try to call them back to get them more information about patient's condition. At this time the patient was unable to answer questions related to his present illness appropriately, but was oriented to time, place and person otherwise. Allergies/Medications Allergies: Coded Allergies: No Known Allergies (05/07/17) Past History Medical History Neurological: peripheral neuropathy Cardiovascular: NONE Respiratory: NONE Gastrointestinal: GASTRIC BYPASS Hepatic: NONE Renal: chronic kidney disease, nephrolithiasis Musculoskeletal: BACK PAIN Psychiatric: anxiety, depression Endocrine: NONE Blood Disorders: NONE Past Family/Social History Psychosocial History Who Do You Live With? spouse Services at Home: None Primary Language: Maltese ETOH Use: denies use Illicit Drug Use: denies illicit drug use Functional Ability ADLs Independent: dressing, eating, toileting, bathing. Ambulation: independent IADLs Independent: shopping, housework, finances, food prep, telephone, transportation , medication admin. Review of Systems Review of Systems Constitutional: Reports: no symptoms (pt unable to communicate ). Exam & Diagnostic Data Last 24 Hrs of Vital Signs/I&O Vital Signs Date Time Temp Pulse Resp B/P B/P Pulse O2 O2 Flow FiO2 Mean Ox Delivery Rate 04/24 0724 98.6 76 18 114/78 98 Room Air 04/24 0637 97.5 77 16 116/75 98 Room Air 04/24 0437 97.7 90 18 150/80 98 Room Air 04/24 0151 97.6 89 17 124/83 100 Room Air Intake & Output 04/24 1600 04/24 0800 04/24 0000 Intake Total 1000 Output Total 400 Balance 600 Intake, IV 1000 Intake, Oral 0 Output, Urine 400 Physical Exam General Appearance Alert, Cooperative, No Acute Distress, not entirely oriented Skin bruises, scrapes diffusely distributed Skin Temp/Moisture Exam: Warm/Dry HEENT Atraumatic, PERRLA, EOMI Neck Supple, No JVD, No thryomegaly Cardiovascular Regular Rate, Normal S1, Normal S2, No Murmurs Lungs Clear to Auscultation, Normal Air Movement Abdomen Soft, No Tenderness, No Hepatospenomegaly Neurological Normal Speech, Strength at 5/5 X4 Ext, Normal Tone, Sensation Intact Extremities No Clubbing, No Cyanosis, No Edema Vascular Normal Pulses, Pulses Symmetrical Last 24 Hrs of Labs/Artur: Laboratory Tests 04/24/18 0300: Urine Color YEL, Urine Clarity HAZY H, Urine pH 6.0, Ur Specific [place] 1.010, Urine Protein NEG, Urine Ketones NEG, Urine Nitrite NEG, Urine Bilirubin NEG, Urine Urobilinogen 0.2, Ur Leukocyte Esterase LARGE H, Ur Microscopic SEDIMENT EXAMINED, Urine RBC 1-3, Urine WBC 25-50 H, Ur Epithelial Cells FEW, Urine Bacteria PACKD H, Urine Hemoglobin TRACE-INTACT H, Urine Glucose NEG 04/24/18 0210: Anion Gap 10, Estimated GFR 38 L, BUN/Creatinine Ratio 13.9, Glucose 74, Calcium 8.1 L, Total Bilirubin 0.9, AST 34, ALT 60, Alkaline Phosphatase 212 H , Total Protein 5.3 L, Albumin 2.6 L, Globulin 2.7, Albumin/Globulin Ratio 1.0 L, CBC w Diff MAN DIFF ORDERED, RBC 3.67 L, MCV 97.3 H, MCH 32.7 H, MCHC 33.6, RDW 15.0 H, MPV 7.8, Gran % 86.7 H, Lymphocytes % 6.9 L, Monocytes % 5.5, Eosinophils % 0.8, Basophils % 0.1, Absolute Granulocytes 9.1 H, Absolute Lymphocytes 0.7 L, Absolute Monocytes 0.6, Absolute Eosinophils 0.1, Absolute Basophils 0, Platelet Estimate DECREASED, Normocytic RBCs VERIFIED, Normochromic RBCs VERIFIED Microbiology 04/24 605 BLOOD: Blood Culture - RECD 04/24 600 BLOOD: Blood Culture - RECD 04/24 300 URINE ROUT: Urine Culture - RECD Assessment/Plan Assessment: The patient is a 67-year-old gentleman with pmh of stage 4 lung cancer s/p Afatinib and radiation therapy(March 2018), nephrolithiasis s/p ESWL and stent placements (2016), CKD stage 3, HTN, s/p gastric bypass,gout brought to the ED by ambulance as he become more combative with family. Problem list/plan: Sepsis of urologic origin Thrombocytopenia DVT prophylaxis: Avoid Alps and heparin as patient is having thrombocytopenia Clear liquid diet Patient is full code As Ranked By This Provider Problem List: 1. UTI (urinary tract infection) 2. Non-small cell lung cancer (NSCLC) 3. CKD (chronic kidney disease) stage 3, GFR 30-59 ml/min 4. Dementia Inpatient Sepsis Exam Sepsis Cardiac Exam: Regular Rate/Rhythm Sepsis Resp Exam: no any crackles or crepts Sepsis Cap Refill Exam: <2 Sec Sepsis Peripheral Pulse Exam: Normal Sepsis Peripheral Pulse Location: none Sepsis Skin Color Exam: Normal for Ethnicity Skin Temp/Moisture Exam: Warm/Dry Core Measures/Misc (06/21) Acute Coronary Syndrome ACS Diagnosis: No Congestive Heart Failure Congestive Heart Failure Diagnosis No Cerebrovascular Accident CVA/TIA Diagnosis: No VTE (View Protocol) VTE Risk Factors Cancer/chemo/othr therapy No Mechanical VTE Prophylaxis d/t Medical Contraindication No VTE Pharm Prophylaxis d/t Medical Contraindication Sepsis (View protocol) Sepsis Present: Yes If YES complete Sepsis Event Note If YES complete Sepsis Event Note Carlos DUMONT,Trista 04/24/18 0938: Core Measures/Misc (06/21) Sepsis (View protocol) If YES complete Sepsis Event Note If YES complete Sepsis Event Note Attending MD Review Statement Attending Statement Attending MD Statement: examined this patient, discuss w/resident/PA/MOTORCYCLE SERVICE TECHNICIAN, agreed w/resident/PA/MOTORCYCLE SERVICE TECHNICIAN, reviewed EMR data (avail), discussed with nursing, reviewed images Attending Assessment/Plan: 68-year-old male with advanced lung CA recently completed radiation therapy and history of dementia who is here with acute delirium, combative behavior, UTI and AK I. We need to get more collateral from the family. For now we will bring him into [facility] med, gently hydrate him, get a renal ultrasound to make sure he is not obstructed and treated with IV ceftriaxone for the UTI. The thrombocytopenia does appear chronic but will follow that closely along with his coags. We will continue his other medications, get a PT eval and follow-up
[2018-04-24 09:28] VITALS: BP 120/60
--- NOTE | 2018-04-24 09:37 | Admission Certification ---
Admission Certification Certification Statement - As attending physician, I certify that at the time of - admission, based on clinical presentation, severity of - symptoms, need for further diagnostic testing and - therapeutic interventions, and risk of adverse outcomes - without in-hospital treatment, in my clinical assessment, - this patient requires an acute hospital stay for a minimum - of two nights or longer. I have also considered psychsocial - factors such as support system, advanced age, financial - issues, cognitive issues, and failed out-patient treatments, - past re-admission history, safety of patient, and lack of - compliance as applicable. Specific rationale supporting this admission is: Patient with underlying dementia, here with UTI and mild dehydration
[2018-04-24 13:50] VITALS: BP 100/60
[2018-04-24 22:30] VITALS: BP 102/62
[2018-04-24 23:55] LABS: ABSOLUTE BASOPHIL COUNT 0 /CUMM (0.0-0.2); ABSOLUTE EOSINOPHIL COUNT 0.1 /CUMM (0.0-0.7); ABSOLUTE GRANULOCYTE CT 6.7 /CUMM (1.4-6.5); ABSOLUTE LYMPH COUNT 0.8 /CUMM (1.2-3.4); ABSOLUTE MONOCYTE COUNT 0.5 /CUMM (0.10-0.60); BASOPHIL % 0.3 % (0.0-2.0); EOSINOPHIL % 1.2 % (0-5); GRANULOCYTE % 82.5 % (42.2-75.2); MEAN CORPUSCULAR HGB 32.6 PG (27.0-31.0); MEAN CORPUSCULAR HGB CONC 33.2 G/DL (33.0-37.0); MEAN CORPUSCULAR VOLUME 98.2 FL (80.0-94.0); MEAN PLATELET VOLUME 7.6 FL (7.4-10.4); PLATELET COUNT 66 /CUMM (130-400); RBC DISTRIBUTION WIDTH 15.3 % (11.5-14.5); RED BLOOD CELL CT 3.09 /CUMM (4.70-6.10); WHITE BLOOD CELL COUNT 8.1 /CUMM (4.8-10.8)
[2018-04-25 00:25] LABS: HEMATOCRIT 30.3 % (42-52)
[2018-04-25 06:57] VITALS: BP 100/68
--- NOTE | 2018-04-25 07:31 | Event Note ---
Event Note Event Note: I was called in by the nurses to order a Zyprexa for Mr. Sutherland on insistence from his after they found him hallucinating, He has stage 4 lung cancer s/p Afatinib and radiation therapy(March 2018), nephrolithiasis s/p ESWL and stent placements (2016), CKD stage 3, HTN, s/p gastric bypass,gout. He was admitted to the floor after he became excessively comabative with the family. I went and assessed him twice. On both occassions, he was actively hallucuinating. However, he was not agitated, and was willing to go to sleep. He compalined about feeling excessively cold but was comfortable after I covered him in blankets. I was paged again, with the nurse comaplaining that he was trying to get out of bed. After discussion with Dr. Barrett, I ordered 5mg Melatonin for him. A couple of hours later, the nurse called in to update that he is becoming increasingly comabative, is trying to get out of bed and trying to pull out on his ivs. After further evaluation and discussion with , we prescribed him 2.5mg Zyprexa. That did not calm him down, therefore we agreed to put him on soft restraints.
--- NOTE | 2018-04-25 10:16 | PN- Att Addend ---
Attending Addendum Attending Brief Note Patient seen and examined. Events overnight noted. Patient got very agitated and required antipsychotic medication. He is now in restraints and calmer. On exam blood pressure is 130/70, pulse is 76, breathing at 16-18. Lungs are clear to auscultation, heart is S1-S2 regular, abdomen is soft. 68-year-old male with advanced stage IV lung CA recently completed radiation treatment, CK D with treating for acute delirium, UTI and HPI and CK D. We hydrated him and I'll stop the fluids now. Urine culture is pending and he is on IV ceftriaxone. Will put in a PT eval and if his agitation continues will likely need psychiatry's help.
--- NOTE | 2018-04-25 11:28 | PN- Housestaff ---
Subjective Follow-up For: Acute agitation, UTI Subjective: Patient seen and examined with at bedside. Patient in soft restraints, due to agitation overnight. Per night staff, patient kept trying to get up, attempted without IV, saying that he was not supposed to be here, hallucinating, danger to self and others. Patient occasionally lucid during interview, alert and oriented to person only. Patient states that there is too much stress and he can take it. Patient does complain of some abdominal pain. Patient states that he feels very foggy, and has felt like that for the past 5 years. Spoke with patient's outside of the room, per patient , patient has been recently diagnosed with dementia with Lewy bodies, and was started on Zyprexa by his oncologist Dr. Samantha Jauregui who is treating patient for stage IV lung cancer, on Thursday. Patient's was told to call 911 by the oncologist if patient becomes agitated, as this is happened in the past. Patient's called 911 on Thursday night, as patient was agitated and abusive towards family. Per patient 's , patient has been worse the past week or 2 in mental status. Patient denies other complaints Review of Systems Constitutional: Reports: see HPI. Objective Last 24 Hrs of Vital Signs/I&O Vital Signs Date Time Temp Pulse Resp B/P B/P Pulse O2 O2 Flow FiO2 Mean Ox Delivery Rate 04/25 0940 98.2 64 20 100/68 04/25 0657 98.2 64 20 100/68 98 Room Air 04/24 2230 98.4 68 20 102/62 99 Room Air Intake & Output 04/25 1600 04/25 0800 04/25 0000 Intake Total 700 900 Output Total 500 Balance 700 400 Intake, IV 600 600 Intake, Oral 100 300 Output, Urine 500 Patient 156 lb Weight Physical Exam General Appearance: Alert, No Acute Distress Skin: No Rashes Cardiovascular: Regular Rate, Normal S1, Normal S2 Lungs: Clear to Auscultation, Normal Air Movement Abdomen: tender RLQ Neurological: Sensation Intact Current Medications: Current Medications Sig/Monica Start time Last Medication Dose Route Stop Time Status Admin Allopurinol 300 MG DAILY 04/24 0900 AC 04/25 PO 09 Bupropion HCl 150 MG QPM 04/24 2100 AC 04/24 PO 2035 Bupropion HCl 300 MG QAM 04/24 0925 AC 04/25 PO 0940 Ceftriaxone Sodium 1,000 MG DAILY 04/24 09 AC 04/25 IV 0940 Desvenlafaxine 100 MG QPM 04/25 2100 AC Succinate PO Desvenlafaxine 100 MG 0800 04/25 0800 DC Succinate PO Gabapentin 300 MG QPM 04/24 2100 AC 04/24 PO 2036 Melatonin 5 MG ONCE ONE 04/25 0030 DC 04/25 PO 04/25 0031 0102 Metoprolol Succinate 12.5 MG DAILY 04/24 09 AC 04/25 PO 0940 Olanzapine 5 MG DAILY 04/25 1448 UNVr PO Olanzapine 2.5 MG ONCE ONE 04/25 0430 DC 04/25 PO 04/25 0431 0447 Omeprazole 40 MG BID 04/24 900 AC 04/25 PO 0940 Potassium Chloride 20 MEQ BID 04/24 900 AC 04/25 PO 0940 Sodium Chloride 1,000 ML Q13H 04/24 0715 DC 04/24 IV 2036 Last 24 Hrs of Lab/Artur Results Last 24 Hrs of Labs/Mics: Laboratory Tests 04/24/18 2330: CBC w Diff NO MAN DIFF REQ, RBC 3.09 L, MCV 98.2 H, MCH 32.6 H, MCHC 33.2, RDW 15.3 H, MPV 7.6, Gran % 82.5 H, Lymphocytes % 9.7 L, Monocytes % 6.3, Eosinophils % 1.2, Basophils % 0.3, Absolute Granulocytes 6.7 H, Absolute Lymphocytes 0.8 L, Absolute Monocytes 0.5, Absolute Eosinophils 0.1, Absolute Basophils 0 Assessment/Plan Assessment: The patient is a 67-year-old gentleman with past medical history of stage 4 lung cancer s/p Afatinib and radiation therapy(March 2018), recently diagnosed Dementia with Lewy Bodies, nephrolithiasis s/p ESWL and stent placements (2016), CKD stage 3, HTN, s/p gastric bypass,gout brought to the ED by ambulance as he become more combative with family, admitted for UTI and agitation #UTI -On Ceftriaxone, 1g, day two. -Urine culture contaminated with multiple colonies. Will attempt clean catch assuming patient is cooperative. Unfortunately pt is already on antibiotics and that might impact final C/S -Blood cultures pending #SHUKRI -BUN/creatinine-25/1.8; baseline creatinine is between 1.5 to 2. Will get repeat BEP tomorrow morning -We will give hydration, ideally PO. #Thrombocytopenia-66,000. -We will regularly monitor for bleeding. -He had an episode of blood in the stool, in the ED. -We did guaiac test for stool which was positive. -Will monitor with CBC tomorrow morning #Agitation -Pt is currently on soft restraints due to agitation. Is less agitated when is at bedside -Was recently started on Zyprexa thursday by oncologist. Will continue the outpt medication and recheck EKG tomorrow morning for qtc -Recently diagnosed with Lewy Body Dementia. Will obtain psych consult if agitation persists tonight #Stage IV Lung Cancer in the setting of Lewy Body Dementia - has talked with hospice/palliative care before, but might be a decent idea to see her thoughts on comfort measures vs hospice vs DNR/DNI CODE STATUS-full code. IV Access Diet -clear liquids DVT prophylaxis-avoid Alps and heparin as patient is having thrombocytopenia Problem List: 1. Lewy body dementia 2. Chronic renal failure 3. Change in mental status 4. Dementia Pain Ratin Pain Location: na Pain Goal: Pain 4 or less Pain Plan: pathway Tomorrow's Labs & Rationales: CBC BEP
[2018-04-25 15:15] VITALS: BP 110/70
[2018-04-25 15:18] VITALS: BP 110/70
[2018-04-25 21:20] VITALS: BP 122/84
[2018-04-26 06:17] VITALS: BP 120/58
--- NOTE | 2018-04-26 07:13 | PN- Housestaff ---
See Addendum Sanjiv Ricardo 04/26/18 0712: Subjective Follow-up For: combative/delirious; lung cancer Complaints: having a "rough day" Subjective: She is seen and examined at the bedside. Patient remains in soft restraints. Patient has no major complaints, is looking forward to coming to visit. Later, patient was seen with , and the family requested palliative care consult. Review of Systems Constitutional: Reports: see HPI. Cardiovascular: Reports: no symptoms. Respiratory: Reports: see HPI. Musculoskeletal: Reports: see HPI. Objective Last 24 Hrs of Vital Signs/I&O Vital Signs Date Time Temp Pulse Resp B/P B/P Pulse O2 O2 Flow FiO2 Mean Ox Delivery Rate 04/26 1445 98.0 72 20 132/60 96 Room Air 04/26 0828 62 120/58 04/26 0617 97.4 59 20 120/58 94 Room Air 04/25 2120 97.8 88 18 122/84 96 04/25 1518 98.0 86 21 110/70 97 04/25 1515 98.0 86 21 110/70 97 Intake & Output 04/26 1600 04/26 0800 04/26 0000 Intake Total 240 400 Output Total 400 Balance -160 400 Intake, Oral 240 400 Output, Urine 400 Physical Exam General Appearance: Alert, No Acute Distress, disoriented, somewhat uncooperative Skin: hematomas, scratches, diffusely located Skin Temp/Moisture Exam: Warm/Dry HEENT: Atraumatic, PERRLA, EOMI Neck: Supple, No JVD, No thryomegaly Lymphatic: Cervical nl Cardiovascular: Regular Rate, Normal S1, Normal S2, No Murmurs Lungs: use of accessory muscles Abdomen: Soft, No Tenderness, No Hepatospenomegaly Neurological: largely altered; in soft restraints; limited exam Extremities: No Clubbing, No Cyanosis, No Edema Vascular: Normal Pulses, Pulses Symmetrical Current Medications: Current Medications Sig/Monica Start time Last Medication Dose Route Stop Time Status Admin Allopurinol 300 MG DAILY 04/24 09 AC 04/26 PO 08 Bupropion HCl 150 MG QPM 04/24 2100 AC 04/25 PO 1949 Bupropion HCl 300 MG QAM 04/24 925 AC 04/26 PO 08 Ceftriaxone Sodium 1,000 MG DAILY 04/24 09 AC 04/26 IV 0829 Desvenlafaxine 100 MG QPM 04/25 2100 AC 04/25 Succinate PO 194 Gabapentin 300 MG QPM 04/24 2100 AC 04/25 PO 194 Metoprolol Succinate 12.5 MG DAILY 04/24 900 AC 04/26 PO 08 Olanzapine 5 MG DAILY 04/26 900 AC 04/26 PO 0827 Olanzapine 2.5 MG ONCE ONE 04/25 2215 CAN IM 04/25 2216 Olanzapine 2.5 MG DAILY 04/25 2145 DC 04/25 PO 2204 Olanzapine 2.5 MG ONCE ONE 04/25 2000 DC 04/25 PO 04/25 Olanzapine 5 MG DAILY 04/25 144 DC PO Omeprazole 40 MG BID 04/24 900 AC 04/26 PO 08 Potassium Chloride 20 MEQ BID 04/24 900 AC 04/26 PO 08 Last 24 Hrs of Lab/Artur Results Last 24 Hrs of Labs/Mics: Laboratory Tests 04/26/18 0615: Anion Gap 6, Estimated GFR 43 L, BUN/Creatinine Ratio 10.6, CBC w Diff NO MAN DIFF REQ, RBC 3.20 L, MCV 98.5 H, MCH 32.5 H, MCHC 33.0, RDW 15.3 H, MPV 8.0 , Gran % 81.2 H, Lymphocytes % 8.2 L, Monocytes % 9.3, Eosinophils % 1.1, Basophils % 0.2, Absolute Granulocytes 7.8 H, Absolute Lymphocytes 0.8 L, Absolute Monocytes 0.9 H, Absolute Eosinophils 0.1, Absolute Basophils 0 Assessment/Plan Assessment: The patient is a 67-year-old gentleman with past medical history of stage 4 lung cancer s/p Afatinib and radiation therapy(March 2018), recently diagnosed Dementia with Lewy Bodies, nephrolithiasis s/p ESWL and stent placements (2016), CKD stage 3, HTN, s/p gastric bypass,gout brought to the ED by ambulance as he become more combative with family, admitted for UTI and agitation #UTI -On Ceftriaxone, 1g, day two. -Urine culture contaminated with multiple colonies. Will attempt clean catch assuming patient is cooperative. Unfortunately pt is already on antibiotics and that might impact final C/S -Blood cultures pending #SHUKRI -BUN/creatinine-25/1.8; baseline creatinine is between 1.5 to 2. Will get repeat BEP tomorrow morning -We will give hydration, ideally PO. #Thrombocytopenia-66,000. -We will regularly monitor for bleeding. -He had an episode of blood in the stool, in the ED. -We did guaiac test for stool which was positive. -CBC AND BEP in AM #Agitation -Pt is currently on soft restraints due to agitation. Is less agitated when is at bedside -Was recently started on Zyprexa thursday by oncologist. Will continue the outpt medication and recheck EKG tomorrow morning for qtc -Recently diagnosed with Lewy Body Dementia. psych consult placed for management of delirium/combativeness #Stage IV Lung Cancer in the setting of Lewy Body Dementia - has talked with hospice/palliative care before, and requested consultation now which was placed today CODE STATUS-full code. Diet -clear liquids DVT prophylaxis-avoid Alps and heparin as patient is having thrombocytopenia Problem List: 1. Change in mental status 2. Lewy body dementia 3. Chronic renal failure Pain Ratin Pain Location: none Pain Goal: Remain pain free Pain Plan: none in place, consider placing one after palliative consult Tomorrow's Labs & Rationales: cbc, bep Hira Rendon 04/26/18 1052: Attending MD Review Statement Attending Statement Attending MD Statement: examined this patient, discuss w/resident/PA/PLUMBER CUB, agreed w/resident/PA/PLUMBER CUB, discussed with family, reviewed EMR data (avail), discussed with nursing, discussed with case mgmt, reviewed images, amended to note Attending Assessment/Plan: 68-year-old male with advanced lung CA recently completed radiation therapy and history of fronto temporal dementia who is here with acute delirium, combative behavior, UTI and SHUKRI. Patient is being treated with IV ceftriaxone for the UTI. bedside today and patient is more calm. says he has been getting progressively worse from his underlying illness. Patient provided emotional support. Consult pyshciatry and pallaitive consult. Continue with sitter for now. Continue supproitve care. time spent >37 min..
[2018-04-26 08:30] LABS: ABSOLUTE BASOPHIL COUNT 0 /CUMM (0.0-0.2); ABSOLUTE EOSINOPHIL COUNT 0.1 /CUMM (0.0-0.7); ABSOLUTE GRANULOCYTE CT 7.8 /CUMM (1.4-6.5); ABSOLUTE LYMPH COUNT 0.8 /CUMM (1.2-3.4); ABSOLUTE MONOCYTE COUNT 0.9 /CUMM (0.10-0.60); BASOPHIL % 0.2 % (0.0-2.0); EOSINOPHIL % 1.1 % (0-5); GRANULOCYTE % 81.2 % (42.2-75.2); HEMATOCRIT 31.5 % (42-52); MEAN CORPUSCULAR HGB 32.5 PG (27.0-31.0); MEAN CORPUSCULAR VOLUME 98.5 FL (80.0-94.0); RBC DISTRIBUTION WIDTH 15.3 % (11.5-14.5); WHITE BLOOD CELL COUNT 9.6 /CUMM (4.8-10.8)
[2018-04-26 10:12] LABS: PLATELET COUNT 75 /CUMM (130-400)
--- NOTE | 2018-04-26 12:44 | Cons- Psychiatry ---
Psychiatric Consult Date of Consult: 04/26/18 Reason for Consult: Management of agitation History of Present Illness: Pt is a 68 yo male with a diagnosis of Stage 4 lung Ca and Lewy body dementia. Currently has UTI and PN, on iiv antibiotics. Has been delirious, agitated and combative. Pt non communicative. Spoke w who was at bedside. Lewy body dementia diagnosed last week. Per , dementia has been progressing rapidly and is her main concern. Due to poor quality of life the family is reqyuesting palliative care. As far as can ascertain pt has not been acting as if ther are other people/ things in the room that he can hear or see. Pt has been on antidepressants for many years. No recent med changes. Allergies: Coded Allergies: No Known Allergies (05/07/17) Current Medications: Med Allopurinol 300 MG PO DAILY 04/24/18 0900 Bupropion HCl 300 MG PO QAM 04/24/18 0925 Bupropion HCl 150 MG PO QPM 04/24/18 2100 Ceftriaxone Sodium 1,000 MG IV DAILY 04/24/18 0900 Desvenlafaxine Succinate 100 MG PO QPM 04/25/18 2100 Gabapentin 300 MG PO QPM 04/24/18 2100 Metoprolol Succinate 12.5 MG PO DAILY 04/24/18 0900 Olanzapine 5 MG PO DAILY 04/26/18 0900 Omeprazole 40 MG PO BID 04/24/18 0900 Potassium Chloride 20 MEQ PO BID 04/24/18 0900 Past History Past Medical History Any Pertinent Medical History? 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 Picks atr bedclothes. No meaningful eye contact. Speech ongoing, mumbled, not relevant to situation. Affect agotated. Pt sisoriented. Unable to attend/comcentrate. Noevidence of perceptual abnormality. Judgement impaired. Lab Results: Lab Anion Gap 6 04/26/18614 BUN 17 mg/dL 04/26/18614 Carbon Dioxide 22 mmol/L 04/26/18614 Chloride 113 mmol/L H 04/26/18614 Creatinine 1.6 mg/dL H 04/26/18614 Estimated GFR 43 ml/min L 04/26/18614 Potassium 3.9 mmol/L 04/26/18614 Sodium 141 mmol/L 04/26/18614 Gran % 81.2 % H 04/26/18614 Hct 31.5 % L 04/26/18614 Hgb 10.4 G/DL L 04/26/18614 Lymphocytes % 8.2 % L 04/26/18614 MCH 32.5 PG H 04/26/18614 MCHC 33.0 G/DL 04/26/18614 MCV 98.5 FL H 04/26/18614 MPV 8.0 FL 04/26/18614 Plt Count 75 /CUMM L 04/26/18614 RBC 3.20 /CUMM L 04/26/18614 RDW 15.3 % H 04/26/18614 WBC 9.6 /CUMM 04/26/18614 Diffential Diagnosis: Lewy body dementia wioth superimposed delirium H/O depression Impression: Pt calmer following 5mg olanzapine but remains mildly agitated, constantly mumbling and pulling at bedclothes. Provisional Treatment Plan: 1. Suggest reducing bupropion from 450,g to 300 mg as it may be increasing agitation. 2. Increase olnzapine to 2.5 mg bid with 2.5 mg q4h PRN. Psychiatry will contonue to follow.
--- NOTE | 2018-04-26 13:31 | Cons- Palliative Care ---
General Information and HPI Consulting Request Date of Consult: 04/26/18 Requested By: Hira Rendon MD Reason for Consult: eval for hospice care Source family, old records Exam Limitations confusion, dementia History of Present Illness: Patient is 68-year-old gentleman with past medical history significant for stage IV non-small cell lung cancer status post radiotherapy (March 2018) and immunotherapy (currently not on any chemotherapy), nephrolithiasis s/p ESWL and stent placements (2016), CKD stage 3, HTN, s/p gastric bypass,gout, depression, anxiety, recently diagnosed lewy body dementia who presented to ED for concerns of agitation and worsening dementia. Patient was admitted and treated for UTI and agitation. Patient developed acute delirium with episodes of agitation and unsafe ambulation which required soft wrist restraints and sitter. History obtained from the at bedside who reported recent onset of dementia since December 2016 with slow progression however since the beginning of this year noticed significant decline in the functional status in which patient became very depedent on her for ADL and IADL including walking, patient has history of multiple falls mostly backward falls for which would ask him to crawl to prevent falling. Patient has recent diagnosis of lewy body dementia on Thursday last week by Dr. Wolfe. Patient was started on Zyprexa by the oncologist Dr. Fang on Thursday due to worsening dementia and new onset hallucination and agitation since Thursday last week. Due to unsafe ambulation on Thursday milk receiver tank truck called EMS for help. Patient had recent hospitalization in March 2018 for sepsis of urological origin, at that time was noticed to have altered mental status, CT head was obtained to rule out any metastatic lesion to the brain, thought was altered mental status due to metabolic encephalopathy. During the interview patient was awake however not oriented to person, place or time, not able to recognize his . Patient was not able to answer any of my questions or follow any simple commands, continue to mumble and twist around. Allergies/Medications Allergies: Coded Allergies: No Known Allergies (05/07/17) Home Med List: Allopurinol 300 MG TABLET 1 TAB PO DAILY GOUT (Reported) Amoxicillin/Potassium Clav (Augmentin 875-125 Tablet) 875 MG-125 MG TABLET 1 TAB PO BID UTI . Bupropion HCl (Bupropion XL) 150 MG TAB.ER.24H 1 TAB PO BID Mental Health ( Reported) Desvenlafaxine Succinate (Pristiq ER) 100 MG TAB.ER.24H 1 TAB PO DAILY MENTAL HEALTH (Reported) Esomeprazole (Nexium) 40 MG CAPSULE.DR 1 CAP PO BID GERD (Reported) Gabapentin (Neurontin) 300 MG CAPSULE 1 CAP PO QPM NERVE PAIN (Reported) Iron Fumarate/Vit C/Vit B12/FA (Trigels-F Forte Softgel) 460-60MG CAPSULE 1 CAP PO BID SUPPLEMENT (Reported) Lactobacillus Acidophilus (Acidophilus) 1 EACH CAPSULE 1 CAP PO DAILY PROBIOTIC (Reported) Metoprolol Succinate 25 MG TAB 0.5 TAB PO DAILY HEART/BP (Reported) Olanzapine 2.5 MG TABLET 2.5 MG PO Q4P PRN AGITAT/HALLUCINATION/IRRITABIL Potassium Chloride 20 MEQ TAB.ER.PRT 1 TAB PO BID SUPPLEMENT (Reported) Review of Systems Review of Systems Constitutional: Denies: see HPI. 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 Home Who Do You Live With? spouse Services at Home: None Primary Language: Divehi Smoking Status: Former Smoker ETOH Use: denies use Illicit Drug Use: denies illicit drug use Karnofsky Performance Scale: 20 Living Will? yes Power of Care Director/HCP? yes Functional Ability ADLs Independent: dressing, eating, toileting, bathing. Ambulation: independent IADLs Independent: shopping, housework, finances, food prep, telephone, transportation , medication admin. Exam & Diagnostic Data Last 24 Hrs of Vitals/I&Os: Vital Signs Date Time Temp Pulse Resp B/P B/P Pulse O2 O2 Flow FiO2 Mean Ox Delivery Rate 04/26 0828 62 120/58 04/26 0617 97.4 59 20 120/58 94 Room Air 04/25 2120 97.8 88 18 122/84 96 04/25 1518 98.0 86 21 110/70 97 04/25 1515 98.0 86 21 110/70 97 Intake & Output 04/26 1600 04/26 0800 04/26 0000 Intake Total 240 400 Output Total 400 Balance -160 400 Intake, Oral 240 400 Output, Urine 400 Physical Exam General Appearance: awake, thin, confused Head: atraumatic, normal appearance Ears, Nose, Throat: normal pharynx, normal ENT inspection Neck: normal inspection, supple Respiratory: normal breath sounds, chest non-tender, no respiratory distress Cardiovascular: regular rate/rhythm Gastrointestinal: normal bowel sounds, soft, non-tender Extremities: normal inspection, normal capillary refill, normal range of motion, no edema Neurologic/Psych: awake, disoriented x 3 Assessment/Plan Assessment Patient is 68-year-old gentleman with past medical history significant for stage IV non-small cell lung cancer status post radiotherapy (March 2018) and immunotherapy (currently not on any chemotherapy), nephrolithiasis s/p ESWL and stent placements (2016), CKD stage 3, HTN, s/p gastric bypass,gout, depression, anxiety, recently diagnosed lewy body dementia who presented to ED for concerns of agitation and worsening dementia. Patient was admitted and treated for UTI and agitation. I had a meeting with the patient who is the primary caregiver and the power of occupational health nurse supervisor, she requested palliative care/hospice care evaluation today because she thinks that "patient at terminal stage of dementia and no medication will reverse the process". Patient is totally dependent in ADL and IADL, has episodes of hallucination and agitation. Based on his previous wishes per the , he would like to have comfort care at this point and not to proceed with any aggressive interventions. and the children (2 daughters) had discussed the option of hospice care and they are willing to give Xavier the comfort care at this point. Problem list Progressing dementia Stage IV non-small cell lung cancer status post radiotherapy and immunotherapy Acute delirium Recommendation 1-Obtain hospice care evaluation FOR INPATIENT DRASCO 2-DRN/I WITH NO ESCALATION OF CARE 3-COMFORT CARE IN CASE OF ANY DETEROIATION IN HEALTH SITUATION 4-Given acute delirium, avoid frequent nursing intervention, adequate silence during night time, aggregate nursing/AIDE intervention during awake time. 5-Pastoral Care Patient's Condition: DETERIORTING Prognosis: POOR Case Discussed With: family, house staff, case management Goals of Care: limited medical treatment Consult Acknowledgment - Thank you for your consult request. Attending MD Review Statement Attending Statement Attending MD Statement: examined this patient, discuss w/resident/PA/ADULT EDUCATION MANAGER, agreed w/resident/PA/ADULT EDUCATION MANAGER, discussed with family, reviewed EMR data (avail), discussed w/ nursing, discussed w/case mgmt Attending Assessment/Plan: 68M w/ evidence of metastatic cancer, protracted delirium on top of progressive cognitive decline. Spouse believe patient would want to focus on comfort. She and her daughters are interested in pursuing inpatient hospice care through [facility]
[2018-04-26 14:45] VITALS: BP 132/60
[2018-04-26 21:15] VITALS: BP 140/74
[2018-04-27 06:20] VITALS: BP 116/60
--- NOTE | 2018-04-27 06:52 | PN- Housestaff ---
Sanjiv Ricardo 04/27/18 0652: Subjective Follow-up For: combative/delirious; stage 4 lung cancer Complaints: no complaints (patient more calm today) Subjective: Patient seen and examined at the bedside. Patient seems more calm today, perhaps more somnolent as well. of patient at the bedside as well. Family still desires transport to [facility] for care. Other than changes to psych medications yesterday, no changes to the general plan. Review of Systems Constitutional: Reports: see HPI. Objective Last 24 Hrs of Vital Signs/I&O Vital Signs Date Time Temp Pulse Resp B/P B/P Pulse O2 O2 Flow FiO2 Mean Ox Delivery Rate 04/27 0937 90 110/70 04/27 0620 98.7 102 18 116/60 97 Room Air 04/26 2115 98.9 63 18 140/74 90 04/26 1445 98.0 72 20 132/60 96 Room Air Intake & Output 04/27 1600 04/27 0800 04/27 0000 Intake Total Output Total Balance Number 1 1 Bowel Movements Patient 159 lb Weight Weight Bed scale Measurement Method Physical Exam General Appearance: Cooperative, No Acute Distress, somnolent, calm, without orientation and difficult to assess given lack of verbal communication at this point Skin: No Rashes, No Breakdown Skin Temp/Moisture Exam: Warm/Dry HEENT: Atraumatic, PERRLA, EOMI Neck: Supple, No JVD, No thryomegaly Assessment/Plan Assessment: The patient is a 67-year-old gentleman with past medical history of stage 4 lung cancer s/p Afatinib and radiation therapy(March 2018), recently diagnosed Dementia with Lewy Bodies, nephrolithiasis s/p ESWL and stent placements (2016), CKD stage 3, HTN, s/p gastric bypass,gout brought to the ED by ambulance as he become more combative with family, admitted for UTI and agitation #UTI -On Ceftriaxone, 1g, day two. -Urine culture contaminated with multiple colonies. Will attempt clean catch assuming patient is cooperative. Unfortunately pt is already on antibiotics and that might impact final C/S -Blood cultures pending #SHUKRI -BUN/creatinine-25/1.8; baseline creatinine is between 1.5 to 2. No longer monitoring bc of comfort care -We will give hydration, ideally PO. #Thrombocytopenia-66,000. -He had an episode of blood in the stool, in the ED. -We did guaiac test for stool which was positive. No longer monitoring due to comfort care #Agitation -Pt dc'ed soft restraints. PSM still on. Is less agitated when is at bedside -Was recently started on Zyprexa thursday by oncologist. Will continue the outpt medication and recheck EKG tomorrow morning for qtc -Recently diagnosed with Lewy Body Dementia. psych consult placed for management of delirium/combativeness. Appreciate recs regarding dosage modification of olanzapine and buproprion #Stage IV Lung Cancer in the setting of Lewy Body Dementia - has talked with hospice/palliative care before, and requested consultation now which was placed today -request for [facility] made today; awaiting bed CODE STATUS- Diet -clear liquids DVT prophylaxis-avoid Alps and heparin as patient is having thrombocytopenia Problem List: 1. Lewy body dementia 2. Change in mental status 3. Chronic renal failure 4. Non-small cell lung cancer (NSCLC) 5. Hospice care Pain Ratin Pain Location: none Pain Goal: Remain pain free Pain Plan: comfort care. no pain plan in place but willin gto put on if patient starts experiencing pain Tomorrow's Labs & Rationales: none planned, potential discharge today Discharge Plan Discharge Disposition: awaiting STR/NH placement Stable for Discharge? Yes Anticipated Discharge (Day): today (maybe) If Discharged Today/In 24 Hrs: W-10/discharge paper done, CMR done Hira Rendon 04/27/18 1033: Attending MD Review Statement Attending Statement Attending MD Statement: examined this patient, discuss w/resident/PA/NC MACHINIST, agreed w/resident/PA/NC MACHINIST, discussed with family, reviewed EMR data (avail), discussed with nursing, discussed with case mgmt, reviewed images, amended to note Attending Assessment/Plan: Palliative care noted. Patient is calm and comfortable. Pysch recommendations noted. A consult for transfer to [facility] has been placed by the case management rn, and the patient's code status has been changed to DNR/DNI/do not escalate care pending his transfer. Awaiting bed availability. Continue with supprotive care/do not escalate care.
[2018-04-27] MEDS ORDERED: OLANZAPINE2.5 M1 PO (07:40)
--- NOTE | 2018-04-27 07:41 | Patient Discharge Instructions ---
Discharge Instructions General Discharge Information Special Instructions: - Please continue palliative/hospice care as directed. Diet Continue normal diet: Yes Activity Full Activity/No Limits: No Acute Coronary Syndrome Inclusion Criteria At DC or during hospital stay patient has or had the following: ACS DIAGNOSIS No Discharge Core Measures Meds if any: Prescribed or Continued at Discharge Meds if any: NOT Prescribed or Continued at Discharge Congestive Heart Failure Inclusion Criteria At DC or during hospital stay patient has or had the following: CHF DIAGNOSIS No Discharge Core Measures Meds if any: Prescribed or Continued at Discharge Meds if any: NOT Prescribed or Continued at Discharge Cerebrovascular accident Inclusion Criteria At DC or during hospital stay patient has or had the following: CVA/TIA Diagnosis No Discharge Core Measures Meds if any: Prescribed or Continued at Discharge Meds if any: NOT Prescribed or Continued at Discharge Venous thromboembolism Inclusion Criteria VTE Diagnosis No VTE Type NONE VTE Confirmed by (Test) NONE Discharge Core Measures - Per Current guidelines, there needs to be overlap - treatment for the first 5 days of Warfarin therapy. - If discharged on Warfarin prior to 5 days of - overlap therapy, the patient will need to be - assessed for post discharge needs including - *Post discharge parental anticoagulation - *Warfarin and/or parental anticoagulation education - *Follow up date to check INR post discharge At least 5 days overlap therapy as Inpatient No Meds if any: Prescribed or Continued at Discharge Note: Overlap Therapy is Warfarin and Anticoagulant Meds if any: NOT Prescribed or Continued at Discharge
[2018-04-27 08:21] LABS: ABSOLUTE BASOPHIL COUNT 0 /CUMM (0.0-0.2); ABSOLUTE EOSINOPHIL COUNT 0.2 /CUMM (0.0-0.7); ABSOLUTE GRANULOCYTE CT 9.5 /CUMM (1.4-6.5); ABSOLUTE LYMPH COUNT 0.9 /CUMM (1.2-3.4); ABSOLUTE MONOCYTE COUNT 0.8 /CUMM (0.10-0.60); BASOPHIL % 0.2 % (0.0-2.0); EOSINOPHIL % 1.5 % (0-5); HEMATOCRIT 31.4 % (42-52); MEAN CORPUSCULAR HGB 32.5 PG (27.0-31.0); MEAN CORPUSCULAR HGB CONC 33.3 G/DL (33.0-37.0); MEAN CORPUSCULAR VOLUME 97.8 FL (80.0-94.0); MEAN PLATELET VOLUME 8.2 FL (7.4-10.4); RED BLOOD CELL CT 3.21 /CUMM (4.70-6.10); WHITE BLOOD CELL COUNT 11.4 /CUMM (4.8-10.8)
[2018-04-27 09:01] LABS: PLATELET COUNT 73 /CUMM (130-400)
[2018-04-27 14:28] VITALS: BP 118/62
[2018-04-27 21:23] VITALS: BP 96/54
[2018-04-28 06:20] VITALS: BP 98/60
--- NOTE | 2018-04-28 07:05 | PN- Housestaff ---
Sanjiv Ricardo 04/28/18 0705: Subjective Follow-up For: stage 4 nsclc, worsening ams Complaints: no complaints Subjective: Patient is sedated per comfort measures. No events overnight per nursing report. Review of Systems Constitutional: Reports: no symptoms. Objective Last 24 Hrs of Vital Signs/I&O Vital Signs Date Time Temp Pulse Resp B/P B/P Pulse O2 O2 Flow FiO2 Mean Ox Delivery Rate 04/28 1303 97.7 60 18 98/60 04/28 0620 97.7 60 18 98/60 96 Room Air 04/27 2123 98.0 64 16 96/54 95 Room Air 04/27 1600 Room Air 04/27 1428 98.7 90 18 118/62 94 Room Air Intake & Output 04/28 1600 04/28 0800 04/28 0000 Intake Total 20 20 Output Total Balance 20 20 Intake, IV 20 20 Number 0 1 Bowel Movements Patient 159 lb Weight Physical Exam General Appearance: No Acute Distress, sedated Assessment/Plan Assessment: The patient is a 67-year-old gentleman with past medical history of stage 4 lung cancer s/p Afatinib and radiation therapy(March 2018), recently diagnosed Dementia with Lewy Bodies, nephrolithiasis s/p ESWL and stent placements (2016), CKD stage 3, HTN, s/p gastric bypass,gout brought to the ED by ambulance as he become more combative with family, admitted for UTI and agitation #UTI -On Ceftriaxone, 1g -Blood cultures pending #SHUKRI -BUN/creatinine-25/1.8; baseline creatinine is between 1.5 to 2. No longer monitoring bc of comfort care -We will give hydration, ideally PO. #Thrombocytopenia -He had an episode of blood in the stool, in the ED. -We did guaiac test for stool which was positive. No longer monitoring due to comfort care #Agitation -Pt dc'ed soft restraints and PSM. Is less agitated when is at bedside -All oral medication stopped per comfort care -Recently diagnosed with Lewy Body Dementia. psych consult placed for management of delirium/combativeness. Appreciate psych recs #Stage IV Lung Cancer in the setting of Lewy Body Dementia - has talked with hospice/palliative care before, and requested consultation now which was placed today -request for [facility] made today; awaiting bed CODE STATUS-comfort care only Diet -clear liquids DVT prophylaxis-avoid Alps and heparin as patient is having thrombocytopenia Problem List: 1. Hospice care 2. Lewy body dementia 3. Chronic renal failure 4. Change in mental status 5. Non-small cell lung cancer (NSCLC) Pain Ratin Pain Location: none Pain Goal: comfort care Pain Plan: any medication as needed; preference to morphine Tomorrow's Labs & Rationales: none; discharged Hira Rendon 04/28/18 1117: Attending MD Review Statement Attending Statement Attending MD Statement: examined this patient, discuss w/resident/PA/[employer]PER[employer], agreed w/resident/PA/[employer] OPERATOR, discussed with family, reviewed EMR data (avail), discussed with nursing, discussed with case mgmt, reviewed images, amended to note Attending Assessment/Plan: Patient comfort care, awaiting bed avalability from [facility].
--- NOTE | 2018-04-28 08:47 | Discharge Summary ---
Visit Information Visit Dates Admission Date: 04/24/18 Discharge Date: 04/28/2018 Hospital Course Course Attending Physician: Hira Rendon MD Primary Care Physician: Aruna DUMONT,Etienne Zepeda Hospital Course: The patient is a 67-year-old gentleman with pmh of stage 4 lung cancer s/p Afatinib and radiation therapy(March 2018), nephrolithiasis s/p ESWL and stent placements (2016), CKD stage 3, HTN, s/p gastric bypass,gout brought to the ED by ambulance as he become more combative with family. Problem list/plan: #Sepsis of urological Origin #SHUKRI 2/2 dehydration #Thtrombocytopenia #Lewy body dementia #PMH of stage 4 Lung cancer s/p chemo/radiation, Nephrolithiasis s/p ESWL/stent, CKD stage III, HTN, s/p gastric bypass, Gout Patient was admitted to general medicine and started on antibiotics for sepsis of urological origin, and monitored for bleeding w/ low platelet count, with Guaiac +ve stool. Patient was also given IVF for SHUKRI. During the hospital stay, patient was having intermittent agitation and was given Zyprexa (which was started by his oncologist on the Thursday prior to this admission). Patient was recently diagnosed with Lewy body dementia. Psych consult recommended to increased zyprexa to 2.5mg q4h PRN. Due to patient's comobidities and poor prognosis despite treatments, palliative consult was on board and recommended hospice. Hospice care was on board and arranged for Hospice care at [facility]. CODE STATUS-Comfort Measure to Hospice Diet -clear liquids DVT prophylaxis-avoid Alps and heparin as patient is having thrombocytopenia Allergies: Coded Allergies: No Known Allergies (05/07/17) Pertinent Lab Results: SERVICE DATE: 04/24/18 EXAM TYPE: CAT - CT HEAD WO IV CONTRAST IMPRESSION: No acute intracranial pathology. Chronic small vessel ischemic disease and volume loss. Disposition Summary Disposition Principal Diagnosis: #Sepsis of urological Origin #SHUKRI 2/2 dehydration #Thtrombocytopenia #Lewy body dementia #PMH of stage 4 Lung cancer s/p chemo/radiation, Nephrolithiasis s/p ESWL/stent, CKD stage III, HTN, s/p gastric bypass, Gout Additional Diagnosis: as above Discharge Disposition: hospice - medical facilit Discharge Instructions General Discharge Information Code Status: Hospice Patient's Diet: as tolerated Patient's Activity: as tolerated Follow-Up Instructions/Appts: - Please continue your care at [facility]. Medications at Discharge Discharge Medications: Stop taking the following medications: Esomeprazole (Nexium) 40 MG CAPSULE.DR ORAL TWICE DAILY Qty = 90 Metoprolol Succinate (Metoprolol Succinate) 25 MG TAB ORAL DAILY Qty = 45 Gabapentin (Neurontin) 300 MG CAPSULE ORAL Every night Desvenlafaxine Succinate (Pristiq ER) 100 MG TAB.ER.24H ORAL DAILY Qty = 90 Allopurinol (Allopurinol) 300 MG TABLET ORAL DAILY Qty = 90 Potassium Chloride (Potassium Chloride) 20 MEQ TAB.ER.PRT ORAL TWICE DAILY Qty = 180 Bupropion HCl (Bupropion XL) 150 MG TAB.ER.24H ORAL TWICE DAILY Qty = 270 Iron Fumarate/Vit C/Vit B12/FA (Trigels-F Forte Softgel) 460-60MG CAPSULE ORAL TWICE DAILY Qty = 180 Lactobacillus Acidophilus (Acidophilus) 1 EACH CAPSULE ORAL DAILY Amoxicillin/Potassium Clav (Augmentin 875-125 Tablet) 875 MG-125 MG TABLET ORAL TWICE DAILY Qty = 19 Copies To: Etienne Valdovinos MD Attending MD Review Statement Documenting Attending: Hira Rendon MD Other Findings: Patient accepted to hospcie care at [facility]. HALLUCINATION/IRRITABIL Qty = 20 No Refills Copies To: Etienne Valdovinos MD
[2018-04-28 13:03] VITALS: BP 98/60
--- NOTE | 2018-04-28 14:29 | PN- Palliative Care ---
Subjective Subjective: Patient was seen and examined today. He was evaluated for inpatient hospice care at [facility]. Spoke with the at bedside, patient has been sleeping comfortably most of the day. Patient refused food. Review of Systems Constitutional: Reports: see HPI. Review of Systems: No complaint Objective Last 24 Hrs of Vital Signs/I&O Vital Signs Date Time Temp Pulse Resp B/P B/P Pulse O2 O2 Flow FiO2 Mean Ox Delivery Rate 04/28 1303 97.7 60 18 98/60 04/28 0620 97.7 60 18 98/60 96 Room Air 04/27 2123 98.0 64 16 96/54 95 Room Air 04/27 1600 Room Air 04/27 1428 98.7 90 18 118/62 94 Room Air Intake & Output 04/28 1600 04/28 0800 04/28 0000 Intake Total 20 20 Output Total Balance 20 20 Intake, IV 20 20 Number 0 1 Bowel Movements Patient 72.32 kg Weight Physical Exam: General Sleeping, no acute distress CVS S1, S2 Lungs Clear Abdomen Soft, BS+ LE No edema Current Medications Current Medications: Current Medications Sig/Monica Start time Last Medication Dose Route Stop Time Status Admin Allopurinol 300 MG DAILY 04/24 09 DC 04/27 PO 0937 Bupropion HCl 150 MG QAM 04/27 09 DC PO Bupropion HCl 150 MG QPM 04/24 2100 DC 04/26 PO 2221 Ceftriaxone Sodium 1,000 MG DAILY 04/24 09 DC 04/27 IV 0937 Desvenlafaxine 100 MG QPM 04/25 2100 DC 04/26 Succinate PO 2221 Gabapentin 300 MG QPM 04/24 2100 DC 04/26 PO 2223 Haloperidol 1 MG Q4P PRN 04/27 1345 AC 04/28 IM 0512 Metoprolol Succinate 12.5 MG DAILY 04/24 09 DC 04/27 PO 0937 Morphine Sulfate 2 MG ONCE ONE 04/27 2045 DC 04/27 IV 04/27 Olanzapine 2.5 MG Q4P PRN 04/27 1300 DC 04/27 PO 1319 Omeprazole 40 MG BID 04/24 09 DC 04/27 PO 0938 Patient Medication 1 ED ONE ONE 04/27 1700 DC 04/27 Teaching ED 04/27 1701 1713 Potassium Chloride 20 MEQ BID 04/24 09 DC 04/26 PO 2223 Assessment/Plan Assessment Patient is 68-year-old gentleman with past medical history significant for stage IV non-small cell lung cancer status post radiotherapy (March 2018) and immunotherapy (currently not on any chemotherapy), nephrolithiasis s/p ESWL and stent placements (2016), CKD stage 3, HTN, s/p gastric bypass,gout, depression, anxiety, recently diagnosed lewy body dementia who presented to ED for concerns of agitation and worsening dementia. Patient was admitted and treated for UTI and agitation. Patient has significant decline in cognitive function, stage IV non-small cell cancer and active hallucination. Palliative care was consulted to provide guidance regarding comfort measures that was requested by patient's based on patient's previous life wishes. Patient was evaluated by hospice for inpatient hospice care at [facility]. Patient will be transferred to [facility] at 2 PM this afternoon. Spoke with the and provide supportive care. Family is on agreement on this plan. Patient's Condition: Deteriorting Prognosis: poor Case Discussed With: family, house staff, attending, nurse(s), case management
--- NOTE | 2018-04-28 16:21 | PN- Palliative Care Social Wrk ---
Social Work Assessment/Plan Social Work Assessment/Plan: Late Entry: Aware of patients discharge to [facility] in [place] earlier today. Patient diagnosed with Lewy Body Dementia a few weeks ago. He also has been treated for cancer until recently, but with rapidly declining dementia and functional status. believed that his quality of life was such that comfort care should be considered and was in favor of hospice.
== END 2018-04-28 14:26 | disposition hospice, home (50) | DRG 872 ==
LOC: ERH 01:48 → 2NA 05:18 → ERHI 05:18 → ENRESERV 07:19 → ENTRNSPT 08:16 → EDTRNSPTSTS 08:41 → EDTRNSPT 08:41 → 2NA 08:54 → CMPTRNSPT 09:20 → 2NA 04-25 23:28 → ENPENDDIS 04-28 13:25 → 2NA 04-28 14:26
PROVIDERS: General Practice; Internal Medicine; Internal Medicine Adolescent Medicine; Pediatrics
DX: A41.9 Sepsis, unspecified organism (principal); N39.0 Urinary tract infection, site not specified; C34.90 Malignant neoplasm of unspecified part of unspecified bronchus or lung; F05 Delirium due to known physiological condition; N17.9 Acute kidney failure, unspecified; F02.81 Dementia in other diseases classified elsewhere, unspecified severity, with behavioral disturbance; Z51.5 Encounter for palliative care; N18.3 Chronic kidney disease, stage 3 (moderate); Z92.3 Personal history of irradiation; Z92.21 Personal history of antineoplastic chemotherapy; I12.9 Hypertensive chronic kidney disease with stage 1 through stage 4 chronic kidney disease, or unspecified chronic kidney disease; Z98.84 Bariatric surgery status; F32.9 Major depressive disorder, single episode, unspecified; F41.9 Anxiety disorder, unspecified; G31.83 Neurocognitive disorder with Lewy bodies; Z78.1 Physical restraint status; Z91.81 History of falling; Z98.1 Arthrodesis status; Z95.9 Presence of cardiac and vascular implant and graft, unspecified; M10.9 Gout, unspecified; Z66 Do not resuscitate; D69.6 Thrombocytopenia, unspecified; E86.0 Dehydration; G62.9 Polyneuropathy, unspecified
CPT/HCPCS: 2NAP; 2NASP; 36592; 81001; 82436; 87040; 87086; 93005; 93010; 96360; 97162-GP; 97530-GO; 99232; J0696; J1630; J2270; J3490